=== PATIENT | male | born 1945 | race Caucasian/White ===

== ENCOUNTER → 2017-11-05 12:53 | Outpatient (CLI) | payer OTHER, SELFPAY ==
[2017-11-05 13:24] LABS: Add Manual Diff / Slide Review NO; Basophils Percent Auto 0.6 % (0-2); Hematocrit 46.4 % (41-53); Hemoglobin 16.1 g/dL (13.5-17.5); Lymphocytes Percent Auto 21.8 % (25-40); Mean Corpuscular HGB Conc 34.7 % (30-36); Mean Corpuscular Hemoglobin 34.6 PG (26-34); Mean Corpuscular Volume 99.7 fL (80-100); Monocytes Percent Auto 8.8 % (3-14); Neutrophils Absolute Auto 4600 /uL (3000-5900); Neutrophils Percent Auto 67.8 % (50-75); Platelet Count 152 X10^3/uL (150-400); Red Blood Cell Count 4.65 X10^6/uL (4.5-5.9); Red Cell Distribution Width 13.3 % (11.6-14.8); White Blood Cell Count 6.8 X10^3/uL (4.5-11.0)
[2017-11-05 13:34] LABS: Hemoglobin A1C% w Est Avg Glu 5.9 % (4.0-6.0)
[2017-11-05 13:55] LABS: Blood Urea Nitrogen 16 mg/dL (9-20); Calcium 9.6 mg/dL (8.4-10.2); Carbon Dioxide 25 mmol/L (22-32); Chloride 101 mmol/L (98-107); Estimated Glomerular Filt Rate > 60.0 mL/min (>60); Glucose 124 mg/dL (80-110); HEMOLYSIS 18 (0-50); Potassium 4.3 mmol/L (3.4-5.1); Sodium 138 mmol/L (137-145)
== END ==
PROVIDERS: PCP Family Medicine; Visit Provider Family Medicine
DX: E11.9 Type 2 diabetes mellitus without complications (principal)
CPT/HCPCS: 36415; 80048; 83036; 85025

== ENCOUNTER → 2017-11-12 13:33 | Outpatient (CLI) | payer OTHER, SELFPAY ==
--- NOTE | 2017-11-12 13:34 | DI.US.S_ITS ---
PROCEDURE: US CAROTID DOPPLER BI INDICATIONS: dizzy TECHNIQUE: Color and pulse Doppler interrogation was performed of both carotid systems, with image documentation and velocity measurements. COMPARISON: [facility], US, CAROTID ARTERY DOPPLER BILAT, 01/03/2015, 13:29. FINDINGS: Stenosis calculations are based on SRU (Society of Radiologists in Ultrasound) criteria. Right side: Brachial blood pressure: 122/67 mm Hg. Common carotid artery peak systolic velocity: 107 cm/sec. Internal carotid artery peak systolic velocity: 78 cm/sec. Internal carotid artery end diastolic velocity: 14 cm/sec. External carotid artery peak systolic velocity: 107 cm/sec. ICA/CCA peak systolic ratio: 0.7. Lopez scale imaging description: Mild scattered plaque. Percent internal carotid artery stenosis: Less than 50%. Vertebral artery: Flow direction is antegrade. Left side: Brachial blood pressure: 126/77 mm Hg. Common carotid artery peak systolic velocity: 89 cm/sec. Internal carotid artery peak systolic velocity: 99 cm/sec. Internal carotid artery end diastolic velocity: 25 cm/sec. External carotid artery peak systolic velocity: 81 cm/sec. ICA/CCA peak systolic ratio: 1.1. Lopez scale imaging description: Mild scattered plaque. Percent internal carotid artery stenosis: Less than 50%. Vertebral artery: Flow direction is antegrade. IMPRESSION: Less than 50% bilateral internal carotid artery stenosis. Dictated by: Misael Wallace [facility] Interpreted: Pawan Son MD on 11/12/2017 at 14:52 Approved by: Pawan Son M.D. on 11/13/2017 at 10:38
== END ==
PROVIDERS: PCP Family Medicine; Visit Provider Family Medicine
DX: R42 Dizziness and giddiness (principal)
CPT/HCPCS: 93880

== ENCOUNTER 2017-12-27 13:13 | Emergency (ER) | payer OTHER, SELFPAY ==
--- NOTE | 2017-12-27 | DI.CT.S_ITS ---
PROCEDURE: CT HEAD/BRAIN WO CON INDICATIONS: POSSIBLE STROKE TECHNIQUE: Noncontrast 4.5 mm thick angled axial sections acquired from the foramen magnum to the vertex, with coronal and sagittal reformats. For radiation dose reduction, the following was used: automated exposure control, adjustment of mA and/or kV according to patient size. COMPARISON: [facility], MR, BRAIN W&WO CONTRAST, 06/22/2014, 16:03. [facility], CT, HEAD WITHOUT CONTRAST, 03/10/2014, 13:49. FINDINGS: Image quality: Excellent. CSF spaces: Basal cisterns are patent. No extra-axial fluid collections. There is moderate cerebral volume loss, with resultant ventricular and sulcal prominence. There is also ex vacuo dilatation of the temporal horn of the left lateral ventricle secondary to a prior infarct. Brain: No intracranial hemorrhage, mass, or mass effect. There is encephalomalacia involving the left temporal lobe and insular cortex consistent with sequelae of a prior infarct. Bilateral subcortical and periventricular areas of white matter hyperattenuation are also demonstrated consistent with moderate chronic small vessel ischemic changes. A small focal hypodensity is redemonstrated in the left hudson radiata likely representing prominent perivascular space. Skull and face: Calvarium and visualized facial bones appear intact, without suspicious lesions. Sinuses: Visualized sinuses and mastoids are clear. IMPRESSION: 1. No definite acute intracranial abnormality. 2. Left-sided encephalomalacia predominantly involving the left temporal lobe and insular cortex consistent with sequelae of a prior infarct. 3. Moderate chronic white matter small vessel ischemic changes and cerebral volume loss. If there is persistent clinical suspicion for an acute infarct, further evaluation may be obtained with MRI. Dictated by: Timi Lugo M.D. on 12/27/2017 at 13:41 Approved by: Timi Lugo M.D. on 12/27/2017 at 13:49
[2017-12-27 13:21] VITALS: BP 132/75; PULSE 70; RESP 16; O2SAT 97; BMI 35.4
--- NOTE | 2017-12-27 13:24 | PC.NURSE ---
Code stroke called 1317. R sided numbness and tingling. prev stroke 2011 ischemic w/o tPa. IV access obtained and pt placed on portable monitor and taken down to CT at this time with YAMIL Piedra.
--- NOTE | 2017-12-27 13:29 | PC.NURSE ---
Pt having R sided tingling and numbness this morning LKN 1245. Prev CVA w/o tpa 2010 per . Pt poor historian. Currently being treated for herpes encephalitis.
--- NOTE | 2017-12-27 13:31 | PC.NURSE ---
back from CT at this time.
--- NOTE | 2017-12-27 13:44 | DI.CT.S_ITS ---
PROCEDURE: CT ANGIO HEAD AND NECK INDICATIONS: ?TIA, increased right sided weakness TECHNIQUE: Pre-contrast 4.5 mm thick sections acquired from the foramen magnum to the vertex. After the administration of intravenous contrast, 1 mm thick sections acquired from the aortic arch through the [place] of [place]. Post-contrast 4.5 mm thick sections then re-acquired from the foramen magnum to the vertex. 3-dimensional rmrccyk-vogihxdbm-qgjwlemerx (MIP) and/or volume rendering reformats were acquired of the central intracranial vasculature and neck separately. COMPARISON: [facility], MR, STROKE PROTOCOL A, 07/28/2010, 9:48. [facility], MR, BRAIN WITHOUT CONTRAST, 07/16/2015, 14:27. [facility], CT, CT HEAD/BRAIN WO CON, 12/27/2017, 13:22. FINDINGS: Image quality: Excellent. BRAIN: CSF spaces: There is moderate cerebral volume loss redemonstrated with prominence of the ventricles and sulci. Ex vacuo dilatation of the left lateral ventricle is also again noted. Basal cisterns are patent. Brain: No new intracranial mass effect or mass. There is a region of encephalomalacia predominantly involving the medial left temporal lobe and insular cortex redemonstrated consistent with a prior infarct. No abnormal intracranial enhancement. Moderate chronic white matter small vessel ischemic changes again noted. Skull and face: Calvarium and facial bones appear intact, without suspicious lesions. Orbits appear normal. Sinuses: Sinuses and mastoids are clear. HEAD CT ANGIOGRAPHY: Anterior circulation: Intracranial internal carotid arteries are patent bilaterally. There is multifocal atherosclerotic plaque along the cavernous segments of the internal carotid arteries without focal high-grade stenosis. The paired anterior cerebral arteries are patent bilaterally. The middle cerebral arteries are patent bilaterally. The anterior communicating artery appears patent. No high-grade stenosis, occlusion, or aneurysms identified. Posterior circulation: Visualized portions of the vertebral arteries demonstrate are patent bilaterally and join to form a patent basilar artery. The posterior cerebral arteries are patent bilaterally. No high-grade stenoses, vascular occlusion, or aneurysm identified. NECK CT ANGIOGRAPHY: Carotid system: The great vessels demonstrate conventional anatomy as they arise from the aortic arch. The origins of the common carotid arteries appear patent. The common carotid arteries demonstrate normal caliber and courses. There is mild atherosclerotic plaque in the left carotid bulb with minimal narrowing. The internal carotid arteries demonstrate normal calibers and courses. Posterior circulation: The origins of the vertebral arteries both appear widely patent. The more superior extracranial portions of both vertebral arteries also demonstrate normal courses and calibers. They join to form a normal appearing basilar artery. IMPRESSION: 1. No definite acute intracranial abnormality. 2. No high-grade stenosis or occlusion of the central intracranial arteries. 3. No high-grade stenosis or occlusion of the head and neck arteries. There is minimal narrowing in the left carotid bulb. Any quantitative measurements of stenosis were performed using NASCET criteria. Dictated by: Timi Lugo M.D. on 12/27/2017 at 15:14 Approved by: Timi Lugo M.D. on 12/27/2017 at 15:21
[2017-12-27 13:49] VITALS: BP 130/54; PULSE 64; RESP 17; O2SAT 94
[2017-12-27 13:57] LABS: INR 1.1 (0.9-1.3); Prothrombin Time 11.5 SECONDS (10.1-12.7)
[2017-12-27 13:58] LABS: Add Manual Diff / Slide Review NO; Basophils Percent Auto 0.3 % (0-2); Eosinophils Percent Auto 0.8 % (2-4); Hematocrit 47.8 % (41-53); Hemoglobin 16.7 g/dL (13.5-17.5); Mean Corpuscular Hemoglobin 34.7 PG (26-34); Mean Corpuscular Volume 99.3 fL (80-100); Monocytes Percent Auto 6.1 % (3-14); Neutrophils Absolute Auto 5800 /uL (3000-5900); Neutrophils Percent Auto 73.8 % (50-75); Platelet Count 166 X10^3/uL (150-400); Red Blood Cell Count 4.81 X10^6/uL (4.5-5.9); Red Cell Distribution Width 13.4 % (11.6-14.8); White Blood Cell Count 7.9 X10^3/uL (4.5-11.0)
[2017-12-27 13:59] LABS: Blood Urea Nitrogen 16 mg/dL (9-20); Calcium 9.6 mg/dL (8.4-10.2); Carbon Dioxide 26 mmol/L (22-32); Chloride 100 mmol/L (98-107); Estimated Glomerular Filt Rate > 60.0 mL/min (>60); Glucose 202 mg/dL (80-110); HEMOLYSIS 27 (0-50); Potassium 4.5 mmol/L (3.4-5.1); Sodium 138 mmol/L (137-145)
[2017-12-27 14:00] LABS: PTT Partial Thromboplastin Tim 33 SECONDS (26.4-36.2)
--- NOTE | 2017-12-27 14:00 | PC.NURSE ---
pt states he has no symptoms at this time. Everything has resolved a this time.
[2017-12-27 14:11] LABS: Troponin I < 0.012 ng/mL (0.01-0.034)
[2017-12-27 14:45] VITALS: BP 138/72; PULSE 60; RESP 14; O2SAT 94
[2017-12-27 15:51] LABS: Bacteria Urine None Seen; RBC Urine None Seen (0-5/HPF); WBC Urine None Seen (0-5/HPF)
[2017-12-27 16:07] LABS: Appearance Urine UA CLEAR; Bilirubin Urine UA NEGATIVE (NEGATIVE); Color Urine UA YELLOW; Glucose Urine UA NEGATIVE (Normal); Ketones Urine UA NEGATIVE (NEGATIVE); Leukocyte Esterase Urine UA NEGATIVE (NEGATIVE); Nitrite Urine UA Negative (Negative); Occult Blood Urine UA NEGATIVE (Negative); Protein Urine UA NEGATIVE (Negative); Urobilinogen Urine UA 0.2 E.U./dL (0.2)
[2017-12-27 16:12] LABS: Urine Amphetamines Negative (Negative); Urine Barbiturates Negative (Negative); Urine Benzodiazepines Negative (Negative); Urine Cocaine Negative (Negative); Urine MDMA Negative (Negative); Urine Methadone Negative (Negative); Urine Methamphetamines Negative (Negative); Urine Morphine/Opi cutoff 2000 Negative (Negative); Urine Oxycodone Negative (Negative); Urine Phencyclidine Negative (Negative); Urine Tetrahydrocannabinol Negative (Negative); Urine Tricyclic Antidepressant Negative (Negative)
[2017-12-27 16:17] LABS: Culture Indicated Urine Cult Not Indicated; Squamous Epithelial Cell Urine 1-5 /HPF
--- NOTE | 2017-12-27 16:30 | PC.NURSE ---
PT UPSET HE HAS NOT BEEN SEEN BY PROVIDER TO EXPLAIN CT RESULTS. LISTENED TO PTS CONCERNS. PROVIDER AWARE. NO NEW ORDERS AT THIS TIME.
[2017-12-27 17:00] VITALS: BP 132/92; PULSE 62; RESP 13; O2SAT 95
--- NOTE | 2017-12-27 17:36 | ED_ITS ---
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 Patient denies recent illness, patient is accompanied by his spouse who corroborates history, patient spouse noted that the patient had slight increase right leg weakness while attempting to ambulate. Patient's prior neuro deficits involved right upper and lower extremity weakness. Patient takes no anticoagulation, patient is on long-term valacyclovir. Patient had prominent psychiatric symptoms of the time of his herpes encephalitis, he has had no similar symptoms on today's presentation. M/S/F/SocHx notable for: please see HPI; remainder reviewed with patient and in chart. ROS: Negative constitutional, eye, cardiovascular, pulmonary, GI, , MSK, skin , neurologic, psychiatric, endocrine unless noted in the HPI. Exam Gen: Pleasant, nontoxic-appearing, resting comfortably. HEENT: NC, AT, PEERL, EOMI. Resp: Clear to auscultation bilaterally, normal work of breathing, no accessory muscle usage. Card: Regular rate and rhythm with no murmurs, rubs, or gallops, extremities warm and well perfused. GI: Non-tender to palpation throughout all quadrants, no focal tenderness at McBurney's point, negative Cage's sign, non-distended, no rebound or guarding. : No suprapubic tenderness to palpation. MSK: No visible deformities, strength and tone without visually appreciable deficit. Skin: Normal color with no visible lesions. Neuro: Gen AO x 3, no facial asymmetry, no gaze preference, no slurring of speech. CN II-III: pupils equal and reactive (4->2mm bilaterally); III, IV, : EOMI, V1-V3: sensation to touch bilaterally intact; VII: no facial asymmetry ( frown / smile); VIII: no nystagmus; X: phonation intact, uvula midline; XI: trapezius 5/5 bilaterally, XII: tongue midline. Cerebellar: no pronator drift bilaterally, feckpx-nm-[id number] testing without dysmetria bilaterally, heel to [place] without dysmetria bilaterally. Patient with a prominent right hand resting tremor that suppresses with movement. Motor: bilateral 5/5 desktop support specialist strength and intact hand sensation to touch, bilateral 5/5 dorsiflexion/plantarflexion and foot sensation intact to touch. Psych: Mood and affect appropriate. Labs (pertinent): glucose 202 WBC 7.9, Hb 16.7, PLT 166, Na 138, K 4.5, Cr 1.00. Troponin < 0.012 PT/INR 1.1, aPTT 33 Imaging (pertinent): CT Head: no definite acute intracranial abnormality. Left sided encephalomalacia predominantly involving the left temporal lobe and insular cortex consistent with sequela of prior infarct. Moderate chronic white matter small vessel ischemic changes and cerebral volume loss. CTA Head and Neck: no definite acute intracranial abnormality. No high-grade stenoses or inclusion of the central intracranial arteries. No high-grade stenoses or occlusion of the head and neck arteries. There is minimal narrowing of the left carotid bulb. EKG: SR at [address]-segment elevations or depressions, T-wave inversions or new LBBB. UA - negative leukocyte esterase, negative nitrate, 1-5 squamous epithelial cells, no bacteria. MDM Previous chart, nursing note, labs, imaging, and vitals reviewed. 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 DDx: CVA (hemorrhagic, ischemic), TIA, seizure with Star?s paralysis, complex migraine with aura, hypoglycemia, transient global amnesia, arrhythmia/ACS, peripheral vestibulopathy, functional / conversion disorder, intracranial mass ( tumor, SDH), metabolic. Evaluation: * discussed at approximately 1:48 PM with the Tele neurologist on-call, TPA not indicated, patient unlikely to be having ischemic CVA given the positive symptoms (rather than absence of neuro symptoms), furthermore in the unlikely event of a true ischemic CVA the mildness of the symptoms as well as abnormal ST[employer]CH[employer]ICIAN parenchyma makes the patient a poor candidate for TPA and it is not indicated. * Patient with resolution of symptoms, while this lease TIA on the differential the initial presentation was felt to be highly unlikely to be secondary to the ischemic event making this less likely. A recrudescence the patient's prior cerebral abnormalities is more likely. No clear insulting events could be identified. CTA head without evidence of stenoses. ECG without evidence of arrhythmia, no abnormal rhythms of monitoring. Patient is felt to be low risk with respect to near future CVAs. History is without evidence of seizure, no clear evidence of complex migraine with aura, no evidence of hypoglycemia, transient global amnesia, peripheral vestibulopathy, or functional disorder. Imaging without evidence of intracranial mass. History and exam are without features concerning for Mollaret syndrome. Repeat evaluation approximately 5:30 PM patient with full resolution symptoms (early in his ED course), all questions answered, discussed admission versus prompt outpatient follow-up. Reviewed the low, but not entirely absent, probability of a TIA. Patient wishes to follow up tomorrow with his neurologist. Has had extensive prior imaging on MRI at , his neurologist is noted that he prefer subsequent imaging to be on the same machine to allow for appropriate comparison. Patient was discharged with neurology follow-up recommended and return to care precautions provided. Impression: right arm paresthesias (resolved) (please reference below for remainder of encounter information) Related Data Home Medications Medication Instructions Recorded Confirmed ASPIRIN (Aspir-Low) 81 mg PO Q DAY #0 12/12/10 12/03/17 carbidopa-levodopa 0 PO TID #0 tab 10/24/16 12/03/17 valacyclovir 500 mg tablet 500 mg PO DAILY 11/05/17 12/03/17 Previous Rx's Medication Instructions Recorded nystatin [Nystop] 100,000 unit TOPICAL BID #30 gm 10/21/16 lacosamide [Vimpat] 200 mg PO BID #180 tab 12/05/16 atenolol 75 mg PO BID #270 tab 03/03/17 finasteride 5 mg PO QDAY #90 tab 03/03/17 pantoprazole [Protonix] 40 mg PO QDAY #30 tab 07/14/17 levothyroxine [Synthroid] 75 mcg PO Q DAY #90 tab 08/04/17 metformin [Glucophage] 250 mg PO QDAY #45 tab 08/04/17 atorvastatin 10 mg tablet 10 mg PO HS #90 tab 11/03/17 furosemide 40 mg tablet 40 mg PO QDAY PRN #30 tab 11/05/17 losartan 25 mg tablet 25 mg PO DAILY #30 tab 11/05/17 dextroamphetamine-amphetamine 20 20 mg PO DAILY #30 tab 12/03/17 mg tablet escitalopram 10 mg tablet 30 mg PO DAILY #180 tab 12/03/17 Allergies Allergy/AdvReac Type Severity Reaction Status Date / Time No Known Drug Allergies Allergy Unverified 11/05/17 11:59 [facility] Social History Smoking Status: Never smoker Exam Initial Vital Signs Initial Vital Signs: Vital Signs Pulse Rate 70 12/27/17 13:21 Respiratory Rate 16 12/27/17 13:21 Blood Pressure 132/75 H 12/27/17 13:21 Pulse Oximetry 97 12/27/17 13:21 Course Orders Ordered: ED Orders 12/27/17 13:22 Basic Metabolic Panel Stat Complete Blood Count AUTO DIFF Stat Partial Thromboplastin Time Stat Prothrombin Time INR Stat Troponin I Stat 12/27/17 13:43 EKG-12 Lead Stat 12/27/17 13:44 CT angio head and neck Stat 12/27/17 15:45 Urinalysis and Microscopic Stat Urine Drug Screen, Rapid Stat Sodium Chloride (Normal Saline 0.9%) 1,000 mls @ 150 mls/hr IV CONT MITESH Last Admin: 12/27/17 13:51 Dose: Vital Signs - 8 hr 12/27/17 13:21 12/27/17 13:49 12/27/17 14:45 Pulse Rate 70 64 60 Respiratory Rate 16 17 14 Blood Pressure 132/75 H Blood Pressure [Left Arm] 130/54 H 138/72 H Pulse Oximetry 97 94 94 12/27/17 17:00 Pulse Rate 62 Respiratory Rate 13 Blood Pressure Blood Pressure [Left Arm] 132/92 H Pulse Oximetry 95 MDM - Neuro Symptoms/Deficit Lab Data Result diagrams: 12/27/17 13:22 12/27/17 13:22 Lab Results 12/27/17 12/27/17 12/27/17 Range/Units 13:22 13:22 13:22 WBC 7.9 (4.5-11.0) X10^3/uL RBC 4.81 (4.5-5.9) X10^6/uL Hgb 16.7 (13.5-17.5) g/dL Hct 47.8 (41-53) % MCV 99.3 (80-100) fL MCH 34.7 H (26-34) PG MCHC 35.0 (30-36) % RDW 13.4 (11.6-14.8) % Plt Count 166 (150-400) X10^3/uL Neut % (Auto) 73.8 (50-75) % Lymph % (Auto) 19.0 L (25-40) % [place] % (Auto) 6.1 (3-14) % Eos % (Auto) 0.8 L (2-4) % Baso % (Auto) 0.3 (0-2) % Neut # (Auto) 5800 (7627-0651) /uL PT 11.5 (10.1-12.7) SECONDS INR 1.1 (0.9-1.3) APTT 33 (26.4-36.2) SECONDS Sodium 138 (137-145) mmol/L Potassium 4.5 (3.4-5.1) mmol/L Chloride 100 (98-107) mmol/L Carbon Dioxide 26 (22-32) mmol/L BUN 16 (9-20) mg/dL Creatinine 1.00 (0.66-1.25) mg/dL Estimated GFR > 60.0 (>60) mL/min BUN/Creatinine Ratio 16.0 (6-22) Glucose 202 H (80-110) mg/dL Calcium 9.6 (8.4-10.2) mg/dL Troponin I < 0.012 (0.01-0.034) ng/mL Urine Color Urine Appearance Urine pH (4.5-8.0) Ur Specific [place] (1.000-1.035) Urine Protein (Negative) Urine Glucose (UA) (Normal) g/dL Urine Ketones (NEGATIVE) Urine Occult Blood (Negative) Urine Nitrate (Negative) Urine Bilirubin (NEGATIVE) Urine Urobilinogen (0.2) E.U./dL Ur Leukocyte Esterase (NEGATIVE) Urine RBC (0-5/HPF) Urine WBC (0-5/HPF) Ur Squamous Epith Cells Urine Bacteria (None) Ur Culture Indicated? Micro UA Comment Urine Opiates Screen (Negative) Ur Oxycodone Screen (Negative) Urine Methadone Screen (Negative) Ur Barbiturates Screen (Negative) U Tricyclic Antidepress (Negative) Ur Phencyclidine Scrn (Negative) Ur Amphetamines Screen (Negative) U Methamphetamines Scrn (Negative) Ur MDMA Scrn (Ecstasy) (Negative) U Benzodiazepines Scrn (Negative) Urine Cocaine Screen (Negative) U Marijuana (THC) Screen (Negative) 12/27/17 12/27/17 Range/Units 15:45 15:45 WBC (4.5-11.0) X10^3/uL RBC (4.5-5.9) X10^6/uL Hgb (13.5-17.5) g/dL Hct (41-53) % MCV (80-100) fL MCH (26-34) PG MCHC (30-36) % RDW (11.6-14.8) % Plt Count (150-400) X10^3/uL Neut % (Auto) (50-75) % Lymph % (Auto) (25-40) % [place] % (Auto) (3-14) % Eos % (Auto) (2-4) % Baso % (Auto) (0-2) % Neut # (Auto) (9039-7688) /uL PT (10.1-12.7) SECONDS INR (0.9-1.3) APTT (26.4-36.2) SECONDS Sodium (137-145) mmol/L Potassium (3.4-5.1) mmol/L Chloride (98-107) mmol/L Carbon Dioxide (22-32) mmol/L BUN (9-20) mg/dL Creatinine (0.66-1.25) mg/dL Estimated GFR (>60) mL/min BUN/Creatinine Ratio (6-22) Glucose (80-110) mg/dL Calcium (8.4-10.2) mg/dL Troponin I (0.01-0.034) ng/mL Urine Color Yellow Urine Appearance Clear Urine pH 5.0 (4.5-8.0) Ur Specific [place] 1.010 (1.000-1.035) Urine Protein Negative (Negative) Urine Glucose (UA) Negative (Normal) g/dL Urine Ketones Negative (NEGATIVE) Urine Occult Blood Negative (Negative) Urine Nitrate Negative (Negative) Urine Bilirubin Negative (NEGATIVE) Urine Urobilinogen 0.2 (0.2) E.U./dL Ur Leukocyte Esterase Negative (NEGATIVE) Urine RBC None seen (0-5/HPF) Urine WBC None seen (0-5/HPF) Ur Squamous Epith Cells 1-5 /hpf Urine Bacteria None seen (None) Ur Culture Indicated? Cult not indicated Micro UA Comment Not Reportable Urine Opiates Screen Negative (Negative) Ur Oxycodone Screen Negative (Negative) Urine Methadone Screen Negative (Negative) Ur Barbiturates Screen Negative (Negative) U Tricyclic Antidepress Negative (Negative) Ur Phencyclidine Scrn Negative (Negative) Ur Amphetamines Screen Negative (Negative) U Methamphetamines Scrn Negative (Negative) Ur MDMA Scrn (Ecstasy) Negative (Negative) U Benzodiazepines Scrn Negative (Negative) Urine Cocaine Screen Negative (Negative) U Marijuana (THC) Screen Negative (Negative) Discharge Plan Departure Prescriptions: No Action ASPIRIN (Aspir-Low) 81 mg PO Q DAY Qty: 0 RF: 0 nystatin [Nystop] 30 GM powder 100,000 unit Topical BID Qty: 30 RF: 2 carbidopa-levodopa 25 MG/100 MG tablet PO TID Qty: 0 RF: 0 lacosamide [Vimpat] 200 MG tablet 200 mg PO BID Qty: 180 RF: 2 atenolol 50 MG tablet 75 mg PO BID Qty: 270 RF: 3 finasteride 5 MG tablet 5 mg PO QDAY Qty: 90 RF: 3 pantoprazole [Protonix] 40 MG tablet,delayed release (DR/EC) 40 mg PO QDAY Qty: 30 RF: 5 metformin [Glucophage] 500 MG tablet 250 mg PO QDAY Qty: 45 RF: 3 levothyroxine [Synthroid] 75 MCG tablet 75 mcg PO Q DAY Qty: 90 RF: 3 atorvastatin [Lipitor] 10 mg tablet 10 mg PO HS Qty: 90 RF: 3 valacyclovir 500 mg tablet 500 mg PO DAILY RF: 0 losartan 25 mg tablet 25 mg PO DAILY Qty: 30 RF: 5 furosemide 40 mg tablet 40 mg PO QDAY PRN (Reason: edema) Qty: 30 RF: 5 dextroamphetamine-amphetamine [Adderall] 20 mg tablet 20 mg PO DAILY Qty: 30 RF: 0 escitalopram oxalate [Lexapro] 10 mg tablet 30 mg PO DAILY Qty: 180 RF: 2
[2017-12-27 17:53] VITALS: BP 145/71; PULSE 65; RESP 20; O2SAT 93
== END 2017-12-27 17:56 | disposition home or self-care (01) ==
PROVIDERS: Emergency Provider Emergency Medicine; PCP Family Medicine
DX: R20.2 Paresthesia of skin (principal); Z86.73 Personal history of transient ischemic attack (TIA), and cerebral infarction without residual deficits
CPT/HCPCS: 36591; 70450; 70496; 70498; 80048; 80305; 81001; 84484; 85025; 85610; 85730; 93005; 93010; 99283; 99285; 99291; Q9967

== ENCOUNTER → 2018-05-13 10:09 | Outpatient (CLI) | payer OTHER, SELFPAY ==
[2018-05-17 22:10] LABS: Immunoglobulin A 102 mg/dL (81-463)
== END ==
PROVIDERS: Family Provider Family Medicine; PCP Family Medicine; Visit Provider Internal Medicine
DX: Z86.19 Personal history of other infectious and parasitic diseases (principal)
CPT/HCPCS: 36415; 82784

== ENCOUNTER → 2018-05-17 15:06 | Outpatient (CLI) | payer OTHER, SELFPAY ==
[2018-05-17 15:45] LABS: Add Manual Diff / Slide Review NO; Basophils Percent Auto 0.7 % (0-2); Eosinophils Percent Auto 1.4 % (2-4); Hematocrit 48.4 % (41-53); Hemoglobin 16.5 g/dL (13.5-17.5); Lymphocytes Percent Auto 20.5 % (25-40); Mean Corpuscular HGB Conc 34.1 % (30-36); Mean Corpuscular Hemoglobin 34.1 PG (26-34); Monocytes Percent Auto 11.1 % (3-14); Neutrophils Absolute Auto 4700 /uL (1500-7000); Neutrophils Percent Auto 66.3 % (50-75); Platelet Count 150 X10^3/uL (150-400); Red Blood Cell Count 4.84 X10^6/uL (4.5-5.9); White Blood Cell Count 7.1 X10^3/uL (4.5-11.0)
[2018-05-17 15:53] LABS: Hemoglobin A1C% w Est Avg Glu 6.3 % (4.0-6.0)
[2018-05-17 16:09] LABS: Alanine Aminotransferase 21 IU/L (21-72); Albumin 4.2 g/dL (3.5-5.0); Albumin Globulin Ratio 1.7 (1.0-2.8); Alkaline Phosphatase 76 U/L (38-126); Aspartate Aminotransferase 21 IU/L (17-59); BUN Creatinine Ratio 22.2 (6-22); Bilirubin Total 0.4 mg/dL (0.2-1.3); Blood Urea Nitrogen 20 mg/dL (9-20); Calcium 9.5 mg/dL (8.4-10.2); Carbon Dioxide 26 mmol/L (22-32); Chloride 101 mmol/L (98-107); Estimated Glomerular Filt Rate > 60.0 mL/min (>60); Globulin 2.5 g/dL (1.7-4.1); Glucose 118 mg/dL (80-110); HEMOLYSIS < 15 (0-50); Potassium 4.6 mmol/L (3.4-5.1); Sodium 138 mmol/L (137-145); Total Protein 6.7 g/dL (6.3-8.2)
[2018-05-17 16:26] LABS: Free T3, Triiodothyronine Free 3.03 pg/mL (2.77-5.27); Free T4, Direct Thyroxine 1.01 ng/dL (0.78-2.19)
[2018-05-17 16:27] LABS: Vitamin D 25 Hydroxy (D3) 26.3 ng/mL (30.0-100.0)
[2018-05-17 16:40] LABS: Thyroid Stimulating Hormone 6.31 uIU/mL (0.47-4.68)
[2018-05-17 16:59] LABS: Vitamin B12 421 pg/mL (239-931)
== END ==
PROVIDERS: Family Provider Family Medicine; PCP Family Medicine; Visit Provider Family Medicine
DX: E11.9 Type 2 diabetes mellitus without complications (principal); E55.9 Vitamin D deficiency, unspecified
CPT/HCPCS: 36415; 80053; 82306; 82607; 83036; 84439; 84443; 84481; 85025

== ENCOUNTER → 2018-05-24 09:51 | Outpatient (CLI) | payer OTHER, SELFPAY ==
[2018-05-24 10:52] LABS: Hemoglobin A1C% w Est Avg Glu 6.4 % (4.0-6.0)
[2018-05-24 11:14] LABS: Vitamin D 25 Hydroxy (D3) 28.7 ng/mL (30.0-100.0)
[2018-05-24 11:35] LABS: Thyroid Stimulating Hormone 6.14 uIU/mL (0.47-4.68)
== END ==
PROVIDERS: PCP Family Medicine; Visit Provider Family Medicine
DX: E03.9 Hypothyroidism, unspecified (principal); E11.9 Type 2 diabetes mellitus without complications; E55.9 Vitamin D deficiency, unspecified
CPT/HCPCS: 36415; 82306; 83036; 84443

== ENCOUNTER 2018-05-24 21:39 | Emergency (ER) | payer OTHER, SELFPAY ==
[2018-05-24] VITALS (7 sets, daily range): BP systolic 148–186; BP diastolic 73–92; PULSE 58–85; RESP 14–20; TEMP 37; O2SAT 94–97; BMI 37.4
--- NOTE | 2018-05-24 21:35 | DI.CT.S_ITS ---
PROCEDURE: CT HEAD/BRAIN WO CON INDICATIONS: possible stroke TECHNIQUE: Noncontrast 4.5 mm thick angled axial sections acquired from the foramen magnum to the vertex, with coronal and sagittal reformats. For radiation dose reduction, the following was used: automated exposure control, adjustment of mA and/or kV according to patient size. COMPARISON: [facility], CT, CT ANGIO HEAD AND NECK, 12/27/2017, 14:16. [facility], CT, CT HEAD/BRAIN WO CON, 12/27/2017, 13:22. FINDINGS: Image quality: Excellent. CSF spaces: Basal cisterns are patent. No extra-axial fluid collections. The ventricles are symmetric in size and shape. Brain: No intracranial bleeds or masses. There is cerebral volume loss for age, with resultant ventricular and sulcal prominence. There are periventricular and deep white matter chronic small vessel ischemic changes. There is intracranial internal carotid artery atherosclerosis. Old left temporal infarction. Skull and face: Calvarium and visualized facial bones appear intact, without suspicious lesions. Sinuses: Visualized sinuses and mastoids are clear. IMPRESSION: 1. No acute intracranial process. 2. Moderate atrophy and chronic microvascular ischemic changes. Dictated by: Rosina Bronson M.D. on 05/24/2018 at 21:56 Approved by: Rosina Bronson M.D. on 05/24/2018 at 21:57
--- NOTE | 2018-05-24 21:40 | ED.NEUROSD ---
HPI - Neuro Symptoms/Deficit General Chief Complaint: Neuro Symptoms/Deficit Stated Complaint: Slurred Speech Time Seen by Provider: 05/24/18 21:40 Source: patient, family and EMS Mode of arrival: EMS Limitations: no limitations History of Present Illness HPI Narrative: Patient is a 72-year-old male brought in by EMS for concerns of a stroke. EMS reports that shortly after 2100 hr they were called by the patient's because he was sitting at the table playing a game when he had a sudden onset of slurring his words and word-finding issues. Patient's reports that back in 2013 he had a ischemic stroke. He is not currently on any anticoagulation. 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 Is currently taking anti seizure medication which he states he did take this evening. He did take a baby aspirin this morning. Upon arrival here in the emergency department patient stated that his symptoms had completely resolved. At the time of the speaking issues he had no other associated symptoms to include chest pain, palpitations, headache, vision changes or numbness or tingling or weakness in his upper lower extremities. Related Data Home Medications Medication Instructions Recorded Confirmed ASPIRIN (Aspir-Low) 81 mg PO Q DAY #0 12/12/10 05/17/18 carbidopa-levodopa 0 PO TID #0 tab 10/24/16 05/17/18 valacyclovir 500 mg tablet 500 mg PO DAILY 11/05/17 05/17/18 Previous Rx's Medication Instructions Recorded lacosamide [Vimpat] 200 mg PO BID #180 tab 12/05/16 atorvastatin 10 mg tablet 10 mg PO HS #90 tab 11/03/17 furosemide 40 mg tablet 40 mg PO QDAY PRN #30 tab 11/05/17 dextroamphetamine-amphetamine 20 20 mg PO DAILY #30 tab 12/03/17 mg tablet escitalopram 10 mg tablet 30 mg PO DAILY #180 tab 12/03/17 atenolol 75 mg PO BID #270 tab 01/20/18 finasteride 5 mg PO QDAY #90 tab 01/20/18 nystatin [Nystop] 100,000 unit TOPICAL BID #30 gm 02/22/18 pantoprazole 40 mg tablet,delayed 40 mg PO QDAY #90 tab 03/22/18 release losartan 25 mg tablet 25 mg PO DAILY #30 tab 04/19/18 cholecalciferol (vitamin D3) 50,000 unit PO QWEEK #6 cap 05/18/18 50,000 unit capsule levothyroxine 88 mcg capsule 88 mcg PO DAILY #90 cap 05/18/18 Allergies Allergy/AdvReac Type Severity Reaction Status Date / Time No Known Drug Allergies Allergy Unverified 05/17/18 14:13 Review of Systems Review of Systems ROS Unobtainable: All systems reviewed & are unremarkable except as noted in HPI and below Constitutional Denies fever(s), Denies headache(s) and Denies weakness Eyes Denies change in vision and Denies diplopia ENT Ears, Nose, Mouth, and Throat: Denies vertigo, Denies dizziness, Denies facial pain, Denies headache(s), Denies lip swelling, Denies nasal congestion, Denies disequilibrium, Denies sinus pressure, Denies sore throat and Denies tongue swelling Cardiovascular Denies chest pain, Denies syncope, Denies rapid heart rate, Denies edema, Denies radiating jaw, neck or arm pain, Denies palpitations and Denies dyspnea Respiratory Denies cough, Denies pain with cough and Denies dyspnea Gastrointestinal Gastrointestinal: Denies abdominal pain, Denies nausea and Denies vomiting Genitourinary Denies dysuria Musculoskeletal Denies myalgias, Denies arthralgias, Denies muscle cramps, Denies muscle weakness, Denies numbness and Denies tingling Integumentary/Breasts Denies lesions and Denies rash Neurologic Reports abnormal speech, Denies confusion, Denies vertigo, Denies dizziness, Denies syncope, Denies headache(s), Denies lack of coordination, Denies memory loss, Denies numbness, Denies restless legs, Denies convulsions, Denies seizure-like activity, Denies sensory deficit, Denies tingling, Denies paresthesias, Denies disequilibrium and Denies weakness Psychiatric Denies confusion and Denies memory loss Endocrine Denies palpitations Hematologic/Lymphatic Denies easy bleeding and Denies easy bruising Allergic/Immunologic Denies lip swelling and Denies tongue swelling PFSH Medical History Depression (Acute) 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) Ischemic stroke (Acute) Seizures (Acute) Surgical History No pertinent past surgical history (Acute) Social History marital status: lives independently: Yes Smoking Status: Never smoker Exam Initial Vital Signs Initial Vital Signs: Vital Signs Temperature 98.6 F 05/24/18 21:48 Pulse Rate 63 05/24/18 21:48 Respiratory Rate 14 05/24/18 21:48 Blood Pressure 175/73 H 05/24/18 21:48 Pulse Oximetry 96 05/24/18 21:48 Const General: cooperative, healthy appearing, comfortable, well developed, well groomed and No acute distress Nutritional Appearance: overweight Orientation: alert, awake and oriented x3 HENMT Head: normal to inspection and normocephalic Eyes Eyelids: eyelids normal Pupils: PERRL Resp Effort & Inspection: normal respiratory effort and able to speak in complete sentences Auscultation: clear to auscultation bilaterally Cardio Rate: regular rate Rhythm: regular rhythm Pulses: radial pulses present GI Inspection: non-distended Palpation: soft, No firm and No tender Back/Spine/Pelvis Back: No CVA tenderness Skin Lesions: no lesions Rashes: no rashes Neuro General: alert, awake and oriented x3 Cranial Nerves: CN's II-XI intact bilaterally Cognition: normal cognition Speech: speech normal Motor: muscle tone normal throughout Sensory Exam: no sensory deficits noted Coordination: myfqdz-[id number] test normal Extrem General: normal to inspection, capillary refill normal and No edema Psych Appearance: grossly normal and well kempt Scores NIH Stroke Scale Level of Conciousness: Not alert, but arousable by minor stim to obey, answer or respond Ask month/age: Answers neither question correctly, aphasic, stuporous, coma Open/close eyes, close hand: Performs both tasks correctly Best gaze horizontal: Normal Visual richards: No visual loss Facial palsy: Partial paralysis, total or near total paralysis of lower face Left arm drift: No drift for full 10 sec Right arm drift: Some effort against gravity, cannot maintain, drifts down to bed Left leg drift: Drifts down, not to bed Right leg drift: Drifts down, not to bed Limb ataxia: Present in one limb Sensory on face/arms/legs: Normal, no sensory loss Best language: Severe aphasia, not much is understood, fragmented Dysarthria: Severe, unintelligible Extinction or inattention: No abnormality Total NIH Stroke scale score: 14 Course Orders Ordered: ED Orders 05/24/18 21:35 CT head/brain wo con Stat 05/24/18 21:43 EKG-12 Lead Stat 05/24/18 22:04 Basic Metabolic Panel Stat Complete Blood Count AUTO DIFF Stat Ethanol (ETOH) Stat Partial Thromboplastin Time Stat Prothrombin Time INR Stat Thyroid Stimulating Hormone Stat 05/24/18 22:09 CT angio head and neck Stat 05/24/18 22:56 Consult to Speech Therapy Evaluate & Treat Discontinued Medications Lorazepam (Ativan) 0.5 mg IV NOW ONE Stop: 05/24/18 22:54 Last Admin: 05/24/18 23:01 Dose: 0.5 mg Vital Signs - 8 hr 05/24/18 21:48 05/24/18 22:26 05/24/18 22:41 Temperature 98.6 F Pulse Rate 63 85 65 Respiratory Rate 14 18 19 Blood Pressure 175/73 H Blood Pressure [Left Arm] 179/81 H 186/84 H Pulse Oximetry 96 94 05/24/18 22:55 05/24/18 23:00 05/24/18 23:02 Temperature Pulse Rate 60 62 62 Respiratory Rate 20 19 18 Blood Pressure Blood Pressure [Left Arm] 173/74 H 174/92 H 148/77 H Pulse Oximetry 97 97 96 05/24/18 23:41 Temperature Pulse Rate 58 L Respiratory Rate 19 Blood Pressure Blood Pressure [Left Arm] 156/79 H Pulse Oximetry 97 MDM - Neuro Symptoms/Deficit Lab Data Attestation: I reviewed the patient's lab results. Result diagrams: 05/24/18 22:04 05/24/18 22:04 Lab Results 05/24/18 05/24/18 05/24/18 Range/Units 22:04 22:04 22:04 WBC 5.6 (4.5-11.0) X10^3/uL RBC 4.74 (4.5-5.9) X10^6/uL Hgb 16.1 (13.5-17.5) g/dL Hct 47.3 (41-53) % MCV 99.8 (80-100) fL MCH 34.0 (26-34) PG MCHC 34.1 (30-36) % RDW 13.6 (11.6-14.8) % Plt Count 159 (150-400) X10^3/uL Neut % (Auto) 60.8 (50-75) % Lymph % (Auto) 25.5 (25-40) % [place] % (Auto) 11.2 (3-14) % Eos % (Auto) 1.6 L (2-4) % Baso % (Auto) 0.9 (0-2) % Neut # (Auto) 3400 (9459-1978) /uL Lymph # (Auto) 1400 (2972-4479) /uL [place] # (Auto) 600 (0-900) /uL Eos # (Auto) 100 (0-450) /uL Baso # (Auto) 0 (0-100) /uL PT 10.6 (10.1-12.7) SECONDS INR 0.9 (0.9-1.3) APTT 30 D (26.4-36.2) SECONDS Sodium 139 (137-145) mmol/L Potassium 4.1 (3.4-5.1) mmol/L Chloride 103 (98-107) mmol/L Carbon Dioxide 26 (22-32) mmol/L BUN 20 (9-20) mg/dL Creatinine 0.90 (0.66-1.25) mg/dL Estimated GFR > 60.0 (>60) mL/min BUN/Creatinine Ratio 22.2 H (6-22) Glucose 150 H (80-110) mg/dL Calcium 9.2 (8.4-10.2) mg/dL TSH (0.47-4.68) uIU/mL Ethyl Alcohol < 10 mg/dL 05/24/18 Range/Units 22:04 WBC (4.5-11.0) X10^3/uL RBC (4.5-5.9) X10^6/uL Hgb (13.5-17.5) g/dL Hct (41-53) % MCV (80-100) fL MCH (26-34) PG MCHC (30-36) % RDW (11.6-14.8) % Plt Count (150-400) X10^3/uL Neut % (Auto) (50-75) % Lymph % (Auto) (25-40) % [place] % (Auto) (3-14) % Eos % (Auto) (2-4) % Baso % (Auto) (0-2) % Neut # (Auto) (0149-7912) /uL Lymph # (Auto) (1823-9503) /uL [place] # (Auto) (0-900) /uL Eos # (Auto) (0-450) /uL Baso # (Auto) (0-100) /uL PT (10.1-12.7) SECONDS INR (0.9-1.3) APTT (26.4-36.2) SECONDS Sodium (137-145) mmol/L Potassium (3.4-5.1) mmol/L Chloride (98-107) mmol/L Carbon Dioxide (22-32) mmol/L BUN (9-20) mg/dL Creatinine (0.66-1.25) mg/dL Estimated GFR (>60) mL/min BUN/Creatinine Ratio (6-22) Glucose (80-110) mg/dL Calcium (8.4-10.2) mg/dL TSH 3.60 D (0.47-4.68) uIU/mL Ethyl Alcohol mg/dL Point of Care Testing Glucose POC [address] scan - head: Radiologist's impression: No acute intracranial pathology CTA head and neck: Radiologist's impression: Calcification an intimal plaque in the proximal left internal carotid artery in the neck causes approximately 50% narrowing with left internal carotid artery in neck otherwise unremarkable. Mild intimal plaquing origin and proximal right internal carotid artery in the neck causing mild narrowing otherwise normal right internal carotid artery in the neck. Calcification causing minor narrowing distal intracranial internal carotid arteries in the cavernous sinus bilaterally. Marked narrowing of distal branches of left middle cerebral artery and proximal sylvian fissure axial images [id number] otherwise normal left middle cerebral artery. Approximately 50% narrowing A1 segment of the right anterior cerebral artery with the rest of the right anterior cerebral artery normal. This may be hypoplasia rather than true stenosis. Approximately 50% narrowing a P3 segment of the right posterior cerebral artery. ECG Data Attestation: I personally reviewed and interpreted this ECG as follows: Prior ECG tracings: not available for review Interpretation: Sinus rhythm Ventricular rate is 62 First degree AV block as needed oval 265 milliseconds Normal QRS Normal QTC Nonspecific ST T wave changes MDM Narrative Medical decision making narrative: Upon arrival here to the emergency department patient's symptoms that initially occurred at 2100 hr had completely resolved. He was not slurring his words. Had initial NIH score of 0. Initial head CT was unremarkable. After being here in the emergency department for approximately 30-45 minutes he had a recurrence of his symptoms and potential worsening of his symptoms. He again was slurring his words to the point that he was essentially aphasic. Was unable to lift his right arm off off the bed. Had a right facial droop. Repeat NIH score was 14. Patient is a tPA candidate. CTA of the head and neck was ordered. Patient's neurologist is Dr. Susana way [facility]. I discussed the case with Dr. Gutierrez stroke physician at [facility] was able to look up the patient's prior history. We had a long discussion on the phone regarding the patient's symptoms. The concern is whether not this presenting symptoms for seizure activity because Dr. gutierrez stated that in prior notes during patient's seizure activities he had right-sided weakness. Was also concerned that this could potentially be a true CVA. We did feel that given his NIH score 14 that if this was a true CVA there would be a large vessel occlusion which ended up not to be the case with the final read of the CTA. After further discussion with the report of the CTA the decision was made to give the patient 0.5 mg of Ativan and hold off on tPA. Upon re-evaluation the patient's symptoms were again improving. He still did have some slurring of his words however his right upper extremity weakness had almost completely resolved the same with his right facial droop. Unsure if this was the Ativan that improve this or time. [facility] was unable to accept the patient due to bed availability. I then discussed the case with Dr. Murphy the on-call stroke physician at [facility]. We discussed the case again. We did discuss the recommendations by Dr. Gutierrez. Dr Ford agreed to hold on tPA for now. [facility] is able to accept the patient under Dr. Murphy. Discussed transfer with the patient and his who was at bedside. They expressed understanding and agreement. Patient is stable for transport. Unable to send by air secondary to weather. Discharge Plan Departure Patient Disposition: [facility] Clinical Impression: Seizure, Dysarthria, Weakness of extremity Prescriptions: No Action ASPIRIN (Aspir-Low) 81 mg PO Q DAY Qty: 0 RF: 0 carbidopa-levodopa 25 MG/100 MG tablet PO TID Qty: 0 RF: 0 lacosamide [Vimpat] 200 MG tablet 200 mg PO BID Qty: 180 RF: 2 atorvastatin [Lipitor] 10 mg tablet 10 mg PO HS Qty: 90 RF: 3 finasteride 5 mg tablet 5 mg PO QDAY Qty: 90 RF: 3 atenolol 50 mg tablet 75 mg PO BID Qty: 270 RF: 3 nystatin [Nystop] 100,000 unit/gram powder 100,000 unit Topical BID Qty: 30 RF: 2 pantoprazole [Protonix] 40 mg tablet,delayed release (DR/EC) 40 mg PO QDAY Qty: 90 RF: 1 losartan 25 mg tablet 25 mg PO DAILY Qty: 30 RF: 5 levothyroxine 88 mcg capsule 88 mcg PO DAILY Qty: 90 RF: 1 cholecalciferol (vitamin D3) 50,000 unit capsule 50,000 unit PO QWEEK Qty: 6 RF: 0 valacyclovir 500 mg tablet 500 mg PO DAILY RF: 0 furosemide 40 mg tablet 40 mg PO QDAY PRN (Reason: edema) Qty: 30 RF: 5 dextroamphetamine-amphetamine [Adderall] 20 mg tablet 20 mg PO DAILY Qty: 30 RF: 0 escitalopram oxalate [Lexapro] 10 mg tablet 30 mg PO DAILY Qty: 180 RF: 2
--- NOTE | 2018-05-24 22:08 | PC.NURSE ---
PT STARTED HAVING SLURRED SPEECH, PROVIDER AWARE. PROVIDER AT BEDSIDE. PT TAKEN IMMEDIATELY TO CT FOR HEAD CT W/ CONTRAST. UPON ARRIVING BACK TO ROOM PT APPEARS TO HAVE RIGHT SIDED FACIAL DROOP AND RIGHT LEG WEAKNESS. PROVIDER AWARE. NO NEW ORDERS AT THIS TIME. [facility] NEUROLOGIST PAGED PER PROVIDER
--- NOTE | 2018-05-24 22:09 | DI.CT.S_ITS ---
PROCEDURE: CT ANGIO HEAD AND NECK INDICATIONS: TPA CANDIDATE, POSSIBLE STROKE, SLURRED SPEECH, WEAKNESS TECHNIQUE: Pre-contrast 4.5 mm thick sections acquired from the foramen magnum to the vertex. After the administration of intravenous contrast, 1 mm thick sections acquired from the aortic arch through the [place] of [place]. Post-contrast 4.5 mm thick sections then re-acquired from the foramen magnum to the vertex. 3-dimensional [id number] (MIP) and/or volume rendering reformats were acquired of the central intracranial vasculature and neck separately. COMPARISON: [facility], CT, CT HEAD/BRAIN WO CON, 05/24/2018, 21:33. [facility], CT, CT HEAD/BRAIN WO CON, 12/27/2017, 13:22. [facility], MR, BRAIN WITHOUT CONTRAST, 07/16/2015, 14:27. [facility], MR, BRAIN W&WO CONTRAST, 06/22/2014, 16:03. [facility], CT, CT ANGIO HEAD AND NECK, 12/27/2017, 14:16. FINDINGS: Image quality: Excellent. BRAIN: CSF spaces: Ventricles are asymmetric in size and shape, enlarged on the left associated with a chronic large left middle cerebral artery vascular distribution stroke with encephalomalacia. Basal cisterns are patent. No extra-axial fluid collections. Brain: No midline shift. No intracranial bleeds or masses. Lopez-white matter interface appears intact. Skull and face: Calvarium and facial bones appear intact, without suspicious lesions. Orbits appear normal. Sinuses: Sinuses and mastoids are clear. HEAD CT ANGIOGRAPHY: Anterior circulation: Intracranial internal carotid arteries are normal in size and flow. The flow within the paired anterior cerebral arteries is normal and symmetric. The flow within the middle cerebral arteries is normal and symmetric. The anterior communicating artery is seen. No aneurysms are seen. Posterior circulation: Visualized portions of the vertebral arteries demonstrate normal caliber, and join to form a normal appearing basilar artery. Flow within the posterior cerebral arteries is normal and symmetric. No aneurysms are seen. NECK CT ANGIOGRAPHY: Carotid system: The great vessels demonstrate a conventional anatomy as they arise from the aortic arch. The origins of the common carotid arteries appear patent. The common carotid arteries demonstrate normal caliber and courses. The bifurcation regions are both widely patent. The internal carotid arteries demonstrate asymmetric calibers, with approximately a 50% atherosclerotic plaque stenosis at the origin of the left internal carotid artery and above this level there is a normal appearance and course bilaterally. Posterior circulation: The origins of the vertebral arteries both appear widely patent. The more superior extracranial portions of both vertebral arteries also demonstrate normal courses and calibers. They join to form a normal appearing basilar artery. Soft tissues: Visualized neck soft tissues demonstrate no suspicious abnormalities. Bones: No suspicious bony lesions. Visualized cervical spine appears normally aligned. IMPRESSION: Large area of prior left middle cerebral artery vascular distribution stroke with encephalomalacia, long-standing in appearance, and previously documented by prior CT and MR scanning. No new stroke or hemorrhage is found, no mass lesion is identified. Note is made of approximately a 50% stenosis at the origin of the left internal carotid artery by atherosclerotic plaquing. No dissection or aneurysm found. Any quantitative measurements of stenosis were performed using NASCET criteria. Dictated by: Kelvin Hansen M.D. on 05/25/2018 at 10:02 Approved by: Kelvin Hansen M.D. on 05/25/2018 at 10:06
[2018-05-24 22:17] LABS: Add Manual Diff / Slide Review NO; Basophils Absolute Auto 0 /uL (0-100); Basophils Percent Auto 0.9 % (0-2); Eosinophils Absolute Auto 100 /uL (0-450); Eosinophils Percent Auto 1.6 % (2-4); Hematocrit 47.3 % (41-53); Hemoglobin 16.1 g/dL (13.5-17.5); Lymphocytes Absolute Auto 1400 /uL (1100-4500); Lymphocytes Percent Auto 25.5 % (25-40); Mean Corpuscular HGB Conc 34.1 % (30-36); Mean Corpuscular Volume 99.8 fL (80-100); Monocytes Absolute Auto 600 /uL (0-900); Monocytes Percent Auto 11.2 % (3-14); Neutrophils Absolute Auto 3400 /uL (1500-7000); Neutrophils Percent Auto 60.8 % (50-75); Platelet Count 159 X10^3/uL (150-400); Red Blood Cell Count 4.74 X10^6/uL (4.5-5.9); Red Cell Distribution Width 13.6 % (11.6-14.8); White Blood Cell Count 5.6 X10^3/uL (4.5-11.0)
[2018-05-24 22:29] LABS: INR 0.9 (0.9-1.3); Prothrombin Time 10.6 SECONDS (10.1-12.7)
[2018-05-24 22:32] LABS: PTT Partial Thromboplastin Tim 30 SECONDS (26.4-36.2)
[2018-05-24 22:33] LABS: BUN Creatinine Ratio 22.2 (6-22); Blood Urea Nitrogen 20 mg/dL (9-20); Calcium 9.2 mg/dL (8.4-10.2); Carbon Dioxide 26 mmol/L (22-32); Chloride 103 mmol/L (98-107); Estimated Glomerular Filt Rate > 60.0 mL/min (>60); Ethanol (ETOH) < 10 mg/dL; Glucose 150 mg/dL (80-110); HEMOLYSIS 39 (0-50); Potassium 4.1 mmol/L (3.4-5.1); Sodium 139 mmol/L (137-145)
[2018-05-24] MEDS: LORazepam 2 MG/ML SYRINGE 0.5 MG IV (23:01)
[2018-05-25] MEDS: ASPIRIN 300 MG SUPP PR (00:09)
[2018-05-25 00:51] VITALS: BP 138/66; PULSE 62; RESP 16; O2SAT 97
[2018-05-25 01:29] VITALS: BP 126/57; PULSE 63; RESP 18; O2SAT 93
[2018-05-25] MEDS: LORazepam 2 MG/ML SYRINGE 0.5 MG IV (02:25)
--- NOTE | 2018-05-25 02:27 | PC.NURSE ---
The family called me to bedside to report concern for pain as pt was restless, moving left side of body. Speech slurred, pt unable to say what was bothering him. Dr Hawkins called to bedside. Pt repositioned in effort to make him more comfortable, he complained of something poking me, pt was unable to indicate where the discomfort was. Pt's stated, This looks like encephilitis again. Pt medicated with 0.5mg IV ativan per order. Pt now resting on right side. Family notified that we are still waiting for bed placement from [facility].
[2018-05-25 02:31] VITALS: BP 112/72; PULSE 70; RESP 13
[2018-05-25 03:27] VITALS: BP 119/50; PULSE 61; RESP 12; O2SAT 95
[2018-05-25 03:56] VITALS: TEMP 36.2
== END 2018-05-25 03:47 | disposition short-term general hospital (02) ==
PROVIDERS: Emergency Provider Emergency Medicine; Family Provider Family Medicine; PCP Family Medicine
DX: R56.9 Unspecified convulsions (principal); R47.1 Dysarthria and anarthria; R53.1 Weakness
CPT/HCPCS: 36591; 70450; 70496; 70498; 80048; 80320; 82962; 84443; 85025; 85610; 85730; 93005; 93010; 96374; 96376; 99284; 99291; 99292; J2060; Q9967

== ENCOUNTER → 2018-06-14 15:16 | Outpatient (CLI) | payer OTHER, SELFPAY ==
[2018-06-14 17:22] LABS: Prostate Specific Antigen Scrn 0.473 ng/mL (0.1-4.0); Thyroid Stimulating Hormone 3.98 uIU/mL (0.47-4.68)
== END ==
PROVIDERS: Family Provider Family Medicine; PCP Family Medicine; Visit Provider Family Medicine
DX: I10 Essential (primary) hypertension (principal); Z12.5 Encounter for screening for malignant neoplasm of prostate
CPT/HCPCS: 36415; 84443; G0103

== ENCOUNTER 2018-08-04 13:30 | Outpatient (RCR) | payer OTHER, SELFPAY | END 2018-09-22 14:03 | disposition home or self-care (01) | LOC: SP 13:30 | PROVIDERS: PCP Family Medicine; Visit Provider Family Medicine | DX: I63.9 Cerebral infarction, unspecified (principal) | CPT/HCPCS: 92507; 92523 ==

== ENCOUNTER → 2018-08-24 10:48 | Outpatient (CLI) | payer OTHER, SELFPAY ==
[2018-08-24 11:25] LABS: Hemoglobin A1C% w Est Avg Glu 6.5 % (4.0-6.0)
[2018-08-24 11:29] LABS: Blood Urea Nitrogen 16 mg/dL (9-20); Calcium 9.5 mg/dL (8.4-10.2); Carbon Dioxide 24 mmol/L (22-32); Chloride 101 mmol/L (98-107); Estimated Glomerular Filt Rate > 60.0 mL/min (>60); Glucose 136 mg/dL (80-110); HEMOLYSIS < 15 (0-50); Potassium 4.2 mmol/L (3.4-5.1); Sodium 136 mmol/L (137-145)
== END ==
PROVIDERS: PCP Family Medicine; Visit Provider Family Medicine
DX: E11.9 Type 2 diabetes mellitus without complications (principal)
CPT/HCPCS: 36415; 80048; 83036

== ENCOUNTER → 2018-11-16 09:05 | Outpatient (CLI) | payer OTHER, SELFPAY ==
[2018-11-16 11:31] LABS: Add Manual Diff / Slide Review NO; Basophils Absolute Auto 0 /uL (0-100); Basophils Percent Auto 0.4 % (0-2); Eosinophils Absolute Auto 100 /uL (0-450); Eosinophils Percent Auto 1.1 % (2-4); Hematocrit 45.7 % (41-53); Lymphocytes Absolute Auto 1300 /uL (1100-4500); Lymphocytes Percent Auto 21.8 % (25-40); Mean Corpuscular HGB Conc 34.9 % (30-36); Mean Corpuscular Hemoglobin 34.5 PG (26-34); Mean Corpuscular Volume 98.7 fL (80-100); Monocytes Absolute Auto 500 /uL (0-900); Monocytes Percent Auto 7.9 % (3-14); Neutrophils Absolute Auto 4100 /uL (1500-7000); Neutrophils Percent Auto 68.8 % (50-75); Platelet Count 161 X10^3/uL (150-400); Red Blood Cell Count 4.63 X10^6/uL (4.5-5.9); Red Cell Distribution Width 13.6 % (11.6-14.8); White Blood Cell Count 5.9 X10^3/uL (4.5-11.0)
[2018-11-16 11:40] LABS: Hemoglobin A1C% w Est Avg Glu 6.4 % (4.0-6.0)
[2018-11-16 11:43] LABS: Alanine Aminotransferase 10 IU/L (21-72); Albumin 4.2 g/dL (3.5-5.0); Albumin Globulin Ratio 1.6 (1.0-2.8); Alkaline Phosphatase 78 U/L (38-126); Aspartate Aminotransferase 25 IU/L (17-59); BUN Creatinine Ratio 16.7 (6-22); Bilirubin Total 0.6 mg/dL (0.2-1.3); Blood Urea Nitrogen 15 mg/dL (9-20); Calcium 9.6 mg/dL (8.4-10.2); Carbon Dioxide 24 mmol/L (22-32); Chloride 104 mmol/L (98-107); Cholesterol 160 mg/dL (140-199); Estimated Glomerular Filt Rate > 60.0 mL/min (>60); Globulin 2.7 g/dL (1.7-4.1); Glucose 142 mg/dL (80-110); HDL Cholesterol 35 mg/dL (40-60); HEMOLYSIS < 15 (0-50); LDL Cholesterol Calculated 68 mg/dL (<100); Potassium 3.9 mmol/L (3.4-5.1); Sodium 140 mmol/L (137-145); Total Protein 6.9 g/dL (6.3-8.2); Triglycerides 283 mg/dL (35-150)
[2018-11-16 12:11] LABS: Prostate Specific Antigen Scrn 0.676 ng/mL (0.1-4.0); Thyroid Stimulating Hormone 5.43 uIU/mL (0.47-4.68)
== END ==
PROVIDERS: PCP Family Medicine; Visit Provider Family Medicine
DX: E11.9 Type 2 diabetes mellitus without complications (principal); Z12.5 Encounter for screening for malignant neoplasm of prostate
CPT/HCPCS: 36415; 80053; 80061; 83036; 84443; 85025; G0103

== ENCOUNTER → 2019-01-04 10:15 | Outpatient (CLI) | payer OTHER, SELFPAY ==
[2019-01-04 11:41] LABS: Hemoglobin A1C% w Est Avg Glu 6.2 % (4.0-6.0)
[2019-01-04 11:50] LABS: Blood Urea Nitrogen 16 mg/dL (9-20); Calcium 9.4 mg/dL (8.4-10.2); Carbon Dioxide 25 mmol/L (22-32); Chloride 101 mmol/L (98-107); Cholesterol 128 mg/dL (140-199); Estimated Glomerular Filt Rate > 60.0 mL/min (>60); Glucose 136 mg/dL (80-110); HDL Cholesterol 36 mg/dL (40-60); HEMOLYSIS < 15 (0-50); LDL Cholesterol Calculated 52 mg/dL (<100); Sodium 134 mmol/L (137-145); Triglycerides 202 mg/dL (35-150)
[2019-01-04 12:22] LABS: Thyroid Stimulating Hormone 4.11 uIU/mL (0.47-4.68)
== END ==
PROVIDERS: PCP Family Medicine; Visit Provider Family Medicine
DX: E11.9 Type 2 diabetes mellitus without complications (principal); E03.9 Hypothyroidism, unspecified
CPT/HCPCS: 36415; 80048; 80061; 83036; 84443

== ENCOUNTER → 2019-02-03 09:46 | Outpatient (CLI) | payer OTHER, SELFPAY ==
--- NOTE | 2019-02-03 09:50 | DI.MRI.S_ITS ---
PROCEDURE: MR HEAD/BRAIN WO CON INDICATIONS: mem imp TECHNIQUE: Non-contrast axial T1 spin echo, axial T2 fast spin echo, sagittal and axial FLAIR, coronal T2 fast spin echo, axial gradient echo, axial diffusion and ADC through the brain. COMPARISON: [facility], MR, BRAIN WITHOUT CONTRAST, 07/16/2015, 14:27. FINDINGS: Image quality: Excellent. CSF spaces: Ventricles appear symmetric in size and shape. Basal cisterns are patent. No extra-axial fluid collections. Brain: No intracranial bleeds or mass effects. Grossly unchanged appearance of left temporal lobe encephalomalacia and gliosis. There is cerebral volume loss for age. There are periventricular and deep white matter chronic small vessel ischemic changes. Brainstem appears normal. Diffusion-weighted images show no acute ischemic insults. No chronic ischemic insults. Normal intravascular flow voids are present. Skull and face: Calvarial bone marrow is normal in signal. Orbits are normal. Sinuses: Sinuses and mastoids are clear. IMPRESSION: Overall, grossly stable examination since 07/16/15. Redemonstration of left temporal lobe encephalomalacia and gliosis. Dictated by: Pawan Son M.D. on 02/03/2019 at 11:05 Approved by: Pawan Son M.D. on 02/03/2019 at 11:10
== END ==
PROVIDERS: PCP Family Medicine; Visit Provider Family Medicine
DX: G04.81 Other encephalitis and encephalomyelitis (principal); G93.89 Other specified disorders of brain
CPT/HCPCS: 70551

== ENCOUNTER → 2019-04-08 10:07 | Outpatient (CLI) | payer OTHER, SELFPAY ==
[2019-04-08 11:32] LABS: BUN Creatinine Ratio 16.4 (6-22); Blood Urea Nitrogen 18 mg/dL (9-20); Calcium 9.7 mg/dL (8.4-10.2); Carbon Dioxide 25 mmol/L (22-32); Chloride 102 mmol/L (98-107); Estimated Glomerular Filt Rate > 60.0 mL/min (>60); Glucose 148 mg/dL (80-110); HEMOLYSIS < 15 (0-50); Potassium 4.2 mmol/L (3.4-5.1); Sodium 138 mmol/L (137-145)
[2019-04-08 11:35] LABS: Hemoglobin A1C% w Est Avg Glu 6.3 % (4.0-6.0)
[2019-04-08 12:32] LABS: Thyroid Stimulating Hormone 4.87 uIU/mL (0.47-4.68)
== END ==
PROVIDERS: PCP Family Medicine; Visit Provider Family Medicine
DX: E11.9 Type 2 diabetes mellitus without complications (principal)
CPT/HCPCS: 80048; 83036; 84443

== ENCOUNTER → 2019-06-10 14:14 | Outpatient (CLI) | payer OTHER, SELFPAY ==
[2019-06-10 16:38] LABS: Thyroid Stimulating Hormone 2.95 uIU/mL (0.47-4.68)
== END ==
PROVIDERS: PCP Family Medicine; Visit Provider Family Medicine
DX: E03.9 Hypothyroidism, unspecified (principal)
CPT/HCPCS: 36415; 84443

== ENCOUNTER → 2019-07-08 10:28 | Outpatient (CLI) | payer OTHER, SELFPAY ==
[2019-07-08 11:05] LABS: Hemoglobin A1C% w Est Avg Glu 6.4 % (4.0-6.0)
[2019-07-08 11:37] LABS: Blood Urea Nitrogen 18 mg/dL (9-20); Calcium 9.3 mg/dL (8.4-10.2); Carbon Dioxide 27 mmol/L (22-32); Chloride 101 mmol/L (98-107); Estimated Glomerular Filt Rate > 60.0 mL/min (>60); Glucose 139 mg/dL (80-110); HEMOLYSIS 22 (0-50); Potassium 3.9 mmol/L (3.4-5.1); Sodium 137 mmol/L (137-145)
== END ==
PROVIDERS: PCP Family Medicine; Referring Provider Family Medicine; Visit Provider Family Medicine
DX: E11.9 Type 2 diabetes mellitus without complications (principal)
CPT/HCPCS: 36415; 80048; 83036; 84443

== ENCOUNTER → 2019-10-17 11:09 | Outpatient (CLI) | payer OTHER, SELFPAY ==
[2019-10-17 12:14] LABS: BUN Creatinine Ratio 18.8 (6-22); Blood Urea Nitrogen 16 mg/dL (9-20); Calcium 9.3 mg/dL (8.4-10.2); Carbon Dioxide 23 mmol/L (22-32); Chloride 105 mmol/L (98-107); Estimated Glomerular Filt Rate > 60.0 mL/min (>60); Glucose 138 mg/dL (80-110); HEMOLYSIS < 15 (0-50); Hemoglobin A1C% w Est Avg Glu 6.7 % (4.0-6.0); Potassium 4.2 mmol/L (3.4-5.1); Sodium 137 mmol/L (137-145)
== END ==
PROVIDERS: PCP Family Medicine; Referring Provider Family Medicine; Visit Provider Family Medicine
DX: E03.9 Hypothyroidism, unspecified (principal); E11.9 Type 2 diabetes mellitus without complications
CPT/HCPCS: 36415; 80048; 83036; 84443

== ENCOUNTER → 2020-03-01 10:42 | Outpatient (CLI) | payer OTHER, SELFPAY ==
[2020-03-01 12:25] LABS: Hemoglobin A1C% w Est Avg Glu 7.1 % (4.0-6.0)
[2020-03-01 12:26] LABS: BUN Creatinine Ratio 23.2 (6-22); Blood Urea Nitrogen 19 mg/dL (9-20); Calcium 9.4 mg/dL (8.4-10.2); Carbon Dioxide 28 mmol/L (22-32); Chloride 104 mmol/L (98-107); Estimated Glomerular Filt Rate > 60.0 mL/min (>60); Glucose 140 mg/dL (80-110); HEMOLYSIS < 15 (0-50); Potassium 4.1 mmol/L (3.4-5.1); Sodium 139 mmol/L (137-145)
== END ==
PROVIDERS: PCP Family Medicine; Referring Provider Family Medicine; Visit Provider Family Medicine
DX: E03.9 Hypothyroidism, unspecified (principal); E11.9 Type 2 diabetes mellitus without complications; I10 Essential (primary) hypertension
CPT/HCPCS: 36415; 80048; 83036

== ENCOUNTER → 2020-03-02 15:23 | Outpatient (CLI) | payer OTHER, SELFPAY ==
[2020-03-02 17:17] LABS: Cholesterol 134 mg/dL (140-199); HDL Cholesterol 34 mg/dL (40-60); LDL Cholesterol Calculated 35 mg/dL (<100); Triglycerides 324 mg/dL (35-150)
== END ==
PROVIDERS: PCP Family Medicine; Referring Provider Family Medicine; Visit Provider Family Medicine
DX: E03.9 Hypothyroidism, unspecified (principal); E11.9 Type 2 diabetes mellitus without complications; I10 Essential (primary) hypertension; G40.909 Epilepsy, unspecified, not intractable, without status epilepticus
CPT/HCPCS: 36415; 80061; 80177

== ENCOUNTER → 2020-04-02 11:42 | Outpatient (CLI) | payer OTHER, SELFPAY ==
[2020-04-02 13:51] LABS: Hemoglobin A1C% w Est Avg Glu 7.4 % (4.0-6.0)
[2020-04-02 13:59] LABS: BUN Creatinine Ratio 21.7 (6-22); Blood Urea Nitrogen 18 mg/dL (9-20); Calcium 9.2 mg/dL (8.4-10.2); Carbon Dioxide 26 mmol/L (22-32); Chloride 102 mmol/L (98-107); Estimated Glomerular Filt Rate > 60.0 mL/min (>60); Glucose 155 mg/dL (80-110); HEMOLYSIS 37 (0-50); Potassium 4.3 mmol/L (3.4-5.1); Sodium 135 mmol/L (137-145)
== END ==
PROVIDERS: PCP Family Medicine; Referring Provider Family Medicine; Visit Provider Family Medicine
DX: E11.9 Type 2 diabetes mellitus without complications (principal)
CPT/HCPCS: 36415; 80048; 83036

== ENCOUNTER → 2020-04-03 15:54 | Outpatient (CLI) | payer OTHER, SELFPAY ==
--- NOTE | 2020-04-03 15:56 | DI.RAD.S_ITS ---
PROCEDURE: XR CHEST 2V INDICATIONS: Cough TECHNIQUE: 2 views of the chest were acquired. COMPARISON: [facility], CHEST 1 VIEW, 06/13/2015, 17:03. [facility], CHEST 1 VIEW, 03/10/2014, 15:49. FINDINGS: Surgical changes and devices: None. Lungs and pleura: Lungs are clear. No pleural effusions or pneumothorax. Mediastinum: Mediastinal contours are normal. Heart size is normal. Bones and chest wall: No suspicious bony abnormalities. Soft tissues appear unremarkable. IMPRESSION: No abnormality found. Dictated by: Kelvin Hansen M.D. on 04/03/2020 at 16:31 Approved by: Kelvin Hansen M.D. on 04/03/2020 at 16:32
== END ==
PROVIDERS: PCP Family Medicine; Referring Provider Family Medicine; Visit Provider Family Medicine
DX: R05 Cough (principal)
CPT/HCPCS: 71046

== ENCOUNTER → 2020-06-05 09:11 | Outpatient (CLI) | payer OTHER, SELFPAY ==
[2020-06-05 10:28] LABS: Hemoglobin A1C% w Est Avg Glu 7.2 % (4.0-6.0)
[2020-06-05 10:33] LABS: Add Manual Diff / Slide Review NO; Basophils Absolute Auto 0 /uL (0-100); Basophils Percent Auto 0.5 % (0-2); Eosinophils Absolute Auto 100 /uL (0-450); Eosinophils Percent Auto 2.6 % (2-4); Hematocrit 44.9 % (41-53); Hemoglobin 15.1 g/dL (13.5-17.5); Lymphocytes Absolute Auto 1100 /uL (1100-4500); Lymphocytes Percent Auto 22.6 % (25-40); Mean Corpuscular HGB Conc 33.6 % (30-36); Mean Corpuscular Hemoglobin 34.1 PG (26-34); Mean Corpuscular Volume 101.5 fL (80-100); Monocytes Absolute Auto 500 /uL (0-900); Monocytes Percent Auto 10.7 % (3-14); Neutrophils Absolute Auto 3100 /uL (1500-7000); Neutrophils Percent Auto 63.6 % (50-75); Platelet Count 102 X10^3/uL (150-400); Red Blood Cell Count 4.42 X10^6/uL (4.5-5.9); Red Cell Distribution Width 14.2 % (11.6-14.8); White Blood Cell Count 4.8 X10^3/uL (4.5-11.0)
[2020-06-05 10:42] LABS: Alanine Aminotransferase 6 IU/L (<50); Albumin 3.8 g/dL (3.5-5.0); Albumin Globulin Ratio 1.5 (1.0-2.8); Alkaline Phosphatase 82 U/L (38-126); Aspartate Aminotransferase 34 IU/L (17-59); BUN Creatinine Ratio 20.8 (6-22); Bilirubin Total 0.4 mg/dL (0.2-1.3); Blood Urea Nitrogen 21 mg/dL (9-20); Carbon Dioxide 30 mmol/L (22-32); Chloride 102 mmol/L (98-107); Estimated Glomerular Filt Rate > 60.0 mL/min (>60); Globulin 2.6 g/dL (1.7-4.1); Glucose 135 mg/dL (80-110); HEMOLYSIS < 15 (0-50); Potassium 4.4 mmol/L (3.4-5.1); Sodium 135 mmol/L (137-145); Total Protein 6.4 g/dL (6.3-8.2)
[2020-06-05 11:36] LABS: Free T4, Direct Thyroxine 1.22 ng/dL (0.78-2.19)
[2020-06-05 11:49] LABS: Thyroid Stimulating Hormone 2.78 uIU/mL (0.47-4.68)
[2020-06-06 08:12] LABS: Valproic Acid (Depakene) Total 82 ug/mL (50-100)
== END ==
PROVIDERS: PCP Student in an Organized Health Care Education/Training Program; Referring Provider Student in an Organized Health Care Education/Training Program; Visit Provider Family Medicine
DX: E03.9 Hypothyroidism, unspecified (principal); G40.909 Epilepsy, unspecified, not intractable, without status epilepticus; I63.319 Cerebral infarction due to thrombosis of unspecified middle cerebral artery
CPT/HCPCS: 80053; 80164; 83036; 84439; 84443; 85025

== ENCOUNTER → 2020-07-09 11:50 | Outpatient (CLI) | payer OTHER, SELFPAY ==
[2020-07-09 12:33] LABS: Ammonia (NH3) 14 umol/L (9-30)
== END ==
PROVIDERS: PCP Student in an Organized Health Care Education/Training Program; Referring Provider Psychiatry & Neurology Neurology; Visit Provider Psychiatry & Neurology Neurology
DX: R41.0 Disorientation, unspecified (principal)
CPT/HCPCS: 36415; 82140

== ENCOUNTER → 2020-08-09 10:02 | Outpatient (CLI) | payer OTHER, SELFPAY ==
[2020-08-09 11:28] LABS: Hemoglobin A1C% w Est Avg Glu 6.5 % (4.0-6.0)
[2020-08-09 11:32] LABS: BUN Creatinine Ratio 24.1 (6-22); Blood Urea Nitrogen 21 mg/dL (9-20); Calcium 9.1 mg/dL (8.4-10.2); Carbon Dioxide 24 mmol/L (22-32); Chloride 107 mmol/L (98-107); Estimated Glomerular Filt Rate > 60.0 mL/min (>60); Glucose 118 mg/dL (80-110); HEMOLYSIS 18 (0-50); Potassium 4.1 mmol/L (3.4-5.1); Sodium 140 mmol/L (137-145)
[2020-08-09 11:55] LABS: Vitamin D 25 Hydroxy (D3) 32.4 ng/mL (30.0-100.0)
== END ==
PROVIDERS: PCP Student in an Organized Health Care Education/Training Program; Referring Provider Student in an Organized Health Care Education/Training Program; Visit Provider Student in an Organized Health Care Education/Training Program
DX: E11.9 Type 2 diabetes mellitus without complications (principal); E55.9 Vitamin D deficiency, unspecified; Z79.899 Other long term (current) drug therapy
CPT/HCPCS: 36415; 80048; 82306; 83036

== ENCOUNTER → 2020-08-13 13:49 | Outpatient (CLI) | payer OTHER, SELFPAY ==
[2020-08-13 14:30] LABS: Add Manual Diff / Slide Review NO; Basophils Absolute Auto 0 /uL (0-100); Basophils Percent Auto 0.6 % (0-2); Eosinophils Absolute Auto 100 /uL (0-450); Eosinophils Percent Auto 1.8 % (2-4); Lymphocytes Absolute Auto 1700 /uL (1100-4500); Lymphocytes Percent Auto 25.4 % (25-40); Mean Corpuscular HGB Conc 33.4 % (30-36); Mean Corpuscular Hemoglobin 34.7 PG (26-34); Mean Corpuscular Volume 103.9 fL (80-100); Monocytes Absolute Auto 700 /uL (0-900); Monocytes Percent Auto 10.1 % (3-14); Neutrophils Absolute Auto 4200 /uL (1500-7000); Neutrophils Percent Auto 62.1 % (50-75); Platelet Count 95 X10^3/uL (150-400); Red Blood Cell Count 4.33 X10^6/uL (4.5-5.9); Red Cell Distribution Width 13.6 % (11.6-14.8); White Blood Cell Count 6.8 X10^3/uL (4.5-11.0)
[2020-08-14 02:07] LABS: Valproic Acid (Depakene) Total 120 ug/mL (50-100)
== END ==
PROVIDERS: PCP Family Medicine; Referring Provider Family Medicine; Visit Provider Family Medicine
DX: G40.909 Epilepsy, unspecified, not intractable, without status epilepticus (principal)
CPT/HCPCS: 36415; 80164; 85025

== ENCOUNTER 2020-09-01 12:18 | Inpatient (IN) | payer OTHER, SELFPAY ==
[2020-09-01] VITALS (75 sets, daily range): BP systolic 128–214; BP diastolic 64–118; PULSE 64–197; RESP 13–65; TEMP 35.9–37.1; O2SAT 93–98; BMI 35.1
--- NOTE | 2020-09-01 12:22 | DI.CT.S_ITS ---
PROCEDURE: CT STROKE INDICATIONS: code stroke Last known well last night. TECHNIQUE: Noncontrast 4.5 mm thick angled axial sections acquired from the foramen magnum to the vertex, with coronal reformats. For radiation dose reduction, the following was used: automated exposure control, adjustment of mA and/or kV according to patient size. COMPARISON: [facility], MR, MR BRAIN SEIZURE WITH/WITHOUT CONTRAST, 05/13/2020, 12:29. [facility], CT, CT ANGIO HEAD AND NECK, 05/15/2020, 10:18. FINDINGS: Image quality: This examination is limited by involuntary motion artifact. CSF spaces: Basal cisterns are patent. No extra-axial fluid collections. The ventricles are symmetric in size and shape. Brain: No intracranial bleeds or masses. There is cerebral volume loss for age, with resultant ventricular and sulcal prominence. There are periventricular and deep white matter chronic small vessel ischemic changes. A remote left MCA territory infarction can be seen. There is intracranial internal carotid artery atherosclerosis. Skull and face: Calvarium and visualized facial bones appear intact, without suspicious lesions. Sinuses: Visualized sinuses and mastoids are clear. IMPRESSION: Motion limited study demonstrating no findings of acute intracranial hemorrhage. A stable, remote left MCA territory infarction can be seen. If there is strong clinical suspicion for an acute stroke, please consider an MRI for further evaluation, as it is more sensitive (assuming that there is no contraindication to MRI). Note: Case discussed by telephone with Dr. Mahmood at 11:38 a.m. [place] time on September 01, 2020. This study fulfills neurological imaging criteria for inclusion or exclusion of acute stroke therapies based on available published neurological guidelines. Dictated by: Marcin Duff M.D. on 09/01/2020 at 11:35 Approved by: Marcin Duff M.D. on 09/01/2020 at 11:38
[2020-09-01] MEDS: LORazepam 2 MG/ML INJ (12:37)
--- NOTE | 2020-09-01 12:44 | ED_ITS ---
HPI - Neuro Symptoms/Deficit General Chief Complaint: Neuro Symptoms/Deficit Stated Complaint: Code Stroke Time Seen by Provider: 09/01/20 12:30 Source: family and EMS Mode of arrival: EMS History of Present Illness HPI Narrative: Patient is a 75-year-old male with prior history of stroke, epilepsy, encephalitis presenting as a code stroke for right-sided weakness. He does have right-sided weakness and some speech difficulty is from his prior strokes however states that symptoms started this morning around 10 30. She states that he ate his breakfast and he was signing paperwork that needed sign he was able to sign 1 piece of the paper and the 2nd area he was supposed to sign he was unable to she started noticing that his tongue without any had a right-sided weakness. He is followed by [facility] they have been ta pering off Depakote on to zonisamide. Depakote thought to induce Parkinson like features. Patient was immediately brought to CT prior to my evaluation, he was in CT with him when he started having a seizure. He was immediately given 2 mg of Ativan. Onset (ago): hour(s) Timing confirmed by: spouse Location: speech and right arm On Anticoagulants: No Related Data Home Medications Medication Instructions Recorded Confirmed atenolol 50 mg PO BEDTIME 09/01/20 09/01/20 atorvastatin 40 mg PO BEDTIME 09/01/20 09/01/20 carbidopa-levodopa [Rytary] 3 cap PO TID 09/01/20 09/01/20 clopidogrel 75 mg PO QAM 09/01/20 09/01/20 divalproex 500 mg PO BID 09/01/20 09/01/20 docusate sodium [Colace] 100 mg PO QAM 09/01/20 09/01/20 finasteride 5 mg PO QPM 09/01/20 09/01/20 furosemide [Lasix] 20 mg PO QAM 09/01/20 09/01/20 lacosamide [Vimpat] 200 mg PO BID 09/01/20 09/01/20 levothyroxine 125 mcg PO QAM 09/01/20 09/01/20 losartan 25 mg PO BEDTIME 09/01/20 09/01/20 mecobalamin (vitamin B12) 2,000 mcg SUBLINGUAL QAM 09/01/20 09/01/20 pantoprazole 40 mg PO BEDTIME 09/01/20 09/01/20 valacyclovir 500 mg PO BEDTIME 09/01/20 09/01/20 zonisamide 200 mg PO BEDTIME 09/01/20 09/01/20 Previous Rx's Medication Instructions Recorded nystatin 100,000 unit/gram topical 100,000 unit TOPICAL BID PRN #30 11/14/19 powder gram Allergies Allergy/AdvReac Type Severity Reaction Status Date / Time No Known Drug Allergies Allergy Verified 09/01/20 13:41 Review of Systems Review of Systems ROS Unobtainable: Unobtainable due to medical condition Hematologic/Lymphatic On Anticoagulants: No Patient History Medical History (Updated 09/01/20 @ 20:19 by Bel Mahmood DO) Acute venous embolism and thrombosis of deep veins of upper extremity (04/27/14) 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) Cerebrovascular accident (CVA) Diverticulosis large intestine w/o perforation or abscess w/o bleeding (12/12/10) Encephalitis due to human herpes simplex virus (HSV) Ischemic stroke Seizures Surgical History (Updated 05/24/18 @ 23:58 by Gil Hawkins DO) No pertinent past surgical history Social History (Updated 05/24/18 @ 23:58 by Gil Hawkins DO) marital status: lives independently: Yes Smoking Status: Never smoker alcohol intake: former substance use type: does not use Smoking Status: Never smoker alcohol intake frequency: 0-2 drinks per day Substance Use Type: does not use Exam Initial Vital Signs Initial Vital Signs: Vital Signs Temperature 97.5 F L 09/01/20 12:18 Pulse Rate 78 09/01/20 12:18 Respiratory Rate 18 09/01/20 12:18 Blood Pressure 188/72 H 09/01/20 12:18 Pulse Oximetry 96 09/01/20 12:18 GENERAL: Male now shaking all over. HEENT: Head atraumatic,EOMI, pupils reactive, face symmetric, moist mucous membranes CARDIOVASCULAR: Regular rate and rhythm without murmurs, rubs or gallops. RESPIRATORY: Breath sounds equal bilaterally, no wheezes rales or rhonchi. ABDOMEN: Soft, nontender. Normoactive bowel sounds all 4 quadrants. No guarding or rebound. EXTREMITIES: Normal range of motion, no clubbing or edema. Neurovascularly intact NEUROLOGICAL: Shaking all over SKIN: Warm, dry, no laceration, no petechiae, no rashes or lesions. Course Orders Ordered: ED Orders 09/01/20 12:20 COVID19 -Nasal swab/Pre-Proc Stat 09/01/20 12:22 CT Stroke Stat 09/01/20 12:30 Complete Blood Count AUTO DIFF Stat Comprehensive Metabolic Panel Stat Lactate (Lactic Acid) Stat Partial Thromboplastin Time Stat Prolactin Stat Prothrombin Time INR Stat TSH w/ Reflex to FT4 Stat Troponin & CK Cardiac Panel Stat Valproic Acid (Depakene) Total Stat 09/01/20 12:35 EKG-12 Lead Stat 09/01/20 12:50 Blood Culture Stat 09/01/20 12:57 Urinalysis and Microscopic Stat Urine Culture Stat Urine Drug Screen, Rapid Stat 09/01/20 19:50 XR chest 1V Stat Sodium Chloride (Normal Saline 0.9%) 1,000 mls @ 150 mls/hr IV CONT MITESH Last Admin: 09/01/20 12:59 Dose: 150 mls/hr Documented by: MATTHEW Discontinued Medications Valproic Acid 1,000 mg/ (Dextrose) 60 mls @ 60 mls/hr IV NOW ONE Stop: 09/01/20 12:54 Last Infusion: 09/01/20 14:09 Dose: 0 mls/hr Documented by: Admin: 09/01/20 13:09 Dose: 60 mls/hr Documented by: MATTHEW Valproic Acid 750 mg/ Dextrose 57.5 mls @ 57.5 mls/hr IV NOW ONE Stop: 09/01/20 18:45 Last Admin: 09/01/20 19:26 Dose: 57.5 mls/hr Documented by: MATTHEW Lorazepam (Lorazepam 2 Mg/Ml Inj) 1 mg IV NOW ONE Stop: 09/01/20 12:54 Last Admin: 09/01/20 12:56 Dose: 1 mg Documented by: MATTHEW Lorazepam (Lorazepam 2 Mg/Ml Inj) 1 mg IV NOW ONE Stop: 09/01/20 15:01 Last Admin: 09/01/20 15:00 Dose: 1 mg Documented by: MATTHEW Lorazepam (Lorazepam 2 Mg/Ml Inj) 2 mg IV NOW ONE Stop: 09/01/20 16:51 Last Admin: 09/01/20 16:58 Dose: 2 mg Documented by: MATTHEW Vital Signs Vital signs: Vital Signs - 8 hr 09/01/20 12:18 09/01/20 12:40 09/01/20 12:50 Temperature 97.5 F L Pulse Rate 78 64 70 Respiratory Rate 18 17 16 Blood Pressure 188/72 H 199/81 H 173/65 H Pulse Oximetry 96 97 96 09/01/20 12:55 09/01/20 13:00 09/01/20 13:01 Temperature 97.0 F L Pulse Rate 75 78 75 Respiratory Rate 18 21 14 Blood Pressure 180/75 H 180/75 H Pulse Oximetry 93 94 09/01/20 13:11 09/01/20 13:15 09/01/20 13:20 Temperature 97.7 F 97.7 F 97.9 F Pulse Rate 74 74 76 Respiratory Rate 32 H 25 H 26 H Blood Pressure 183/114 H 199/92 H Pulse Oximetry 96 96 96 09/01/20 13:25 09/01/20 13:30 09/01/20 13:35 Temperature 97.9 F 97.9 F 97.9 F Pulse Rate 73 72 72 Respiratory Rate 17 19 18 Blood Pressure 214/89 H 189/75 H 176/83 H Pulse Oximetry 97 97 96 09/01/20 13:40 09/01/20 13:45 09/01/20 13:49 Temperature 97.7 F 97.7 F 97.7 F Pulse Rate 72 70 72 Respiratory Rate 18 18 19 Blood Pressure 181/86 H 167/76 H Pulse Oximetry 97 96 97 09/01/20 13:50 09/01/20 13:55 09/01/20 14:00 Temperature 97.7 F 97.7 F 97.7 F Pulse Rate 71 69 68 Respiratory Rate 18 18 19 Blood Pressure 178/98 H 159/77 H 158/77 H Pulse Oximetry 97 96 96 09/01/20 14:05 09/01/20 14:10 09/01/20 14:15 Temperature 97.5 F L 97.5 F L 97.5 F L Pulse Rate 69 69 69 Respiratory Rate 19 17 18 Blood Pressure 164/81 H 187/87 H 181/73 H Pulse Oximetry 97 97 96 09/01/20 14:20 09/01/20 14:25 09/01/20 14:30 Temperature 97.5 F L 97.5 F L 97.3 F L Pulse Rate 74 72 71 Respiratory Rate 30 H 19 15 Blood Pressure 196/89 H 179/79 H Pulse Oximetry 97 95 96 09/01/20 14:35 09/01/20 14:40 09/01/20 14:45 Temperature 97.3 F L 97.3 F L 97.3 F L Pulse Rate 72 69 71 Respiratory Rate 18 15 17 Blood Pressure 180/85 H 168/73 H 176/86 H Pulse Oximetry 96 96 96 09/01/20 14:56 09/01/20 15:00 09/01/20 15:06 Temperature 97.3 F L 97.3 F L 97.2 F L Pulse Rate 80 197 H 70 Respiratory Rate 65 H 58 H 18 Blood Pressure 136/94 H 190/91 H Pulse Oximetry 96 95 96 09/01/20 15:10 09/01/20 15:15 09/01/20 15:20 Temperature 97.2 F L 97.3 F L 97.3 F L Pulse Rate 71 69 69 Respiratory Rate 18 18 17 Blood Pressure 188/86 H 157/73 H 164/74 H Pulse Oximetry 96 97 98 09/01/20 15:26 09/01/20 15:30 09/01/20 15:35 Temperature 97.3 F L 97.3 F L 97.3 F L Pulse Rate 68 68 68 Respiratory Rate 17 18 18 Blood Pressure 148/86 H 142/74 H 150/80 H Pulse Oximetry 97 97 98 09/01/20 15:40 09/01/20 15:45 09/01/20 15:46 Temperature 97.3 F L 97.3 F L 97.3 F L Pulse Rate 70 74 74 Respiratory Rate 18 22 26 H Blood Pressure 153/85 H 157/118 H Pulse Oximetry 97 98 97 09/01/20 15:51 09/01/20 16:00 09/01/20 16:15 Temperature 97.3 F L 97.3 F L 97.3 F L Pulse Rate 74 79 71 Respiratory Rate 18 22 18 Blood Pressure 196/113 H 164/78 H Pulse Oximetry 97 96 09/01/20 16:30 09/01/20 16:45 09/01/20 17:00 Temperature 97.5 F L 97.5 F L 97.5 F L Pulse Rate 69 71 70 Respiratory Rate 17 13 19 Blood Pressure 137/64 159/76 H 160/79 H Pulse Oximetry 96 96 96 09/01/20 17:15 09/01/20 17:30 09/01/20 17:45 Temperature 97.5 F L 97.7 F 97.7 F Pulse Rate 71 72 74 Respiratory Rate 17 15 18 Blood Pressure 159/82 H 160/78 H Pulse Oximetry 96 95 97 09/01/20 18:00 09/01/20 18:01 09/01/20 18:15 Temperature 97.7 F 97.7 F 97.7 F Pulse Rate 77 77 72 Respiratory Rate 29 H 25 H 17 Blood Pressure 128/92 H 176/78 H Pulse Oximetry 96 95 95 09/01/20 18:30 09/01/20 18:39 09/01/20 18:45 Temperature 97.9 F 97.7 F 97.9 F Pulse Rate 78 77 75 Respiratory Rate 35 H 20 17 Blood Pressure 161/89 H 160/88 H Pulse Oximetry 97 96 93 09/01/20 19:00 09/01/20 19:15 09/01/20 19:30 Temperature 97.9 F 98.1 F 98.1 F Pulse Rate 74 77 76 Respiratory Rate 17 17 17 Blood Pressure 147/77 H 176/81 H 160/68 H Pulse Oximetry 93 95 94 09/01/20 19:41 Temperature Pulse Rate 77 Respiratory Rate 20 Blood Pressure Pulse Oximetry 96 MDM - Neuro Symptoms/Deficit Lab Data Attestation: I reviewed the patient's lab results. Result diagrams: 09/01/20 12:30 09/01/20 12:30 Labs: Lab Results 09/01/20 09/01/20 09/01/20 Range/Units 12:20 12:30 12:30 WBC 5.9 (4.5-11.0) X10^3/uL RBC 4.48 L (4.5-5.9) X10^6/uL Hgb 16.0 (13.5-17.5) g/dL Hct 46.2 (41-53) % MCV 103.2 H (80-100) fL MCH 35.8 H (26-34) PG MCHC 34.7 (30-36) % RDW 13.6 (11.6-14.8) % Plt Count 103 L (150-400) X10^3/uL Neut % (Auto) 62.6 (50-75) % Lymph % (Auto) 25.4 (25-40) % Hill % (Auto) 10.0 (3-14) % Eos % (Auto) 1.4 L (2-4) % Baso % (Auto) 0.6 (0-2) % Neut # (Auto) 3700 (2867-1643) /uL Lymph # (Auto) 1500 (0897-2083) /uL Hill # (Auto) 600 (0-900) /uL Eos # (Auto) 100 (0-450) /uL Baso # (Auto) 0 (0-100) /uL PT 11.8 (10.1-12.7) SECONDS INR 1.0 (0.9-1.3) APTT 37 H D (26.4-36.2) SECONDS Sodium (137-145) mmol/L Potassium (3.4-5.1) mmol/L Chloride (98-107) mmol/L Carbon Dioxide (22-32) mmol/L BUN (9-20) mg/dL Creatinine (0.66-1.25) mg/dL Estimated GFR (>60) mL/min BUN/Creatinine Ratio (6-22) Glucose (80-110) mg/dL Lactate (0.7-2.1) mmol/L Calcium (8.4-10.2) mg/dL Total Bilirubin (0.2-1.3) mg/dL AST (17-59) IU/L ALT (<50) IU/L Alkaline Phosphatase (38-126) U/L Total Creatine Kinase (55-170) U/L CK-MB (CK-2) CK-MB (CK-2) Rel Index Troponin I (0.01-0.034) ng/mL Total Protein (6.3-8.2) g/dL Albumin (3.5-5.0) g/dL Globulin (1.7-4.1) g/dL Albumin/Globulin Ratio (1.0-2.8) TSH (0.47-4.68) uIU/mL Prolactin (3.7-17.9) ng/mL Urine Color Urine Appearance Urine pH (4.5-8.0) Ur Specific [place] (1.000-1.035) Urine Protein (Negative) Urine Glucose (UA) (Negative) g/dL Urine Ketones (NEGATIVE) Urine Occult Blood (Negative) Urine Nitrate (Negative) Urine Bilirubin (NEGATIVE) Urine Urobilinogen (0.2) E.U./dL Ur Leukocyte Esterase (NEGATIVE) Urine RBC (0-5/HPF) Urine WBC (0-5/HPF) Ur Squamous Epith Cells (0-5/HPF) Urine Bacteria (None) Ur Culture Indicated? U Opiates 300ng/mL cut (Negative) Ur Oxycodone Screen (Negative) Urine Methadone Screen (Negative) Ur Barbiturates Screen (Negative) U Tricyclic Antidepress (Negative) Ur Phencyclidine Scrn (Negative) Ur Amphetamines Screen (Negative) U Methamphetamines Scrn (Negative) Ur MDMA Scrn (Ecstasy) (Negative) U Benzodiazepines Scrn (Negative) Urine Cocaine Screen (Negative) U Marijuana (THC) Screen (Negative) SARS-CoV-2 (PCR) Negative (Negative) 09/01/20 09/01/20 09/01/20 Range/Units 12:30 12:30 12:30 WBC (4.5-11.0) X10^3/uL RBC (4.5-5.9) X10^6/uL Hgb (13.5-17.5) g/dL Hct (41-53) % MCV (80-100) fL MCH (26-34) PG MCHC (30-36) % RDW (11.6-14.8) % Plt Count (150-400) X10^3/uL Neut % (Auto) (50-75) % Lymph % (Auto) (25-40) % Hill % (Auto) (3-14) % Eos % (Auto) (2-4) % Baso % (Auto) (0-2) % Neut # (Auto) (5754-6915) /uL Lymph # (Auto) (6835-9086) /uL Hill # (Auto) (0-900) /uL Eos # (Auto) (0-450) /uL Baso # (Auto) (0-100) /uL PT (10.1-12.7) SECONDS INR (0.9-1.3) APTT (26.4-36.2) SECONDS Sodium 136 L (137-145) mmol/L Potassium 4.2 (3.4-5.1) mmol/L Chloride 106 (98-107) mmol/L Carbon Dioxide 22 (22-32) mmol/L BUN 20 (9-20) mg/dL Creatinine 0.99 (0.66-1.25) mg/dL Estimated GFR > 60.0 (>60) mL/min BUN/Creatinine Ratio 20.2 (6-22) Glucose 143 H (80-110) mg/dL Lactate 1.7 (0.7-2.1) mmol/L Calcium 9.6 (8.4-10.2) mg/dL Total Bilirubin 0.4 (0.2-1.3) mg/dL AST 25 (17-59) IU/L ALT 7 (<50) IU/L Alkaline Phosphatase 75 (38-126) U/L Total Creatine Kinase 67 (55-170) U/L CK-MB (CK-2) TNP CK-MB (CK-2) Rel Index TNP Troponin I < 0.012 (0.01-0.034) ng/mL Total Protein 6.7 (6.3-8.2) g/dL Albumin 3.9 (3.5-5.0) g/dL Globulin 2.8 (1.7-4.1) g/dL Albumin/Globulin Ratio 1.4 (1.0-2.8) TSH (0.47-4.68) uIU/mL Prolactin 6.7 (3.7-17.9) ng/mL Urine Color Urine Appearance Urine pH (4.5-8.0) Ur Specific [place] (1.000-1.035) Urine Protein (Negative) Urine Glucose (UA) (Negative) g/dL Urine Ketones (NEGATIVE) Urine Occult Blood (Negative) Urine Nitrate (Negative) Urine Bilirubin (NEGATIVE) Urine Urobilinogen (0.2) E.U./dL Ur Leukocyte Esterase (NEGATIVE) Urine RBC (0-5/HPF) Urine WBC (0-5/HPF) Ur Squamous Epith Cells (0-5/HPF) Urine Bacteria (None) Ur Culture Indicated? U Opiates 300ng/mL cut (Negative) Ur Oxycodone Screen (Negative) Urine Methadone Screen (Negative) Ur Barbiturates Screen (Negative) U Tricyclic Antidepress (Negative) Ur Phencyclidine Scrn (Negative) Ur Amphetamines Screen (Negative) U Methamphetamines Scrn (Negative) Ur MDMA Scrn (Ecstasy) (Negative) U Benzodiazepines Scrn (Negative) Urine Cocaine Screen (Negative) U Marijuana (THC) Screen (Negative) SARS-CoV-2 (PCR) (Negative) 09/01/20 09/01/20 09/01/20 Range/Units 12:30 12:57 12:57 WBC (4.5-11.0) X10^3/uL RBC (4.5-5.9) X10^6/uL Hgb (13.5-17.5) g/dL Hct (41-53) % MCV (80-100) fL MCH (26-34) PG MCHC (30-36) % RDW (11.6-14.8) % Plt Count (150-400) X10^3/uL Neut % (Auto) (50-75) % Lymph % (Auto) (25-40) % Hill % (Auto) (3-14) % Eos % (Auto) (2-4) % Baso % (Auto) (0-2) % Neut # (Auto) (1041-4210) /uL Lymph # (Auto) (8404-3177) /uL Hill # (Auto) (0-900) /uL Eos # (Auto) (0-450) /uL Baso # (Auto) (0-100) /uL PT (10.1-12.7) SECONDS INR (0.9-1.3) APTT (26.4-36.2) SECONDS Sodium (137-145) mmol/L Potassium (3.4-5.1) mmol/L Chloride (98-107) mmol/L Carbon Dioxide (22-32) mmol/L BUN (9-20) mg/dL Creatinine (0.66-1.25) mg/dL Estimated GFR (>60) mL/min BUN/Creatinine Ratio (6-22) Glucose (80-110) mg/dL Lactate (0.7-2.1) mmol/L Calcium (8.4-10.2) mg/dL Total Bilirubin (0.2-1.3) mg/dL AST (17-59) IU/L ALT (<50) IU/L Alkaline Phosphatase (38-126) U/L Total Creatine Kinase (55-170) U/L CK-MB (CK-2) CK-MB (CK-2) Rel Index Troponin I (0.01-0.034) ng/mL Total Protein (6.3-8.2) g/dL Albumin (3.5-5.0) g/dL Globulin (1.7-4.1) g/dL Albumin/Globulin Ratio (1.0-2.8) TSH 4.13 (0.47-4.68) uIU/mL Prolactin (3.7-17.9) ng/mL Urine Color Yellow Urine Appearance Clear Urine pH 6.0 (4.5-8.0) Ur Specific [place] 1.025 (1.000-1.035) Urine Protein Negative (Negative) Urine Glucose (UA) Negative (Negative) g/dL Urine Ketones Negative (NEGATIVE) Urine Occult Blood Negative (Negative) Urine Nitrate Negative (Negative) Urine Bilirubin Negative (NEGATIVE) Urine Urobilinogen 0.2 (0.2) E.U./dL Ur Leukocyte Esterase Negative (NEGATIVE) Urine RBC None seen (0-5/HPF) Urine WBC 1-5/hpf (0-5/HPF) Ur Squamous Epith Cells 5-10 /hpf H (0-5/HPF) Urine Bacteria None seen (None) Ur Culture Indicated? Cult not indicated U Opiates 300ng/mL cut Negative (Negative) Ur Oxycodone Screen Negative (Negative) Urine Methadone Screen Negative (Negative) Ur Barbiturates Screen Negative (Negative) U Tricyclic Antidepress Negative (Negative) Ur Phencyclidine Scrn Negative (Negative) Ur Amphetamines Screen Negative (Negative) U Methamphetamines Scrn Negative (Negative) Ur MDMA Scrn (Ecstasy) Negative (Negative) U Benzodiazepines Scrn Negative (Negative) Urine Cocaine Screen Negative (Negative) U Marijuana (THC) Screen Negative (Negative) SARS-CoV-2 (PCR) (Negative) Imaging Data CT scan - head: Radiologist's Impression: PROCEDURE: CT STROKE INDICATIONS: code stroke Last known well last night. TECHNIQUE: Noncontrast 4.5 mm thick angled axial sections acquired from the foramen magnum to the vertex, with coronal reformats. For radiation dose reduction, the following was used: automated exposure control, adjustment of mA and/or kV according to patient size. COMPARISON: [facility], MR, MR BRAIN SEIZURE WITH/WITHOUT CONTRAST, 05/13/2020, 12:29. [facility], CT, CT ANGIO HEAD AND NECK, 05/15/2020, 10:18. FINDINGS: Image quality: This examination is limited by involuntary motion artifact. CSF spaces: Basal cisterns are patent. No extra-axial fluid collections. The ventricles are symmetric in size and shape. Brain: No intracranial bleeds or masses. There is cerebral volume loss for age, with resultant ventricular and sulcal prominence. There are periventricular and deep white matter chronic small vessel ischemic changes. A remote left MCA territory infarction can be seen. There is intracranial internal carotid artery atherosclerosis. Skull and face: Calvarium and visualized facial bones appear intact, without suspicious lesions. Sinuses: Visualized sinuses and mastoids are clear. IMPRESSION: Motion limited study demonstrating no findings of acute intracranial hemorrhage. A stable, remote left MCA territory infarction can be seen. If there is strong clinical suspicion for an acute stroke, please consider an MRI for further evaluation, as it is more sensitive (assuming that there is no contraindication to MRI). Note: Case discussed by telephone with Dr. Mahmood at 11:38 a.m. [place] time on September 01, 2020. This study fulfills neurological imaging criteria for inclusion or exclusion of acute stroke therapies based on available published neurological guidelines. Dictated by: Marcin Duff M.D. on 09/01/2020 at 11:35 ECG Data Attestation: I personally reviewed and interpreted this ECG as follows: Interpretation: Normal sinus rhythm rate 63 p.r. interval 270 QRS [address] changes MDM Narrative Medical decision making narrative: Patient had seizure in CT given Ativan. 12:55 Code stroke team contacted at this time unlikely to be stroke rather more probably a prodrome to his seizure. Recommended loading with 1 g of Depakote. 1348-Dr Wolff, neurology at [facility] has been updated on patient's symptoms and test results he is able to look in the chart. At this time he agrees with loading of Depakote of 1 g and recommends increasing the Depakote back to a 1000 mg b.i.d.. At this time does not require transfer and he will update patient's own neurologist. 1500 patient found to have seizure he is given 1 mg of Ativan which helps calm him 1600 patient again has seizure despite Depakote and Ativan 1842 Dr Wolff neurology at [facility] updated on patient's recurrent seizures at this time recommends 750 mg of Depakote, Depakote level is pending and is a send out. Unfortunately with the she [place] does not have pets.-on wait list [facility] no beds [place] no beds [facility] no beds [facility] no beds-on wait list 2014-spoke with Dr. Graff at [facility] Neurology updated patient's symptoms test results at this time recommends Depakote 500 mg IV Q 8 hours and Ativan 1 mg as needed if needed for seizures continue Vimpat 200 mg IV q.[address] angio. He is happy to consult. Dr. Noyola-hospitalist in ED to see and evaluate patient updated on patient's symptoms and test results and will accept patient but requests that patient be transferred to a place for neurology is as soon as possible. Critical Care Time Critical Care Time Critical Care Time: Yes Total Critical Care Time: 90 Attestation: The high probability of a clinically significant, sudden or life threatening deterioration of the [cardiovascular] system(s) required my full and direct attention, intervention and personal management. The aggregate critical care time was 90 minutes. This time is in addition to time spent performing reported procedures but includes the following: [x] Data Review and interpretation [x] Patient assessment and monitoring of vital signs [x] Documentation [x] Medication orders and management Discharge Plan Departure Patient Disposition: Admitted As Inpatient Clinical Impression: Epilepsy
[2020-09-01 12:45] LABS: Add Manual Diff / Slide Review NO; Basophils Absolute Auto 0 /uL (0-100); Basophils Percent Auto 0.6 % (0-2); Eosinophils Absolute Auto 100 /uL (0-450); Eosinophils Percent Auto 1.4 % (2-4); Hematocrit 46.2 % (41-53); Lymphocytes Absolute Auto 1500 /uL (1100-4500); Lymphocytes Percent Auto 25.4 % (25-40); Mean Corpuscular HGB Conc 34.7 % (30-36); Mean Corpuscular Hemoglobin 35.8 PG (26-34); Mean Corpuscular Volume 103.2 fL (80-100); Monocytes Absolute Auto 600 /uL (0-900); Neutrophils Absolute Auto 3700 /uL (1500-7000); Neutrophils Percent Auto 62.6 % (50-75); Platelet Count 103 X10^3/uL (150-400); Red Blood Cell Count 4.48 X10^6/uL (4.5-5.9); Red Cell Distribution Width 13.6 % (11.6-14.8); White Blood Cell Count 5.9 X10^3/uL (4.5-11.0)
[2020-09-01 12:45] LABS: COVID19 -Nasal RAPID Negative (Negative)
[2020-09-01 12:52] LABS: Prothrombin Time 11.8 SECONDS (10.1-12.7)
[2020-09-01 12:55] LABS: Lactate (Lactic Acid) 1.7 mmol/L (0.7-2.1); PTT Partial Thromboplastin Tim 37 SECONDS (26.4-36.2)
[2020-09-01 12:56] LABS: Alanine Aminotransferase 7 IU/L (<50); Albumin 3.9 g/dL (3.5-5.0); Albumin Globulin Ratio 1.4 (1.0-2.8); Alkaline Phosphatase 75 U/L (38-126); Aspartate Aminotransferase 25 IU/L (17-59); BUN Creatinine Ratio 20.2 (6-22); Bilirubin Total 0.4 mg/dL (0.2-1.3); Blood Urea Nitrogen 20 mg/dL (9-20); Calcium 9.6 mg/dL (8.4-10.2); Carbon Dioxide 22 mmol/L (22-32); Chloride 106 mmol/L (98-107); Creatine Kinase 67 U/L (55-170); Estimated Glomerular Filt Rate > 60.0 mL/min (>60); Globulin 2.8 g/dL (1.7-4.1); Glucose 143 mg/dL (80-110); HEMOLYSIS < 15 (0-50); Potassium 4.2 mmol/L (3.4-5.1); Sodium 136 mmol/L (137-145); Total Protein 6.7 g/dL (6.3-8.2)
[2020-09-01] MEDS: LORazepam 2 MG/ML INJ 1 MG IV ×2 (12:56→15:00)
[2020-09-01] MEDS: SODIUM CHLORIDE 0.9% 1,000 ML 150 ML IV (12:59)
[2020-09-01 13:07] LABS: UR Morphine/Opiate cutoff 300 Negative (Negative); Ur Creatinine Normal (Normal); Ur Specific Gravity Normal (Normal); Urine Amphetamines Negative (Negative); Urine Barbiturates Negative (Negative); Urine Benzodiazepines Negative (Negative); Urine Cocaine Negative (Negative); Urine MDMA Negative (Negative); Urine Methadone Negative (Negative); Urine Methamphetamines Negative (Negative); Urine Oxycodone Negative (Negative); Urine Phencyclidine Negative (Negative); Urine Tetrahydrocannabinol Negative (Negative); Urine Tricyclic Antidepressant Negative (Negative); Urine pH Normal (Normal)
[2020-09-01 13:08] LABS: Troponin I < 0.012 ng/mL (0.01-0.034)
[2020-09-01] MEDS: VALPROIC ACID 1,000 MG in DEXTROSE 5 % IN WATER 50 ML 60 ML IV (13:09)
[2020-09-01 13:11] LABS: Bacteria Urine None Seen; RBC Urine None Seen (0-5/HPF)
[2020-09-01 13:13] LABS: Appearance Urine UA CLEAR; Bilirubin Urine UA NEGATIVE (NEGATIVE); Color Urine UA YELLOW; Glucose Urine UA NEGATIVE (Negative); Ketones Urine UA NEGATIVE (NEGATIVE); Leukocyte Esterase Urine UA NEGATIVE (NEGATIVE); Nitrite Urine UA NEGATIVE (Negative); Occult Blood Urine UA NEGATIVE (Negative); Protein Urine UA NEGATIVE (Negative); Specific Gravity Urine UA 1.025 (1.000-1.035); Urobilinogen Urine UA 0.2 E.U./dL (0.2)
[2020-09-01 13:13] LABS: Prolactin 6.7 ng/mL (3.7-17.9)
[2020-09-01 13:26] LABS: Culture Indicated Urine Cult Not Indicated; Squamous Epithelial Cell Urine 5-10 /HPF (0-5/HPF); WBC Urine 1-5/HPF (0-5/HPF)
[2020-09-01 13:27] LABS: TSH w/ Reflex to FT4 4.13 uIU/mL (0.47-4.68)
[2020-09-01] MEDS: LORazepam 2 MG/ML INJ IV (16:58)
[2020-09-01] MEDS: VALPROIC ACID IV (19:26)
[2020-09-01] MEDS: DEXTROSE 5% IV (19:26)
[2020-09-01] MEDS: WATER IV (19:26)
--- NOTE | 2020-09-01 19:50 | DI.RAD.S_ITS ---
PROCEDURE: XR CHEST 1V INDICATIONS: Flu like symptoms TECHNIQUE: One view of the chest was acquired. COMPARISON: [facility], CT, ANGIOGRAPHY CHEST, 06/13/2015, 23:56. [facility], CR, CHEST 1 VIEW, 06/13/2015, 17:03. [facility], CT, CT STROKE, 09/01/2020, 12:27. [facility], CR, XR CHEST 2V, 04/03/2020, 14:57. FINDINGS: Surgical changes and devices: None. Lungs and pleura: On this semiupright portable chest examination, no large pneumothorax or large pleural effusions are seen. No focal infiltrates are seen. Low lung volumes are noted. This causes a crowded appearance to the lung markings and limits evaluation. Mediastinum: Mediastinal contours appear normal. Heart size mildly enlarged. . Bones and chest wall: No suspicious bony lesions. Age-appropriate bony degenerative changes are seen. Overlying soft tissues appear unremarkable. IMPRESSION: Mild cardiomegaly. Limited portable chest examination, with low lung volumes. If clinically appropriate, a short-term followup chest series (with PA and lateral views) performed in deep inspiration is suggested for further evaluation. Dictated by: Marcin Duff M.D. on 09/01/2020 at 19:13 Approved by: Marcin Duff M.D. on 09/01/2020 at 19:15
--- NOTE | 2020-09-01 20:25 | DI.CT.S_ITS ---
PROCEDURE: CT ANGIO HEAD AND NECK INDICATIONS: seizure / stroke like symptoms. TECHNIQUE: Noncontrast images were performed earlier in the day and not repeated. After the administration of intravenous contrast, 1 mm thick sections acquired from the aortic arch through the [place] of [place]. Post-contrast 4.5 mm thick sections then re-acquired from the foramen magnum to the vertex. 3-dimensional evqboyb-mkcfyahyc-dwpnngshrj (MIP) and/or volume rendering reformats were acquired of the central intracranial vasculature and neck separately. COMPARISON: [facility], CT, CT ANGIO HEAD AND NECK, 05/15/2020, 10:18. [facility], CT, CT STROKE, 09/01/2020, 12:27. [facility], CR, XR CHEST 1V, 09/01/2020, 19:57. [facility], MR, MR BRAIN SEIZURE WITH/WITHOUT CONTRAST, 05/13/2020, 12:29. [facility], CT, CT HEAD WITHOUT CONTRAST, 05/12/2020, 20:57. [facility], CT, CT HEAD/BRAIN WO CON, 05/24/2018, 21:33. [facility], CT, CT ANGIO HEAD AND NECK, 12/27/2017, 14:16. [facility], CT, CT ANGIO HEAD AND NECK, 05/24/2018, 22:05. FINDINGS: Image quality: This examination is limited by involuntary motion artifact. BRAIN: CSF spaces: Ventricles are stable in size and shape, with ex vacuo dilatation of the left lateral ventricle.. Basal cisterns are patent. No extra-axial fluid collections. Brain: Remote left MCA infarction can again be seen. The previously documented left cerebellar infarction is also faintly seen. No midline shift. No intracranial bleeds or masses. Loepz-white matter interface appears intact. Skull and face: Calvarium and facial bones appear intact, without suspicious lesions. Orbits appear normal. Sinuses: Sinuses and mastoids are clear. HEAD CT ANGIOGRAPHY: Anterior circulation: Intracranial internal carotid arteries are normal in size and flow. There is a diminutive right A1 segment, with a corresponding robust left A1 segment. This is considered to be a normal developmental variant of the [place] of [place], of typically no clinical consequence. The flow within the paired anterior cerebral arteries is otherwise is normal and symmetric. The flow within the middle cerebral arteries is normal and symmetric. The anterior communicating artery is seen. No aneurysms are seen. Posterior circulation: Visualized portions of the vertebral arteries demonstrate normal caliber, and join to form a normal appearing basilar artery. Flow within the posterior cerebral arteries is normal and symmetric. No aneurysms are seen. NECK CT ANGIOGRAPHY: Carotid system: The great vessels demonstrate a conventional anatomy as they arise from the aortic arch. The origins of the common carotid arteries appear patent. The common carotid arteries demonstrate normal caliber and courses. The bifurcation regions demonstrate atherosclerotic calcification and irregularity, yet without a hemodynamically significant stenosis. The more distal internal carotid arteries demonstrate normal course and caliber. Posterior circulation: The origins of the vertebral arteries both appear widely patent. The more superior extracranial portions of both vertebral arteries also demonstrate normal courses and calibers. They join to form a normal appearing basilar artery. Soft tissues: Visualized neck soft tissues demonstrate no suspicious abnormalities. Bones: No suspicious bony lesions. Visualized cervical spine appears normally aligned. Moderate cervical spine degenerative changes are seen inferiorly. IMPRESSION: No significant intracranial arterial abnormality is seen. Within the arteries of the neck, no hemodynamically significant stenosis can be seen. 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 Dictated by: Marcin Duff M.D. on 09/01/2020 at 20:14 Approved by: Marcin Duff M.D. on 09/01/2020 at 20:18
--- NOTE | 2020-09-01 21:07 | PM.HP.1 ---
History of Present Illness History of Present Illness Date Patient Seen: 09/01/20 Time Patient Seen: 21:45 Chief complaint: Code Stroke Narrative: Patient is a 75-year-old male Alexi Rodrigues patient via EMS as a code stroke for right-sided weakness, Patient was immediately taken to CT prior to Dr. Garces evaluation, he was in CT when he started having a seizure. He was immediately given 2 mg of Ativan. Patient has history herpetic/autoimmune encephalitis 2015, CVA 2010, venous embolus and thrombosis DVT 2013, Parkinson's, ischemic stroke-middle cerebral artery 05/12/20-05/16/2020 at [facility], hypertension, hyperlipidemia, diet-controlled diabetes mellitus, hypothyroidism, and obesity. reports that patient woke normally this a.m. and then at [id number] am he began to have right-sided weakness and some speech difficulty which is a change from his post stroke baseline. She states that he ate his breakfast and he was signing paperwork that needed sign he was able to sign 1 piece of the paper and the 2nd area he was supposed to sign he was unable to do so, she began noticing that he had increased right-sided body weakness, but drooling the left side of his mouth, and he was unable to talk, patient's Marian felt that these were stroke symptoms not seizure or Parkinson's symptoms. The reports the patient's physical baseline is to ambulate independently with the assistance of a walker or cane depending on the day, eats drinks and speaks without difficulty. Patient's last office visit with Dr. Larson PCP 08/23/2020 documented patient's neuro status as abnormal cognition, speech normal, antalgic and shuffling gait, motor movement abnormality noted, tremor, muscle tone abnormal and strength abnormal, mental status grossly normal. Patient is followed at [facility] by Dr. German porras stroke and Dr. Mccloud for his epilepsy and Parkinson's. Patient suffered a seizure in conjunction with his CVA in May 2020 as the patient was attempting to taper off Keppra and taper on to Depakote, his Depakote dosage at the time was 500 mg. [facility] appointment on 05/26/2020 post CVA patient's Depakote was increased to a 1000 mg b.i.d. At patient's follow-up telemedicine appointment with Dr. Mccloud August 22 in which it was believed that the increased dose of Depakote was exacerbating Parkinson's symptoms and contributing to greater weakness and mobility issues, it was decided at that time to begin decreasing his Depakote to taper off while tapering on to Zonisamide (per ). The patient was at a dosage of 500 mg of Depakote and 200 mg of zonisamide for approximally 48 hours prior to today's seizures. Patient received a total dosage of 1750mg Depakote and 6 mg Ativan in ED for continued seizures. Due to inability to transfer patient to a neuro unit assessment was completed in the ED. patient was arousable, visible tremor of the head and left arm, right-side neglect, answers in 1 word inappropriate answers, unable to follow commands. Will admit patient for status epilepticus versus stroke to ICU observation. Patient's vital signs upon admit temp 98.2?, BP 170/81, HR 78, RR 20, O2 saturation 96% on room air. Patient did have temporary nasal trumpet do to concerns regarding airway compromise during seizure. Patient was reported to rouse slightly and cough out trumpet. Patient is stable and airway is patent breathing on his own at this time. Patient's labs upon admit CBC unremarkable, Na 136, glucose 143, RBC 4.48, platelets 103, troponin negative, procalcitonin 6.7.CTA: No significant intracranial arterial abnormality is seen. Within the arteries of the neck, no hemodynamically significant stenosis can be seen. ECG:Normal sinus rhythm rate 63 p.r. interval 270 QRS [address] Head CT:Motion limited study demonstrating no findings of acute intracranial hemorrhage. A stable, remote left MCA territory infarction can be seen. This study fulfills neurological imaging criteria for inclusion or exclusion of acute stroke therapies based on available published neurological guidelines. Patient was not sent for MR due to inability to monitor patient during exam in relation to patient's status epilepticus. CXR:Mild cardiomegaly. In ED: Consult :Code stroke team contacted: They advised unlikely to be stroke rather more probably a prodrome to his seizure. Recommended loading with 1 g of Depakote. Consult: Dr Wolff, neurology at [facility] has been updated on patient's symptoms and test results he is able to look in the chart. At this time he agrees with loading of Depakote of 1 g and recommends increasing the Depakote back to a 1000 mg b.i.d.. At this time does not require transfer and he will update patient's own neurologist. 1500 patient found to have seizure he is given 1 mg of Ativan which helps calm him 1600 patient again has seizure despite Depakote and Ativan 1842 Dr Wolff neurology at [facility] updated on patient's recurrent seizures at this time recommends 750 mg of Depakote, Depakote level is pending and is a send out. Unfortunately with the [facility] does not have any beds.-on wait list. [facility] no beds, [place] no beds, [facility] no beds, [facility] did not have continuous EEG monitoring unable to take patient. [facility] no beds-on wait list 2014-spoke with Dr. Graff at [facility] updated patient's symptoms test results at this time recommends Depakote 500 mg IV Q 8 hours and Ativan 1 mg as needed if needed for seizures continue Vimpat 200 mg IV q.[address] angio. He is happy to consult. Dr. Noyola & ISABELLA Farfan-hospitalist in ED to see and evaluate patient updated on patient's symptoms and test results and will accept patient but requests that patient be transferred to a place for neurology is as soon as possible. 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) Cerebrovascular accident (CVA) Diverticulosis large intestine w/o perforation or abscess w/o bleeding (12/12/10) Encephalitis due to human herpes simplex virus (HSV) Hemorrhoids that prolapse with straining and require manual replacement back inside anal canal Ischemic stroke Seizures Surgical History (Updated 09/01/20 @ 23:44 by MARIE Roman) History of appendectomy History of nasal surgery No pertinent past surgical history Family & Social History Family History (Updated 09/01/20 @ 23:47 by MARIE Roman) Brother Kidney disease Brother Aneurysm Mother Alzheimer's dementia Social History: lives independently Yes Safety & Behavioral: Feels Safe in Current Yes, lives independently with his , patient is retired. Patient ambulates at home with walker or cane. Patient is able to maintain his ADLs independently. Environment Been Physically Hurt or No Threatened By a Person Tobacco & Substance use: Smoking Status Never smoker alcohol intake former alcohol intake frequency 0-2 drinks per day Substance Use Type does not use Meds Home Medications and Allergies Home Medications Medication Instructions Recorded Confirmed Type nystatin 100,000 unit/gram topical 100,000 unit TOPICAL BID PRN #30 11/14/19 09/01/20 Rx powder gram atenolol 50 mg PO BEDTIME 09/01/20 09/01/20 History atorvastatin 40 mg PO BEDTIME 09/01/20 09/01/20 History carbidopa-levodopa [Rytary] 3 cap PO TID 09/01/20 09/01/20 History clopidogrel 75 mg PO QAM 09/01/20 09/01/20 History divalproex 500 mg PO BID 09/01/20 09/01/20 History docusate sodium [Colace] 100 mg PO QAM 09/01/20 09/01/20 History finasteride 5 mg PO QPM 09/01/20 09/01/20 History furosemide [Lasix] 20 mg PO QAM 09/01/20 09/01/20 History lacosamide [Vimpat] 200 mg PO BID 09/01/20 09/01/20 History levothyroxine 125 mcg PO QAM 09/01/20 09/01/20 History losartan 25 mg PO BEDTIME 09/01/20 09/01/20 History mecobalamin (vitamin B12) 2,000 mcg SUBLINGUAL QAM 09/01/20 09/01/20 History pantoprazole 40 mg PO BEDTIME 09/01/20 09/01/20 History valacyclovir 500 mg PO BEDTIME 09/01/20 09/01/20 History zonisamide 200 mg PO BEDTIME 09/01/20 09/01/20 History Allergies Allergy/AdvReac Type Severity Reaction Status Date / Time No Known Drug Allergies Allergy Verified 09/01/20 13:41 Review of Systems Review of Systems ROS: Yes unobtainable due to mental status Exam Vital Signs (past 8 hours): - 09/01/20 13:11 09/01/20 13:15 09/01/20 13:20 Temperature 97.7 F 97.7 F 97.9 F Pulse Rate 74 74 76 Respiratory Rate 32 H 25 H 26 H Blood Pressure 183/114 H 199/92 H Pulse Oximetry 96 96 96 09/01/20 13:25 09/01/20 13:30 09/01/20 13:35 Temperature 97.9 F 97.9 F 97.9 F Pulse Rate 73 72 72 Respiratory Rate 17 19 18 Blood Pressure 214/89 H 189/75 H 176/83 H Pulse Oximetry 97 97 96 09/01/20 13:40 09/01/20 13:45 09/01/20 13:49 Temperature 97.7 F 97.7 F 97.7 F Pulse Rate 72 70 72 Respiratory Rate 18 18 19 Blood Pressure 181/86 H 167/76 H Pulse Oximetry 97 96 97 09/01/20 13:50 09/01/20 13:55 09/01/20 14:00 Temperature 97.7 F 97.7 F 97.7 F Pulse Rate 71 69 68 Respiratory Rate 18 18 19 Blood Pressure 178/98 H 159/77 H 158/77 H Pulse Oximetry 97 96 96 09/01/20 14:05 09/01/20 14:10 09/01/20 14:15 Temperature 97.5 F L 97.5 F L 97.5 F L Pulse Rate 69 69 69 Respiratory Rate 19 17 18 Blood Pressure 164/81 H 187/87 H 181/73 H Pulse Oximetry 97 97 96 09/01/20 14:20 09/01/20 14:25 09/01/20 14:30 Temperature 97.5 F L 97.5 F L 97.3 F L Pulse Rate 74 72 71 Respiratory Rate 30 H 19 15 Blood Pressure 196/89 H 179/79 H Pulse Oximetry 97 95 96 09/01/20 14:35 09/01/20 14:40 09/01/20 14:45 Temperature 97.3 F L 97.3 F L 97.3 F L Pulse Rate 72 69 71 Respiratory Rate 18 15 17 Blood Pressure 180/85 H 168/73 H 176/86 H Pulse Oximetry 96 96 96 09/01/20 14:56 09/01/20 15:00 09/01/20 15:06 Temperature 97.3 F L 97.3 F L 97.2 F L Pulse Rate 80 197 H 70 Respiratory Rate 65 H 58 H 18 Blood Pressure 136/94 H 190/91 H Pulse Oximetry 96 95 96 09/01/20 15:10 09/01/20 15:15 09/01/20 15:20 Temperature 97.2 F L 97.3 F L 97.3 F L Pulse Rate 71 69 69 Respiratory Rate 18 18 17 Blood Pressure 188/86 H 157/73 H 164/74 H Pulse Oximetry 96 97 98 09/01/20 15:26 09/01/20 15:30 09/01/20 15:35 Temperature 97.3 F L 97.3 F L 97.3 F L Pulse Rate 68 68 68 Respiratory Rate 17 18 18 Blood Pressure 148/86 H 142/74 H 150/80 H Pulse Oximetry 97 97 98 09/01/20 15:40 09/01/20 15:45 09/01/20 15:46 Temperature 97.3 F L 97.3 F L 97.3 F L Pulse Rate 70 74 74 Respiratory Rate 18 22 26 H Blood Pressure 153/85 H 157/118 H Pulse Oximetry 97 98 97 09/01/20 15:51 09/01/20 16:00 09/01/20 16:15 Temperature 97.3 F L 97.3 F L 97.3 F L Pulse Rate 74 79 71 Respiratory Rate 18 22 18 Blood Pressure 196/113 H 164/78 H Pulse Oximetry 97 96 09/01/20 16:30 09/01/20 16:45 09/01/20 17:00 Temperature 97.5 F L 97.5 F L 97.5 F L Pulse Rate 69 71 70 Respiratory Rate 17 13 19 Blood Pressure 137/64 159/76 H 160/79 H Pulse Oximetry 96 96 96 09/01/20 17:15 09/01/20 17:30 09/01/20 17:45 Temperature 97.5 F L 97.7 F 97.7 F Pulse Rate 71 72 74 Respiratory Rate 17 15 18 Blood Pressure 159/82 H 160/78 H Pulse Oximetry 96 95 97 09/01/20 18:00 09/01/20 18:01 09/01/20 18:15 Temperature 97.7 F 97.7 F 97.7 F Pulse Rate 77 77 72 Respiratory Rate 29 H 25 H 17 Blood Pressure 128/92 H 176/78 H Pulse Oximetry 96 95 95 09/01/20 18:30 09/01/20 18:39 09/01/20 18:45 Temperature 97.9 F 97.7 F 97.9 F Pulse Rate 78 77 75 Respiratory Rate 35 H 20 17 Blood Pressure 161/89 H 160/88 H Pulse Oximetry 97 96 93 09/01/20 19:00 09/01/20 19:15 09/01/20 19:30 Temperature 97.9 F 98.1 F 98.1 F Pulse Rate 74 77 76 Respiratory Rate 17 17 17 Blood Pressure 147/77 H 176/81 H 160/68 H Pulse Oximetry 93 95 94 09/01/20 19:41 09/01/20 19:45 09/01/20 20:00 Temperature 98.1 F 98.2 F Pulse Rate 77 76 78 Respiratory Rate 20 17 20 Blood Pressure 163/77 H 170/81 H Pulse Oximetry 96 95 96 09/01/20 20:15 09/01/20 20:30 Temperature 98.2 F 98.4 F Pulse Rate 75 74 Respiratory Rate 16 17 Blood Pressure 169/85 H 177/80 H Pulse Oximetry 95 94 Oxygen Delivery Method Room Air Oxygen Flow Rate 2 Narrative Exam Narrative: General: Patient is a well-developed, well-nourished male, who responds to sternal rub stimuli, with receptive and expressive aphasia, unable to follow commands, verbal one-word responses that are inappropriateyea, right-sided neglect, in no distress at this time, airway is patent and protected, patient is resting comfortably with intermittent visible tremor of the left arm and head, no seizure activity observed at this time. Patient's is at bedside. HEENT: Normocephalic, atraumatic, extraocular muscles intact, oral pharynx is clear and mucous membranes are moist. Neck is supple and symmetric, trachea is midline, no adenopathy, no thyroid enlargement, nontender, no masses palpated. Negative for JVD Chest: Normal AP diameter and contour without kyphoscoliosis, no nasal flaring, retractions, or tachypneic labored Lungs: Auscultation of all lung richards are clear without adventitious sounds, wheezes, rhonchi, or rales. Cardio: S1 & S2 with regular rate and rhythm without murmur, rubs, or gallops, no carotid bruit, no cardiac pulsations present. Abdomen: Soft nontender, negative for organomegaly, or masses. Bowel sounds are present in all 4 quadrants without guarding or rebound, no CVA tenderness. Musculoskeletal: Muscle strength and tone- unable to assess. no deformity, crepitus, effusions, cyanosis, clubbing or edema present. intact radial and pedal pulses are normal. Skin: Cool dry and intact without rashes, ulcerations or petechiae. Neuro: responds to sternal rub stimuli, with receptive and expressive aphasia, unable to follow commands, verbal one-word responses that are inappropriateyea, right-sided neglect, Psych: Patient has a well-kept appearance. Objective Labs Result Diagrams: 09/01/20 12:30 09/01/20 12:30 Labs: Laboratory Results - last 24 hr 09/01/20 09/01/20 09/01/20 12:20 12:30 12:30 WBC 5.9 RBC 4.48 L Hgb 16.0 Hct 46.2 MCV 103.2 H MCH 35.8 H MCHC 34.7 RDW 13.6 Plt Count 103 L Neut % (Auto) 62.6 Lymph % (Auto) 25.4 Love % (Auto) 10.0 Eos % (Auto) 1.4 L Baso % (Auto) 0.6 Neut # (Auto) 3700 Lymph # (Auto) 1500 Love # (Auto) 600 Eos # (Auto) 100 Baso # (Auto) 0 PT 11.8 INR 1.0 APTT 37 H D Sodium Potassium Chloride Carbon Dioxide BUN Creatinine Estimated GFR BUN/Creatinine Ratio Glucose Lactate Calcium Total Bilirubin AST ALT Alkaline Phosphatase Total Creatine Kinase CK-MB (CK-2) CK-MB (CK-2) Rel Index Troponin I Total Protein Albumin Globulin Albumin/Globulin Ratio TSH Prolactin Urine Color Urine Appearance Urine pH Ur Specific [place] Urine Protein Urine Glucose (UA) Urine Ketones Urine Occult Blood Urine Nitrate Urine Bilirubin Urine Urobilinogen Ur Leukocyte Esterase Urine RBC Urine WBC Ur Squamous Epith Cells Urine Bacteria Ur Culture Indicated? U Opiates 300ng/mL cut Ur Oxycodone Screen Urine Methadone Screen Ur Barbiturates Screen U Tricyclic Antidepress Ur Phencyclidine Scrn Ur Amphetamines Screen U Methamphetamines Scrn Ur MDMA Scrn (Ecstasy) U Benzodiazepines Scrn Urine Cocaine Screen U Marijuana (THC) Screen SARS-CoV-2 (PCR) Negative 09/01/20 09/01/20 09/01/20 12:30 12:30 12:30 WBC RBC Hgb Hct MCV MCH MCHC RDW Plt Count Neut % (Auto) Lymph % (Auto) Love % (Auto) Eos % (Auto) Baso % (Auto) Neut # (Auto) Lymph # (Auto) Love # (Auto) Eos # (Auto) Baso # (Auto) PT INR APTT Sodium 136 L Potassium 4.2 Chloride 106 Carbon Dioxide 22 BUN 20 Creatinine 0.99 Estimated GFR > 60.0 BUN/Creatinine Ratio 20.2 Glucose 143 H Lactate 1.7 Calcium 9.6 Total Bilirubin 0.4 AST 25 ALT 7 Alkaline Phosphatase 75 Total Creatine Kinase 67 CK-MB (CK-2) TNP CK-MB (CK-2) Rel Index TNP Troponin I < 0.012 Total Protein 6.7 Albumin 3.9 Globulin 2.8 Albumin/Globulin Ratio 1.4 TSH Prolactin 6.7 Urine Color Urine Appearance Urine pH Ur Specific [place] Urine Protein Urine Glucose (UA) Urine Ketones Urine Occult Blood Urine Nitrate Urine Bilirubin Urine Urobilinogen Ur Leukocyte Esterase Urine RBC Urine WBC Ur Squamous Epith Cells Urine Bacteria Ur Culture Indicated? U Opiates 300ng/mL cut Ur Oxycodone Screen Urine Methadone Screen Ur Barbiturates Screen U Tricyclic Antidepress Ur Phencyclidine Scrn Ur Amphetamines Screen U Methamphetamines Scrn Ur MDMA Scrn (Ecstasy) U Benzodiazepines Scrn Urine Cocaine Screen U Marijuana (THC) Screen SARS-CoV-2 (PCR) 09/01/20 09/01/20 09/01/20 12:30 12:57 12:57 WBC RBC Hgb Hct MCV MCH MCHC RDW Plt Count Neut % (Auto) Lymph % (Auto) Love % (Auto) Eos % (Auto) Baso % (Auto) Neut # (Auto) Lymph # (Auto) Love # (Auto) Eos # (Auto) Baso # (Auto) PT INR APTT Sodium Potassium Chloride Carbon Dioxide BUN Creatinine Estimated GFR BUN/Creatinine Ratio Glucose Lactate Calcium Total Bilirubin AST ALT Alkaline Phosphatase Total Creatine Kinase CK-MB (CK-2) CK-MB (CK-2) Rel Index Troponin I Total Protein Albumin Globulin Albumin/Globulin Ratio TSH 4.13 Prolactin Urine Color Yellow Urine Appearance Clear Urine pH 6.0 Ur Specific [place] 1.025 Urine Protein Negative Urine Glucose (UA) Negative Urine Ketones Negative Urine Occult Blood Negative Urine Nitrate Negative Urine Bilirubin Negative Urine Urobilinogen 0.2 Ur Leukocyte Esterase Negative Urine RBC None seen Urine WBC 1-5/hpf Ur Squamous Epith Cells 5-10 /hpf H Urine Bacteria None seen Ur Culture Indicated? Cult not indicated U Opiates 300ng/mL cut Negative Ur Oxycodone Screen Negative Urine Methadone Screen Negative Ur Barbiturates Screen Negative U Tricyclic Antidepress Negative Ur Phencyclidine Scrn Negative Ur Amphetamines Screen Negative U Methamphetamines Scrn Negative Ur MDMA Scrn (Ecstasy) Negative U Benzodiazepines Scrn Negative Urine Cocaine Screen Negative U Marijuana (THC) Screen Negative SARS-CoV-2 (PCR) Assessment & Plan Assessment & Plan narrative: This patient requires critical care ICU observation hospital management for status epilepticus rule out stroke, after failing outpatient management of his anti epileptic medications. The patient is at much higher risk for medical and surgical complications because of his history of herpetic/autoimmune encephalitis 2015, CVA 2010, venous embolus and thrombosis DVT 2013, Parkinson's, ischemic stroke-middle cerebral artery 05/12/20-05/16/2020 at [facility], hypertension, hyperlipidemia, diet-controlled diabetes mellitus, hypothyroidism, and obesity. These factors increase the difficulty and complexity of medical and surgical interventions and increases the chances of poor outcomes such as morbidity and mortality, as well as complications such as ischemic stroke, intracerebral hemorrhage, brain tumor, brain abscess, acute disseminated encephalomyelitis, TIA, hypercoagulability, thrombolytic thrombocytopenia purpura . The patient's seizure activity may impact his oxygenation, due to neurological deficits compromising patient's airway requiring intubation. 1. Status epilepticus, in addition to possible r/o stroke, acute, present on admission, patient is currently stable. -Rule out: Ischemic stroke, intracerebral hemorrhage, brain tumor, brain abscess, acute disseminated encephalomyelitis, TIA, hypercoagulability, thrombolytic thrombocytopenia purpura, migraine, syncope -I suspect TIA with seizure activity triggered by the patient's tappering decreased dosage of Depakote of 500 mg. The patient I suspect may have a very narrow therapeutic range for Depakote based on history, likely a dose of 750 mg a day would control his seizures with limited exacerbation of parkinsonian symptoms. Patient's neurological clinical picture is confounded by the patient's Parkinson's disease progression, post stroke, and uncontrolled seizing. Patient's vital signs upon admit temp 98.2?, BP 170/81, HR 78, RR 20, O2 saturation 96% on room air. Patient did have temporary nasal trumpet do to concerns regarding airway compromise during seizure. Patient was reported to rouse slightly and became more aggitated until trumpet was dislodged. Patient responds to sternal rub stimuli, with receptive and expressive aphasia, unable to follow commands, verbal one-word responses that are inappropriateyea, right-sided neglect, in no distress at this time, airway is patent and protected, patient is resting comfortably with intermittent visible tremor of the left arm and head, no seizure activity observed at this time. Patient's is at bedside. Patient's labs upon admit CBC unremarkable, Na 136, glucose 143, RBC 4.48, platelets 103, troponin negative, procalcitonin 6.7.CTA: No significant intracranial arterial abnormality is seen. Within the arteries of the neck, no hemodynamically significant stenosis can be seen. ECG:Normal sinus rhythm rate 63 p.r. interval 270 QRS [address]:Motion limited study demonstrating no findings of acute intracranial hemorrhage. A stable, remote left MCA territory infarction can be seen. . This study fulfills neurological imaging criteria for inclusion or exclusion of acute stroke therapies based on available published neurological guidelines. Patient was not sent for MR due to inability to monitor patient during exam in relation to patient's status epilepticus. CXR:Mild cardiomegaly. -critical care admit, initially upon admit I was personally at the bedside for 45 minutes, and have remained in ICU throughout my shift. -initiate seizure precautions, Ativan as needed for seizure activity, patient on telemedicine, continuous ECG not available in facility, O2 as needed, ABGs if patient becomes hypoxic, frequent neuro checks, glucose monitoring-if hypoglycemic give thiamin 100 mg IV and 50 cc of 50% dextrose. -stroke protocol in place, NIHSS-not able to be performed due to patient's decreased level of consciousness, MR not ordered due to patient's seizure risk and airway instability, if patient remains stable through the night without seizures will order MR for tomorrow. - aspiration precautions, initial neuro assessment, vital signs Q 2 hours times 12, then q.4 hours times 12, then Q shift, intake and output monitored Q shift, Guillen catheter placed in the ED, guillen management, weight measure daily, diet:NPO until patient is alert, airway stabilized and then bedside swallow completed and cleared, then may progress to heart healthy diet. Provider to be notified for HR >120, RR >36, BP <90/60, Temp >102. -patient placed on Lovenox 40 mg SQ until airway is stabilized and patient is alert then will restart- ASA 81 mg daily and Plavix 80 mg, atorvastatin but will increase 40 mg to 80 mg -a.m. labs ordered CMP and CBC daily, A1c, Mag, lipids, TSH, PT/PTT, serial troponins x3, blood cultures pending from ER -Labs ordered:CPK, LA, electrolytes, Mag, calcium -patient on D5 half normal saline at 100 cc/hour for gentle hydration -patient NPO-monitor for airway compromise, head of bed elevated. -in the event patient continues to actively seize despite 2 loading doses of Ativan, will intubate and start on propofol infusion. -Dr. Conner [facility] neurology consulted in the ED will be on-call as needed -patient is currently on a wait list for Neurology bed at both [facility] and [facility], will transfer patient as soon as bed is available for further stroke evaluation and specialized Neurology care, patient is stable at this time. --ordered Depakote a 1000 mg IV b.i.d. starting tomorrow -holding patient's Zonisamide 200mg PO BID, p.o. Depakote 500 mg b.i.d. (patient does have Vimpat 200 mg p.o. b.i.d. documented in the chart unclear if patient was also taking this medication) -Patient normally takes Plavix unable to take anything by mouth at this time due to risk of airway compromise, will place patient on Lovenox 40 mg daily until he can restart his Plavix, aspirin 300 mg suppository q.day until patient can take oral. -if patient remains stable overnight and is not transferred out early in the morning I would recommend ordering MR for stroke and an echo with bubble study-further stroke rule out. -consults : [facility] neurology, [facility] neurology, tele Stroke Team, Dr. Harmony Avina, Dr. [place]. In ED: Consult :Code stroke team contacted: They advised unlikely to be stroke rather more probably a prodrome to his seizure. Recommended loading with 1 g of Depakote. Consult: Dr Wolff, neurology at [facility] has been updated on patient's symptoms and test results he is able to look in the chart. At this time he agrees with loading of Depakote of 1 g and recommends increasing the Depakote back to a 1000 mg b.i.d.. At this time does not require transfer and he will update patient's own neurologist. 2. History CVA 2010 and ischemic stroke middle central artery May 12, 2020 with seizures, chronic, seizures present on admission, likely resulting from essential hypertension, acute on chronic, present on admission, and diabetes type 2 (diet controlled), chronic, not present on admission, induced hyperlipidemia, chronic, not present on admission as evidence by history of acute venous embolism and thrombolysis DVT 2013. -I personally reviewed office visit notes for internal medicine and family practice Dr. Larson notes from 11/04/2019-08/13/2020 -once patient is able to safely protect airway and tolerate oral foods and fluids will restart Plavix, losartan, atorvastatin. -A1c and lipids ordered -ordered low-dose sliding scale for blood sugar control, glucose checks q.6 hours 3. 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 Hypertension essential, acute on chronic, present on admission Patient's current vital signs: BP 125/60, HR 65, R 16, O2 saturation 95% on room air -holding patient's Lasix, atenolol 5. Hypothyroidism, acquired, chronic, not present on admission control unknown -TSH ordered, holding patient's levothyroxine at this time as patient is NPO due to compromised neurological status. 6. Obesity, as evidence by a BMI of 35.1, acute on chronic, present on admission -recommended dietary and lifestyle changes with PCP follow-up Code status: DNR Surrogate decision maker: Patient's is MCKAY ELLSWORTH PCR: Negative VTE/DVT prophylaxis: Patient temporarily bridged on Lovenox 40 mg subQ until patient's Plavix 75 mg can be restarted, and SCDs in place. Scores GCS Mandi coma scale eye opening: To pressure Mandi coma scale verbal response: Words Mandi coma scale motor response: None [place] coma scale total score: 6 ABCD2 Age >= 60 years: yes Initial BP. Either SBP >= 140 or DBP >= 90.: yes Clinical features of the TIA: unilateral weakness Duration of symptoms: >= 60 minutes History of diabetes: yes ABCD2 Score: 7 SOFA PaO2/FIO2: >=400 mmHg Platelets: < 150 Bilirubin: < 1.2 mg/dL Hypotension: MAP >= 70 mmHg Mandi Coma Scale: 6-9 Renal: < 1.2 mg/dL SOFA Score: 4 Wells' Criteria for PE Clinical signs and symptoms of DVT: No PE is #1 Dx or equally likely: No Heart rate > 100: No Immobilization at least 3 days or surg in previous 4 weeks: No History of PE or DVT: Yes Hemoptysis: No Malignancy w/Treatment within 6 months or palliative: No Wells' PE Score total: 1.5
[2020-09-01 21:30] LABS: COVID19 - ADMIT (NP swab/PCR) Negative (Negative)
[2020-09-01 21:35] LABS: Magnesium 1.9 mg/dL (1.6-2.3)
[2020-09-01] MEDS: DEXTROSE 5%-0.45% NS 1,000 ML 100 ML IV (21:46)
[2020-09-01 21:47] LABS: Hemoglobin A1C% w Est Avg Glu 6.3 % (4.0-6.0)
--- NOTE | 2020-09-01 22:27 | PC.ADMIT ---
[email or web address] Admission Note: Pt arrived via gurney with Alexandra at bedside to room 227, assisted pt to bed with slide board, vital signs were taken, documented and all monitoring equipment connected. Provider Adolph HERNÁNDEZ at bedside, assessment completed, patient and oriented to room and call light system. Head of the bed 30 degrees, seizure pads in place, guillen catheter patent, draining clear yellow urine. D51/2 NS infusing into R PIV, L PIV saline locked. Telemetry shows SR with 1 degree AVB, HR 75. SpO2 95% on room air. Bed low and locked, alarm on, call light within reach, will continue to monitor. The patient,Alexi Rodrigues ,75 y/o along with Alxeandra, were given written information regarding hospital policies, unit procedures and contact persons. Patient's smoking status: Never smoker. Vital Signs - 8 hr 09/01/20 14:30 09/01/20 14:35 09/01/20 14:40 Temperature 97.3 F L 97.3 F L 97.3 F L Pulse Rate 71 72 69 Respiratory Rate 15 18 15 Blood Pressure 179/79 H 180/85 H 168/73 H Pulse Oximetry 96 96 96 09/01/20 14:45 09/01/20 14:56 09/01/20 15:00 Temperature 97.3 F L 97.3 F L 97.3 F L Pulse Rate 71 80 197 H Respiratory Rate 17 65 H 58 H Blood Pressure 176/86 H 136/94 H Pulse Oximetry 96 96 95 09/01/20 15:06 09/01/20 15:10 09/01/20 15:15 Temperature 97.2 F L 97.2 F L 97.3 F L Pulse Rate 70 71 69 Respiratory Rate 18 18 18 Blood Pressure 190/91 H 188/86 H 157/73 H Pulse Oximetry 96 96 97 09/01/20 15:20 09/01/20 15:26 09/01/20 15:30 Temperature 97.3 F L 97.3 F L 97.3 F L Pulse Rate 69 68 68 Respiratory Rate 17 17 18 Blood Pressure 164/74 H 148/86 H 142/74 H Pulse Oximetry 98 97 97 09/01/20 15:35 09/01/20 15:40 09/01/20 15:45 Temperature 97.3 F L 97.3 F L 97.3 F L Pulse Rate 68 70 74 Respiratory Rate 18 18 22 Blood Pressure 150/80 H 153/85 H Pulse Oximetry 98 97 98 09/01/20 15:46 09/01/20 15:51 09/01/20 16:00 Temperature 97.3 F L 97.3 F L 97.3 F L Pulse Rate 74 74 79 Respiratory Rate 26 H 18 22 Blood Pressure 157/118 H 196/113 H Pulse Oximetry 97 97 09/01/20 16:15 09/01/20 16:30 09/01/20 16:45 Temperature 97.3 F L 97.5 F L 97.5 F L Pulse Rate 71 69 71 Respiratory Rate 18 17 13 Blood Pressure 164/78 H 137/64 159/76 H Pulse Oximetry 96 96 96 09/01/20 17:00 09/01/20 17:15 09/01/20 17:30 Temperature 97.5 F L 97.5 F L 97.7 F Pulse Rate 70 71 72 Respiratory Rate 19 17 15 Blood Pressure 160/79 H 159/82 H 160/78 H Pulse Oximetry 96 96 95 09/01/20 17:45 09/01/20 18:00 09/01/20 18:01 Temperature 97.7 F 97.7 F 97.7 F Pulse Rate 74 77 77 Respiratory Rate 18 29 H 25 H Blood Pressure 128/92 H Pulse Oximetry 97 96 95 09/01/20 18:15 09/01/20 18:30 09/01/20 18:39 Temperature 97.7 F 97.9 F 97.7 F Pulse Rate 72 78 77 Respiratory Rate 17 35 H 20 Blood Pressure 176/78 H 161/89 H Pulse Oximetry 95 97 96 09/01/20 18:45 09/01/20 19:00 09/01/20 19:15 Temperature 97.9 F 97.9 F 98.1 F Pulse Rate 75 74 77 Respiratory Rate 17 17 17 Blood Pressure 160/88 H 147/77 H 176/81 H Pulse Oximetry 93 93 95 09/01/20 19:30 09/01/20 19:41 09/01/20 19:45 Temperature 98.1 F 98.1 F Pulse Rate 76 77 76 Respiratory Rate 17 20 17 Blood Pressure 160/68 H 163/77 H Pulse Oximetry 94 96 95 09/01/20 20:00 09/01/20 20:15 09/01/20 20:30 Temperature 98.2 F 98.2 F 98.4 F Pulse Rate 78 75 74 Respiratory Rate 20 16 17 Blood Pressure 170/81 H 169/85 H 177/80 H Pulse Oximetry 96 95 94 09/01/20 21:00 09/01/20 21:18 09/01/20 21:30 Temperature 96.7 F L Pulse Rate 77 81 75 Respiratory Rate 22 32 H 15 Blood Pressure 179/92 H Pulse Oximetry 96 97 94 09/01/20 21:35 09/01/20 21:45 09/01/20 22:00 Temperature 98.4 F 98.6 F 98.6 F Pulse Rate 72 66 Respiratory Rate 16 17 Blood Pressure 142/65 H Pulse Oximetry 94 95 09/01/20 22:15 Temperature 98.8 F Pulse Rate 65 Respiratory Rate 15 Blood Pressure Pulse Oximetry 95
[2020-09-02] VITALS (41 sets, daily range): BP systolic 105–169; BP diastolic 51–97; PULSE 62–75; RESP 12–29; TEMP 36.7–37.2; O2SAT 93–97
--- NOTE | 2020-09-02 00:29 | PC.NURSE ---
Addendum entered by Cathie Moss R.N. 09/02/20 06:14: Patient continued to doze throughout rest of the night, when he does rouse, he speaks more words clearly your welcome okay, no cough and clearing own secretions, follows simple directions, VSS, SR 1st degree AVB. Original Note: [employer] [id number] first hour of shift patient has woke up from sleeping twice, eyes open with left gaze, will briefly follow voice to right and make eye contact, yeah or no are the only words spoken, has purposeful movements with BUEs, weakness > on Rt. FLACC 2. 0045-Patient woke up more restless and attempting to get out of right side of bed, to weak to move too far, reaching for Noel catheter, speaking mumbled 2-3 word sentences, reassurance given, repositioned, swabbed mouth which he cooperated with. is at bedside rubbing his back.
[2020-09-02 05:09] LABS: Add Manual Diff / Slide Review NO; Basophils Absolute Auto 0 /uL (0-100); Basophils Percent Auto 0.3 % (0-2); Eosinophils Absolute Auto 0 /uL (0-450); Eosinophils Percent Auto 0.6 % (2-4); Hematocrit 43.2 % (41-53); Lymphocytes Absolute Auto 1400 /uL (1100-4500); Lymphocytes Percent Auto 19.6 % (25-40); Mean Corpuscular HGB Conc 34.7 % (30-36); Mean Corpuscular Hemoglobin 35.7 PG (26-34); Mean Corpuscular Volume 102.9 fL (80-100); Monocytes Absolute Auto 900 /uL (0-900); Monocytes Percent Auto 12.2 % (3-14); Neutrophils Absolute Auto 4900 /uL (1500-7000); Neutrophils Percent Auto 67.3 % (50-75); Platelet Count 99 X10^3/uL (150-400); Red Cell Distribution Width 13.5 % (11.6-14.8); White Blood Cell Count 7.3 X10^3/uL (4.5-11.0)
[2020-09-02 05:11] LABS: INR 1.1 (0.9-1.3); Prothrombin Time 12.2 SECONDS (10.1-12.7)
[2020-09-02 05:14] LABS: PTT Partial Thromboplastin Tim 34 SECONDS (26.4-36.2)
[2020-09-02 05:16] LABS: BUN Creatinine Ratio 18.1 (6-22); Blood Urea Nitrogen 15 mg/dL (9-20); Calcium 8.7 mg/dL (8.4-10.2); Carbon Dioxide 23 mmol/L (22-32); Chloride 106 mmol/L (98-107); Estimated Glomerular Filt Rate > 60.0 mL/min (>60); Glucose 136 mg/dL (80-110); HEMOLYSIS 15 (0-50); Potassium 3.6 mmol/L (3.4-5.1); Sodium 137 mmol/L (137-145)
[2020-09-02 05:17] LABS: Cholesterol 123 mg/dL (140-199); HDL Cholesterol 36 mg/dL (40-60); LDL Cholesterol Calculated 55 mg/dL (<100); Triglycerides 158 mg/dL (35-150)
[2020-09-02 05:25] LABS: NT-proBNP (BNP-Adult 18+) 597 pg/mL (<450)
[2020-09-02 05:29] LABS: Troponin I < 0.012 ng/mL (0.01-0.034)
[2020-09-02] MEDS: DEXTROSE 5%-0.45% NS 1,000 ML 100 ML IV (07:31)
[2020-09-02 08:18] LABS: Valproic Acid (Depakene) Total 57 ug/mL (50-100)
--- NOTE | 2020-09-02 08:47 | PM.DS.1 ---
History of Present Illness History of Present Illness Date Patient Seen: 09/02/20 Time Patient Seen: 08:47 Chief complaint: Code Stroke Narrative: Per Crista Farfan, BLACKING WHEEL TENDER-: Patient is a 75-year-old male Alexi Rodrigues patient via EMS as a code stroke for right-sided weakness, Patient was immediately taken to CT prior to Dr. Garces evaluation, he was in CT when he started having a seizure. He was immediately given 2 mg of Ativan. Patient has history herpetic/autoimmune encephalitis 2015, CVA 2010, venous embolus and thrombosis DVT 2013, Parkinson's, ischemic stroke-middle cerebral artery 05/12/20-05/16/2020 at [facility], hypertension, hyperlipidemia, diet-controlled diabetes mellitus, hypothyroidism, and obesity. reports that patient woke normally this a.m. and then at [id number] am he began to have right-sided weakness and some speech difficulty which is a change from his post stroke baseline. She states that he ate his breakfast and he was signing paperwork that needed sign he was able to sign 1 piece of the paper and the 2nd area he was supposed to sign he was unable to do so, she began noticing that he had increased right-sided body weakness, but drooling the left side of his mouth, and he was unable to talk, patient's Marian felt that these were stroke symptoms not seizure or Parkinson's symptoms. The reports the patient's physical baseline is to ambulate independently with the assistance of a walker or cane depending on the day, eats drinks and speaks without difficulty. Patient's last office visit with Dr. Larson PCP 08/23/2020 documented patient's neuro status as abnormal cognition, speech normal, antalgic and shuffling gait, motor movement abnormality noted, tremor, muscle tone abnormal and strength abnormal, mental status grossly normal. Patient is followed at [place] by Dr. German porras stroke and Dr. Mccloud for his epilepsy and Parkinson's. Patient suffered a seizure in conjunction with his CVA in May 2020 as the patient was attempting to taper off Keppra and taper on to Depakote, his Depakote dosage at the time was 500 mg. [facility] appointment on 05/26/2020 post CVA patient's Depakote was increased to a 1000 mg b.i.d. At patient's follow-up telemedicine appointment with Dr. Mccloud August 22 in which it was believed that the increased dose of Depakote was exacerbating Parkinson's symptoms and contributing to greater weakness and mobility issues, it was decided at that time to begin decreasing his Depakote to taper off while tapering on to Zonisamide (per ). The patient was at a dosage of 500 mg of Depakote and 200 mg of zonisamide for approximally 48 hours prior to today's seizures. Patient received a total dosage of 1750mg Depakote and 6 mg Ativan in ED for continued seizures. Due to inability to transfer patient to a neuro unit assessment was completed in the ED. patient was arousable, visible tremor of the head and left arm, right-side neglect, answers in 1 word inappropriate answers, unable to follow commands. Will admit patient for status epilepticus versus stroke to ICU observation. Patient's vital signs upon admit temp 98.2?, BP 170/81, HR 78, RR 20, O2 saturation 96% on room air. Patient did have temporary nasal trumpet do to concerns regarding airway compromise during seizure. Patient was reported to rouse slightly and cough out trumpet. Patient is stable and airway is patent breathing on his own at this time. Patient's labs upon admit CBC unremarkable, Na 136, glucose 143, RBC 4.48, platelets 103, troponin negative, procalcitonin 6.7.CTA: No significant intracranial arterial abnormality is seen. Within the arteries of the neck, no hemodynamically significant stenosis can be seen. ECG:Normal sinus rhythm rate 63 p.r. interval 270 QRS [address] Head CT:Motion limited study demonstrating no findings of acute intracranial hemorrhage. A stable, remote left MCA territory infarction can be seen. This study fulfills neurological imaging criteria for inclusion or exclusion of acute stroke therapies based on available published neurological guidelines. Patient was not sent for MR due to inability to monitor patient during exam in relation to patient's status epilepticus. CXR:Mild cardiomegaly. In ED: Consult :Code stroke team contacted: They advised unlikely to be stroke rather more probably a prodrome to his seizure. Recommended loading with 1 g of Depakote. Consult: Dr Wolff, neurology at [facility] has been updated on patient's symptoms and test results he is able to look in the chart. At this time he agrees with loading of Depakote of 1 g and recommends increasing the Depakote back to a 1000 mg b.i.d.. At this time does not require transfer and he will update patient's own neurologist. 1500 patient found to have seizure he is given 1 mg of Ativan which helps calm him 1600 patient again has seizure despite Depakote and Ativan 1842 Dr Wolff neurology at [facility] updated on patient's recurrent seizures at this time recommends 750 mg of Depakote, Depakote level is pending and is a send out. Unfortunately with the [facility] does not have any beds.-on wait list. [facility] no beds, [place] no beds, [facility] no beds, [facility] did not have continuous EEG monitoring unable to take patient. [facility] no beds-on wait list 2014-spoke with Dr. Graff at [facility] Neurology updated patient's symptoms test results at this time recommends Depakote 500 mg IV Q 8 hours and Ativan 1 mg as needed if needed for seizures continue Vimpat 200 mg IV q.[address] angio. He is happy to consult. Dr. Noyola & DIET COUNSELOR Adolph-hospitalist in ED to see and evaluate patient updated on patient's symptoms and test results and will accept patient but requests that patient be transferred to a place for neurology is as soon as possible. Discharge Providers Provider Date of admission: 09/01/20 20:29 Discharge Date: 09/02/20 Primary care physician: Abhishek Larson DO Consults: 09/01/20 21:12 Consult to Discharge Planning Routine Comment: Consult to Occupational Therapy Evaluate & Treat Comment: Physician Instructions: Evaluate and treat Consult to Physical Therapy Evaluate & Treat Comment: Physician Instructions: Evaluate and Treat Consult to Speech Therapy Evaluate & Treat Comment: Physician Instructions: Evaluate and treat 09/01/20 21:34 Consult to Dietitian, Adult Routine Comment: Reason For Exam: BMI Discharge provider: Joshua Farfan DO Summary Hospital Course Discharge Diagnosis: 1. Seizure, acute on chronic, present on admission 2. History CVA 2010 and ischemic stroke middle central artery May 12, 2020 with seizures, chronic, seizures present on admission 3. 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 Hypertension essential, acute on chronic, present on admission 5. Hypothyroidism, acquired, chronic, not present on admission control unknown 6. Obesity, as evidence by a BMI of 35.1, acute on chronic, present on admission Hospital Course: This is a 75-year-old male with a very complex neurological history including HSV/autoimmune encephalitis in 2015, prior CVA in 2010 and recent CVA in May of 2020, Parkinson's disease, and prior seizures who presented with worsening weakness, more notably on the right according to his and word-finding difficulties. states that she has seen a stepwise decline since his admission in May of 2020 for his stroke. He had recently been changing his seizure medications with reduction in Depakote to 500 mg twice a day, and addition of zonisamide approximately 48 hours prior to arrival in the emergency room. Upon arrival to the emergency room as a code stroke, the patient had a seizure in the CT scan. No beds were initially available for transport to outside facility. Multiple discussions with Neurology at the [facility], where the patient's outpatient neurologists is, and Melissa kelly are documented above in the HPI. The patient was admitted to Medicine for observation overnight awaiting bed availability for neurology consultation, which is not available at this hospital. The patient was hemodynamically stable overnight and had no seizures after the 4:00 p.m. seizure yesterday evening. In the morning he had slightly improved alertness and was able to swallow oral medications, but he is still somewhat diminished from his baseline with difficulties with word finding and reports an increase in his right facial asymmetry. He was resumed on his home medications, except for depakote which has been changed to 1000 mg IV BID currently. Patient was accepted to Dr. Imelda Thomas the following morning and transferred for higher level of care and neurology consultation to help delineate if patient's presenting complaints are related to seizure, acute CVA / TIA, or parksinson's disease. Recommend MRI at accepting facility. CT head without and CT angiogram showed no acute pathology here. Status at Discharge Cognitive/behavioral status at discharge: confused Time Spent with Patient Time spent: Greater than 30 minutes Exam Vital Signs (past 8 hours): - 09/02/20 01:00 09/02/20 01:15 09/02/20 01:30 Temperature 98.4 F 98.6 F 98.6 F Pulse Rate 67 65 67 Respiratory Rate 16 16 16 Blood Pressure 125/60 Pulse Oximetry 94 94 94 09/02/20 01:45 09/02/20 02:00 09/02/20 02:15 Temperature 98.4 F 98.4 F 98.4 F Pulse Rate 73 66 64 Respiratory Rate 27 H 12 16 Blood Pressure 105/51 L Pulse Oximetry 97 93 94 09/02/20 02:30 09/02/20 02:45 09/02/20 03:00 Temperature 98.4 F 98.2 F 98.2 F Pulse Rate 64 65 64 Respiratory Rate 16 17 16 Blood Pressure 111/54 L Pulse Oximetry 94 95 95 09/02/20 03:15 09/02/20 03:30 09/02/20 03:45 Temperature 98.4 F 98.6 F 98.6 F Pulse Rate 65 69 72 Respiratory Rate 18 18 26 H Blood Pressure Pulse Oximetry 95 95 96 09/02/20 04:00 09/02/20 04:15 09/02/20 04:30 Temperature 98.6 F 98.6 F 98.4 F Pulse Rate 69 67 69 Respiratory Rate 29 H 19 15 Blood Pressure 110/56 L Pulse Oximetry 96 94 95 09/02/20 04:45 09/02/20 05:00 09/02/20 05:14 Temperature 98.4 F 98.4 F Pulse Rate 67 63 62 Respiratory Rate 17 17 Blood Pressure 106/53 L Pulse Oximetry 96 93 93 09/02/20 05:15 09/02/20 05:30 09/02/20 05:45 Temperature 98.4 F 98.6 F 98.4 F Pulse Rate 63 63 64 Respiratory Rate 17 16 19 Blood Pressure Pulse Oximetry 93 93 94 09/02/20 06:00 09/02/20 06:01 09/02/20 06:55 Temperature 98.6 F 98.6 F 98.4 F Pulse Rate 63 67 70 Respiratory Rate 17 20 19 Blood Pressure 145/61 H Pulse Oximetry 93 94 96 09/02/20 07:00 09/02/20 07:01 09/02/20 07:55 Temperature 98.4 F 98.4 F 98.2 F Pulse Rate 69 69 64 Respiratory Rate 16 15 12 Blood Pressure 169/70 H Pulse Oximetry 95 96 93 09/02/20 08:00 09/02/20 08:01 Temperature 98.2 F 98.2 F Pulse Rate 64 65 Respiratory Rate 15 15 Blood Pressure 127/59 L Pulse Oximetry 93 93 Oxygen Delivery Method Room Air Oxygen Flow Rate 0 Narrative Exam Narrative: General: Patient is a well-developed, well-nourished male sitting upright in hospital bed, somewhat blank stare, with bilateral resting tremor. HEENT: Normocephalic, atraumatic. no obvious deficits in eye motion but attention is short. Chest: Normal AP diameter, non-tender Lungs: Auscultation of all lung richards are clear without adventitious sounds, wheezes, rhonchi, or rales. Cardio: S1 & S2 with regular rate and rhythm without murmur, rubs, or gallops, no carotid bruit, no cardiac pulsations present. Abdomen: S NT ND. Musculoskeletal: Muscle strength and tone- grossly unremarkable. no deformity, crepitus, effusions, cyanosis, clubbing or edema present. intact radial and pedal pulses are normal. Skin: Cool dry and intact without rashes, ulcerations or petechiae. Neuro: awake, alert. unintelligble responses but does follow simple commands with limited attention span. Per at bedside much diminished. R facial asymmetry with smile ( says slightly worse than usual and unknown baseline available). Patient moves all extremities equally, unable to comprehend sensation responses. Resting pill rolling tremor bilaterally slightly more prominent on the Right. Psych: Patient has a well-kept appearance. Objective Labs Result Diagrams: 09/02/20 04:30 09/02/20 04:30 Labs: Laboratory Results - last 24 hr 09/01/20 09/01/20 09/01/20 12:20 12:30 12:30 WBC 5.9 RBC 4.48 L Hgb 16.0 Hct 46.2 MCV 103.2 H MCH 35.8 H MCHC 34.7 RDW 13.6 Plt Count 103 L Neut % (Auto) 62.6 Lymph % (Auto) 25.4 [place] % (Auto) 10.0 Eos % (Auto) 1.4 L Baso % (Auto) 0.6 Neut # (Auto) 3700 Lymph # (Auto) 1500 [place] # (Auto) 600 Eos # (Auto) 100 Baso # (Auto) 0 PT 11.8 INR 1.0 APTT 37 H D Sodium Potassium Chloride Carbon Dioxide BUN Creatinine Estimated GFR BUN/Creatinine Ratio Glucose Hemoglobin A1c Lactate Calcium Magnesium Total Bilirubin AST ALT Alkaline Phosphatase Total Creatine Kinase CK-MB (CK-2) CK-MB (CK-2) Rel Index Troponin I NT-Pro-B Natriuret Pep Total Protein Albumin Globulin Albumin/Globulin Ratio Triglycerides Cholesterol LDL Cholesterol, Calc HDL Cholesterol TSH Prolactin Urine Color Urine Appearance Urine pH Ur Specific [place] Urine Protein Urine Glucose (UA) Urine Ketones Urine Occult Blood Urine Nitrate Urine Bilirubin Urine Urobilinogen Ur Leukocyte Esterase Urine RBC Urine WBC Ur Squamous Epith Cells Urine Bacteria Ur Culture Indicated? Nasal Screen MRSA (PCR) U Opiates 300ng/mL cut Ur Oxycodone Screen Urine Methadone Screen Ur Barbiturates Screen Total Valproic Acid U Tricyclic Antidepress Ur Phencyclidine Scrn Ur Amphetamines Screen U Methamphetamines Scrn Ur MDMA Scrn (Ecstasy) U Benzodiazepines Scrn Urine Cocaine Screen U Marijuana (THC) Screen SARS-CoV-2 (PCR) Negative 09/01/20 09/01/20 09/01/20 12:30 12:30 12:30 WBC RBC Hgb Hct MCV MCH MCHC RDW Plt Count Neut % (Auto) Lymph % (Auto) [place] % (Auto) Eos % (Auto) Baso % (Auto) Neut # (Auto) Lymph # (Auto) [place] # (Auto) Eos # (Auto) Baso # (Auto) PT INR APTT Sodium 136 L Potassium 4.2 Chloride 106 Carbon Dioxide 22 BUN 20 Creatinine 0.99 Estimated GFR > 60.0 BUN/Creatinine Ratio 20.2 Glucose 143 H Hemoglobin A1c Lactate 1.7 Calcium 9.6 Magnesium Total Bilirubin 0.4 AST 25 ALT 7 Alkaline Phosphatase 75 Total Creatine Kinase 67 CK-MB (CK-2) TNP CK-MB (CK-2) Rel Index TNP Troponin I < 0.012 NT-Pro-B Natriuret Pep Total Protein 6.7 Albumin 3.9 Globulin 2.8 Albumin/Globulin Ratio 1.4 Triglycerides Cholesterol LDL Cholesterol, Calc HDL Cholesterol TSH Prolactin 6.7 Urine Color Urine Appearance Urine pH Ur Specific Dow[place] Urine Protein Urine Glucose (UA) Urine Ketones Urine Occult Blood Urine Nitrate Urine Bilirubin Urine Urobilinogen Ur Leukocyte Esterase Urine RBC Urine WBC Ur Squamous Epith Cells Urine Bacteria Ur Culture Indicated? Nasal Screen MRSA (PCR) U Opiates 300ng/mL cut Ur Oxycodone Screen Urine Methadone Screen Ur Barbiturates Screen Total Valproic Acid U Tricyclic Antidepress Ur Phencyclidine Scrn Ur Amphetamines Screen U Methamphetamines Scrn Ur MDMA Scrn (Ecstasy) U Benzodiazepines Scrn Urine Cocaine Screen U Marijuana (THC) Screen SARS-CoV-2 (PCR) 09/01/20 09/01/20 09/01/20 12:30 12:30 12:30 WBC RBC Hgb Hct MCV MCH MCHC RDW Plt Count Neut % (Auto) Lymph % (Auto) [place] % (Auto) Eos % (Auto) Baso % (Auto) Neut # (Auto) Lymph # (Auto) [place] # (Auto) Eos # (Auto) Baso # (Auto) PT INR APTT Sodium Potassium Chloride Carbon Dioxide BUN Creatinine Estimated GFR BUN/Creatinine Ratio Glucose Hemoglobin A1c Lactate Calcium Magnesium 1.9 Total Bilirubin AST ALT Alkaline Phosphatase Total Creatine Kinase CK-MB (CK-2) CK-MB (CK-2) Rel Index Troponin I NT-Pro-B Natriuret Pep Total Protein Albumin Globulin Albumin/Globulin Ratio Triglycerides Cholesterol LDL Cholesterol, Calc HDL Cholesterol TSH 4.13 Prolactin Urine Color Urine Appearance Urine pH Ur Specific [place] Urine Protein Urine Glucose (UA) Urine Ketones Urine Occult Blood Urine Nitrate Urine Bilirubin Urine Urobilinogen Ur Leukocyte Esterase Urine RBC Urine WBC Ur Squamous Epith Cells Urine Bacteria Ur Culture Indicated? Nasal Screen MRSA (PCR) U Opiates 300ng/mL cut Ur Oxycodone Screen Urine Methadone Screen Ur Barbiturates Screen Total Valproic Acid 57 U Tricyclic Antidepress Ur Phencyclidine Scrn Ur Amphetamines Screen U Methamphetamines Scrn Ur MDMA Scrn (Ecstasy) U Benzodiazepines Scrn Urine Cocaine Screen U Marijuana (THC) Screen SARS-CoV-2 (PCR) 09/01/20 09/01/20 09/01/20 12:30 12:57 12:57 WBC RBC Hgb Hct MCV MCH MCHC RDW Plt Count Neut % (Auto) Lymph % (Auto) [place] % (Auto) Eos % (Auto) Baso % (Auto) Neut # (Auto) Lymph # (Auto) [place] # (Auto) Eos # (Auto) Baso # (Auto) PT INR APTT Sodium Potassium Chloride Carbon Dioxide BUN Creatinine Estimated GFR BUN/Creatinine Ratio Glucose Hemoglobin A1c 6.3 H Lactate Calcium Magnesium Total Bilirubin AST ALT Alkaline Phosphatase Total Creatine Kinase CK-MB (CK-2) CK-MB (CK-2) Rel Index Troponin I NT-Pro-B Natriuret Pep Total Protein Albumin Globulin Albumin/Globulin Ratio Triglycerides Cholesterol LDL Cholesterol, Calc HDL Cholesterol TSH Prolactin Urine Color Yellow Urine Appearance Clear Urine pH 6.0 Ur Specific [place]ell 1.025 Urine Protein Negative Urine Glucose (UA) Negative Urine Ketones Negative Urine Occult Blood Negative Urine Nitrate Negative Urine Bilirubin Negative Urine Urobilinogen 0.2 Ur Leukocyte Esterase Negative Urine RBC None seen Urine WBC 1-5/hpf Ur Squamous Epith Cells 5-10 /hpf H Urine Bacteria None seen Ur Culture Indicated? Cult not indicated Nasal Screen MRSA (PCR) U Opiates 300ng/mL cut Negative Ur Oxycodone Screen Negative Urine Methadone Screen Negative Ur Barbiturates Screen Negative Total Valproic Acid U Tricyclic Antidepress Negative Ur Phencyclidine Scrn Negative Ur Amphetamines Screen Negative U Methamphetamines Scrn Negative Ur MDMA Scrn (Ecstasy) Negative U Benzodiazepines Scrn Negative Urine Cocaine Screen Negative U Marijuana (THC) Screen Negative SARS-CoV-2 (PCR) 09/01/20 09/01/20 09/02/20 20:36 21:19 04:30 WBC RBC Hgb Hct MCV MCH MCHC RDW Plt Count Neut % (Auto) Lymph % (Auto) [place] % (Auto) Eos % (Auto) Baso % (Auto) Neut # (Auto) Lymph # (Auto) [place] # (Auto) Eos # (Auto) Baso # (Auto) PT INR APTT Sodium Potassium Chloride Carbon Dioxide BUN Creatinine Estimated GFR BUN/Creatinine Ratio Glucose Hemoglobin A1c Lactate Calcium Magnesium Total Bilirubin AST ALT Alkaline Phosphatase Total Creatine Kinase CK-MB (CK-2) CK-MB (CK-2) Rel Index Troponin I < 0.012 NT-Pro-B Natriuret Pep Total Protein Albumin Globulin Albumin/Globulin Ratio Triglycerides Cholesterol LDL Cholesterol, Calc HDL Cholesterol TSH Prolactin Urine Color Urine Appearance Urine pH Ur Specific [place] Urine Protein Urine Glucose (UA) Urine Ketones Urine Occult Blood Urine Nitrate Urine Bilirubin Urine Urobilinogen Ur Leukocyte Esterase Urine RBC Urine WBC Ur Squamous Epith Cells Urine Bacteria Ur Culture Indicated? Nasal Screen MRSA (PCR) Negative for mrsa U Opiates 300ng/mL cut Ur Oxycodone Screen Urine Methadone Screen Ur Barbiturates Screen Total Valproic Acid U Tricyclic Antidepress Ur Phencyclidine Scrn Ur Amphetamines Screen U Methamphetamines Scrn Ur MDMA Scrn (Ecstasy) U Benzodiazepines Scrn Urine Cocaine Screen U Marijuana (THC) Screen SARS-CoV-2 (PCR) Negative 09/02/20 09/02/20 09/02/20 04:30 04:30 04:30 WBC 7.3 RBC 4.20 L Hgb 15.0 Hct 43.2 MCV 102.9 H MCH 35.7 H MCHC 34.7 RDW 13.5 Plt Count 99 L Neut % (Auto) 67.3 Lymph % (Auto) 19.[address] [place] % (Auto) 12.2 Eos % (Auto) 0.6 L Baso % (Auto) 0.3 Neut # (Auto) 4900 Lymph # (Auto) 1400 [place] # (Auto) 900 Eos # (Auto) 0 Baso # (Auto) 0 PT 12.2 INR 1.1 APTT 34 Sodium 137 Potassium 3.6 Chloride 106 Carbon Dioxide 23 BUN 15 Creatinine 0.83 Estimated GFR > 60.0 BUN/Creatinine Ratio 18.1 Glucose 136 H Hemoglobin A1c Lactate Calcium 8.7 Magnesium Total Bilirubin AST ALT Alkaline Phosphatase Total Creatine Kinase CK-MB (CK-2) CK-MB (CK-2) Rel Index Troponin I NT-Pro-B Natriuret Pep 597 H Total Protein Albumin Globulin Albumin/Globulin Ratio Triglycerides Cholesterol LDL Cholesterol, Calc HDL Cholesterol TSH Prolactin Urine Color Urine Appearance Urine pH Ur Specific [place] Urine Protein Urine Glucose (UA) Urine Ketones Urine Occult Blood Urine Nitrate Urine Bilirubin Urine Urobilinogen Ur Leukocyte Esterase Urine RBC Urine WBC Ur Squamous Epith Cells Urine Bacteria Ur Culture Indicated? Nasal Screen MRSA (PCR) U Opiates 300ng/mL cut Ur Oxycodone Screen Urine Methadone Screen Ur Barbiturates Screen Total Valproic Acid U Tricyclic Antidepress Ur Phencyclidine Scrn Ur Amphetamines Screen U Methamphetamines Scrn Ur MDMA Scrn (Ecstasy) U Benzodiazepines Scrn Urine Cocaine Screen U Marijuana (THC) Screen SARS-CoV-2 (PCR) 09/02/20 04:30 WBC RBC Hgb Hct MCV MCH MCHC RDW Plt Count Neut % (Auto) Lymph % (Auto) [place] % (Auto) Eos % (Auto) Baso % (Auto) Neut # (Auto) Lymph # (Auto) [place] # (Auto) Eos # (Auto) Baso # (Auto) PT INR APTT Sodium Potassium Chloride Carbon Dioxide BUN Creatinine Estimated GFR BUN/Creatinine Ratio Glucose Hemoglobin A1c Lactate Calcium Magnesium Total Bilirubin AST ALT Alkaline Phosphatase Total Creatine Kinase CK-MB (CK-2) CK-MB (CK-2) Rel Index Troponin I NT-Pro-B Natriuret Pep Total Protein Albumin Globulin Albumin/Globulin Ratio Triglycerides 158 H Cholesterol 123 L LDL Cholesterol, Calc 55 HDL Cholesterol 36 L TSH Prolactin Urine Color Urine Appearance Urine pH Ur Specific [place] Urine Protein Urine Glucose (UA) Urine Ketones Urine Occult Blood Urine Nitrate Urine Bilirubin Urine Urobilinogen Ur Leukocyte Esterase Urine RBC Urine WBC Ur Squamous Epith Cells Urine Bacteria Ur Culture Indicated? 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) Cerebrovascular accident (CVA) Diverticulosis large intestine w/o perforation or abscess w/o bleeding (12/12/10) Encephalitis due to human herpes simplex virus (HSV) Hemorrhoids that prolapse with straining and require manual replacement back inside anal canal Ischemic stroke Seizures Surgical History (Updated 09/01/20 @ 23:44 by MARIE Roman) History of appendectomy History of nasal surgery No pertinent past surgical history Family History (Updated 09/01/20 @ 23:47 by MARIE Roman) Brother Kidney disease Brother Aneurysm Mother Alzheimer's dementia Social History (Updated 05/24/18 @ 23:58 by Gil Hawkins DO) marital status: household members: spouse lives independently: Yes Smoking Status: Never smoker alcohol intake: former substance use type: does not use Discharge Plan Discharge Plan Patient Disposition: [facility] Under care of provider: Dr. Segura. Provider Discharge Comment: This is a 75-year-old male with a very complex neurological history including HSV/autoimmune encephalitis in 2015, prior CVA in 2010 and recent CVA in May of 2020, Parkinson's disease, and prior seizures who presented with worsening weakness, more notably on the right according to his and word-finding difficulties. states that she has seen a stepwise decline since his admission in May of 2020 for his stroke. He had recently been changing his seizure medications with reduction in Depakote to 500 mg twice a day, and addition of zonisamide approximately 48 hours prior to arrival in the emergency room. Upon arrival to the emergency room as a code stroke, the patient had a seizure in the CT scan. No beds were initially available for transport to outside facility. Multiple discussions with Neurology at the [facility], where the patient's outpatient neurologists is, and Melissa kelly are documented above in the HPI. The patient was admitted to Medicine for observation overnight awaiting bed availability for neurology consultation, which is not available at this hospital. The patient was hemodynamically stable overnight and had no seizures after the 4:00 p.m. seizure yesterday evening. In the morning he had slightly improved alertness and was able to swallow oral medications, but he is still somewhat diminished from his baseline with difficulties with word finding and reports an increase in his right facial asymmetry. He was resumed on his home medications, except for depakote which has been changed to 1000 mg IV BID currently. Patient was accepted to Dr. Imelda Thomas the following morning and transferred for higher level of care and neurology consultation. Recommend MRI at accepting facility. CT head without and CT angiogram showed no acute pathology here Discharge Health Status Multidrug resistant organism: No MDRO Precautions: Rogers Diet/Activity/Treatments Diet: Diet as Tolerated Liquid consistency: Normal/Thin Food texture: Soft Diet comment: Mechanical soft as a precaution, recommend speech therapy evaluation Activity: As tolerated Oxygen: None Discharge Data Primary Care Provider: Abhishek Larson Attending Provider: Crista Farfan
[2020-09-02] MEDS: DOCUSATE 100 MG CAPSULE PO (09:30)
[2020-09-02] MEDS: ENOXAPARIN 40 MG/0.4 ML SYRINGE SUBCUT (09:30)
[2020-09-02] MEDS: CLOPIDOGREL 75 MG TABLET PO (09:30)
[2020-09-02] MEDS: LEVOTHYROXINE 125 MCG TABLET PO (09:30)
[2020-09-02] MEDS: FUROSEMIDE 20 MG TABLET PO (09:30)
[2020-09-02] MEDS: VALPROIC ACID 1,000 MG in DEXTROSE 5 % IN WATER 50 ML 60 ML IV (10:19)
[2020-09-02] MEDS: SODIUM CHLORIDE 0.9% FLUSH 10 ML IV (10:20)
[2020-09-02] MEDS: ASPIRIN EC 325 MG TABLET PO (10:20)
[2020-09-02] MEDS: LACOSAMIDE 200 MG 200 EACH PO (10:46)
[2020-09-02] MEDS: CARBIDOPA LEVODOPA 3 EACH PO (10:46)
--- NOTE | 2020-09-02 11:19 | CM.DANOTE ---
DCP ASSESSMENT: Patient is a 75 year-old male admitted to hospital for a Code Stroke. PCP is Abhishek Larson. Primary Payer is [employer] and self-pay. FIRER TUNNEL KILN and JULIO C Student completed a chart review and interview with nursing. Per chart review patient will be transferred to [facility] for a higher level of care. PLAN: D/C transfer to [facility]. CM Team to continue to follow. JULIO C Hsieh MSW Student Discharge Planning/Care Management Advanced directive, confirm from FAMILY Start: 09/01/20 21:34 Freq: Q24H Status: Complete Protocol: Document 09/01/20 21:49 AK (Rec: 09/01/20 21:49 AK [id number]) Advance Directive, confirm on record Time 21:49 Person contacted Copy received No Advanced directive available on record Yes CM Discharge Assessment Start: 09/02/20 10:31 Freq: Status: Active Protocol: Document 09/02/20 10:31 AL (Rec: 09/02/20 10:33 AL [id number]) Discharge Planning Assessment Assigned Ditcher Operator JULIO C Chen Student Contact Information Alexandra Rodrigues, Advance Directives? Yes: DPOA History Provided By Medical Record Has Patient been admitted in last 30 No days? Prior Living Arrangements House Household Members spouse Is patient alert and oriented? No Discharge Plan Transfer to Higher Level of Care Referrals Initiated None needed Review Status In Process
--- NOTE | 2020-09-02 13:42 | PC.NURSE ---
pt preparing to transfer to [facility] in [place]- update on no visitor policies to , Alexandra. Pt has denied pain entire shift and assisted with q 2h turns to maintain skin integrity. able to take some po nutrition - he just isn't interested- guillen patent remains in sinus arrythmia with first degree av black- lungs dim but clear iv access x 2 no gtts to run during transport- awaiting transport to -
--- NOTE | 2020-09-02 15:06 | PC.NURSE ---
pt transported to - awaiiting call nack for report
== END 2020-09-02 15:00 | disposition short-term general hospital (02) | DRG 57 ==
LOC: ED 20:19 → ICU 09-02 08:51 → AC 09-02 10:55 → ICU 09-02 10:59
PROVIDERS: Admitting Provider Nurse Practitioner Family; Emergency Provider Emergency Medicine; PCP Family Medicine; Referring Provider Emergency Medicine; Visit Provider Nurse Practitioner Family
DX: I69.398 Other sequelae of cerebral infarction (principal); I69.951 Hemiplegia and hemiparesis following unspecified cerebrovascular disease affecting right dominant side; G40.901 Epilepsy, unspecified, not intractable, with status epilepticus; G20 Parkinson's disease; Z20.822 Contact with and (suspected) exposure to COVID-19; I10 Essential (primary) hypertension; E11.9 Type 2 diabetes mellitus without complications; E78.5 Hyperlipidemia, unspecified; E03.9 Hypothyroidism, unspecified; E66.9 Obesity, unspecified; Z68.35 Body mass index [BMI] 35.0-35.9, adult; Z86.61 Personal history of infections of the central nervous system
CPT/HCPCS: 36415; 51701; 70450; 70496; 70498; 71045; 80048; 80053; 80061; 80164; 80305; 81001; 82550; 82962; 83036; 83605; 83735; 83880; 84146; 84443; 84484; 85025; 85610; 85730; 87040; 87077; 87086; 87147; 87186; 87635; 87797; 93005; 93010; 94762; 96361; 96365; 96366; 96375; 96376; 99285; 99291; 99292; C9803; J1650; J1815; J2060; Q9967

== ENCOUNTER → 2020-09-27 19:18 | Outpatient (ROUT) | payer OTHER, SELFPAY ==
[2020-09-01 21:28] VITALS: BMI 35.1
[2020-09-27 19:19] LABS: Bacteria Urine None Seen; RBC Urine None Seen (0-5/HPF); WBC Urine None Seen (0-5/HPF)
[2020-09-27 19:41] LABS: Appearance Urine UA CLEAR; Bilirubin Urine UA NEGATIVE (NEGATIVE); Color Urine UA YELLOW; Glucose Urine UA NEGATIVE (Negative); Ketones Urine UA TRACE (NEGATIVE); Leukocyte Esterase Urine UA NEGATIVE (NEGATIVE); Nitrite Urine UA NEGATIVE (Negative); Occult Blood Urine UA NEGATIVE (Negative); Protein Urine UA NEGATIVE (Negative); Urobilinogen Urine UA 0.2 E.U./dL (0.2)
[2020-09-27 19:54] LABS: Culture Indicated Urine Cult Not Indicated
== END ==
PROVIDERS: PCP Student in an Organized Health Care Education/Training Program; Visit Provider Student in an Organized Health Care Education/Training Program
DX: R35.0 Frequency of micturition (principal)
CPT/HCPCS: 81001

== ENCOUNTER → 2020-10-02 10:41 | Outpatient (CLI) | payer OTHER, SELFPAY ==
[2020-09-01 21:28] VITALS: BMI 35.1
--- NOTE | 2020-10-02 10:42 | DI.US.S_ITS ---
PROCEDURE: US RENAL COMPLETE INDICATIONS: Urinary frequency; medication is high risk TECHNIQUE: Real-time scanning was performed of the kidneys and bladder, with image documentation. COMPARISON: None. FINDINGS: Kidneys: Kidneys are normal in size. Right kidney measures 11.3 cm long; left kidney measures 12.2 cm long. Right renal cortical thickness is 1.5 cm; left renal cortical thickness is 1.5 cm. Renal cortical echotexture is echogenic raising possibility of medical renal disease. No hydronephrosis or nephrolithiasis. No suspicious solid mass lesions. Bladder: Pre-void bladder volume is 45 mL. Post-void residual is unable to be obtained as the patient was not able to void during the examination. Pre-void images demonstrate no intraluminal masses or stones. On pre-void images, neither of the ureteral jets are noted with color Doppler interrogation. (Of note, ureteral jets may not be detectable in up to 25% of cases due to insufficient differences in specific gravity between ureteral and bladder urine). Miscellaneous: No free pelvic fluid. IMPRESSION: No hydronephrosis. Dictated by: Pawan Son M.D. on 10/02/2020 at 12:58 Approved by: Pawan Son M.D. on 10/02/2020 at 13:00
== END ==
PROVIDERS: PCP Student in an Organized Health Care Education/Training Program; Referring Provider Student in an Organized Health Care Education/Training Program; Visit Provider Student in an Organized Health Care Education/Training Program
DX: R35.0 Frequency of micturition (principal)
CPT/HCPCS: 76770

== ENCOUNTER 2020-10-25 23:43 | Observation (INO) | payer OTHER, SELFPAY ==
[2020-09-01 21:28] VITALS: BMI 35.1
[2020-10-25 23:54] VITALS: BP 141/62; PULSE 79; RESP 26; TEMP 35.9; O2SAT 94; BMI 35.9
[2020-10-26] VITALS (10 sets, daily range): BP systolic 109–151; BP diastolic 56–75; PULSE 61–88; RESP 13–23; TEMP 36.1–36.4; O2SAT 94–98; BMI 35.9
--- NOTE | 2020-10-26 00:04 | DI.CT.S_ITS ---
PROCEDURE: CT HEAD/BRAIN WO CON INDICATIONS: altered mental status TECHNIQUE: Noncontrast 4.5 mm thick angled axial sections acquired from the foramen magnum to the vertex, with coronal and sagittal reformats. For radiation dose reduction, the following was used: automated exposure control, adjustment of mA and/or kV according to patient size. COMPARISON: [facility], CT, CT HEAD/BRAIN WO CON, 05/24/2018, 21:33. FINDINGS: Image quality: Motion degraded examination. CSF spaces: Basal cisterns are patent. No extra-axial fluid collections. The ventricles are symmetric in size and shape. Brain: No intracranial bleeds or masses. There is cerebral volume loss for age, with resultant ventricular and sulcal prominence. There are periventricular and deep white matter chronic small vessel ischemic changes. There is intracranial internal carotid artery atherosclerosis. Skull and face: Calvarium and visualized facial bones appear intact, without suspicious lesions. Sinuses: Visualized sinuses and mastoids are clear. IMPRESSION: No acute intracranial process. Findings concordant with preliminary study interpretation. Dictated by: Pawan Son M.D. on 10/26/2020 at 8:12 Approved by: Pawan Son M.D. on 10/26/2020 at 8:28
--- NOTE | 2020-10-26 00:14 | DI.RAD.S_ITS ---
PROCEDURE: XR CHEST 1V INDICATIONS: altered mental status TECHNIQUE: One view of the chest was acquired. COMPARISON: [facility], CR, XR CHEST 1V, 09/01/2020, 19:57. FINDINGS: Surgical changes and devices: None. Lungs and pleura: No pleural effusions or pneumothorax. Scattered subsegmental atelectasis and/or scarring. No focal consolidation. Mild patchy opacities are present. Airway thickening in keeping with nonspecific bronchitis and/or reactive airways disease. Mediastinum: Mediastinal contours appear normal. Heart size is normal. Bones and chest wall: Lateral curvature of the spine. Discogenic changes. IMPRESSION: Low lung volumes and scattered patchy opacities. This could reflect low-grade aspiration/atelectasis although cannot exclude early pneumonia. If there is persistent clinical diagnostic uncertainty, continued surveillance with short interval radiographic followup after treatment is recommended. Findings concordant with preliminary study interpretation. Dictated by: Pawan Son M.D. on 10/26/2020 at 8:33 Approved by: Pawan Son M.D. on 10/26/2020 at 8:35
[2020-10-26 01:00] LABS: Add Manual Diff / Slide Review NO; Basophils Absolute Auto 0 /uL (0-100); Basophils Percent Auto 0.4 % (0-2); Eosinophils Absolute Auto 0 /uL (0-450); Eosinophils Percent Auto 0.6 % (2-4); Hematocrit 46.3 % (41-53); Hemoglobin 15.8 g/dL (13.5-17.5); Lymphocytes Absolute Auto 1000 /uL (1100-4500); Lymphocytes Percent Auto 11.8 % (25-40); Mean Corpuscular HGB Conc 34.1 % (30-36); Mean Corpuscular Hemoglobin 35.7 PG (26-34); Mean Corpuscular Volume 104.8 fL (80-100); Monocytes Absolute Auto 800 /uL (0-900); Monocytes Percent Auto 9.6 % (3-14); Neutrophils Absolute Auto 6400 /uL (1500-7000); Neutrophils Percent Auto 77.6 % (50-75); Platelet Count 104 X10^3/uL (150-400); Red Blood Cell Count 4.42 X10^6/uL (4.5-5.9); Red Cell Distribution Width 13.5 % (11.6-14.8); White Blood Cell Count 8.2 X10^3/uL (4.5-11.0)
[2020-10-26 01:01] LABS: HEMOLYSIS < 15 (0-50)
[2020-10-26 01:05] LABS: Lactate (Lactic Acid) 3.2 mmol/L (0.7-2.1)
[2020-10-26 01:06] LABS: Alanine Aminotransferase 11 IU/L (<50); Albumin 3.8 g/dL (3.5-5.0); Albumin Globulin Ratio 1.5 (1.0-2.8); Alkaline Phosphatase 67 U/L (38-126); Aspartate Aminotransferase 25 IU/L (17-59); Bilirubin Total 0.3 mg/dL (0.2-1.3); Blood Urea Nitrogen 26 mg/dL (9-20); Calcium 9.3 mg/dL (8.4-10.2); Carbon Dioxide 21 mmol/L (22-32); Chloride 105 mmol/L (98-107); Creatine Kinase 74 U/L (55-170); Estimated Glomerular Filt Rate 44.4 mL/min (>60); Globulin 2.6 g/dL (1.7-4.1); Glucose 170 mg/dL (80-110); Potassium 4.3 mmol/L (3.4-5.1); Sodium 137 mmol/L (137-145); Total Protein 6.4 g/dL (6.3-8.2)
[2020-10-26 01:18] LABS: Troponin I < 0.012 ng/mL (0.01-0.034)
--- NOTE | 2020-10-26 01:45 | ED_ITS ---
HPI - Fall General Chief Complaint: Fall Stated Complaint: Possible fall Time Seen by Provider: 10/25/20 23:59 Source: family and EMS Mode of arrival: EMS History of Present Illness HPI Narrative: Patient is a 75-year-old male with history of CVA, epilepsy, Parkinson's, presenting with change in mental status. The he apparently was brushing his teeth in the bathroom his heard him say please stop which he typically says when his tremor gets out of control she has had it did not stop and then he went silent. She went to the bathroom and noticed he was holding himself up but was unable to respond. He was lowered to the ground. As he was not really responsive for EMS initially but he did start coming around any has a lean toward the left. Patient now is able to follow commands and answer some questions however difficult due to his baseline aphasia. He is denying any pain. states that he was previously doing well at his baseline. They have home healthcare. [facility] with [facility] he actually was accepted there but insurance denied stating pay had home health. He was last admitted to this hospital in August for seizures while his neurologist was adjusting his medication he had breakthrough seizures. states that he actually has not had any breakthrough seizures since that admission and his medication has been stabilized Fall witnessed: yes, by family Place fall occurred: home Related Data Home Medications Medication Instructions Recorded Confirmed atenolol 50 mg PO BEDTIME 09/01/20 09/27/20 atorvastatin 40 mg PO BEDTIME 09/01/20 09/27/20 carbidopa-levodopa [Rytary] 3 cap PO TID 09/01/20 09/27/20 docusate sodium [Colace] 100 mg PO QAM 09/01/20 09/27/20 finasteride 5 mg PO QPM 09/01/20 09/27/20 furosemide [Lasix] 20 mg PO QAM 09/01/20 09/27/20 lacosamide [Vimpat] 200 mg PO BID 09/01/20 09/27/20 levothyroxine 125 mcg PO QAM 09/01/20 09/27/20 losartan 25 mg PO BEDTIME 09/01/20 09/27/20 mecobalamin (vitamin B12) 2,000 mcg SUBLINGUAL QAM 09/01/20 09/27/20 pantoprazole 40 mg PO BEDTIME 09/01/20 09/27/20 valacyclovir 500 mg PO BEDTIME 09/01/20 09/27/20 zonisamide 200 mg PO BEDTIME 09/01/20 09/27/20 divalproex 500 mg tablet,delayed 1,000 mg PO BID 09/25/20 09/27/20 release Previous Rx's Medication Instructions Recorded nystatin 100,000 unit/gram topical 100,000 unit TOPICAL BID PRN #30 11/14/19 powder gram apixaban 5 mg tablet 5 mg PO BID #180 tab 10/03/20 Allergies Allergy/AdvReac Type Severity Reaction Status Date / Time No Known Drug Allergies Allergy Verified 09/27/20 14:28 Review of Systems Review of Systems ROS Unobtainable: Unobtainable due to medical condition 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) Cerebrovascular accident (CVA) Chicken pox Diverticulosis large intestine w/o perforation or abscess w/o bleeding (12/12/10) Encephalitis due to human herpes simplex virus (HSV) Hearing loss Hemorrhoids that prolapse with straining and require manual replacement back inside anal canal Herpes (~1979) Ischemic stroke Measles Mumps Rubella Seizures Seizures Sleep apnea Vision disorder Surgical History Anesthesia History of appendectomy History of hemorrhoidectomy History of nasal surgery No pertinent past surgical history Family History Brother Kidney disease Brother Aneurysm Mother Alzheimer's dementia Father Cancer Social History marital status: household members: spouse lives independently: Yes Smoking Status: Never smoker alcohol intake: former substance use type: does not use Smoking Status: Never smoker alcohol intake frequency: 0-2 drinks per day Substance Use Type: does not use Exam Initial Vital Signs Initial Vital Signs: Vital Signs Temperature 96.6 F L 10/25/20 23:54 Pulse Rate 79 10/25/20 23:54 Respiratory Rate 26 H 10/25/20 23:54 Blood Pressure 141/62 H 10/25/20 23:54 Pulse Oximetry 94 10/25/20 23:54 Gen.: Alert male spontaneously talking HEENT: No facial droop head is atraumatic EOMI Neck: No JVD Lungs: Clear bilaterally no wheezes rales or rhonchi no respiratory distress Cardiac: Regular rate no murmurs Abdomen: Soft non tender, obvious bowel movement Extremities,: Dental Office Coordinator strength equal bilaterally tremor noted, no bony deformity Neurologic: Alert and oriented to person follows commands no facial droop no a taxia in upper extremities Course Orders Ordered: ED Orders 10/26/20 EKG-12 Lead Stat 10/26/20 00:04 CT head/brain wo con Stat 10/26/20 00:14 XR chest 1V Stat 10/26/20 00:30 Complete Blood Count AUTO DIFF Stat Comprehensive Metabolic Panel Stat Lactate (Lactic Acid) Stat Magnesium Urgent Prolactin Stat Troponin & CK Cardiac Panel Stat Valproic Acid (Depakene) Total Stat 10/26/20 02:38 COVID19 - ADMIT (FORGING DIES FINAL FINISHER swab/PCR) Stat 10/26/20 02:47 MR stroke Stat Urinalysis and Microscopic Stat Education, smoking cessation ONGOING 10/26/20 02:49 Consult to Occupational Therapy Evaluate & Treat Consult to Physical Therapy Evaluate & Treat Consult to Speech Therapy Evaluate & Treat 10/26/20 02:57 Consult to Discharge Planning Routine 10/26/20 04:00 Comprehensive Metabolic Panel DAILY NT-proBNP (BNP-Adult 18+) Routine 10/27/20 05:00 Comprehensive Metabolic Panel DAILY 10/28/20 05:00 Comprehensive Metabolic Panel DAILY Acetaminophen (Acetaminophen 325 Mg Tablet) 650 mg PO Q6HR PRN PRN Reason: Fever/Mild Pain (1-3) Al Hydrox/Mg Hydrox/Simethicone (Mag Hydrox/Alum/Simeth 30 Ml Udc) 30 ml PO Q6HR PRN PRN Reason: Dyspepsia Lactated Ringer's (Lactated Ringers) 1,000 mls @ 60 mls/hr IV CONT MITESH Last Admin: 10/26/20 04:34 Dose: 60 mls/hr Documented by: MPFEFFE Magnesium Hydroxide (Magnesium Hydroxide 30 Ml Udc) 30 ml PO DAILY PRN PRN Reason: Constipation Naloxone HCl (Naloxone 0.4 Mg/Ml Vial) 0.2 mg IV Q2MIN PRN PRN Reason: Opiate Reversal Ondansetron HCl (Ondansetron 4 Mg/2 Ml Inj) 4 mg IV Q8HR PRN PRN Reason: Nausea And Vomiting Oxycodone HCl (Oxycodone Ir 5 Mg Tablet) 5 mg PO Q6HR PRN PRN Reason: Pain, Moderate (4-6) Sennosides (Sennosides 8.6 Mg Tablet) 17.2 mg PO BEDTIME MITESH Vital Signs Vital signs: Vital Signs - 8 hr 10/25/20 23:54 10/26/20 00:29 10/26/20 01:51 Temperature 96.6 F L Pulse Rate 79 80 88 Respiratory Rate 26 H 15 13 Blood Pressure 141/62 H 151/72 H 125/71 Pulse Oximetry 94 95 98 10/26/20 02:00 10/26/20 02:31 Temperature Pulse Rate 73 70 Respiratory Rate 23 18 Blood Pressure 133/59 L 109/56 L Pulse Oximetry 96 97 MDM - Fall Lab Data Attestation: I reviewed the patient's lab results. Result diagrams: 10/26/20 00:30 10/26/20 04:00 Labs: Lab Results 10/26/20 10/26/20 10/26/20 Range/Units 00:30 00:30 00:30 WBC 8.2 (4.5-11.0) X10^3/uL RBC 4.42 L (4.5-5.9) X10^6/uL Hgb 15.8 (13.5-17.5) g/dL Hct 46.3 (41-53) % MCV 104.8 H (80-100) fL MCH 35.7 H (26-34) PG MCHC 34.1 (30-36) % RDW 13.5 (11.6-14.8) % Plt Count 104 L (150-400) X10^3/uL Neut % (Auto) 77.6 H (50-75) % Lymph % (Auto) 11.8 L (25-40) % [place] % (Auto) 9.6 (3-14) % Eos % (Auto) 0.6 L (2-4) % Baso % (Auto) 0.4 (0-2) % Neut # (Auto) 6400 (4382-0112) /uL Lymph # (Auto) 1000 L (6249-0470) /uL [facility] # (Auto) 800 (0-900) /uL Eos # (Auto) 0 (0-450) /uL Baso # (Auto) 0 (0-100) /uL Sodium 137 (137-145) mmol/L Potassium 4.3 (3.4-5.1) mmol/L Chloride 105 (98-107) mmol/L Carbon Dioxide 21 L (22-32) mmol/L BUN 26 H (9-20) mg/dL Creatinine 1.53 H (0.66-1.25) mg/dL Estimated GFR 44.4 L (>60) mL/min BUN/Creatinine Ratio 17.0 (6-22) Glucose 170 H (80-110) mg/dL Lactate 3.2 H (0.7-2.1) mmol/L Calcium 9.3 (8.4-10.2) mg/dL Magnesium (1.6-2.3) mg/dL Total Bilirubin 0.3 (0.2-1.3) mg/dL AST 25 (17-59) IU/L ALT 11 (<50) IU/L Alkaline Phosphatase 67 (38-126) U/L Total Creatine Kinase 74 (55-170) U/L CK-MB (CK-2) TNP CK-MB (CK-2) Rel Index TNP Troponin I < 0.012 (0.01-0.034) ng/mL Total Protein 6.4 (6.3-8.2) g/dL Albumin 3.8 (3.5-5.0) g/dL Globulin 2.6 (1.7-4.1) g/dL Albumin/Globulin Ratio 1.5 (1.0-2.8) Prolactin 12.2 (3.7-17.9) ng/mL Urine Color Urine Appearance Urine pH (4.5-8.0) Ur Specific [place] (1.000-1.035) Urine Protein (Negative) Urine Glucose (UA) (Negative) g/dL Urine Ketones (NEGATIVE) Urine Occult Blood (Negative) Urine Nitrate (Negative) Urine Bilirubin (NEGATIVE) Urine Urobilinogen (0.2) E.U./dL Ur Leukocyte Esterase (NEGATIVE) Urine RBC (0-5/HPF) Urine WBC (0-5/HPF) Ur Squamous Epith Cells (0-5/HPF) Urine Bacteria (None) Ur Culture Indicated? SARS-CoV-2 (PCR) (Negative) 10/26/20 10/26/20 10/26/20 Range/Units 00:30 02:38 02:45 WBC (4.5-11.0) X10^3/uL RBC (4.5-5.9) X10^6/uL Hgb (13.5-17.5) g/dL Hct (41-53) % MCV (80-100) fL MCH (26-34) PG MCHC (30-36) % RDW (11.6-14.8) % Plt Count (150-400) X10^3/uL Neut % (Auto) (50-75) % Lymph % (Auto) (25-40) % [place] % (Auto) (3-14) % Eos % (Auto) (2-4) % Baso % (Auto) (0-2) % Neut # (Auto) (8303-3936) /uL Lymph # (Auto) (6534-1345) /uL [place] # (Auto) (0-900) /uL Eos # (Auto) (0-450) /uL Baso # (Auto) (0-100) /uL Sodium (137-145) mmol/L Potassium (3.4-5.1) mmol/L Chloride (98-107) mmol/L Carbon Dioxide (22-32) mmol/L BUN (9-20) mg/dL Creatinine (0.66-1.25) mg/dL Estimated GFR (>60) mL/min BUN/Creatinine Ratio (6-22) Glucose (80-110) mg/dL Lactate 2.1 (0.7-2.1) mmol/L Calcium (8.4-10.2) mg/dL Magnesium 2.0 (1.6-2.3) mg/dL Total Bilirubin (0.2-1.3) mg/dL AST (17-59) IU/L ALT (<50) IU/L Alkaline Phosphatase (38-126) U/L Total Creatine Kinase (55-170) U/L CK-MB (CK-2) CK-MB (CK-2) Rel Index Troponin I (0.01-0.034) ng/mL Total Protein (6.3-8.2) g/dL Albumin (3.5-5.0) g/dL Globulin (1.7-4.1) g/dL Albumin/Globulin Ratio (1.0-2.8) Prolactin (3.7-17.9) ng/mL Urine Color Urine Appearance Urine pH (4.5-8.0) Ur Specific [place] (1.000-1.035) Urine Protein (Negative) Urine Glucose (UA) (Negative) g/dL Urine Ketones (NEGATIVE) Urine Occult Blood (Negative) Urine Nitrate (Negative) Urine Bilirubin (NEGATIVE) Urine Urobilinogen (0.2) E.U./dL Ur Leukocyte Esterase (NEGATIVE) Urine RBC (0-5/HPF) Urine WBC (0-5/HPF) Ur Squamous Epith Cells (0-5/HPF) Urine Bacteria (None) Ur Culture Indicated? SARS-CoV-2 (PCR) Negative (Negative) 10/26/20 Range/Units 02:47 WBC (4.5-11.0) X10^3/uL RBC (4.5-5.9) X10^6/uL Hgb (13.5-17.5) g/dL Hct (41-53) % MCV (80-100) fL MCH (26-34) PG MCHC (30-36) % RDW (11.6-14.8) % Plt Count (150-400) X10^3/uL Neut % (Auto) (50-75) % Lymph % (Auto) (25-40) % [place] % (Auto) (3-14) % Eos % (Auto) (2-4) % Baso % (Auto) (0-2) % Neut # (Auto) (3517-1298) /uL Lymph # (Auto) (7837-6423) /uL [facility] # (Auto) (0-900) /uL Eos # (Auto) (0-450) /uL Baso # (Auto) (0-100) /uL Sodium (137-145) mmol/L Potassium (3.4-5.1) mmol/L Chloride (98-107) mmol/L Carbon Dioxide (22-32) mmol/L BUN (9-20) mg/dL Creatinine (0.66-1.25) mg/dL Estimated GFR (>60) mL/min BUN/Creatinine Ratio (6-22) Glucose (80-110) mg/dL Lactate (0.7-2.1) mmol/L Calcium (8.4-10.2) mg/dL Magnesium (1.6-2.3) mg/dL Total Bilirubin (0.2-1.3) mg/dL AST (17-59) IU/L ALT (<50) IU/L Alkaline Phosphatase (38-126) U/L Total Creatine Kinase (55-170) U/L CK-MB (CK-2) CK-MB (CK-2) Rel Index Troponin I (0.01-0.034) ng/mL Total Protein (6.3-8.2) g/dL Albumin (3.5-5.0) g/dL Globulin (1.7-4.1) g/dL Albumin/Globulin Ratio (1.0-2.8) Prolactin (3.7-17.9) ng/mL Urine Color Yellow Urine Appearance Clear Urine pH 5.5 (4.5-8.0) Ur Specific [place] 1.025 (1.000-1.035) Urine Protein Negative (Negative) Urine Glucose (UA) Negative (Negative) g/dL Urine Ketones 1+ H (NEGATIVE) Urine Occult Blood Negative (Negative) Urine Nitrate Negative (Negative) Urine Bilirubin Negative (NEGATIVE) Urine Urobilinogen 0.2 (0.2) E.U./dL Ur Leukocyte Esterase Negative (NEGATIVE) Urine RBC None seen (0-5/HPF) Urine WBC None seen (0-5/HPF) Ur Squamous Epith Cells 1-5 /hpf (0-5/HPF) Urine Bacteria None seen (None) Ur Culture Indicated? Cult not indicated SARS-CoV-2 (PCR) (Negative) Imaging Data CT scan - head: Radiologist's Impression: Is preliminary report: Moderate atrophy. No acute intracranial findings.. Old left temporal frontal lobe infarct. Stable intracranial exam Chest x-ray: Radiologist's Impression: Present Merry report: Central bronchial wall thickening may reflect bronchitis. However couple with perihilar bibasilar infiltrates may reflect pneumonitis ECG Data Attestation: I personally reviewed and interpreted this ECG as follows: Prior ECG tracings: available for review Interpretation: Normal sinus rhythm rate 81 p.r. interval 282 QRS [address] changes MDM Narrative Medical decision making narrative: NIH is difficult with patient because of baseline aphasia although he is able to follow commands he also has baseline tremors. I do not appreciate any new focal deficits of the. Patient did not have shaking according to the she is quite familiar with seizures, this certainly did not seem like a seizure to her. He now is talking in the emergency department is back to his baseline according to the . Possible TIA. No sign of infection. There certainly was no acute event where he was not at his baseline not responding unclear exactly what it was still possible for TIA. Patient extremely hard IV stick he had a blood draw done noncontrast head CT. Adolph SPRINGER and Rufus updated patient's symptoms test results and happily accepted patient to observation Discharge Plan Departure Patient Disposition: Admitted as Observation Clinical Impression: Brain TIA Admit Date/Time: 10/26/20 03:28 Admit Provider: Crista Farfan
[2020-10-26 01:46] LABS: Prolactin 12.2 ng/mL (3.7-17.9)
--- NOTE | 2020-10-26 02:47 | DI.MRI.S_ITS ---
PROCEDURE: MR STROKE Pre- and post-contrast brain MRI, non-contrast brain MR angiogram, pre- and postcontrast neck MR angiogram INDICATIONS: TIA /Stroke R/O TECHNIQUE: Brain: Noncontrast axial T1 spin echo, axial T2 fast spin echo, sagittal and axial FLAIR, coronal T2 fast spin echo, axial gradient echo, axial diffusion and ADC through the brain. After the administration of contrast, axial 3D VIBE of the cranial vasculature and brain. Brain MRA: Non-contrast 3-D time of flight MR angiogram, with multiple terwywb-wkstpmgcs-issgwugqfg (MIP) reformats performed. Neck MRA: Axial and sagittal TruFISP through the neck. Coronal dynamic MR angiogram during administration of contrast in the arterial and venous phases, with 3-dimenstional mqpiima-lwwmoyjgd-aprsxvpcwi (MIP) reformats constructed from subtraction images. COMPARISON: [facility], , STROKE PROTOCOL, 03/10/2014, 21:38. FINDINGS: Image quality: Motion is present on multiple sequences, limiting areas of fine detail evaluation. BRAIN: The ventricular system and cortical sulci demonstrate atrophy, consistent for the patient's stated age. There are areas of increased T2/FLAIR signal intensity within the periventricular and subcortical white matter. There is no acute intra-or extra axial fluid collection. No acute hemorrhage, mass lesion or midline shift. Brainstem is unremarkable. Prominent encephalomalacia is noted within the left frontal temporal lobe likely related to old infarction. There are no areas of restricted diffusion. Globes are symmetrical. Sinuses are aerated. Osseous structures are intact. BRAIN MR ANGIOGRAM: Anterior circulation: Intracranial internal carotid arteries are normal in size and enhancement. The flow within the paired anterior cerebral arteries is normal and symmetric. The flow within the middle cerebral arteries is normal and symmetric. The anterior communicating artery is seen. No stenoses, occlusions, or aneurysms. Posterior circulation: The visualized portions of the vertebral arteries demonstrate normal caliber, and join to form a normal appearing basilar artery. The flow within the posterior cerebral arteries is normal and symmetric. No stenoses, occlusions, or aneurysms. NECK MR ANGIOGRAM: The origins of the left and right common, internal and external carotid arteries demonstrate no areas of hemodynamically significant stenosis, vascular occlusion or aneurysmal dilation. Origins of the left and right vertebral arteries are obscured secondary to motion, limiting evaluation. Aortic arch demonstrates conventional anatomy. Limited, visualized portions of the subclavian vasculature are unremarkable. IMPRESSION: 1. No acute intracranial process. 2. Moderate to severe atrophy and chronic microvascular ischemic changes. 3. No areas of hemodynamically significant stenosis, vascular occlusion or aneurysmal dilation within the anterior or posterior circulation. 4. No areas of hemodynamically significant stenosis, vascular occlusion or aneurysmal dilation within the neck vasculature. It is noted that secondary to motion the origins of the vertebral arteries cannot be assessed. Stenosis in this region cannot be excluded. Dictated by: Rosina Bronson M.D. on 10/26/2020 at 10:49 Approved by: Rosina Bronson M.D. on 10/26/2020 at 10:58
[2020-10-26 02:48] LABS: Bacteria Urine None Seen; RBC Urine None Seen (0-5/HPF); WBC Urine None Seen (0-5/HPF)
[2020-10-26 02:50] LABS: Reflexed Lactate in 2 Hours Y
[2020-10-26 03:01] LABS: Appearance Urine UA CLEAR; Bilirubin Urine UA NEGATIVE (NEGATIVE); Color Urine UA YELLOW; Glucose Urine UA NEGATIVE (Negative); Ketones Urine UA 1+ (NEGATIVE); Leukocyte Esterase Urine UA NEGATIVE (NEGATIVE); Nitrite Urine UA NEGATIVE (Negative); Occult Blood Urine UA NEGATIVE (Negative); Protein Urine UA NEGATIVE (Negative); Specific Gravity Urine UA 1.025 (1.000-1.035); Urobilinogen Urine UA 0.2 E.U./dL (0.2); pH Urine UA 5.5 (4.5-8.0)
--- NOTE | 2020-10-26 03:01 | P.HP_ITS ---
History of Present Illness History of Present Illness Date Patient Seen: 10/26/20 Time Patient Seen: 03:01 Chief complaint: Possible fall Narrative: Patient is a 75-year-old male with a history of herpetic/autoimmune encephalitis 2015, CVA 2010, venous embolus and thrombosis DVT 2013, Parkinson's, ischemic stroke-middle cerebral artery 05/12/20-05/16/2020 at [facility], hypertension, hyperlipidemia, diet-controlled diabetes mellitus, hypothyroidism, and obesity, presenting with change in mental status. The he apparently was brushing his teeth in the bathroom his heard him say please stop which he typically says when his tremor gets out of control, and then he went silent. When she went to the bathroom she noticed he was holding himself up but was unable to respond. He was lowered to the ground. As he was not really responsive for EMS initially but he did start coming around and has a lean toward the left. Patient now is able to follow commands and answer some questions however difficult due to his baseline aphasia. Unable to obtan NIH. He is denying any pain. states that he was previously doing well at his baseline. They have home healthcare. tried to get him into [facility] to help with aphasia he actually was accepted there but insurance denied stating pay had home health. Patient was not in-patient in August of this year for possible stroke/TIA when he developed status epilepticus in the ED in reaction to his neurologist adjusting his medication for breakthrough seizures. states that he actually has not had any breakthrough seizures since that admission and his medication has been stabilized. Patient's is at bedside upon admit and states that he is currently now at his baseline which has been consistent since discharge from [facility]. Unable to perform NIH due to patient's aphasia and confusion. He is able to follow some commands, thought process is altered and patient's verbal responses are often inappropriate or incoherent. Patient is aware of self and place. Patient cognition has definitely deteriorated from previous level of consciousness and comprehension upon transfer to [facility] on previous hospitalization. In the ED patient's labs were fairly unremarkable with the exception of a BUN of 26, HC03 21, and creatinine 1.53, GFR 44.4, a lactate of 3.[address] arina lizarraga believe was related to the difficult IV stick, troponin was unremarkable as was prolactin. Patient's vitals were stable. Head CT had no evidence of a stroke and chest x-ray demonstrated possible pneumonitis. Patient is admitted for TIA versus stroke rule out due to altered mental status. 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) Cerebrovascular accident (CVA) Chicken pox Diverticulosis large intestine w/o perforation or abscess w/o bleeding (12/12/10) Encephalitis due to human herpes simplex virus (HSV) Hearing loss Hemorrhoids that prolapse with straining and require manual replacement back inside anal canal Herpes (~1979) Ischemic stroke Measles Mumps Rubella Seizures Seizures Sleep apnea Vision disorder Surgical History Anesthesia History of appendectomy History of hemorrhoidectomy History of nasal surgery No pertinent past surgical history Family & Social History Family History Brother Kidney disease Brother Aneurysm Mother Alzheimer's dementia Father Cancer Social History: household members spouse lives independently Yes Tobacco & Substance use: Smoking Status Never smoker alcohol intake former alcohol intake frequency 0-2 drinks per day Substance Use Type does not use Meds Home Medications and Allergies Home Medications Medication Instructions Recorded Confirmed Type nystatin 100,000 unit/gram topical 100,000 unit TOPICAL BID PRN #30 11/14/19 10/26/20 Rx powder gram atenolol 25 mg PO BEDTIME 09/01/20 10/26/20 History atorvastatin 40 mg PO BEDTIME 09/01/20 10/26/20 History carbidopa-levodopa [Rytary] 3 cap PO TID 09/01/20 10/26/20 History docusate sodium [Colace] 100 mg PO QAM PRN 09/01/20 10/26/20 History finasteride 5 mg PO QPM 09/01/20 10/26/20 History furosemide [Lasix] 20 mg PO QAM PRN 09/01/20 10/26/20 History lacosamide [Vimpat] 200 mg PO BID 09/01/20 10/26/20 History levothyroxine 125 mcg PO QAM 09/01/20 10/26/20 History losartan 25 mg PO BEDTIME 09/01/20 10/26/20 History mecobalamin (vitamin B12) 2,000 mcg PO QAM 09/01/20 10/26/20 History pantoprazole 40 mg PO BEDTIME 09/01/20 10/26/20 History valacyclovir 500 mg PO BEDTIME 09/01/20 10/26/20 History zonisamide 300 mg PO BEDTIME 09/01/20 10/26/20 History divalproex 500 mg tablet,delayed 1,000 mg PO BID 09/25/20 10/26/20 History release apixaban 5 mg tablet 5 mg PO BID #180 tab 10/03/20 10/26/20 Rx Allergies Allergy/AdvReac Type Severity Reaction Status Date / Time No Known Drug Allergies Allergy Verified 09/27/20 14:28 Review of Systems Review of Systems ROS: Yes unobtainable due to mental status Exam Vital Signs (past 8 hours): - 10/25/20 23:54 Temperature 96.6 F L Pulse Rate 79 Respiratory Rate 26 H Blood Pressure 141/62 H Pulse Oximetry 94 Oxygen Delivery Method Room Air Narrative Exam Narrative: Gen.: Alert male arousable and talking HEENT: No facial droop head is atraumatic EOMI Neck: No JVD Lungs: Clear bilaterally no wheezes rales or rhonchi no respiratory distress Cardiac: Regular rate no murmurs Abdomen: Soft non tender, bowel sounds x4 Extremities,: [employer] strength equal, bilaterally tremor noted, no bony deformity. Neurologic: Alert and oriented to person and place, follows some commands, no facial droop no ataxia in upper extremities Objective Labs Result Diagrams: 10/26/20 00:30 10/26/20 04:00 Labs: Laboratory Results - last 24 hr 10/26/20 10/26/20 10/26/20 00:30 00:30 00:30 WBC 8.2 RBC 4.42 L Hgb 15.8 Hct 46.3 MCV 104.8 H MCH 35.7 H MCHC 34.1 RDW 13.5 Plt Count 104 L Neut % (Auto) 77.6 H Lymph % (Auto) 11.8 L [place] % (Auto) 9.6 Eos % (Auto) 0.6 L Baso % (Auto) 0.4 Neut # (Auto) 6400 Lymph # (Auto) 1000 L [place] # (Auto) 800 Eos # (Auto) 0 Baso # (Auto) 0 Sodium 137 Potassium 4.3 Chloride 105 Carbon Dioxide 21 L BUN 26 H Creatinine 1.53 H Estimated GFR 44.4 L BUN/Creatinine Ratio 17.0 Glucose 170 H Lactate 3.2 H Calcium 9.3 Total Bilirubin 0.3 AST 25 ALT 11 Alkaline Phosphatase 67 Total Creatine Kinase 74 CK-MB (CK-2) TNP CK-MB (CK-2) Rel Index TNP Troponin I < 0.012 Total Protein 6.4 Albumin 3.8 Globulin 2.6 Albumin/Globulin Ratio 1.5 Prolactin 12.2 Assessment & Plan Assessment & Plan narrative: 1. Altered mental status, TIA versus stroke rule out, acute on chronic, present on admission -suspect TIA, GCS:13. Head CT negative for new acute process -stable, unable to assess NIH due to aphasia, confusion-do to previous CVA/stroke -swallow screen -patient atorvastatin and apixaban -patient admitted on stroke protocol -MR tomorrow -patient needs to be admitted to rehabilitation. -PT/OT/Speach consults ordered 2. Epilepsy, chronic, present on admission-well controlled -continue patient's 1000 mg of Depakote b.i.d. Vimpat 200mg BID, Zonisamide 300mg QHS -patient placed on seizure precautions, bed side swallow -patient is followed by Neurology at [facility] 3. Parkinson's, acute on chronic, exacerbation, present on admission -continue patient's carbidopa-levodopa. Divalproex, Finasteride. - [facility] neurology where he has followed by neurologist: Dr. Keyes, Dr. Porter, and 4. History CVA 2010 and ischemic stroke middle central artery May 12, 2020 with seizures, chronic, essential hypertension, acute on chronic, present on admission, and diabetes type 2 (diet controlled), chronic, present on admission, induced hyperlipidemia, chronic, present on admission as evidence by history of acute venous embolism and thrombolysis DVT 2013. -I personally reviewed office visit notes for internal medicine and family practice Dr. Larson notes from 11/04/2019-08/13/2020 -continue patients apixaban, losartan, atorvastatin. Atenolol -A1c Ordered -DM protocols -ordered low-dose sliding scale for blood sugar control, glucose checks AC& HS 5. 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 q.h.s. 4. Hypertension essential, acute on chronic, present on admission Patient's current vital signs: BP 141/62, HR 79, RR 26 -continue patient's Lasix, atenolol 5. Hypothyroidism, acquired, chronic, present on admission control unknown -TSH ordered, continue patient's levothyroxine 6. Obesity, as evidence by a BMI of 34.9 down from 35.1, acute on chronic, present on admission -recommended dietary and lifestyle changes with PCP follow-up -consideration will be given to dietary counseling Code status: DNR Surrogate decision maker: Patient's is MCKAY ELLSWORTH PCR: Negative VTE/DVT prophylaxis: patient's apixaban 5 mg b.i.d., and SCDs Scores GCS Mandi coma scale eye opening: To sound [place] coma scale verbal response: Confused [place] coma scale motor response: Obey commands (Some commands) [place] coma scale total score: 13
[2020-10-26 03:18] LABS: Culture Indicated Urine Cult Not Indicated; Squamous Epithelial Cell Urine 1-5 /HPF (0-5/HPF)
[2020-10-26 03:41] LABS: COVID19 - ADMIT (NP swab/PCR) Negative (Negative)
[2020-10-26 04:02] LABS: Lactate 2HR (Lactic Acid Rflx) 2.1 mmol/L (0.7-2.1)
[2020-10-26 04:22] LABS: Alanine Aminotransferase 8 IU/L (<50); Albumin 3.5 g/dL (3.5-5.0); Albumin Globulin Ratio 1.4 (1.0-2.8); Alkaline Phosphatase 65 U/L (38-126); Aspartate Aminotransferase 23 IU/L (17-59); BUN Creatinine Ratio 19.4 (6-22); Bilirubin Total 0.3 mg/dL (0.2-1.3); Blood Urea Nitrogen 26 mg/dL (9-20); Calcium 9.2 mg/dL (8.4-10.2); Carbon Dioxide 26 mmol/L (22-32); Chloride 105 mmol/L (98-107); Estimated Glomerular Filt Rate 51.7 mL/min (>60); Globulin 2.5 g/dL (1.7-4.1); Glucose 126 mg/dL (80-110); HEMOLYSIS < 15 (0-50); Potassium 4.5 mmol/L (3.4-5.1); Sodium 137 mmol/L (137-145)
[2020-10-26 04:30] LABS: NT-proBNP (BNP-Adult 18+) 352 pg/mL (<450)
[2020-10-26] MEDS: LACTATED RINGERS 1,000 ML 60 ML IV (04:34)
--- NOTE | 2020-10-26 05:56 | PC.NURSE ---
Pt. admitted to room 215 diagnosed with TIA. Accompanied by his Alexandra, spouse answer all the question for the patient. Pt. confused to situation asking his when are we going home. explained to pt. he needed to stay in the hospital for observation. Had a fall at home scrap his let. knee & lt. elbow. Denies any pain but C/O being sleepy. I was supposed to do nursing swallow evaluation, but he's sleeping at this time. Will cont. POC & monitor.
[2020-10-26 05:58] LABS: TSH w/ Reflex to FT4 6.28 uIU/mL (0.47-4.68)
[2020-10-26 06:26] LABS: Free T4, Direct Thyroxine 1.09 ng/dL (0.78-2.19)
[2020-10-26] MEDS: LEVOTHYROXINE 125 MCG TABLET PO (08:54)
[2020-10-26] MEDS: APIXABAN 5 MG TABLET PO (08:56)
[2020-10-26] MEDS: CYANOCOBALAMIN (VITAMIN B-12) 500 MCG TABLET 2000 MCG PO (08:56)
[2020-10-26] MEDS: DIVALPROEX DR 250 MG TABLET 1000 MG PO (08:56)
--- NOTE | 2020-10-26 09:20 | PT.IIE ---
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) Cerebrovascular accident (CVA) Chicken pox Diverticulosis large intestine w/o perforation or abscess w/o bleeding (12/12/10) Encephalitis due to human herpes simplex virus (HSV) Hearing loss Hemorrhoids that prolapse with straining and require manual replacement back inside anal canal Herpes (~1979) Ischemic stroke Measles Mumps Rubella Seizures Seizures Sleep apnea Vision disorder Physical Therapy Inpatient Evaluation/Re-Eval M1 PT/OT-IP Prior Functional Status Start: 10/26/20 11:02 Freq: NEEDED Status: Active Protocol: Document 10/26/20 09:20 AB (Rec: 10/26/20 11:23 AB [id number]) Medical Review Prior Functional Status Medical History Reviewed Yes Communication able to answer comes questions but inconsistently, able to follow one step commands inconsistently and needs repetitions, difficulty with word finding and with perseveration Mobility and Gait spouse stated that she assists pt with all mobilities but pt able to ambulate using 4WW SBA. spouse stated that pt usually is able to do bed mobility by himself but takes time and spouse assists with bed mobility when needed especially when pt is in a hurry to get ut and use the toilet. spouse stated that pt has been receiving HHPT, OT and WARD SECRETARY Prior Functional Level (Other details) spouse stated that pt has h/o CVA last august and went to [facility] and due to insurance issues, pt not accepted for acute rehab and pt just went home with HH services. Pt has h/o seizure and PD Social History Household Members spouse Living Arrangements House Number of Floors (Floors) One Floor Number of Stairs To Enter/Railing? no steps to enter from the garage Home Environment High Toilet,Tub/Shower Doors Home Equipment Front Wheel Walker,Four Wheel Walker,Manual Wheelchair, Raised Toilet Seat w/Armrests, Tub Transfer Bench,Hand Held Shower,Grab Bars In Shower Additional Social History Comment pt has an adjustable bed with R side bed rail and pt usually has HOB elevated M2 PT-IP Current Condition Start: 10/26/20 11:02 Freq: NEEDED Status: Active Protocol: Document 10/26/20 09:20 AB (Rec: 10/26/20 11:23 AB [email or web address]) Physical Therapy Current Condition Current Condition Evaluation Date 10/26/20 Treatment Diagnosis r/o TIA vs CVA; difficulty in walking Onset Date 10/26/20 Precautions Other Precautions falls, seizure M3 PT-IP Subjective Start: 10/26/20 11:02 Freq: NEEDED Status: Active Protocol: Document 10/26/20 09:20 AB (Rec: 10/26/20 11:23 AB [email or web address]) Subjective Physical Therapy Visit Type Type Initial Evaluation Visit Start Time 09:20 Visit Stop Time 10:00 Total Visit Minutes 40 Number of FINANCIAL REPORTING ADVISOR Visits 0 Physical Therapy Visit Comments Patient Comments pt is agreeable to do PT Therapy Pain Assessment Pain Present Pain Present Denied Pain M4 PT-IP Mobility and Gait Start: 10/26/20 11:02 Freq: NEEDED Status: Active Protocol: Document 10/26/20 09:20 AB (Rec: 10/26/20 11:23 AB [email or web address]) PT-Bed Mobility Assessment Supine to Sit Supine to Sit Standby Assistance,1 Person Assistance,Head of Bed Elevated,Bedrails PT-Transfer Assessment Sit to and From Stand Sit to and from Stand Contact Guard Assistance, Minimal Assistance,1 Person Assistance,Use of Upper Extremities Equipment Transfer Assistive Device Gait Belt,Front Wheeled Walker Orthotic/Prosthetic Devices or Brace: No Transfers Transfer Destination Chair Transfer Technique Stand Step Pivot Transfer Ability Level of Assist Contact Guard Assistance, Minimal Assistance,1 Person Assistance,Use of Upper Extremities Comments Mobility Comments pt with difficulty following instructions and requires repeated cues(verbal, visual, tactile). completed supine to sit with HOB elevated and use of bed rail SBA but with difficulty completing task and requires increase time to complete. pt was able to sit on EOB SBA. completed sit to stand min A from EOB. pt was able to maintain standing using FWW for support CGA to min A while OT assisted with hygiene care and brief management. pt completed step transfer to chair using FWW CGA to min A and cues. required cues for safety. pt agreed to ambulate and completed ambulation in room using fWW ~ 25 ft CGA to min A and cues to increase LE elevation and step length. pt agreed to sit on chair. Left pt with OT. spouse expressed desire for pt to be able to go to acute rehab is possible. Gait Assessment Gait Gait Assistance Required: Contact Guard Assist,Minimum Assistance Distance (Feet) 25 Able to Maintain Weight Bearing Status Yes During Gait Assistive Devices Assistive Device Gait Belt,Front Wheeled Walker Orthotic/Prosthetic Devices or Brace: No Gait Deviations General Gait Pattern Antalgic,Decreased Stride Length,Decreased Feet Clearance Factors Limiting Gait Function Factors Limiting Gait Function Decreased Activity Tolerance, Decreased Strength,Difficulty Following Directions,Poor Balance,Poor Safety Awareness PT-Balance Assessment Sitting Balance and Reactions Static Sitting Balance Ability Good Dynamic Sitting Balance Ability Good Standing Balance and Reactions Static Standing Balance Ability Fair Dynamic Standing Balance Ability Fair Device Used FWW M5 PT-IP Objective Assessments Start: 10/26/20 11:02 Freq: NEEDED Status: Active Protocol: Document 10/26/20 09:20 AB (Rec: 10/26/20 11:23 AB [email or web address]) Orientation Orientation/Cognition Level of Alertness Alert Orientation Name Language Function Ability Expressive Aphasia,Receptive Aphasia,Word Finding Difficulties Safety Awareness Decreased Safety Awareness Memory Description Short Term Impaired Gross Range of Motion Lower Extremity ROM Assessment Within Functional Limits Strength Lower Extremity Strength Assessment Right Impaired Hip 3+/5 Knee 3+/5 M6 PT-IP Treatment Start: 10/26/20 11:02 Freq: NEEDED Status: Active Protocol: Document 10/26/20 09:20 AB (Rec: 10/26/20 11:23 AB [email or web address]) Physical Therapy Treatment Education Education Provided Safety M7 PT-IP Assessment and Plan Start: 10/26/20 11:02 Freq: NEEDED Status: Active Protocol: Document 10/26/20 09:20 AB (Rec: 10/26/20 11:23 AB [email or web address]) PT Summary Assessment and Plan Potential Rehabilitation Potential Good Status of Condition at Evaluation Stable Summary Impairments Pain,ROM,Strength,Balance, Coordination,Sensation,Tone, Cognition,Bed Mobility, Transfers,Gait,Activity Tolerance Assessment Summary pt requiring CGA to min A with mobility using FWW. pt lives with spouse and spouse has been assisting pt. spouse is hoping for pt to be able to go to acute rehab since pt had a recent stroke last august. pt has been receiving HH therapies at home after stroke and spouse stated that this is due to insurance issues. Pt will still need ongoing therapy and will benefit from acute rehab if insurance authorizes. Goals Bed Mobility Goal Independent Transfer Goal Standby Assistance,Four Wheeled Walker Gait Goal Standby Assistance,Four Wheel Walker Gait Distance 150 Days to Meet Goals 5 Frequency of Treatment Frequency Of Treatment Once a Day Treatment Plan Physical Therapy Treatment Plan Bed Mobility Training,Transfer Training,Gait Training, Therapeutic Exercise,Balance Retraining,Discharge Planning, Hot or Cold Pack,Neuromuscular Re-ed,Coordination Retraining Precautions Other Precautions falls, seizures Recommendations To Nursing Amount of Assist Needed 1 Person Assist Discharge Recommendations PT Discharge Recommendations Home with 01/12 Assist Available,Home Health,Acute Rehab Transportation Needs at Discharge Private Vehicle,Wheelchair/ Cabulance
--- NOTE | 2020-10-26 10:03 | OT.IP.EVAL ---
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) Cerebrovascular accident (CVA) Chicken pox Diverticulosis large intestine w/o perforation or abscess w/o bleeding (12/12/10) Encephalitis due to human herpes simplex virus (HSV) Hearing loss Hemorrhoids that prolapse with straining and require manual replacement back inside anal canal Herpes (~1979) Ischemic stroke Measles Mumps Rubella Seizures Seizures Sleep apnea Vision disorder Surgical History (Last Reviewed 10/26/20 @ 05:02 [facility] Anesthesia History of appendectomy History of hemorrhoidectomy History of nasal surgery No pertinent past surgical history Occupational Therapy Inpatient Evaluation/Re-Eval M1 PT/OT-IP Prior Functional Status Start: 10/26/20 11:02 Freq: NEEDED Status: Active Protocol: Document 10/26/20 11:38 CGR (Rec: 10/26/20 11:53 CGR [id number]) Medical Review Prior Functional Status Medical History Reviewed Yes Communication able to answer comes questions but inconsistently, able to follow one step commands inconsistently and needs repetitions, difficulty with word finding and with perseveration Mobility and Gait spouse stated that she assists pt with all mobilities but pt able to ambulate using 4WW SBA. spouse stated that pt usually is able to do bed mobility by himself but takes time and spouse assists with bed mobility when needed especially when pt is in a hurry to get ut and use the toilet. spouse stated that pt has been receiving HHPT, OT and [employer]ERTY [employer] SUP[employer]Y OFFICER Activities of Daily Living and IADL's Pt needed assist for all ADLs. Pt's spouse assists with dressing, bathing, toileting, and IADLs. Prior Functional Level (Other details) spouse stated that pt has h/o CVA last august and went to [facility] and due to insurance issues, pt not accepted for acute rehab and pt just went home with HH services. Pt has h/o seizure and PD Social History Household Members spouse Living Arrangements House Number of Floors (Floors) One Floor Number of Stairs To Enter/Railing? no steps to enter from the garage Home Environment High Toilet,Tub/Shower Doors Home Equipment Front Wheel Walker,Four Wheel Walker,Manual Wheelchair, Raised Toilet Seat w/Armrests, Tub Transfer Bench,Hand Held Shower,Grab Bars In Shower Additional Social History Comment pt has an adjustable bed with R side bed rail and pt usually has HOB elevated M1 PT/OT-IP Prior Functional Status Start: 10/26/20 11:37 Freq: NEEDED Status: Active Protocol: Document 10/26/20 11:38 CGR (Rec: 10/26/20 11:53 CGR [id number]) Medical Review Prior Functional Status Medical History Reviewed Yes Communication able to answer comes questions but inconsistently, able to follow one step commands inconsistently and needs repetitions, difficulty with word finding and with perseveration Mobility and Gait spouse stated that she assists pt with all mobilities but pt able to ambulate using 4WW SBA. spouse stated that pt usually is able to do bed mobility by himself but takes time and spouse assists with bed mobility when needed especially when pt is in a hurry to get ut and use the toilet. spouse stated that pt has been receiving HHPT, OT and PROPERTY AND SUPPLY OFFICER Activities of Daily Living and IADL's Pt needed assist for all ADLs. Pt's spouse assists with dressing, bathing, toileting, and IADLs. Prior Functional Level (Other details) spouse stated that pt has h/o CVA last august and went to [facility] and due to insurance issues, pt not accepted for acute rehab and pt just went home with HH services. Pt has h/o seizure and PD Social History Household Members spouse Living Arrangements House Number of Floors (Floors) One Floor Number of Stairs To Enter/Railing? no steps to enter from the garage Home Environment High Toilet,Tub/Shower Doors Home Equipment Front Wheel Walker,Four Wheel Walker,Manual Wheelchair, Raised Toilet Seat w/Armrests, Tub Transfer Bench,Hand Held Shower,Grab Bars In Shower Additional Social History Comment pt has an adjustable bed with R side bed rail and pt usually has HOB elevated M2 OT-IP Current Condition Start: 10/26/20 11:37 Freq: Status: Active Protocol: Document 10/26/20 11:38 CGR (Rec: 10/26/20 11:53 CGR [id number]) Occupational Therapy Current Condition Current Condition Evaluation Date 10/26/20 Treatment Diagnosis TIA? Diagnosis Onset Date 10/26/20 M3 OT- IP Subjective and Pain Start: 10/26/20 11:37 Freq: Status: Active Protocol: Document 10/26/20 11:38 CGR (Rec: 10/26/20 11:53 CGR [id number]) OT- Subjective Occupational Therapy Visit Type Type Initial Evaluation Visit Start Time 09:30 Visit Stop Time 10:03 Total Visit Minutes 33 Notes Co-eval with P.T. Occupational Therapy Visit Comments Patient Comments Pt displays both receptive and expressive aphasia. OT Pain Assessment Pain When Pain Assessed At Rest Pain Present Pain Present Denied Pain M4 OT- IP ADL's Start: 10/26/20 11:37 Freq: Status: Active Protocol: Document 10/26/20 11:38 CGR (Rec: 10/26/20 11:53 CGR [id number]) OT [id number] General Evaluation Self-Feeding Ability Independent Comments OT Self-Feeding Comments Pt feeding self when therapy entered OT ADL-Grooming General Evaluation Grooming Ability Standby Assistance Areas Needing Assistance Face Washing Comments OT Grooming Comments seated in chair OT ADL-Oral Care General Eval Oral Care Ability Minimal Assistance Areas of Assistance Brushing Teeth Comments Oral Care Comments Pt needed verbal and visual cues to begin task. Pt shows poor insite, spitting into full cup of water rather than empty cup and pouring water from one cup to another without reason. OT ADL-Dressing General Eval Lower Body Dressing Ability Maximum Assistance,Total Assistance Areas Needing Assistance Underpants/Brief,Socks OT ADL-Toileting General Evaluation Toileting Ability Maximum Assistance,Total Assistance Areas Needing Assistance Manage Clothing,Perform Perineal Hygiene Comments OT Toileting Comments Pt with wet brief. Doffed brief and performed pericare. Pt able to stand during activity. OT ADL-Bathing Comments OT Bathing Comments not performed M5 OT- IP IADL's Start: 10/26/20 11:37 Freq: Status: Active Protocol: Document 10/26/20 11:38 CGR (Rec: 10/26/20 11:53 CGR [id number]) OT-Instrumental Activities of Daily Living Deficits IADL Deficits Identified Deficits Home Safety Awareness Awareness of Need for Assistance at Home Decreased Awareness Medication Management Medication Management Caregiver Administers Money Management Money Management Caregiver Provides Assistance Meal Preparation Meal Preparation Caregiver Provides Assist Seat Cover Maker Seat Cover Maker Caregiver Provides Assist Driving Driving Comments Pt does not drive M6 OT- IP Functional Cognition Start: 10/26/20 11:37 Freq: Status: Active Protocol: Document 10/26/20 11:38 CGR (Rec: 10/26/20 11:53 CGR [id number]) Cognitive Factors Limiting Selfcare Function Cognitive Ability Level of Alertness Alert Patient Orientation Name,Place,Situation Attention Span Ability Capable of Focused Attention, Capable of Sustained Attention Cognitive Comments Cognitive Assessment Comments Pt is unable to consistently follow verbal commands but follows most visual commands. Significant communication barrier although pt is agreeable. OT- Vision and Hearing OT- Hearing Assessment OT- Hearing Assessment WFL OT- Vision Assessment Visual Acuity WFL,Glasses All The Time Visual Attentiveness WFL Occular Pursuits WFL Vision Assessment Comments pt wears bifocals M7 OT- IP Mobility and Balance Start: 10/26/20 11:37 Freq: Status: Active Protocol: Document 10/26/20 11:38 CGR (Rec: 10/26/20 11:53 CGR [id number]) OT- Bed Mobility Assessment Rolling Type of Rolling Roll to Right Level of Assistance Standby Assistance,Head of Bed Elevated,Bedrails Supine to Sit Supine to Sit Assist Standby Assistance,Head of Bed Elevated,Bedrails Scooting Scooting to Edge of Bed Standby Assistance,Head of Bed Elevated,Bedrails OT-Transfer Assessment Sit to and From Stand Sit to and from Stand Contact Guard Assistance Transfers Transfer Ability Contact Guard Assistance Technique Transfer Destination Bed,Chair Transfer Technique Stand Step Pivot Devices Transfer Assistive Devices Gait Belt,Front Wheeled Walker Comments Mobility Comments Pt was able to transfer to chair then transfered from chair to w/c at end of session to go down for MRI. OT- Balance Assessment Sitting Balance and Reactions Static Sitting Balance Ability Good Dynamic Sitting Balance Ability Good M8 OT- IP Objective Assessments Start: 10/26/20 11:37 Freq: Status: Active Protocol: Document 10/26/20 11:38 CGR (Rec: 10/26/20 11:53 CGR [id number]) OT Gross Range of Motion Upper Extremity Range of Motion Assessment Within Functional Limits OT Strength Upper Extremity Strength Assessment Within Functional Limits Comments Strength Comments Grossly 4+/5 OT- Coordination Assessment Upper Extremity Finger to Nose Test Within Functional Limits Finger Tapping Test Within Functional Limits Comments Coordination Comments with extra time OT-Muscle Tone Assessment Muscle Tone WNL Yes OT Sensation Assessment Edema Edema Absent M9 OT- IP Assessment and Plan Start: 10/26/20 11:37 Freq: Status: Active Protocol: Document 10/26/20 11:38 CGR (Rec: 10/26/20 11:53 CGR [id number]) OT Summary Assessment and Plan Potential Rehabilitation Potential Excellent Analytic Complexity at Evaluation Low Summary OT Impairments Functional Cognition, Functional Mobility,Self- Feeding,Grooming,Dressing, Toileting,Bathing,Toilet Transfers,Shower Transfers, Activity Tolerance Progress Towards Goals Slow Progress due to Cognition Assessment Summary Pt presents as a low complexity evaluation s/p TIA at home. Pt appears to be at his baseline for ADLs but per spouse, pt needed assist with all ADLs at baseline since recent CVA. Pt's largest barrier is his communication deficits. Pt would benefit from intensive therapy services. Acute rehab if possible. Goals Grooming Goal Standby Assistance Dressing Goal Standby Assistance Toileting Goal Standby Assistance Bathing Goal Standby Assistance Toilet Transfer Goal Standby Assistance Shower Transfer Goal Standby Assistance Days to Meet Goals 30 Frequency of Treatment Frequency Of Treatment Once a Day Treatment Plan OT Treatment Plan ADL Training,Functional Cognition Training,Functional Mobility,Patient/Family Education,Discharge Planning Other Treatment Recommendations and Next shower Treatment Focus Discharge Recommendations OT Discharge Recommendations Acute Rehab Transportation Needs at Discharge Private Vehicle
[2020-10-26] MEDS: CARBIDOPA LEVODOPA 3 EACH PO (12:59)
--- NOTE | 2020-10-26 14:31 | CM.DPNOTE ---
Addendum entered by Elisha Jose 10/26/20 14:43: Faxed the below information also to [facility] and received fax confirmation. Elisha Jose CM Asst. Original Note: Faxed HP, PT/OT, FS to Jolly at [facility] on 10/26/20 requested by Azucena. Fax confirmation received. Elisha Jose CM Asst.
--- NOTE | 2020-10-26 14:46 | PC.NURSE ---
Addendum entered by Denise Suarez R.N. 10/26/20 15:25: MD [email or web address] discontinuation of fluids and tele. Original Note: Patient alert, oriented to name and birthdate. Patient calm and amicable. Notable aphasia. Tele on. brought in patient's medications, pharmacy verified. requests we hold 1500 Rytary until 3-4 hours after last dose (1300) will communicate to evening nurse. Patient currently voiding using urinal. Up with 1p. min assist. IV fluids running at 60cc/hr, patient tolerating diet.
--- NOTE | 2020-10-26 15:18 | CM.DANOTE ---
Addendum entered by Azucena Acevedo LPN 10/26/20 15:55: DC orders now in. These are faxed to [facility] and [facility]. Addendum entered by Azucena Acevedo LPN 10/26/20 15:48: pt admitted today at 0328 and is expected to leave today. Payer: [facility] Admission status: OBS: confirmed by KRYSTA Capellan. Will call [facility] with update./done. no resume orders needed, per Myranda as pt is here under OBS. Original Note: Discharge Planning/Care Management DCP: assessment: case received, EMR reviewed. Discussed in Team Rounds with Dr. Noyola stating pt and his were hoping to get him into Acute Rehab Center at [facility] in [place]. Spoke with Jolly/admissions at the [facility] and she said she had been alerted already via phone call from pt's Alexandra. Jolly states pt was accepted to the facility after a dc to home setting with and [facility] from [facility] (was sent to from September 02.) She says he had been fully accepted by their facility provider but the [employer] plan had said NO to the request. In further discussion with pt's Alexandra it becomes clear that the next option to consider is snf setting and did give her resource for [facility] and contact of [facility]/Admissions there who confirmed they accept the insurance and would be happy to help if they wish to consider this. Alexandra did accept the information and said she would take it home with her. She spoke later with Dr. Eckert and said this would absolutely never be an option for them. Dr. Eckert is now discussing POC further with Alexandra, confirms that pt is medically stable to leave the hospital and he would like to see pt get into the acute rehab but it very likely would not happen today. Jolly confirms she is still going though the review process with Dr. Alva, seeing pt's at the facility today and through the weekend. She planned to submit info to [facility] once it was clear the physician would accept him. She noted that this late on a Thursday she did not anticipate a response from the insurance company and this info is provided to Dr. Limon. Alexandra has stated today that she is prepared to take pt back home today if need be and follow up with [facility]olly on Thursday. Pt has a neurology appoint on Thursday. Dr. Noyola said he was very much encouraging them to keep this appointment and his needs are complex and neuro based. P: at this time sounds like home later today.. CM Discharge Assessment Start: 10/26/20 15:15 Freq: Status: Active Protocol: Document 10/26/20 15:15 ITV (Rec: 10/26/20 15:18 ITV [id number]) Discharge Planning Assessment Advance Directives? Yes: DPOA Advance Directives on File Yes History Provided By Patient,Family Member Prior Living Arrangements House Household Members spouse Independent with ADL's No Is patient alert and oriented? No: fluctuates Needs Assistance With Bathing,Eating,Grooming,Meal Prep,Toileting,Managing Medications,Home Chores / Shopping Comment current with [facility]. Review Status In Process
--- NOTE | 2020-10-26 15:26 | CM.DPNOTE ---
Faxed referral packet to [facility] requested by Azucena on 10/26/20 and received fax confirmation. Elisha Jose CM Asst.
[2020-10-26] MEDS: FINASTERIDE 5 MG TABLET PO (16:09)
[2020-10-26] MEDS: OXYCODONE IR 5 MG TABLET PO (16:09)
--- NOTE | 2020-10-26 16:13 | ST.IPSLE ---
Visit Care Team Role Provider Type Pj Sky MD Primary Care Provider Physician Specialty: Internal Medicine Address: [address] [place] [address], [address], [place], [address] Email: [email or web address] Bel Mahmood DO Emergency Provider Physician Referring Provider Specialty: Emergency Medicine Address: [address] [place] [address], [id number] Email: [email or web address] MARIE Roman Admit Provider Physician Attending Provider Specialty: Medical Address: [address] [place] [address], [id number] Email: Past Medical History (Last Reviewed 10/26/20 @ 05:02 by MARIE Roman) Acute venous embolism and thrombosis of deep veins of upper extremity (Medical 04/27/14) 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) Cerebrovascular accident (CVA) (Medical) Chicken pox (Medical) Childhood Diverticulosis large intestine w/o perforation or abscess w/o bleeding (Medical 12/12/10) Encephalitis due to human herpes simplex virus (HSV) (Medical) Hearing loss (Medical) Hemorrhoids that prolapse with straining and require manual replacement back inside anal canal (Medical) Herpes (Medical ~1979) Ischemic stroke (Medical) Measles (Medical) Childhood Mumps (Medical) Childhood Rubella (Medical) Childhood Seizures (Medical) Seizures (Medical) Sleep apnea (Medical) Vision disorder (Medical) Speech-Language Pathology Speech/Language Eval [employer] Adult Cognitive Linguistic Eval Start: 10/26/20 13:08 Freq: Status: Active Protocol: Document 10/26/20 13:25 LNK (Rec: 10/26/20 13:34 LNK [id number]) Adult Cognitive Linguistic Evaluation Session Time Visit Start Time 11:45 Visit Stop Time 12:15 Total Visit Minutes 30 Referral Reason for Referral CVA vs. TIA Setting Assessment Location Acute Care Visit Type Note Type Initial evaluation Next Note Type Next Note Type Re-Evaluation Patient Information Identification Type Name,Date of Medical History PER H&P: Patient is a 75- year-old male with a history of herpetic/autoimmune encephalitis 2015, CVA 2010, venous embolus and thrombosis DVT 2013, Parkinson's, ischemic stroke-middle cerebral artery 05/12/20-2020 at [facility] , hypertension, hyperlipidemia , diet-controlled diabetes mellitus, hypothyroidism, and obesity, presenting with change in mental status. The he apparently was brushing his teeth in the bathroom his heard him say please stop which he typically says when his tremor gets out of control, and then he went silent. When she went to the bathroom she noticed he was holding himself up but was unable to respond. He was lowered to the ground. As he was not really responsive for EMS initially but he did start coming around and has a lean toward the left. Patient now is able to follow commands and answer some questions however difficult due to his baseline aphasia. Previous Therapy Previous Speech-Language Therapy Yes History of Therapy Since previous CVA, pt has received ST 2x/week. Subjective Patient Report Pt was upright in bed with lunch tray nearby. Pt's had gone home briefly and just returned to his room. Mental Status Alert,Responsive,Cooperative Assessment Results informal assessment indicated structures and function to be grossly WNL. Pt's swallowing was screened during the noon meal and observed to be WFL Informal Assessment Receptive Language Normal No: History of receptive aphasia Receptive Language Impairment(s) Comprehension of conversation Expressive Language Normal No: History of expressive aphasia Expressive Language Impairment(s) Sentence closure/completion, Confrontation naming,Divergent naming,Expression of basic wants/needs,Expression of complex thoughts/ideas Pragmatic Language Normal Yes Speech Normal Yes: No s/sx dysarthria Findings/Results Language Function Mild-moderately impaired Findings Pt presented with mild-moderate receptive/expressive aphasia. pt is a pleasant man who appears able to follow a conversation in context. He was observed to dispay word- finding difficulty, perseverative language and paraphasias. he used automating speech appropriately (greetings, please/thank you, etc). 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 Pt was able to name 5/5 common items in the room and when given 2 options was able to state he was in the hospital the provided an accurate time on the room clock when asked. Cognitive Communication Deficits Self-awareness of Cognitive- Situational awareness ( Communication Deficits recognition of problem in context;in real time) Concomitant Factors Concomitant Factors Hemiplegia/hemiparesis Impact on Functioning Activity Limits/Particip.Rest. Mod: General Tasks and Demands Household Tasks Interpersonal Interactions Safety Risks Sev: Being Left Alone at Home Reacting to Emergency Managing Medication Traveling Alone in Community Prognosis Prognosis Good Based on Family support,Duration of symptoms/severity,Time since onset Plan of Care Speech-Language Treatment Yes Frequency daily while inpt Patient/Caregiver Education Family/caregivers expressed understanding of evaluation, Family/caregivers expressed agreement with goals and treatment plan,Family/ caregivers expressed understanding of safety precautions,Family/caregivers require further education/ training Short Term Goals Pt will be able to express basic needs via gesture, single words, or after given a choice of 2 while inpatient. Pt will be able to name 10 common items within his room at 80% with min-moderate cues provided as indicated. Discharge Recommendations half-way facility, Inpatient rehab facility,Home with Home Health
--- NOTE | 2020-10-26 21:04 | P.DS_ITS ---
History of Present Illness History of Present Illness Chief complaint: Possible fall Narrative: Patient is a 75-year-old male with a history of herpetic/autoimmune encephalitis 2015, CVA 2010, venous embolus and thrombosis DVT 2013, Parkinson's, ischemic stroke-middle cerebral artery 05/12/20-05/16/2020 at [facility], hypertension, hyperlipidemia, diet-controlled diabetes mellitus, hypothyroidism, and obesity, presenting with change in mental status. The he apparently was brushing his teeth in the bathroom his heard him say please stop which he typically says when his tremor gets out of co ntrol, and then he went silent. When she went to the bathroom she noticed he was holding himself up but was unable to respond. He was lowered to the ground. As he was not really responsive for EMS initially but he did start coming around and has a lean toward the left. Patient now is able to follow commands and answer some questions however difficult due to his baseline aphasia. Unable to obtan NIH. He is denying any pain. states that he was previously doing well at his baseline. They have home healthcare. [facility] he actually was accepted there but insurance denied stating pay had home health. Patient was not in-patient in August of this year for possible stroke/TIA when he developed status epilepticus in the ED in reaction to his neurologist adjusting his medication for breakthrough seizures. states that he actually has not had any breakthrough seizures since that admission and his medication has been stabilized. Patient's is at bedside upon admit and states that he is currently now at his baseline which has been consistent since discharge from [facility]. Unable to perform NIH due to patient's aphasia and confusion. He is able to follow some commands, thought process is altered and patient's verbal responses are often inappropriate or incoherent. Patient is aware of self and place. Patient cognition has definitely deteriorated from previous level of consciousness and comprehension upon transfer to [facility] on previous hospitalization. In the ED patient's labs were fairly unremarkable with the exception of a BUN of 26, HC03 21, and creatinine 1.53, GFR 44.4, a lactate of 3.[address] arina lizarraga believe was related to the difficult IV stick, troponin was unremarkable as was prolactin. Patient's vitals were stable. Head CT had no evidence of a stroke and chest x-ray demonstrated possible pneumonitis. Patient is admitted for TIA versus stroke rule out due to altered mental status. Discharge Providers Provider Date of admission: 10/26/20 03:28 Discharge Date: 10/26/20 Primary care physician: Pj Sky MD Consults: 10/26/20 02:49 Consult to Occupational Therapy Evaluate & Treat Comment: TIA Physician Instructions: Evaluate and treat Consult to Physical Therapy Evaluate & Treat Comment: TIA Physician Instructions: Evaluate and Treat Consult to Speech Therapy Evaluate & Treat Comment: TIA expressive aphasia Physician Instructions: Evaluate and treat 10/26/20 02:57 Consult to Discharge Planning Routine Comment: Pt needs Rehab placement Discharge provider: Goran Noyola MD Summary Hospital Course Discharge Diagnosis: 1. Altered mental status, now resolved 2. Seizure disorder 3. History of CVA 4. Parkinsons disease 5. Hypertension 6. Type 2 Diabetes 7. 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 Hypertension 9. Hypothyroidism 10. Obesity 11. Hospital Course: Mr. Rodrigues is a 75M with complicated past neurologic history including previous history of herpetic encephalitis in 2015. History of CVA in 2010 and 2020. Seizure disorder with recent admission here and transfer to [facility] for seizures. He also has Parkinsons disease. After the last admission patient was discharged with three seizure medications. He has followed up with his primary neurologist in [facility] and is currently on divalproex, vimpat, and zonisamide. Per the the patient has had aphasia some gait instability since his last admission to the hospital in August 2020. He came in with a brief, now self resolved period, where he was altered. He did not have seizure like movements which he has had with other seizures. He had no noted seizure like activity here in the hospital and was back to his mental baseline per his . He had MRI which showed no acute stroke. He was continued on his seizure medications. The has been trying to get the patient into acute rehab; however, this has been denied by his insurance. I did discuss this with the and case management who felt that it was unlikely that placement to acute rehab could be done soon. He has a follow up appointment with his neurologist this coming Thursday, which given his significant neurologic issues, is of paramount i mportance to keep, and this was iterated to his . In addition, given difficulties with acute rehab placement, SNF rehab was offered to who declined at this time and preferred to take her home rather than be transferred to a SNF. has been asked to appeal insurance denial for acute rehab by other providers, and I reiterated this to her. The patient was back to his baseline of the last six weeks, which per the she has been told this is likely his new permanent baseline. He had a mild which was improving at discharge and he was recommended to hold losartan until seeing his PCP. He was continued on his eliquis and statin. Exam Vital Signs (past 8 hours): Oxygen Delivery Method Room Air Oxygen Flow Rate 0 Narrative Exam Narrative: Gen.: alert with no acute distress HEENT: PERRL, moist mucous membranes Neck: No JVD, trachea midline Lungs: Clear bilaterally no wheezes rales or rhonchi no respiratory distress Cardiac: Regular rate no murmurs Abdomen: Soft non tender, bowel sounds x4 Extremities,: bilateral tremor which per is his baseline Neurologic: Alert and oriented to person and place, no facial droop, cranial nerves intact, expressive aphasia noted which per is baseline Objective Labs Result Diagrams: 10/26/20 00:30 10/26/20 04:00 Labs: Laboratory Results - last 24 hr 10/26/20 10/26/20 10/26/20 00:30 00:30 00:30 WBC 8.2 RBC 4.42 L Hgb 15.8 Hct 46.3 MCV 104.8 H MCH 35.7 H MCHC 34.1 RDW 13.5 Plt Count 104 L Neut % (Auto) 77.6 H Lymph % (Auto) 11.8 L [place] % (Auto) 9.6 Eos % (Auto) 0.6 L Baso % (Auto) 0.4 Neut # (Auto) 6400 Lymph # (Auto) 1000 L [place] # (Auto) 800 Eos # (Auto) 0 Baso # (Auto) 0 Sodium 137 Potassium 4.3 Chloride 105 Carbon Dioxide 21 L BUN 26 H Creatinine 1.53 H Estimated GFR 44.4 L BUN/Creatinine Ratio 17.0 Glucose 170 H Lactate 3.2 H Calcium 9.3 Magnesium Total Bilirubin 0.3 AST 25 ALT 11 Alkaline Phosphatase 67 Total Creatine Kinase 74 CK-MB (CK-2) TNP CK-MB (CK-2) Rel Index TNP Troponin I < 0.012 NT-Pro-B Natriuret Pep Total Protein 6.4 Albumin 3.8 Globulin 2.6 Albumin/Globulin Ratio 1.5 TSH Free T4 Prolactin 12.2 Urine Color Urine Appearance Urine pH Ur Specific [place] Urine Protein Urine Glucose (UA) Urine Ketones Urine Occult Blood Urine Nitrate Urine Bilirubin Urine Urobilinogen Ur Leukocyte Esterase Urine RBC Urine WBC Ur Squamous Epith Cells Urine Bacteria Ur Culture Indicated? SARS-CoV-2 (PCR) 10/26/20 10/26/20 10/26/20 00:30 00:30 02:38 WBC RBC Hgb Hct MCV MCH MCHC RDW Plt Count Neut % (Auto) Lymph % (Auto) [place] % (Auto) Eos % (Auto) Baso % (Auto) Neut # (Auto) Lymph # (Auto) [place] # (Auto) Eos # (Auto) Baso # (Auto) Sodium Potassium Chloride Carbon Dioxide BUN Creatinine Estimated GFR BUN/Creatinine Ratio Glucose Lactate Calcium Magnesium 2.0 Total Bilirubin AST ALT Alkaline Phosphatase Total Creatine Kinase CK-MB (CK-2) CK-MB (CK-2) Rel Index Troponin I NT-Pro-B Natriuret Pep Total Protein Albumin Globulin Albumin/Globulin Ratio TSH 6.28 H Free T4 1.09 Prolactin Urine Color Urine Appearance Urine pH Ur Specific [place] Urine Protein Urine Glucose (UA) Urine Ketones Urine Occult Blood Urine Nitrate Urine Bilirubin Urine Urobilinogen Ur Leukocyte Esterase Urine RBC Urine WBC Ur Squamous Epith Cells Urine Bacteria Ur Culture Indicated? SARS-CoV-2 (PCR) Negative 10/26/20 10/26/20 10/26/20 02:45 02:47 04:00 WBC RBC Hgb Hct MCV MCH MCHC RDW Plt Count Neut % (Auto) Lymph % (Auto) [place] % (Auto) Eos % (Auto) Baso % (Auto) Neut # (Auto) Lymph # (Auto) [place] # (Auto) Eos # (Auto) Baso # (Auto) Sodium 137 Potassium 4.5 Chloride 105 Carbon Dioxide 26 BUN 26 H Creatinine 1.34 H Estimated GFR 51.7 L BUN/Creatinine Ratio 19.4 Glucose 126 H Lactate 2.1 Calcium 9.2 Magnesium Total Bilirubin 0.3 AST 23 ALT 8 Alkaline Phosphatase 65 Total Creatine Kinase CK-MB (CK-2) CK-MB (CK-2) Rel Index Troponin I NT-Pro-B Natriuret Pep 352 Total Protein 6.0 L Albumin 3.5 Globulin 2.5 Albumin/Globulin Ratio 1.4 TSH Free T4 Prolactin Urine Color Yellow Urine Appearance Clear Urine pH 5.5 Ur Specific [place] 1.025 Urine Protein Negative Urine Glucose (UA) Negative Urine Ketones 1+ H Urine Occult Blood Negative Urine Nitrate Negative Urine Bilirubin Negative Urine Urobilinogen 0.2 Ur Leukocyte Esterase Negative Urine RBC None seen Urine WBC None seen Ur Squamous Epith Cells 1-5 /hpf Urine Bacteria None seen Ur Culture Indicated? Cult not indicated SARS-CoV-2 (PCR) [facility] Medical History Acute venous embolism and thrombosis of deep veins of upper extremity (04/27/14) 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) Cerebrovascular accident (CVA) Chicken pox Diverticulosis large intestine w/o perforation or abscess w/o bleeding (12/12/10) Encephalitis due to human herpes simplex virus (HSV) Hearing loss Hemorrhoids that prolapse with straining and require manual replacement back inside anal canal Herpes (~1979) Ischemic stroke Measles Mumps Rubella Seizures Seizures Sleep apnea Vision disorder Surgical History Anesthesia History of appendectomy History of hemorrhoidectomy History of nasal surgery No pertinent past surgical history Family History Brother Kidney disease Brother Aneurysm Mother Alzheimer's dementia Father Cancer Social History marital status: household members: spouse lives independently: Yes Smoking Status: Never smoker alcohol intake: former substance use type: does not use Discharge Plan Discharge Plan Patient Disposition: Home Health Service Provider Discharge Comment: Mr. Rodrigues came in with altered mental status that resolved without treatment. Afterwards he was back to his baseline since leaving [facility]. He had an MRI that did not show any stroke. He had no witnessed seizures. He was on atorvastatin and eliquis and this was c ontinued. His requested acute rehab; however, there were insurance issues with approval, and he needs to follow up with his neurologist on Thursday. He was offered SNF and declined. Discharge orders & Medications Prescriptions: Continued nystatin [Nystop] 100,000 unit/gram powder 100,000 unit Topical BID PRN (Reason: itching ) Qty: 30 RF: 2 divalproex 500 mg tablet,delayed release (DR/EC) 1,000 mg PO BID RF: 0 Eliquis 5 mg tablet 5 mg PO BID Qty: 180 RF: 3 zonisamide 100 mg capsule 300 mg PO BEDTIME RF: 0 docusate sodium [Colace] 100 mg Capsule 100 mg PO QAM PRN (Reason: Constipation) RF: 0 Vimpat 200 mg tablet 200 mg PO BID RF: 0 mecobalamin (vitamin B12) 1,000 mcg Tablet,Disintegrating 2,000 mcg PO QAM RF: 0 Rytary 36.25-145 mg Capsule, Extended Release 3 cap PO TID RF: 0 atorvastatin 40 mg tablet 40 mg PO BEDTIME RF: 0 atenolol 25 mg tablet 25 mg PO BEDTIME RF: 0 valacyclovir 500 mg tablet 500 mg PO BEDTIME RF: 0 pantoprazole 40 mg tablet,delayed release (DR/EC) 40 mg PO BEDTIME RF: 0 levothyroxine 125 mcg tablet 125 mcg PO QAM RF: 0 furosemide [Lasix] 20 mg tablet 20 mg PO QAM PRN (Reason: Edema) RF: 0 finasteride 5 mg tablet 5 mg PO QPM RF: 0 Discontinued losartan 25 mg tablet 25 mg PO BEDTIME RF: 0 Follow up/Referrals: Pj Sky MD [Primary Care Provider] - Diet/Activity/Treatments Diet: Regular Visit Report/Discharge Packet Instructions: DI for Prescription Opioid Use Discharge Data Primary Care Provider: Pj Sky Attending Provider: Crista Farfan VTE Deep Vein Thrombosis/Pulmonary Embolism Present on Admission: No MIPS - DC The patient has current or prior documentation of left ventricular ejection fraction (LVEF) less than 40%, or moderate or severely depressed left ventricular systolic function.: No
[2020-10-26 22:53] LABS: Valproic Acid (Depakene) Total 67 ug/mL (50-100)
== END 2020-10-26 16:46 | disposition home health service (06) ==
LOC: ED 10-26 02:45 → AC 10-26 03:29
PROVIDERS: Admitting Provider Nurse Practitioner Family; Emergency Provider Emergency Medicine; PCP Student in an Organized Health Care Education/Training Program; Referring Provider Emergency Medicine; Visit Provider Nurse Practitioner Family
DX: R41.82 Altered mental status, unspecified (principal); I69.320 Aphasia following cerebral infarction; N17.9 Acute kidney failure, unspecified; G20 Parkinson's disease; G40.909 Epilepsy, unspecified, not intractable, without status epilepticus; B00.9 Herpesviral infection, unspecified; I10 Essential (primary) hypertension; E78.5 Hyperlipidemia, unspecified; E11.9 Type 2 diabetes mellitus without complications; E03.9 Hypothyroidism, unspecified; E66.9 Obesity, unspecified; Z68.34 Body mass index [BMI] 34.0-34.9, adult; Z86.718 Personal history of other venous thrombosis and embolism; Z20.822 Contact with and (suspected) exposure to COVID-19
CPT/HCPCS: 36415; 70450; 70548; 70553; 71045; 80053; 80164; 81001; 82550; 82962; 83605; 83735; 83880; 84146; 84439; 84443; 84484; 85025; 87635; 93005; 93010; 96105; 96360; 96361; 97162; 97165; 97530; 97535; 99284; C9803; G0378; A9579; J1815

== ENCOUNTER 2020-11-16 03:11 | Observation (INO) | payer OTHER, SELFPAY ==
[2020-10-26 04:10] VITALS: BMI 35.9
[2020-11-16] VITALS (9 sets, daily range): BP systolic 115–153; BP diastolic 69–86; PULSE 68–100; RESP 14–18; TEMP 36.1–36.3; O2SAT 95–99; BMI 34.4
--- NOTE | 2020-11-16 03:33 | DI.CT.S_ITS ---
PROCEDURE: CT HEAD/BRAIN WO CON INDICATIONS: Left-sided weakness TECHNIQUE: Noncontrast 4.5 mm thick angled axial sections acquired from the foramen magnum to the vertex, with coronal and sagittal reformats. For radiation dose reduction, the following was used: automated exposure control, adjustment of mA and/or kV according to patient size. COMPARISON: [facility], MR, MR STROKE, 10/26/2020, 10:08. [facility], CT, CT STROKE, 09/01/2020, 12:27. [facility], MR, MR BRAIN SEIZURE WITH/WITHOUT CONTRAST, 05/13/2020, 12:29. [facility], CT, CT HEAD/BRAIN WO CON, 10/26/2020, 0:12. FINDINGS: Image quality: Excellent. CSF spaces: Basal cisterns are patent. No extra-axial fluid collections. The ventricles are symmetric in size and shape. Brain: Encephalomalacia in the left frontal and temporal lobe consistent with old infarct. No intracranial bleeds or masses. There is moderate cerebral volume loss for age, with resultant ventricular and sulcal prominence. There are moderate periventricular and deep white matter chronic small vessel ischemic changes. There is intracranial internal carotid artery atherosclerosis. Skull and face: Calvarium and visualized facial bones appear intact, without suspicious lesions. Sinuses: Visualized sinuses and mastoids are clear. IMPRESSION: 1. No acute intracranial abnormalities. 2. Old left frontal and temporal infarct. 3. Cerebral volume loss and chronic microvascular ischemic changes. No significant discrepancy with the manager night radiology preliminary report. Dictated by: Lori Bar M.D. on 11/16/2020 at 7:26 Approved by: Lori Bar M.D. on 11/16/2020 at 7:30
--- NOTE | 2020-11-16 03:34 | ED_ITS ---
HPI - General Adult General Chief complaint: Weakness Stated complaint: Weakness Time Seen by Provider: 11/16/20 03:15 Source: patient and EMS Mode of arrival: EMS History of Present Illness HPI narrative: 75-year-old male who is brought in by EMS this morning for weakness. Patient has a history of hepatic encephalitis, seizures, stroke, Parkinson's disease. He is being followed by Neurology at [facility]. His last stroke was earlier this year. His last seizure was about 3 months ago. According to his at baseline he is able to ambulate independently with a walker. He has had quite a bit of aphasia since his last stroke. Yesterday he was working with speech therapy. states that after the speech therapy he seemed to be somewhat ?off ?she could not explain it much more than that. Last night he went to bed and this morning he got up to go use the restroom. She states he was unable to walk on it took him approximately 30 minutes ago 20 ft and had an episode of incontinence. She states that she was able to sit him down on the toilet and cut his clothes change but when he tried to get back up again he was unable to stand. He did seem to be leaning to his left. His states that this is what happened the last time he had a stroke. She called EMS to bring him in for evaluation. Patient is unable to provide any HPI. Related Data Home Medications Medication Instructions Recorded Confirmed carbidopa ER 36.25 mg-levodopa 145 3 cap PO TID 09/01/20 10/26/20 mg capsule,extended release (Rytary) docusate sodium 100 mg capsule 100 mg PO QAM PRN 09/01/20 10/26/20 (Colace) finasteride 5 mg tablet 5 mg PO QPM 09/01/20 10/26/20 furosemide 20 mg tablet (Lasix) 20 mg PO QAM PRN 09/01/20 10/26/20 lacosamide 200 mg tablet (Vimpat) 200 mg PO BID 09/01/20 10/26/20 levothyroxine 125 mcg tablet 125 mcg PO QAM 09/01/20 10/26/20 pantoprazole 40 mg tablet,delayed 40 mg PO BEDTIME 09/01/20 10/26/20 release valacyclovir 500 mg tablet 500 mg PO BEDTIME 09/01/20 10/26/20 zonisamide 100 mg capsule 300 mg PO BEDTIME 09/01/20 10/26/20 divalproex 500 mg tablet,delayed 1,000 mg PO BID 09/25/20 10/26/20 release cyanocobalamin (vitamin B-12) 1,000 mcg PO DAILY 11/06/20 1,000 mcg capsule losartan 25 mg tablet 25 mg PO DAILY 11/06/20 Previous Rx's Medication Instructions Recorded nystatin 100,000 unit/gram topical 100,000 unit TOPICAL BID PRN #30 11/14/19 powder (Nystop) gram atorvastatin 40 mg tablet See Rx Instructions .ROUTE 11/07/20 .COMPLEX #90 tablet atenolol 50 mg tablet 50 mg PO DAILY #90 tab 11/08/20 clopidogrel 75 mg tablet 75 mg PO DAILY #90 tab 11/08/20 Allergies Allergy/AdvReac Type Severity Reaction Status Date / Time No Known Drug Allergies Allergy Verified 09/27/20 14:28 Review of Systems Review of Systems Narrative: Patient unable to provide any review of systems. 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) Cerebrovascular accident (CVA) Chicken pox Diverticulosis large intestine w/o perforation or abscess w/o bleeding (12/12/10) Encephalitis due to human herpes simplex virus (HSV) Hearing loss Hemorrhoids that prolapse with straining and require manual replacement back inside anal canal Herpes (~1979) Ischemic stroke Measles Mumps Rubella Seizures Seizures Sleep apnea Vision disorder Surgical History Anesthesia History of appendectomy History of hemorrhoidectomy History of nasal surgery No pertinent past surgical history Family History Brother Kidney disease Brother Aneurysm Mother Alzheimer's dementia Father Cancer Social History marital status: household members: spouse lives independently: Yes Smoking Status: Never smoker alcohol intake: former substance use type: does not use Smoking Status: Never smoker alcohol intake frequency: 0-2 drinks per day Substance Use Type: does not use Exam Initial Vital Signs Initial Vital Signs: Vital Signs Temperature 97 F L 11/16/20 03:10 Pulse Rate 76 11/16/20 03:10 Respiratory Rate 16 11/16/20 03:10 Blood Pressure 130/69 11/16/20 03:10 Pulse Oximetry 99 11/16/20 03:10 Const General: cooperative HENMT Head: normal to inspection and normocephalic Eyes General: appearance normal, both eyes and all related structures Pupils: PERRL EOM: EOM intact bilaterally Resp Auscultation: clear to auscultation bilaterally Cardio Rate: regular rate Rhythm: regular rhythm GI Inspection: normal to inspection Palpation: soft Skin General: no rashes or lesions noted Neuro Other: Patient does move all 4 extremities. He is able to follow commands. He can do [id number] of bilateral upper extremities but cannot do [id number] with bilateral lower extremities. He can lift his lower extremities up off the bed. He does not seem to have any asymmetry with smiling. He can close his eyes. He did state that he was in the hospital but other than that he answers with ?72 ? Extrem General: normal to inspection and capillary refill normal Psych Appearance: grossly normal Course Orders Ordered: ED Orders 11/16/20 03:33 CT head/brain wo con Stat 11/16/20 04:05 Ammonia (NH3) Stat Basic Metabolic Panel Stat Complete Blood Count AUTO DIFF Stat Ethanol (ETOH) Stat Thyroid Stimulating Hormone Stat Troponin & CK Cardiac Panel Stat Acetaminophen (Acetaminophen 325 Mg Tablet) 650 mg PO Q6HR PRN PRN Reason: Fever/Mild Pain (1-3) Apixaban (Apixaban 5 Mg Tablet) 5 mg PO BID MITESH Atenolol (Atenolol 50 Mg Tablet) 25 mg PO DAILY MITESH Atorvastatin Calcium (Atorvastatin 20 Mg Tablet) 40 mg PO BEDTIME MITESH Divalproex Sodium (Divalproex Dr 250 Mg Tablet) 1,000 mg PO BID MITESH Docusate Sodium (Docusate 100 Mg Capsule) 100 mg PO DAILY MITESH Finasteride (Finasteride 5 Mg Tablet) 5 mg PO QPM MITESH Sodium Chloride (Normal Saline 0.9%) 1,000 mls @ 125 mls/hr IV CONT MITESH Levothyroxine Sodium (Levothyroxine 125 Mcg Tablet) 125 mcg PO 0600 MITESH Losartan Potassium (Losartan 25 Mg Tablet) 25 mg PO DAILY MITESH Naloxone HCl (Naloxone 0.4 Mg/Ml Vial) 0.2 mg IV Q2MIN PRN PRN Reason: Opiate Reversal Non-Formulary Medication (Carbidopa-Levodopa [Rytary]) 3 cap PO TID MITESH Non-Formulary Medication (Lacosamide [Vimpat]) 200 mg PO BID MITESH Ondansetron HCl (Ondansetron 4 Mg/2 Ml Inj) 4 mg IV Q8HR PRN PRN Reason: Nausea And Vomiting Pantoprazole Sodium (Pantoprazole Dr 40 Mg Tablet) 40 mg PO BEDTIME MITESH Valacyclovir HCl (Valacyclovir 500 Mg Tablet) 500 mg PO BEDTIME MITESH Zonisamide (Zonisamide 100 Mg Capsule) 300 mg PO BEDTIME MITESH Vital Signs Vital signs: Vital Signs - 8 hr 11/16/20 03:10 11/16/20 04:30 11/16/20 05:00 Temperature 97 F L Pulse Rate 76 90 97 H Respiratory Rate 16 16 14 Blood Pressure 130/69 118/86 123/70 Pulse Oximetry 99 97 96 Medical Decision Making Medical Records Medical records reviewed: Yes I reviewed the patient's medical records. Lab Data Lab results reviewed: Yes I reviewed the patient's lab results. Result diagrams: 11/16/20 04:05 11/16/20 04:05 Labs: Lab Results 11/16/20 11/16/20 11/16/20 Range/Units 04:05 04:05 04:05 WBC 7.7 (4.5-11.0) X10^3/uL RBC 4.55 (4.5-5.9) X10^6/uL Hgb 16.4 (13.5-17.5) g/dL Hct 48.3 (41-53) % MCV 106.0 H (80-100) fL MCH 36.0 H (26-34) PG MCHC 33.9 (30-36) % RDW 13.7 (11.6-14.8) % Plt Count 100 L (150-400) X10^3/uL Neut % (Auto) 64.7 (50-75) % Lymph % (Auto) 22.3 L (25-40) % [place] % (Auto) 11.6 (3-14) % Eos % (Auto) 1.0 L (2-4) % Baso % (Auto) 0.4 (0-2) % Neut # (Auto) 5000 (2739-2333) /uL Lymph # (Auto) 1700 (4301-5195) /uL [place] # (Auto) 900 (0-900) /uL Eos # (Auto) 100 (0-450) /uL Baso # (Auto) 0 (0-100) /uL Sodium 141 (137-145) mmol/L Potassium 5.4 H (3.4-5.1) mmol/L Chloride 108 H (98-107) mmol/L Carbon Dioxide 27 (22-32) mmol/L BUN 26 H (9-20) mg/dL Creatinine 1.14 (0.66-1.25) mg/dL Estimated GFR > 60.0 (>60) mL/min BUN/Creatinine Ratio 22.8 H (6-22) Glucose 150 H (80-110) mg/dL Calcium 9.5 (8.4-10.2) mg/dL Magnesium (1.6-2.3) mg/dL Ammonia < 9 L (9-30) umol/L Total Creatine Kinase 52 L (55-170) U/L CK-MB (CK-2) TNP CK-MB (CK-2) Rel Index TNP Troponin I < 0.012 (0.01-0.034) ng/mL TSH (0.47-4.68) uIU/mL Ethyl Alcohol ( - 10) mg/dL 11/16/20 11/16/20 11/16/20 Range/Units 04:05 04:05 04:05 WBC (4.5-11.0) X10^3/uL RBC (4.5-5.9) X10^6/uL Hgb (13.5-17.5) g/dL Hct (41-53) % MCV (80-100) fL MCH (26-34) PG MCHC (30-36) % RDW (11.6-14.8) % Plt Count (150-400) X10^3/uL Neut % (Auto) (50-75) % Lymph % (Auto) (25-40) % [place] % (Auto) (3-14) % Eos % (Auto) (2-4) % Baso % (Auto) (0-2) % Neut # (Auto) (5784-2579) /uL Lymph # (Auto) (8450-3662) /uL [place] # (Auto) (0-900) /uL Eos # (Auto) (0-450) /uL Baso # (Auto) (0-100) /uL Sodium (137-145) mmol/L Potassium (3.4-5.1) mmol/L Chloride (98-107) mmol/L Carbon Dioxide (22-32) mmol/L BUN (9-20) mg/dL Creatinine (0.66-1.25) mg/dL Estimated GFR (>60) mL/min BUN/Creatinine Ratio (6-22) Glucose (80-110) mg/dL Calcium (8.4-10.2) mg/dL Magnesium 2.1 (1.6-2.3) mg/dL Ammonia (9-30) umol/L Total Creatine Kinase (55-170) U/L CK-MB (CK-2) CK-MB (CK-2) Rel Index Troponin I (0.01-0.034) ng/mL TSH 2.92 (0.47-4.68) uIU/mL Ethyl Alcohol < 10 ( - 10) mg/dL Imaging Data CT scan - head: Radiologist's Impression: No acute intracranial abnormality Generalized cerebral atrophy and periventricular hypodensities consistent with chronic small-vessel closed disease Remote left MCA distribution infarct MDM Narrative Medical decision making narrative: Patient is able to move all 4 extremities. Unable to do an NIH score given his ability to perform/understand the tasks. He also has aphasia. Patient's states that the way that he is answering the questions is sometimes baseline for him. She states that other times he is able to answer questions and talk. His head CT does not show any acute pathology however given the presentation today with his lower extremity weakness which is definitely new and his leaning to the left side with his stating that this is how he has presented in the past with stroke I feel the patient does the admitted hospital for further evaluation. Also considered seizure however I do not feel that that fits his presentation today. I did discuss the case with purchasing contracting clerk milton the [facility] provider who will admit for further evaluation and treatment. Discharge Plan Departure Patient Disposition: Admitted as Observation Clinical Impression: Brain TIA Admit Date/Time: 11/16/20 05:39 Admit Provider: Anitha Milton
[2020-11-16 04:16] LABS: Add Manual Diff / Slide Review NO; Basophils Absolute Auto 0 /uL (0-100); Basophils Percent Auto 0.4 % (0-2); Eosinophils Absolute Auto 100 /uL (0-450); Hematocrit 48.3 % (41-53); Hemoglobin 16.4 g/dL (13.5-17.5); Lymphocytes Absolute Auto 1700 /uL (1100-4500); Lymphocytes Percent Auto 22.3 % (25-40); Mean Corpuscular HGB Conc 33.9 % (30-36); Monocytes Absolute Auto 900 /uL (0-900); Monocytes Percent Auto 11.6 % (3-14); Neutrophils Absolute Auto 5000 /uL (1500-7000); Neutrophils Percent Auto 64.7 % (50-75); Platelet Count 100 X10^3/uL (150-400); Red Blood Cell Count 4.55 X10^6/uL (4.5-5.9); Red Cell Distribution Width 13.7 % (11.6-14.8); White Blood Cell Count 7.7 X10^3/uL (4.5-11.0)
[2020-11-16 04:26] LABS: Ammonia (NH3) < 9 umol/L (9-30); BUN Creatinine Ratio 22.8 (6-22); Blood Urea Nitrogen 26 mg/dL (9-20); Calcium 9.5 mg/dL (8.4-10.2); Carbon Dioxide 27 mmol/L (22-32); Chloride 108 mmol/L (98-107); Creatine Kinase 52 U/L (55-170); Estimated Glomerular Filt Rate > 60.0 mL/min (>60); Glucose 150 mg/dL (80-110); HEMOLYSIS 20 (0-50); Sodium 141 mmol/L (137-145)
[2020-11-16 04:27] LABS: Ethanol (ETOH) < 10 mg/dL
[2020-11-16 04:28] LABS: Potassium 5.4 mmol/L (3.4-5.1)
[2020-11-16 04:38] LABS: Troponin I < 0.012 ng/mL (0.01-0.034)
[2020-11-16 04:59] LABS: Thyroid Stimulating Hormone 2.92 uIU/mL (0.47-4.68)
--- NOTE | 2020-11-16 06:28 | DI.MRI.S_ITS ---
PROCEDURE: MR STROKE Pre- and post-contrast brain MRI, non-contrast brain MR angiogram, pre- and postcontrast neck MR angiogram INDICATIONS: New inability to walk, favoring left TECHNIQUE: Brain: Noncontrast axial T1 spin echo, axial T2 fast spin echo, sagittal and axial FLAIR, coronal T2 fast spin echo, axial gradient echo, axial diffusion and ADC through the brain. After the administration of contrast, axial 3D VIBE of the cranial vasculature and brain. Brain MRA: Non-contrast 3-D time of flight MR angiogram, with multiple eymglqa-wanddkpdj-akoefjzzjt (MIP) reformats performed. Neck MRA: Axial and sagittal TruFISP through the neck. Coronal dynamic MR angiogram during administration of contrast in the arterial and venous phases, with 3-dimenstional trhcnac-icratxpzu-flzwxfzkln (MIP) reformats constructed from subtraction images. COMPARISON: [facility], , MR STROKE, 10/26/2020, 10:08. FINDINGS: Image quality: Excellent. BRAIN: CSF spaces: Ventricles are normal in size and shape. Basal cisterns are patent. No extra-axial fluid collections. Brain: Remote left fronto temporal infarct with encephalomalacia and gliosis superimposed on background chronic microvascular ischemic changes and global cerebral volume loss. No intracranial bleeds or mass effects. Lopez-white matter interface is normal. Diffusion weighted images show no acute ischemic insults. Brainstem appears normal. Normal intravascular flow voids are present. No abnormal intracranial enhancement. Skull and face: Calvarial marrow signal is normal. Orbits appear normal. Sinuses: Sinuses and mastoids are clear. BRAIN MR ANGIOGRAM: Anterior circulation: Intracranial internal carotid arteries are normal in size and enhancement. The flow within the paired anterior cerebral arteries is normal and symmetric. The flow within the middle cerebral arteries is normal and symmetric. The anterior communicating artery is seen. No stenoses, occlusions, or aneurysms. Posterior circulation: The visualized portions of the vertebral arteries demonstrate normal caliber, and join to form a normal appearing basilar artery. The flow within the posterior cerebral arteries is normal and symmetric. No stenoses, occlusions, or aneurysms. NECK MR ANGIOGRAM: Carotids: Great vessels demonstrate a conventional anatomy as they arise from the aortic arch. The origins of the common carotid arteries appear patent. The calibers and courses of both common carotid arteries are normal. The bifurcation regions appear normal bilaterally. The internal carotid arteries demonstrate normal course and caliber. Posterior circulation: The origins of the vertebral arteries appear patent. More superior portions of both vertebral arteries demonstrate normal course and caliber, and join to form a normal appearing basilar artery. Miscellaneous: Subclavian arteries appear patent. Pre-contrast images through the neck show no soft tissue abnormalities. IMPRESSION: BRAIN MRI: Findings of recent ischemia or other acute intracranial process. Remote left frontal temporal infarct with encephalomalacia and gliosis. Advanced global cerebral volume loss and chronic microvascular ischemic change. BRAIN MR ANGIOGRAM: No occlusion or hemodynamically significant stenosis of the major intracranial arterial vasculature. NECK MR ANGIOGRAM: No occlusion or hemodynamically significant stenosis of the major extracranial arterial vasculature. Dictated by: Félix Steinberg M.D. on 11/16/2020 at 13:40 Approved by: Félix Steinberg M.D. on 11/16/2020 at 13:46
--- NOTE | 2020-11-16 06:43 | P.HP_ITS ---
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 The patient is unable to provide a history as he has significant aphasia and when stressed it worsens. His and DPNORA Soriano provides most of the history. What brought him here this morning was he had gotten up in the middle of the night to go to the bathroom. When she got him to the toilet he sat down and after he finished, he was unable to stand up. She was able to move a chair next to the toilet and have him transfer over to the chair where he sat for an hour. She attempted several times to get him up to stand, and every time she did this he would start leaning over to the left. She sat him down and stated that he basically stayed there for about an hour after multiple attempts to get him to stand up. She contacted the fire department to request assistance in getting him back to bed and when they arrived they ?did not like with a saw and decided to bring him to the hospital? period. Patient is unable to provide a review of systems as he is having difficulties with word finding. His states that he has been going back and forth to his Neurology specialists appointments and they have been adjusting his medications to reduce the amount of Depakote he is on any increase his dose of Zomis The patient has had multiple admissions to this facility including 1 in October of this year where he had fallen and was exhibiting significant weakness on his right side. He was ruled out however they did attempt to get him over to acute rehabilitation however per the discharge summary his insurance would not authorize it and per his she stated that the Parkinson's neurologist notes indicated that he would not benefit from an acute rehab stay. Per the emergency department provider the CT was unremarkable. Report is pending. Patient is afebrile with a temperature of 97.3?, blood pressure 151/72, heart rate 73, respiratory rate 18, oxygen saturation of 97% on room air, he weighs 106 kg with a BMI of 34.4. WBC is unremarkable however he does have a low platelet count of a 100 which appears to be his baseline, sodium is 141 chloride 108, bicarb is 26, creatinine 1.14, GFR is greater than 60, BUN 26, glucose 150, calcium 9.5, magnesium 2.1, total CK is 52, troponin is within normal limits, TSH is 2.92, urinalysis is negative for UTI, valproic acid level is pending and is a send out, COVID-19 PCR is pending. 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) Cerebrovascular accident (CVA) Chicken pox Diverticulosis large intestine w/o perforation or abscess w/o bleeding (0 12/12/10) Encephalitis due to human herpes simplex virus (HSV) Hearing loss Hemorrhoids that prolapse with straining and require manual replacement back inside anal canal Herpes (~1979) Ischemic stroke Measles Mumps Rubella Seizures Seizures Sleep apnea Vision disorder Surgical History Anesthesia History of appendectomy History of hemorrhoidectomy History of nasal surgery No pertinent past surgical history Family & Social History Family History Brother Kidney disease Brother Aneurysm Mother Alzheimer's dementia Father Cancer Social History: household members spouse lives independently Yes Safety & Behavioral: Feels Safe in Current Yes Environment Tobacco & Substance use: Smoking Status Never smoker alcohol intake former alcohol intake frequency 0-2 drinks per day Substance Use Type does not use Meds Home Medications and Allergies Home Medications Medication Instructions Recorded Confirmed Type carbidopa ER 36.25 mg-levodopa 145 3 cap PO TID 09/01/20 11/16/20 History mg capsule,extended release (Rytary) docusate sodium 100 mg capsule 100 mg PO QAM PRN 09/01/20 11/16/20 History (Colace) finasteride 5 mg tablet 5 mg PO QPM 09/01/20 11/16/20 History furosemide 20 mg tablet (Lasix) 20 mg PO QAM PRN 09/01/20 11/16/20 History lacosamide 200 mg tablet (Vimpat) 200 mg PO BID 09/01/20 11/16/20 History levothyroxine 125 mcg tablet 125 mcg PO QAM 09/01/20 11/16/20 History pantoprazole 40 mg tablet,delayed 40 mg PO BEDTIME 09/01/20 11/16/20 History release valacyclovir 500 mg tablet 500 mg PO BEDTIME 09/01/20 11/16/20 History zonisamide 100 mg capsule 300 mg PO BEDTIME 09/01/20 11/16/20 History divalproex 500 mg tablet,delayed 1,000 mg PO BID 09/25/20 11/16/20 History release cyanocobalamin (vitamin B-12) 2,000 mcg PO DAILY 11/06/20 11/16/20 History 1,000 mcg capsule atorvastatin 40 mg tablet See Rx Instructions .ROUTE 11/07/20 11/16/20 Rx .COMPLEX #90 tablet apixaban 5 mg tablet (Eliquis) 5 mg PO BID 11/16/20 11/16/20 History memantine 5 mg tablet 5 mg PO QPM 11/16/20 11/16/20 History memantine 5 mg tablet 10 mg PO QAM 11/16/20 11/16/20 History Allergies Allergy/AdvReac Type Severity Reaction Status Date / Time No Known Drug Allergies Allergy Verified 09/27/20 14:28 Review of Systems Review of Systems ROS: Yes unobtainable due to mental status Exam Vital Signs (past 8 hours): - 11/16/20 03:10 11/16/20 04:30 11/16/20 05:00 Temperature 97 F L Pulse Rate 76 90 97 H Respiratory Rate 16 16 14 Blood Pressure 130/69 118/86 123/70 Pulse Oximetry 99 97 96 11/16/20 06:00 11/16/20 06:34 Temperature Pulse Rate 93 H 100 H Respiratory Rate 16 18 Blood Pressure 141/81 H 153/76 H Pulse Oximetry 98 98 Oxygen Delivery Method Room Air Narrative Exam Narrative: Gen: Alert, and awake obese 75 y.o. male, HEENT: normocephalic, atraumatic, conjunctiva clear, sclera non-icteric, oral mucosa pink and moist Neck: supple, full ROM, no JVD, trachea is midline Resp: Lungs CTA, non-labored breathing CV: RRR, no murmur or rubs Abd: soft, non-tender, normoactive BTs Skin: no lesions or rashes, dry and intact Neuro: Alert and oriented X 2 He is aphasic, believe is his baseline. Significant bilateral upper extremity tremors, left worse than right. Extremities: is normally ambulatory ambulatory with a walker, but currently unable to walk Psyche: normal mood and affect. Objective Labs Result Diagrams: 11/16/20 04:05 11/16/20 04:05 Labs: Laboratory Results - last 24 hr 11/16/20 11/16/20 11/16/20 04:05 04:05 04:05 WBC 7.7 RBC 4.55 Hgb 16.4 Hct 48.3 MCV 106.0 H MCH 36.0 H MCHC 33.9 RDW 13.7 Plt Count 100 L Neut % (Auto) 64.7 Lymph % (Auto) 22.3 L [place] % (Auto) 11.6 Eos % (Auto) 1.0 L Baso % (Auto) 0.4 Neut # (Auto) 5000 Lymph # (Auto) 1700 [place] # (Auto) 900 Eos # (Auto) 100 Baso # (Auto) 0 Sodium 141 Potassium 5.4 H Chloride 108 H Carbon Dioxide 27 BUN 26 H Creatinine 1.14 Estimated GFR > 60.0 BUN/Creatinine Ratio 22.8 H Glucose 150 H Calcium 9.5 Ammonia < 9 L Total Creatine Kinase 52 L CK-MB (CK-2) TNP CK-MB (CK-2) Rel Index TNP Troponin I < 0.012 TSH Ethyl Alcohol 11/16/20 11/16/20 04:05 04:05 WBC RBC Hgb Hct MCV MCH MCHC RDW Plt Count Neut % (Auto) Lymph % (Auto) [place] % (Auto) Eos % (Auto) Baso % (Auto) Neut # (Auto) Lymph # (Auto) [place] # (Auto) Eos # (Auto) Baso # (Auto) Sodium Potassium Chloride Carbon Dioxide BUN Creatinine Estimated GFR BUN/Creatinine Ratio Glucose Calcium Ammonia Total Creatine Kinase CK-MB (CK-2) CK-MB (CK-2) Rel Index Troponin I TSH 2.92 Ethyl Alcohol < 10 Assessment & Plan Assessment & Plan narrative: Alexi Soriano is an unfortunate male with a complex neurological medical history will be placed into observation for rule out CVA and workup of his inability to ambulate. 1. Lower extremity immobility, TIA versus stroke rule out, acute on chronic, present on admission * suspect TIA, GCS:13. * Head CT negative for new acute process * stable, unable to assess NIH due to aphasia, lower extremity weakness, confusion due to previous CVA/stroke * nursing swallow screen today * Stroke MRI this am * PT/OT/Speech consults ordered 2. Seizure disorder, chronic, present on admission * continue home dose Depakote 1000 mg po b.i.d. Vimpat 200 mg po BID, Zonisamide 300mg QHS * -patient placed on seizure precautions * patient is followed by Neurology at [facility] and [facility] * I personally reviewed [facility] August 2020 neurology and admission notes 3. Parkinson's Disease, unknown if acute, present on admission * continue home dose of carbidopa-levodopa 36.25/145 * [facility] neurology where he has followed by neurologists: Dr. Meza, Dr. Berry, and Dr. Van 4. Atrial fibrillation, chronic, present on admission * He is anticoagulated on apixaban 5 mg po bid * Cardiac telemetry 5. Diabetes type 2 diagnosed in October 2020 * A1c Ordered * Low dose insulin correctional scale, glucose checs ACHS 6. 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 q.h.s. 7. Hypertension essential, acute on chronic, present on admission * continue home dose of atenolol 25 mg po qhs 8. Hypothyroidism, acquired, chronic, present on admission control unknown * TSH ordered in the ED was 2.92 WNL, continue home dose of levothyroxine 125 mcg daily 9. Obesity, as evidence by a BMI of 34. * Patient's neurological impairments, immobility contribute to slower progress and challenges to mobilization and strengthening VTE prophylaxis: Wells risk score: 0 Patient will continue his home dose of apixaban 5 mg po bid Consults: none, external consultation with patient's neurologists is recommended. Patient is observation status as his stay is not likely to exceed 2 midnights. FEN: saline lock, carb controlled diet, BMP and magnesium in the am. Dispo: unknown at this time, family desires patient be transferred to acute rehabilitation on discharge. Code Status: DNR as discussed with Alexandra Rodrigues, surrogate and POA COVID-19 COVID-19 status: Negative Result date/Date tested (Pos, Neg/Pending): 11/16/20 Scores GCS D Lo coma scale eye opening: Spontaneous Mandi coma scale verbal response: Words Mandi coma scale motor response: Obey commands D Lo coma scale total score: 13 Wells' Criteria for PE Clinical signs and symptoms of DVT: No PE is #1 Dx or equally likely: No Heart rate > 100: No Immobilization at least 3 days or surg in previous 4 weeks: Yes History of PE or DVT: No Hemoptysis: No Malignancy w/Treatment within 6 months or palliative: No Wells' PE Score total: 1.5 Quality MIPS - Admit I confirm the patient?s Advance Care Plan is present, Code status is documented, Surrogate decision maker is in patient?s record [If Yes, STOP here]: Yes
[2020-11-16 06:48] LABS: Magnesium 2.1 mg/dL (1.6-2.3)
[2020-11-16 07:06] LABS: Bacteria Urine Few (2-10); RBC Urine 1-5/HPF (0-5/HPF); Squamous Epithelial Cell Urine 1-5 /HPF (0-5/HPF); WBC Urine 5-10/HPF (0-5/HPF)
[2020-11-16 07:07] LABS: Amorphous Sediment Urine 1+; Culture Indicated Urine Specimen Cultured; Hyaline Casts Urine 0-1/LPF
--- NOTE | 2020-11-16 07:38 | PM.DS.1 ---
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 The patient is unable to provide a history as he has significant aphasia and when stressed it worsens. His and DPNORA Soriano provides most of the history. What brought him here this morning was he had gotten up in the middle of the night to go to the bathroom. When she got him to the toilet he sat down and after he finished, he was unable to stand up. She was able to move a chair next to the toilet and have him transfer over to the chair where he sat for an hour. She attempted several times to get him up to stand, and every time she did this he would start leaning over to the left. She sat him down and stated that he basically stayed there for about an hour after multiple attempts to get him to stand up. She contacted the fire department to request assistance in getting him back to bed and when they arrived they ?did not like with a saw and decided to bring him to the hospital? period. Patient is unable to provide a review of systems as he is having difficulties with word finding. His states that he has been going back and forth to his Neurology specialists appointments and they have been adjusting his medications to reduce the amount of Depakote he is on any increase his dose of Zomis The patient has had multiple admissions to this facility including 1 in October of this year where he had fallen and was exhibiting significant weakness on his right side. He was ruled out however they did attempt to get him over to acute rehabilitation however per the discharge summary his insurance would not authorize it and per his she stated that the Parkinson's neurologist notes indicated that he would not benefit from an acute rehab stay. Per the emergency department provider the CT was unremarkable. Report is pending. Patient is afebrile with a temperature of 97.3?, blood pressure 151/72, heart rate 73, respiratory rate 18, oxygen saturation of 97% on room air, he weighs 106 kg with a BMI of 34.4. WBC is unremarkable however he does have a low platelet count of a 100 which appears to be his baseline, sodium is 141 chloride 108, bicarb is 26, creatinine 1.14, GFR is greater than 60, BUN 26, glucose 150, calcium 9.5, magnesium 2.1, total CK is 52, troponin is within normal limits, TSH is 2.92, urinalysis is negative for UTI, valproic acid level is pending and is a send out, COVID-19 PCR is pending. Discharge Providers Provider Date of admission: 11/16/20 05:39 Discharge Date: 11/16/20 Primary care physician: Pj Sky MD Consults: 11/16/20 06:32 Consult to Discharge Planning Routine Comment: Consult to Occupational Therapy Evaluate & Treat Comment: inability to ambulate, hx several CVAs, Parkinson' Physician Instructions: Evaluate and treat 11/16/20 06:33 Consult to Physical Therapy Evaluate & Treat Comment: inability to ambulate, hx several CVAs, Parkinson' Physician Instructions: Evaluate and Treat 11/16/20 06:58 Consult to Dietitian, Adult Routine Comment: Reason For Exam: rapid decline Discharge provider: Goran Noyola MD Summary Hospital Course Discharge Diagnosis: 1. Lower extremity weakness, stroke ruled out, possibly TIA vs transient hypotension 2. HIstory of CVA 3. Seizure disorder 4. Parkinsons disease 5. ATrial fibrillation 6. Diabetes, Type 2 7. History of herpect/autoimmune encephalitis 8. Hypertension 9. Hypothyroidism 10. Obesity Hospital Course: Mr. Rodrigues presented with an episode of sudden generalized weakness and aphasia. His aphasia waxes and wanes and is sometimes baseline for him. He had an episode of incontinence. Blood pressure was not checked. No focal weakness was noted. No seizure like activity was noted. Patient was admitted for stroke rule out. He had an MRI that was negative for stroke. But he does have advanced global cerebral volume loss. I suspect that this transient and waxing and waning weakness may be secondary to his blood pressure. His does state he at times drops his blood pressure to the 90s, and he seems to feel better with systolic in the 140s. Here in the hospital he had borderline low readings in the 110s. Given this, I have suggested to his to stop his atenolol and monitor how he does, and to follow up with his PCP to make sure this should be permanently stopped. Exam Vital Signs (past 8 hours): Oxygen Delivery Method Room Air Oxygen Flow Rate 0 Narrative Exam Narrative: Gen: no acute distress Resp: lungs clear bilaterally CV: regular rate and rhythm with no murmurs Abd: soft, non-tender, normal bowel sounds Neuro: Alert and oriented X 2. Bilateral upper extremity tremors, left worse than right. Extremities: ambulatory ambulatory with a walker Psyche: normal mood and affect. 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) Cerebrovascular accident (CVA) Chicken pox Diverticulosis large intestine w/o perforation or abscess w/o bleeding (12/12/10) Encephalitis due to human herpes simplex virus (HSV) Hearing loss Hemorrhoids that prolapse with straining and require manual replacement back inside anal canal Herpes (~1979) Ischemic stroke Measles Mumps Rubella Seizures Seizures Sleep apnea Vision disorder Surgical History Anesthesia History of appendectomy History of hemorrhoidectomy History of nasal surgery No pertinent past surgical history Family History Brother Kidney disease Brother Aneurysm Mother Alzheimer's dementia Father Cancer Social History marital status: household members: spouse lives independently: Yes Smoking Status: Never smoker alcohol intake: former substance use type: does not use Discharge Plan Discharge Plan Patient Disposition: Home Provider Discharge Comment: Mr. Rodrigues came in with weakness. He had CT scan and MRI that did not show any stroke. He possibly has medications for blood pressure that are a little too strong for him. While his blood pressure was normal, it was on the lower side of normal and for now he should stay off his losartan and stop his losartan until seeing his primary doctor to make sure that this dose is good for him. Please follow up with your PCP within one week. Discharge orders & Medications Prescriptions: Continued divalproex 500 mg tablet,delayed release (DR/EC) 1,000 mg PO BID RF: 0 cyanocobalamin (vitamin B-12) 1,000 mcg capsule 2,000 mcg PO DAILY RF: 0 atorvastatin 40 mg tablet See Rx Instructions .ROUTE .COMPLEX Qty: 90 RF: 0 memantine 5 mg tablet 10 mg PO QAM RF: 0 memantine 5 mg tablet 5 mg PO QPM RF: 0 Eliquis 5 mg tablet 5 mg PO BID RF: 0 zonisamide 100 mg capsule 300 mg PO BEDTIME RF: 0 docusate sodium [Colace] 100 mg Capsule 100 mg PO QAM PRN (Reason: Constipation) RF: 0 Vimpat 200 mg tablet 200 mg PO BID RF: 0 Rytary 36.25-145 mg Capsule, Extended Release 3 cap PO TID RF: 0 valacyclovir 500 mg tablet 500 mg PO BEDTIME RF: 0 pantoprazole 40 mg tablet,delayed release (DR/EC) 40 mg PO BEDTIME RF: 0 levothyroxine 125 mcg tablet 125 mcg PO QAM RF: 0 furosemide [Lasix] 20 mg tablet 20 mg PO QAM PRN (Reason: Edema) RF: 0 finasteride 5 mg tablet 5 mg PO QPM RF: 0 Discontinued losartan 25 mg tablet 25 mg PO QPM RF: 0 atenolol 25 mg tablet 25 mg PO BEDTIME RF: 0 Medication counseling provided by Pharmacist: Yes Pharmacist Comment: concerned divalproex was contributing to Parkinson symptoms. Confirmed that yes, divalproex could cause tremors, ataxia, catatonia, etc. Encouraged to continue dose as ordered to prevent seizure until med could be tapered according to neurologist's plan. acknowledged her understanding. Follow up/Referrals: Pj Sky MD [Primary Care Provider] - Diet/Activity/Treatments Diet: Diet as Tolerated Visit Report/Discharge Packet Instructions: Orthostatic Hypotension, DI for Hypotension Discharge Data Primary Care Provider: Pj Sky Attending Provider: Anitha Son [facility] The patient has current or prior documentation of left ventricular ejection fraction (LVEF) less than 40%, or moderate or severely depressed left ventricular systolic function.: No
[2020-11-16 07:54] LABS: COVID19 - ADMIT (NP swab/PCR) Negative (Negative)
[2020-11-16] MEDS: LEVOTHYROXINE 125 MCG TABLET PO (08:26)
[2020-11-16] MEDS: SODIUM CHLORIDE 0.9% 1,000 ML 125 ML IV (08:26)
[2020-11-16] MEDS: DIVALPROEX DR 250 MG TABLET 1000 MG PO (09:17)
--- NOTE | 2020-11-16 09:30 | OT.IP.EVAL ---
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) Cerebrovascular accident (CVA) Chicken pox Diverticulosis large intestine w/o perforation or abscess w/o bleeding (12/12/10) Encephalitis due to human herpes simplex virus (HSV) Hearing loss Hemorrhoids that prolapse with straining and require manual replacement back inside anal canal Herpes (~1979) History of appendectomy History of hemorrhoidectomy History of nasal surgery Ischemic stroke Measles Mumps No pertinent past surgical history Rubella Seizures Seizures Sleep apnea Vision disorder Surgical History (Last Reviewed 10/26/20 @ 05:02 by BUCK Roman-) Anesthesia History of appendectomy History of hemorrhoidectomy History of nasal surgery No pertinent past surgical history Occupational Therapy Inpatient Evaluation/Re-Eval M1 PT/OT-IP Prior Functional Status Start: 11/16/20 09:42 Freq: NEEDED Status: Active Protocol: Document 11/16/20 09:43 CGR (Rec: 11/16/20 10:25 CGR [id number]) Medical Review Prior Functional Status Medical History Reviewed Yes Communication Able to answer comes questions but inconsistently, able to follow one step commands inconsistently and needs repetitions, difficulty with word finding and with perseveration Mobility and Gait Per chart spouse assists pt with all mobilities but pt able to ambulate using 4WW SBA . Per chart pt usually is able to do bed mobility by himself but takes time and spouse assists with bed mobility when needed especially when pt is in a hurry to get out and use the toilet. Per chart pt has been receiving HHPT, OT and [employer] Activities of Daily Living and IADL's Pt needed assist for all ADLs. Pt's spouse assists with dressing, bathing, toileting, and IADLs. Social History Household Members spouse Living Arrangements House Number of Floors (Floors) One Floor Number of Stairs To Enter/Railing? 0 steps from garage Home Environment High Toilet,Tub/Shower Home Equipment Front Wheel Walker,Four Wheel Walker,Manual Wheelchair, Raised Toilet Seat w/Armrests, Tub Transfer Bench,Hand Held Shower,Bed Rails,Grab Bars In Shower Employment Status Retired Additional Social History Comment Pt has an adjustable bed with a R sided bedrail. M2 OT-IP Current Condition Start: 11/16/20 09:42 Freq: Status: Active Protocol: Document 11/16/20 09:43 CGR (Rec: 11/16/20 10:25 CGR [id number]) Occupational Therapy Current Condition Current Condition Evaluation Date 11/16/20 Treatment Diagnosis generalized weakness Diagnosis Onset Date 11/16/20 M3 OT- IP Subjective and Pain Start: 11/16/20 09:42 Freq: Status: Active Protocol: Document 11/16/20 09:43 CGR (Rec: 11/16/20 10:25 CGR [id number]) OT- Subjective Occupational Therapy Visit Type Type Initial Evaluation Visit Start Time 09:05 Visit Stop Time 09:30 Total Visit Minutes 25 OT Pain Assessment Pain When Pain Assessed At Rest Pain Present Pain Present Denied Pain M4 OT- IP ADL's Start: 11/16/20 09:42 Freq: Status: Active Protocol: Document 11/16/20 09:43 CGR (Rec: 11/16/20 10:25 CGR [id number]) OT [id number] General Evaluation Self-Feeding Ability Independent Comments OT Self-Feeding Comments Breakfast, nursing stated they helped with set up. OT ADL-Grooming General Evaluation Grooming Ability Independent Areas Needing Assistance Retrieving/Set-up of Grooming Items,Face Washing Comments OT Grooming Comments seated in chair OT ADL-Oral Care General Eval Oral Care Ability Standby Assistance Areas of Assistance Brushing Teeth,Retrieving/Set- Up of Items Comments Oral Care Comments seated in chair, pt performs with perseveration. Needs VC to stop activity. OT ADL-Dressing General Eval Lower Body Dressing Ability Total Assistance Areas Needing Assistance Socks OT ADL-Toileting Comments OT Toileting Comments not performed OT ADL-Bathing Comments OT Bathing Comments not performed M5 OT- IP IADL's Start: 11/16/20 09:42 Freq: Status: Active Protocol: Document 11/16/20 09:43 CGR (Rec: 11/16/20 10:25 CGR [id number]) OT-Instrumental Activities of Daily Living Deficits IADL Deficits Identified Deficits Home Safety Awareness Awareness of Need for Assistance at Home Good Awareness Medication Management Medication Management Caregiver Administers Money Management Money Management Caregiver Provides Assistance Meal Preparation Meal Preparation Caregiver Provides Assist Microbiology Director Microbiology Director Caregiver Provides Assist Driving Driving Comments Pt does not drive M6 OT- IP Functional Cognition Start: 11/16/20 09:42 Freq: Status: Active Protocol: Document 11/16/20 09:43 CGR (Rec: 11/16/20 10:25 CGR [id number]) Cognitive Factors Limiting Selfcare Function Cognitive Ability Level of Alertness Alert Patient Orientation Name,Age,Birthday,Month,Date, Year,Day of Week,Place, Situation Attention Span Ability Capable of Focused Attention, Capable of Sustained Attention Ability to Follow Commands Able to Follow One Step Commands with Increased Time, Able to Follow One Step Commands with Repetition OT- Vision and Hearing OT- Hearing Assessment OT- Hearing Assessment WFL OT- Vision Assessment Visual Acuity WFL Visual Attentiveness WFL Occular Pursuits WFL Visual Convergence WFL M7 OT- IP Mobility and Balance Start: 11/16/20 09:42 Freq: Status: Active Protocol: Document 11/16/20 09:43 CGR (Rec: 11/16/20 10:25 CGR [id number]) OT- Bed Mobility Assessment Supine to Sit Supine to Sit Assist Contact Guard Assistance, Minimal Assistance,Head of Bed Elevated,Bedrails Scooting Scooting to Edge of Bed Contact Guard Assistance, Minimal Assistance,Head of Bed Elevated,Bedrails OT-Transfer Assessment Sit to and From Stand Sit to and from Stand Contact Guard Assistance Transfers Transfer Ability Contact Guard Assistance, Minimal Assistance Technique Transfer Destination Bed,Chair Transfer Technique Stand Step Pivot Devices Transfer Assistive Devices Gait Belt,Front Wheeled Walker Comments Mobility Comments Pt was able to stand from bed with CGA. CGA to min a for use of walker as pt wants to push walker out too far. OT- Balance Assessment Sitting Balance and Reactions Static Sitting Balance Ability Good Dynamic Sitting Balance Ability Fair M8 OT- IP Objective Assessments Start: 11/16/20 09:42 Freq: Status: Active Protocol: Document 11/16/20 09:43 CGR (Rec: 11/16/20 10:25 CGR [id number]) OT Gross Range of Motion Upper Extremity Range of Motion Assessment Within Functional Limits OT Strength Upper Extremity Strength Assessment Within Functional Limits Comments Strength Comments shlds 3+/5, arms and hands 4/5 OT- Coordination Assessment Upper Extremity Finger to Nose Test Within Functional Limits Finger Tapping Test Within Functional Limits OT Sensation Assessment Edema Edema Absent M9 OT- IP Assessment and Plan Start: 11/16/20 09:42 Freq: Status: Active Protocol: Document 11/16/20 09:43 CGR (Rec: 11/16/20 10:25 CGR [id number]) OT Summary Assessment and Plan Potential Rehabilitation Potential Good Analytic Complexity at Evaluation Low Summary OT Impairments Functional Mobility,Grooming, Dressing,Toileting,Bathing, Toilet Transfers,Shower Transfers,Activity Tolerance Progress Towards Goals Progressing Toward Goals,Safe For Discharge Assessment Summary Pt presents as a low complexity evaluation s/p admit for weakness. Pt presents at his baseline from last admit. Pt may benefit from therapy services and would recommend continued services with a discharge home . Goals Dressing Goal Moderate Assistance Toileting Goal Standby Assistance Bathing Goal Moderate Assistance Toilet Transfer Goal Standby Assistance Shower Transfer Goal Standby Assistance Days to Meet Goals 5 Frequency of Treatment Frequency Of Treatment Once a Day Treatment Plan OT Treatment Plan ADL Training,Functional Mobility,Patient/Family Education,Discharge Planning Other Treatment Recommendations and Next shower Treatment Focus Discharge Recommendations OT Discharge Recommendations Home with 01/12 Assist Available Transportation Needs at Discharge Private Vehicle
[2020-11-16] MEDS: DOCUSATE 100 MG CAPSULE PO (10:23)
[2020-11-16] MEDS: LOSARTAN 25 MG TABLET PO (10:24)
[2020-11-16] MEDS: APIXABAN 5 MG TABLET PO (10:24)
[2020-11-16] MEDS: atenoloL 50 MG TABLET 25 MG PO (10:24)
[2020-11-16] MEDS: CARBIDOPA LEVODOPA 3 EACH PO (12:01)
--- NOTE | 2020-11-16 12:15 | PT.IIE ---
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) Cerebrovascular accident (CVA) Chicken pox Diverticulosis large intestine w/o perforation or abscess w/o bleeding (12/12/10) Encephalitis due to human herpes simplex virus (HSV) Hearing loss Hemorrhoids that prolapse with straining and require manual replacement back inside anal canal Herpes (~1979) Ischemic stroke Measles Mumps Rubella Seizures Seizures Sleep apnea Vision disorder Physical Therapy Inpatient Evaluation/Re-Eval M1 PT/OT-IP Prior Functional Status Start: 11/16/20 09:42 Freq: NEEDED Status: Active Protocol: Document 11/16/20 12:15 AB (Rec: 11/16/20 14:15 AB [id number]) Medical Review Prior Functional Status Medical History Reviewed Yes Communication pt able to answer questions inconsistently but not accurately; pt is [place]; requires increase time to answer to questions Mobility and Gait spouse stated that she assists pt with all ADLs, bed mobility, transfers but pt is able to ambulate using 4WW SBA ; uses manual w/c for outdoor mobility Activities of Daily Living and IADL's per spouse: she assists pt with dressing, bathing, toileting, and IADLs. Social History Household Members spouse Living Arrangements House Number of Floors (Floors) One Floor Number of Stairs To Enter/Railing? 0 steps from garage Home Environment High Toilet,Tub/Shower Home Equipment Front Wheel Walker,Four Wheel Walker,Manual Wheelchair, Raised Toilet Seat w/Armrests, Tub Transfer Bench,Hand Held Shower,Lift Recliner,Bed Rails ,Grab Bars In Shower Employment Status Retired Additional Social History Comment Pt has an adjustable bed with a R sided bedrail. pt has [facility] M2 PT-IP Current Condition Start: 11/16/20 13:37 Freq: NEEDED Status: Active Protocol: Document 11/16/20 12:15 AB (Rec: 11/16/20 14:15 AB [id number]) Physical Therapy Current Condition Current Condition Evaluation Date 11/16/20 Treatment Diagnosis Brain TIA; PD; difficulty in walking Onset Date 11/16/20 Precautions Other Precautions falls M3 PT-IP Subjective Start: 11/16/20 13:37 Freq: NEEDED Status: Active Protocol: Document 11/16/20 12:15 AB (Rec: 11/16/20 14:15 AB [id number]) Subjective Physical Therapy Visit Type Type Initial Evaluation Visit Start Time 12:15 Visit Stop Time 12:45 Total Visit Minutes 30 Number of [employer] Visits 0 Physical Therapy Visit Comments Patient Comments pt is agreeable to do PT; spouse in room with pt Therapy Pain Assessment Pain When Pain Assessed At Rest Pain Present Pain Present Pain Reported Location Generalized Scale Used pain scale not stated Pain Management Techniques Distraction,Modification of Treatment,Re-positioning M4 PT-IP Mobility and Gait Start: 11/16/20 13:37 Freq: NEEDED Status: Active Protocol: Document 11/16/20 12:15 AB (Rec: 11/16/20 14:15 AB [id number]) PT-Bed Mobility Assessment Sit to Supine Sit to Supine Moderate Assistance,1 Person Assistance PT-Transfer Assessment Sit to and From Stand Sit to and from Stand Maximum Assistance,1 Person Assistance,Use of Upper Extremities Equipment Transfer Assistive Device Gait Belt,Front Wheeled Walker Orthotic/Prosthetic Devices or Brace: No Transfers Transfer Destination Bed Transfer Technique ambulated using FWW Transfer Ability Level of Assist Maximum Assistance,1 Person Assistance,Use of Upper Extremities Comments Mobility Comments pt sitting on chair. spouse in room pt agreed to do PT. pt requires repeated instructions and cues. inconsistent with following directions requiring cues with all tasks. copleted sit to stand max A and cues from the chair. pt ambulated ~ 10 ft using FWW max A and stated that he is tired and has to sit down. instructed to ambulated towards the bed and completed. presents with shuffling gait and requires assist with weight shifting and cues for increase LE elevation. pt rested seated on EOB. instructed to stand again max A and cues and side stepped towards HOB using FWW mod to max A. completed sit to supine mod A with LE elevation. positioed pt in bed. call light and table placed within reach. spouse requested for pt to stay in bed since pt is tired. informed pt's spouse regarding pt's mobility level. informed spouse that pt is unable to do much at this time and seems tired. spouse stated that pt is really tired since they been in the ED since early this morning and has not really rested well. Gait Assessment Gait Gait Assistance Required: Maximum Assistance Distance (Feet) 12 Able to Maintain Weight Bearing Status Yes During Gait Assistive Devices Assistive Device Gait Belt,Front Wheeled Walker Orthotic/Prosthetic Devices or Brace: No Gait Deviations General Gait Pattern Decreased Stride Length, Decreased Feet Clearance, Festinating,Step-to Gait Factors Limiting Gait Function Factors Limiting Gait Function Abnormal Tonal Influences, Decreased Activity Tolerance, Decreased Strength,Difficulty Following Directions, Incoordination,Poor Balance, Poor Safety Awareness PT-Balance Assessment Sitting Balance and Reactions Static Sitting Balance Ability Good Dynamic Sitting Balance Ability Fair Standing Balance and Reactions Static Standing Balance Ability Fair Dynamic Standing Balance Ability Poor Device Used FWW M5 PT-IP Objective Assessments Start: 11/16/20 13:37 Freq: NEEDED Status: Active Protocol: Document 11/16/20 12:15 AB (Rec: 11/16/20 14:15 AB [id number]) Orientation Orientation/Cognition Level of Alertness Confusional State Orientation Name Language Function Ability Hard of Hearing Safety Awareness Decreased Safety Awareness Memory Description Short Term Impaired,Snf Impaired Gross Range of Motion Lower Extremity ROM Assessment Within Functional Limits Strength Lower Extremity Strength Hip 3+/5 Knee 4-/5 M6 PT-IP Treatment Start: 11/16/20 13:37 Freq: NEEDED Status: Active Protocol: Document 11/16/20 12:15 AB (Rec: 11/16/20 14:15 AB [id number]) Physical Therapy Treatment Education Education Provided Safety M7 PT-IP Assessment and Plan Start: 11/16/20 13:37 Freq: NEEDED Status: Active Protocol: Document 11/16/20 12:15 AB (Rec: 11/16/20 14:15 AB [id number]) PT Summary Assessment and Plan Potential Rehabilitation Potential Good Status of Condition at Evaluation Evolving Summary Impairments Pain,ROM,Strength,Balance, Coordination,Sensation,Tone, Cognition,Bed Mobility, Transfers,Gait,Activity Tolerance Assessment Summary pt requiring max A for transfers and ambulation using FWW. Spouse provides assistance to pt at home and pt has HHPT as well. pt requiring increase level of assistance compared to PLOF. informed spouse regarding pt's mobility. d/c plan depending if spouse will be able to provide level of assistance pt requires at this time. will continue to assess progress. will conduct caregiver training when appropriate. Goals Bed Mobility Goal Minimal Assistance Transfer Goal Minimal Assistance,Front Wheeled Walker,Four Wheeled Walker Gait Goal Contact Guard Assistance,Front Wheel Walker,Four Wheel Walker Gait Distance 75 Other Goals improve ambulation SBA 100 ft using 4WW Days to Meet Goals 5 Frequency of Treatment Frequency Of Treatment Once a Day Treatment Plan Physical Therapy Treatment Plan Bed Mobility Training,Transfer Training,Gait Training, Therapeutic Exercise,Balance Retraining,Discharge Planning, Neuromuscular Re-ed, Coordination Retraining,Manual Therapy Other Recommendations and Next Treatment ambulation; caregiver training Focus when appropriate Precautions Other Precautions falls Recommendations To Nursing Amount of Assist Needed 1 Person Assist Discharge Recommendations PT Discharge Recommendations Home with 01/12 Assist Available,Home Health Transportation Needs at Discharge Private Vehicle,Wheelchair/ Cabulance
--- NOTE | 2020-11-16 15:10 | CM.DANOTE ---
Discharge Planning/Care Management DCP: assessment: case received and d/c to home order noted. Discussed with Dr. Eckert who confirmed same and said he had discussed this with pt and his . Checked in with both. Alexandra confirms that [facility] is still open to service and that the care is greatly appreciated. Admission status: OBS. Payer: [employer]. Have spoken now with [facility]. She confirms that no need for resume HH orders as pt is OBS. Dr. Noyola is updated re the current HH status. CM Discharge Assessment Start: 11/16/20 15:01 Freq: Status: Active Protocol: Document 11/16/20 15:02 ITV (Rec: 11/16/20 15:10 ITV [id number]) Discharge Planning Assessment Advance Directives? Yes: DPOA Advance Directives on File Yes History Provided By Patient,Family Member,Medical Record Has Patient been admitted in last 30 Yes days? Prior Living Arrangements House Household Members spouse Type of transporation used prior to Relies on Others admit Discharge Plan Home with Home Health
[2020-11-16 15:37] LABS: Hemoglobin A1C% w Est Avg Glu 6.2 % (4.0-6.0)
--- NOTE | 2020-11-16 15:56 | PC.NURSE ---
Patient VSS, afebrile. Passed nursing swallow screen. Able to take meds po and eat 50% of meals. A&Ox1-2 with expressive aphasia, able to answer yes and no questions best. Pt pleasant, slow moving, needing lots of cueing but able to ambulate to BR. Evaluated by PT /OT, MRI completed. MD at bedside discussing results with this afternoon, and cleared pt for discharge. Pt's acknowledges and agrees with current recommendations and verbalizes understanding of medication changes, activity, and follow up instructions. Pt escorted by RN via w/ch to private vehicle with , with all of belongings and home medications.
[2020-11-16 23:14] LABS: Valproic Acid (Depakene) Total 82 ug/mL (50-100)
== END 2020-11-16 15:50 | disposition home or self-care (01) ==
LOC: ED 05:25 → AC 06:41
PROVIDERS: Admitting Provider Nurse Practitioner Family; Emergency Provider Emergency Medicine; PCP Student in an Organized Health Care Education/Training Program; Referring Provider Emergency Medicine; Visit Provider Nurse Practitioner Family
DX: R53.1 Weakness (principal); Z20.822 Contact with and (suspected) exposure to COVID-19; G20 Parkinson's disease; Z86.73 Personal history of transient ischemic attack (TIA), and cerebral infarction without residual deficits; G40.909 Epilepsy, unspecified, not intractable, without status epilepticus; I48.91 Unspecified atrial fibrillation; E11.9 Type 2 diabetes mellitus without complications; I10 Essential (primary) hypertension; E03.9 Hypothyroidism, unspecified; E66.9 Obesity, unspecified; Z68.34 Body mass index [BMI] 34.0-34.9, adult
CPT/HCPCS: 36415; 70450; 70548; 70553; 80048; 80164; 80320; 81003; 81015; 82140; 82550; 82962; 83036; 83735; 84443; 84484; 85025; 87077; 87086; 87186; 87635; 96360; 96361; 97162; 97165; 97535; 99283; 99284; C9803; G0378; J1815

== ENCOUNTER 2020-12-10 14:12 | Inpatient (IN) | payer OTHER, SELFPAY ==
[2020-11-16 06:52] VITALS: BMI 34.4
[2020-12-10] VITALS (29 sets, daily range): BP systolic 109–165; BP diastolic 58–102; PULSE 68–82; RESP 14–21; TEMP 36.6; O2SAT 94–98; BMI 31.3
--- NOTE | 2020-12-10 14:16 | DI.RAD.S_ITS ---
PROCEDURE: XR CHEST 1V INDICATIONS: chest pain TECHNIQUE: One view of the chest was acquired. COMPARISON: [facility], CR, XR CHEST 1V, 10/26/2020, 0:11. FINDINGS: Surgical changes and devices: None. Lungs and pleura: There is improved aeration of both lung bases since the prior study. Mild residual opacity seen in the left costophrenic angle. No new consolidation seen. No pleural effusions or pneumothorax. Mediastinum: Mediastinal contours appear normal. Heart size is normal. Bones and chest wall: No suspicious bony lesions. Overlying soft tissues appear unremarkable. IMPRESSION: Improved aeration of both lung bases since the prior study dated 10/26/20 as above Dictated by: Pawan Son M.D. on 12/10/2020 at 15:13 Approved by: Pawan Sno M.D. on 12/10/2020 at 15:14
[2020-12-10 14:45] LABS: Add Manual Diff / Slide Review NO; Basophils Absolute Auto 0 /uL (0-100); Basophils Percent Auto 0.7 % (0-2); Eosinophils Absolute Auto 100 /uL (0-450); Eosinophils Percent Auto 1.8 % (2-4); Hematocrit 51.1 % (41-53); Hemoglobin 17.5 g/dL (13.5-17.5); Lymphocytes Absolute Auto 1900 /uL (1100-4500); Lymphocytes Percent Auto 32.1 % (25-40); Mean Corpuscular HGB Conc 34.2 % (30-36); Mean Corpuscular Hemoglobin 36.1 PG (26-34); Mean Corpuscular Volume 105.5 fL (80-100); Monocytes Absolute Auto 500 /uL (0-900); Monocytes Percent Auto 8.5 % (3-14); Neutrophils Absolute Auto 3300 /uL (1500-7000); Neutrophils Percent Auto 56.9 % (50-75); Platelet Count 91 X10^3/uL (150-400); Red Blood Cell Count 4.85 X10^6/uL (4.5-5.9); Red Cell Distribution Width 13.8 % (11.6-14.8); White Blood Cell Count 5.8 X10^3/uL (4.5-11.0)
[2020-12-10 14:46] LABS: Alanine Aminotransferase 7 IU/L (<50); Albumin 3.6 g/dL (3.5-5.0); Albumin Globulin Ratio 1.3 (1.0-2.8); Alkaline Phosphatase 63 U/L (38-126); Aspartate Aminotransferase 21 IU/L (17-59); BUN Creatinine Ratio 14.8 (6-22); Bilirubin Total 0.5 mg/dL (0.2-1.3); Blood Urea Nitrogen 16 mg/dL (9-20); Calcium 9.4 mg/dL (8.4-10.2); Carbon Dioxide 22 mmol/L (22-32); Chloride 108 mmol/L (98-107); Creatine Kinase 63 U/L (55-170); Estimated Glomerular Filt Rate > 60.0 mL/min (>60); Globulin 2.8 g/dL (1.7-4.1); Glucose 160 mg/dL (80-110); HEMOLYSIS 19 (0-50); Lipase 32 U/L (23-300); Magnesium 1.9 mg/dL (1.6-2.3); Potassium 4.1 mmol/L (3.4-5.1); Sodium 137 mmol/L (137-145); Total Protein 6.4 g/dL (6.3-8.2)
[2020-12-10 14:52] LABS: COVID19 -Nasal RAPID Negative (Negative)
[2020-12-10 14:57] LABS: Troponin I < 0.012 ng/mL (0.01-0.034)
[2020-12-10 15:18] LABS: Appearance Urine UA CLOUDY; Bilirubin Urine UA NEGATIVE (NEGATIVE); Color Urine UA YELLOW; Glucose Urine UA NEGATIVE (Negative); Ketones Urine UA TRACE (NEGATIVE); Leukocyte Esterase Urine UA 2+ (NEGATIVE); Nitrite Urine UA POSITIVE (Negative); Occult Blood Urine UA TRACE-INTACT (Negative); Protein Urine UA 1+ (Negative); Urobilinogen Urine UA 0.2 E.U./dL (0.2); pH Urine UA 5.5 (4.5-8.0)
--- NOTE | 2020-12-10 15:18 | PC.NURSE ---
Per pt , pt has had decreased mobility in the past couple weeks. States he went from using a walker to a wheelchair in a matter of 3 days and now is too weak to move from the bed. Aphasia at baseline but states Thursday night she noticed pt with a blank stare and since aphasia has been worse than normal, also noted diarrhea since episode. Pt having diarrhea daily, although has not had a bowel movement yet today, as well as decreased appetite.
[2020-12-10 15:23] LABS: Bacteria Urine Moderate (10-30); Culture Indicated Urine Specimen Cultured; RBC Urine 1-5/HPF (0-5/HPF); Squamous Epithelial Cell Urine 1-5 /HPF (0-5/HPF); WBC Urine 30-100/HPF (0-5/HPF)
--- NOTE | 2020-12-10 18:11 | ED.NAVMDI ---
HPI - Nausea/Vomiting/Diarrhea General Chief complaint: Nausea/Vomiting/Diarrhea Stated complaint: dehydration Time Seen by Provider: 12/10/20 18:04 Source: patient, family and EMS Mode of arrival: EMS History of Present Illness HPI Narrative: 75M nonsmoker with history of TIA, seizures, diabetes, hypertension and epilepsy presents with his in the chief complaint of wishing to get depakote level. Patient has been becoming increasingly weak, occasionally confused and increasingly ill over the past few weeks. states that he has become so weak that he can no longer get around with his walker and she is doing significantly more lifting and assisting of him even in screening up in bed. He has no focal neurologic findings but given his decline she had spoken with home nursing about the possibility of getting a Depakote level. There was an attempt today to get a blood draw but they were unsuccessful and nursing raise the question of possible dehydration given the difficulty in obtaining blood. He was sent here for evaluation. He has had no nausea, vomiting or diarrhea. Related Data Home Medications Medication Instructions Recorded Confirmed carbidopa ER 36.25 mg-levodopa 145 3 cap PO TID 09/01/20 12/10/20 mg capsule,extended release (Rytary) docusate sodium 100 mg capsule 100 mg PO QAM PRN 09/01/20 12/10/20 (Colace) finasteride 5 mg tablet 5 mg PO QPM 09/01/20 12/10/20 furosemide 20 mg tablet (Lasix) 20 mg PO QAM PRN 09/01/20 12/10/20 lacosamide 200 mg tablet (Vimpat) 200 mg PO BID 09/01/20 12/10/20 levothyroxine 125 mcg tablet 125 mcg PO QAM 09/01/20 12/10/20 pantoprazole 40 mg tablet,delayed 40 mg PO BEDTIME 09/01/20 12/10/20 release valacyclovir 500 mg tablet 500 mg PO BEDTIME 09/01/20 12/10/20 zonisamide 100 mg capsule 300 mg PO BEDTIME 09/01/20 12/10/20 divalproex 500 mg tablet,delayed 1,000 mg PO BID 09/25/20 12/10/20 release cyanocobalamin (vitamin B-12) 2,000 mcg PO DAILY 11/06/20 12/10/20 1,000 mcg capsule apixaban 5 mg tablet (Eliquis) 5 mg PO BID 11/16/20 12/10/20 Previous Rx's Medication Instructions Recorded atorvastatin 40 mg tablet See Rx Instructions .ROUTE 11/07/20 .COMPLEX #90 tablet Allergies Allergy/AdvReac Type Severity Reaction Status Date / Time No Known Drug Allergies Allergy Verified 11/20/20 14:40 Review of Systems Review of Systems Narrative: GENERAL: See HPI HEENT: Denies sinus pain, ear pain, sore throat, difficulty swallowing, dizziness. RESPIRATORY: Denies dyspnea, cough, wheezing, hemoptysis, sputum. CARDIOVASCULAR: Denies chest pain, palpitations, orthopnea, edema, GASTROINTESTINAL: Denies nausea, vomiting, abdominal pain, diarrhea, constipation, melena. : Denies dysuria, frequency, incontinence, hematuria, urinary retention. MUSCULOSKELETAL: See HPI SKIN: Denies rash, skin lesions, or other NEUROLOGIC: Denies weakness, headache, numbness, change in speech, confusion, seizures, incoordination. PSYCHIATRIC: No concerning psychosocial issues. 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) Cerebrovascular accident (CVA) Chicken pox Diverticulosis large intestine w/o perforation or abscess w/o bleeding (12/12/10) Encephalitis due to human herpes simplex virus (HSV) Hearing loss Hemorrhoids that prolapse with straining and require manual replacement back inside anal canal Herpes (~1979) Ischemic stroke Measles Mumps Rubella Seizures Seizures Sleep apnea Vision disorder Surgical History Anesthesia History of appendectomy History of hemorrhoidectomy History of nasal surgery No pertinent past surgical history Family History Brother Kidney disease Brother Aneurysm Mother Alzheimer's dementia Father Cancer Social History marital status: household members: spouse lives independently: Yes Smoking Status: Never smoker alcohol intake: former substance use type: does not use Smoking Status: Never smoker alcohol intake frequency: 0-2 drinks per day Substance Use Type: does not use Exam Narrative Exam Narrative: GENERAL: [75] year old patient appears stated age. Well-developed patient, in obvious distress, generally weak, no obvious focal findings HEAD: Atraumatic. Normocephalic. EYES: Pupils equal round and reactive. Extraocular motions intact. No scleral icterus. No injection or drainage. ENT: Dry mucous membranes Nose without bleeding, purulent drainage. Throat without erythema, tonsillar hypertrophy or exudate. Airway patent. NECK: Trachea midline. Non tender CARDIOVASCULAR: Regular rate and rhythm without murmurs, gallops, or rubs. RESPIRATORY: Clear to auscultation. Breath sounds equal bilaterally. No wheezes, rales, or rhonchi. GASTROINTESTINAL: Abdomen soft, non-tender, nondistended. EXTREMITIES: No edema or joint tenderness. BACK: Nontender without deformity or crepitance. No flank tenderness. NEURO: AOx3. SKIN: Poor skin turgor No rash or erythema of visible areas Initial Vital Signs Initial Vital Signs: Vital Signs Temperature 97.9 F 12/10/20 14:12 Pulse Rate 70 12/10/20 14:12 Respiratory Rate 17 12/10/20 14:12 Blood Pressure 119/63 12/10/20 14:12 Pulse Oximetry 96 12/10/20 14:12 Course Course Course Narrative: UA demonstrates UTI and in reviewing cultures from prior visits to determine ABX selection it was noted that patient had been admitted on November 16 and a urine culture from that visit notes a pansensitive E. coli. Orders Ordered: ED Orders 12/10/20 20:42 Valproic Acid (Depakene) Total Stat Acetaminophen (Acetaminophen 325 Mg Tablet) 650 mg PO Q6HR PRN PRN Reason: Fever/Mild Pain (1-3) Al Hydrox/Mg Hydrox/Simethicone (Mag Hydrox/Alum/Simeth 30 Ml Udc) 30 ml PO Q6HR PRN PRN Reason: Dyspepsia Apixaban (Apixaban 5 Mg Tablet) 5 mg PO BID [facility] Last Admin: 12/11/20 00:30 Dose: 5 mg Documented by: CMCFARL Atorvastatin Calcium (Atorvastatin 20 Mg Tablet) 40 mg PO DAILY [facility] Last Admin: 12/11/20 00:25 Dose: 40 mg Documented by: CMCFARL Docusate Sodium (Docusate 100 Mg Capsule) 100 mg PO DAILY [facility] Last Admin: 12/11/20 00:14 Dose: Not Given Documented by: GLORIA Finasteride (Finasteride 5 Mg Tablet) 5 mg PO QPM [facility] Lactated Ringer's (Lactated Ringers) 1,000 mls @ 100 mls/hr IV CONT [facility] Last Admin: 12/11/20 00:16 Dose: 100 mls/hr Documented by: GLORIA Ceftriaxone Sodium 1,000 mg/ (Sodium Chloride) 100 mls @ 200 mls/hr IV Q24H [facility] Levothyroxine Sodium (Levothyroxine 125 Mcg Tablet) 125 mcg PO DAILY@0700 [facility] Naloxone HCl (Naloxone 0.4 Mg/Ml Vial) 0.2 mg IV Q2MIN PRN PRN Reason: Opiate Reversal Non-Formulary Medication (Carbidopa-Levodopa [Rytary]) 3 cap PO TID [facility] Last Admin: 12/11/20 00:27 Dose: Not Given Documented by: GLORIA Non-Formulary Medication (Divalproex) 1,000 mg PO BID [facility] Last Admin: 12/11/20 00:27 Dose: 1,000 mg Documented by: GLORIA Non-Formulary Medication (Lacosamide [Vimpat]) 200 mg PO BID [facility] Last Admin: 12/11/20 00:28 Dose: 200 mg Documented by: GLORIA Ondansetron HCl (Ondansetron 4 Mg/2 Ml Inj) 4 mg IV Q8HR PRN PRN Reason: Nausea And Vomiting Oxycodone HCl (Oxycodone Ir 5 Mg Tablet) 5 mg PO Q6HR PRN PRN Reason: Pain, Moderate (4-6) Pantoprazole Sodium (Pantoprazole Dr 40 Mg Tablet) 40 mg PO BEDTIME [facility] Last Admin: 12/11/20 00:25 Dose: 40 mg Documented by: GLORIA Valacyclovir HCl (Valacyclovir 500 Mg Tablet) 500 mg PO BEDTIME [facility] Last Admin: 12/11/20 00:25 Dose: 500 mg Documented by: GLORIA Zonisamide (Zonisamide 100 Mg Capsule) 300 mg PO BEDTIME [facility] Last Admin: 12/11/20 00:24 Dose: 300 mg Documented by: GLORIA Discontinued Medications Atorvastatin Calcium (Atorvastatin 20 Mg Tablet) 40 mg PO .COMPLEX [facility] Ceftriaxone Sodium 2,000 mg/ (Sodium Chloride) 100 mls @ 200 mls/hr IV NOW ONE Stop: 12/10/20 20:07 Last Infusion: 12/10/20 20:50 Dose: 0 mls/hr Documented by: Admin: 12/10/20 20:20 Dose: 200 mls/hr Documented by: ANDRADE Vital Signs Vital signs: Vital Signs - 8 hr 12/10/20 19:00 12/10/20 19:01 12/10/20 19:30 Pulse Rate 73 73 68 Respiratory Rate 15 16 15 Blood Pressure 148/69 H Pulse Oximetry 94 95 12/10/20 19:31 12/10/20 20:00 12/10/20 20:01 Pulse Rate 68 80 80 Respiratory Rate 15 14 14 Blood Pressure 123/68 155/72 H Pulse Oximetry 95 98 98 12/10/20 20:30 12/10/20 20:31 12/10/20 21:00 Pulse Rate 74 74 75 Respiratory Rate 21 16 20 Blood Pressure 156/71 H 165/75 H Pulse Oximetry 97 98 94 MDM - Nausea/Vomiting/Diarrhea Lab Data Result diagrams: 12/10/20 14:25 12/10/20 14:25 Labs: Lab Results 12/10/20 12/10/20 12/10/20 Range/Units 14:25 14:25 14:25 WBC 5.8 (4.5-11.0) X10^3/uL RBC 4.85 (4.5-5.9) X10^6/uL Hgb 17.5 (13.5-17.5) g/dL Hct 51.1 (41-53) % MCV 105.5 H (80-100) fL MCH 36.1 H (26-34) PG MCHC 34.2 (30-36) % RDW 13.8 (11.6-14.8) % Plt Count 91 L (150-400) X10^3/uL Neut % (Auto) 56.9 (50-75) % Lymph % (Auto) 32.1 (25-40) % [place] % (Auto) 8.5 (3-14) % Eos % (Auto) 1.8 L (2-4) % Baso % (Auto) 0.7 (0-2) % Neut # (Auto) 3300 (2745-1015) /uL Lymph # (Auto) 1900 (5718-3780) /uL [place] # (Auto) 500 (0-900) /uL Eos # (Auto) 100 (0-450) /uL Baso # (Auto) 0 (0-100) /uL Sodium 137 (137-145) mmol/L Potassium 4.1 (3.4-5.1) mmol/L Chloride 108 H (98-107) mmol/L Carbon Dioxide 22 (22-32) mmol/L BUN 16 (9-20) mg/dL Creatinine 1.08 (0.66-1.25) mg/dL Estimated GFR > 60.0 (>60) mL/min BUN/Creatinine Ratio 14.8 (6-22) Glucose 160 H (80-110) mg/dL Calcium 9.4 (8.4-10.2) mg/dL Magnesium 1.9 1.9 (1.6-2.3) mg/dL Total Bilirubin 0.5 (0.2-1.3) mg/dL AST 21 (17-59) IU/L ALT 7 (<50) IU/L Alkaline Phosphatase 63 (38-126) U/L Total Creatine Kinase 63 (55-170) U/L CK-MB (CK-2) TNP CK-MB (CK-2) Rel Index TNP Troponin I < 0.012 (0.01-0.034) ng/mL Total Protein 6.4 (6.3-8.2) g/dL Albumin 3.6 (3.5-5.0) g/dL Globulin 2.8 (1.7-4.1) g/dL Albumin/Globulin Ratio 1.3 (1.0-2.8) Lipase 32 (23-300) U/L Urine Color Urine Appearance Urine pH (4.5-8.0) Ur Specific [place] (1.000-1.035) Urine Protein (Negative) Urine Glucose (UA) (Negative) g/dL Urine Ketones (NEGATIVE) Urine Occult Blood (Negative) Urine Nitrate (Negative) Urine Bilirubin (NEGATIVE) Urine Urobilinogen (0.2) E.U./dL Ur Leukocyte Esterase (NEGATIVE) Urine RBC (0-5/HPF) Urine WBC (0-5/HPF) Ur Squamous Epith Cells (0-5/HPF) Urine Bacteria (None) Ur Culture Indicated? SARS-CoV-2 (PCR) (Negative) 12/10/20 12/10/20 Range/Units 14:30 15:00 WBC (4.5-11.0) X10^3/uL RBC (4.5-5.9) X10^6/uL Hgb (13.5-17.5) g/dL Hct (41-53) % MCV (80-100) fL MCH (26-34) PG MCHC (30-36) % RDW (11.6-14.8) % Plt Count (150-400) X10^3/uL Neut % (Auto) (50-75) % Lymph % (Auto) (25-40) % [place] % (Auto) (3-14) % Eos % (Auto) (2-4) % Baso % (Auto) (0-2) % Neut # (Auto) (2690-4499) /uL Lymph # (Auto) (2504-0071) /uL [place] # (Auto) (0-900) /uL Eos # (Auto) (0-450) /uL Baso # (Auto) (0-100) /uL Sodium (137-145) mmol/L Potassium (3.4-5.1) mmol/L Chloride (98-107) mmol/L Carbon Dioxide (22-32) mmol/L BUN (9-20) mg/dL Creatinine (0.66-1.25) mg/dL Estimated GFR (>60) mL/min BUN/Creatinine Ratio (6-22) Glucose (80-110) mg/dL Calcium (8.4-10.2) mg/dL Magnesium (1.6-2.3) mg/dL Total Bilirubin (0.2-1.3) mg/dL AST (17-59) IU/L ALT (<50) IU/L Alkaline Phosphatase (38-126) U/L Total Creatine Kinase (55-170) U/L CK-MB (CK-2) CK-MB (CK-2) Rel Index Troponin I (0.01-0.034) ng/mL Total Protein (6.3-8.2) g/dL Albumin (3.5-5.0) g/dL Globulin (1.7-4.1) g/dL Albumin/Globulin Ratio (1.0-2.8) Lipase (23-300) U/L Urine Color Yellow Urine Appearance Cloudy Urine pH 5.5 (4.5-8.0) Ur Specific [place] 1.020 (1.000-1.035) Urine Protein 1+ H (Negative) Urine Glucose (UA) Negative (Negative) g/dL Urine Ketones Trace H (NEGATIVE) Urine Occult Blood Trace-intact (Negative) Urine Nitrate Positive H (Negative) Urine Bilirubin Negative (NEGATIVE) Urine Urobilinogen 0.2 (0.2) E.U./dL Ur Leukocyte Esterase 2+ H (NEGATIVE) Urine RBC 1-5/hpf (0-5/HPF) Urine WBC 30-100/hpf H (0-5/HPF) Ur Squamous Epith Cells 1-5 /hpf (0-5/HPF) Urine Bacteria Moderate (10-30) H (None) Ur Culture Indicated? Specimen cultured SARS-CoV-2 (PCR) Negative (Negative) MDM Narrative Medical decision making narrative: Multiple etiologies considered but seems most likely that an untreated UTI along with some dehydration are contributing to the patient's weakness. He will require hospitalization for stabilization of his condition. Discharge Plan Departure Patient Disposition: Admitted As Inpatient Clinical Impression: Acute UTI, Acute dehydration, Weakness Admit Date/Time: 12/10/20 21:17 Admit Provider: Crista Farfan
[2020-12-10] MEDS: cefTRIAXone 2,000 MG in SODIUM CHLORIDE 0.9% 100 ML 200 ML IV (20:20)
[2020-12-10 21:53] LABS: Magnesium 1.9 mg/dL (1.6-2.3)
--- NOTE | 2020-12-10 22:42 | PM.HP.1 ---
History of Present Illness History of Present Illness Chief complaint: dehydration Narrative: Patient is a 75-year-old male Alexi Rodrigues who presented to the ED by EMS for increased weakness, nausea, vomiting, and diarrhea. On discharge from the hospital 11/16/2020 patient did have a positive urine culture for E coli, but did not receive antibiotic treatment and was not notified. He has been having increasing generalized weakness, and aphasia at baseline over multiple hospital admits. Patients reports that they are worsened significantly since discharge on 11/16/2020. Patient was admitted for OBS 10/26 & 11/16/2020 for evaluation of TIA stroke R/O,workup-both were negative for stroke, but he did have advanced global cerebral volume loss, labile hypotension, with increasing weakness, decreased mobility, and deteriorating mental status. Atenolol was discontinued in the hospital due to recurrent hypotension. Since discharge, the patient has had ongoing worsening lower extremity weakness, falls, decreased activity, and decreased mentation per Dr. Sky's note 11/20/2020. The patient's reports that approximately 4 days ago the patient experienced a 15-20 minute long episode. In which the patient appeared to to be zoning out and unresponsive with eyes open, followed by garbled speech for an indeterminate amount of time. The patient also fell several days ago at home leaving a large bruise to the anterior right side of neck (patient is on Eliquis). Patient has a history of herpetic/autoimmune encephalitis 2015, CVA 2010, venous embolus and thrombosis DVT 2013, Parkinson's dementia, ischemic stroke-middle cerebral artery 05/12/20-05/16/2020 at [facility], hypertension, hyperlipidemia, diet-controlled diabetes mellitus, hypothyroidism, and obesity. I admitted the patient in August and in October of 2020, and the patient has had continued worsening clinical features of neurodegeneration. I have spoken with the patient's at length on prior admits in regards to his decline and disease progression that I have observed, in an attempt to provide further spousal support, realistic expectations, and education. The patient's has the expectation that he will return to a pre-stroke baseline from May 2020. She believes that his current urinary tract infection, is the most recent cause of his decline. The patient's verbalized that she has very upset that his positive urine culture was missed, and he was not treated. She requests a chart review, and to be contacted with the results. I did attempt to provide reassurance to the patient's that, the infection remains in the bladder, that he is not septic, displays no s/s of sepsis, vital signs/patient are stable, and his labs are normal, with the exception of his urine. Patient's vitals upon admit are stable with a temp of 97.9?, BP 148/69, HR 73, R 16, O2 saturation 94% on room air. Patient's CBC is unremarkable with no increase in wbc's, though noted slightly decreased MCV 105.5, platelets 91. Patient's chemistry is predominantly unremarkable as well, with the exception of glucose 160. Patient's troponin is negative. Patient's chest x-ray notes improvement in aeration of the lungs from 10/26/2020. Patient's urinalysis positive nitrates, protein +1, ketones trace, leuko esterase 2+, wbc's 30-100, and bacteria moderate. Sent for culture. Patient admitted for OBS complicated UTI versus asymptomatic Cystitis from E coli, due to patient's risk factor of multiple hospitalizations and comorbidities. 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 Diverticulosis large intestine w/o perforation or abscess w/o bleeding (12/12/10) Encephalitis due to human herpes simplex virus (HSV) Hearing loss Hemorrhoids that prolapse with straining and require manual replacement back inside anal canal Herpes (~1979) Ischemic stroke Measles Mumps Rubella Seizures Seizures Sleep apnea Vision disorder Surgical History Anesthesia History of appendectomy History of hemorrhoidectomy History of nasal surgery No pertinent past surgical history Family & Social History Family History Brother Kidney disease Brother Aneurysm Mother Alzheimer's dementia Father Cancer Social History: household members spouse lives independently Yes Safety & Behavioral: Feels Safe in Current Yes Environment Tobacco & Substance use: Smoking Status Never smoker alcohol intake former alcohol intake frequency 0-2 drinks per day Substance Use Type does not use Meds Home Medications and Allergies Home Medications Medication Instructions Recorded Confirmed Type carbidopa ER 36.25 mg-levodopa 145 3 cap PO TID 09/01/20 12/10/20 History mg capsule,extended release (Rytary) docusate sodium 100 mg capsule 100 mg PO QAM PRN 09/01/20 12/10/20 History (Colace) finasteride 5 mg tablet 5 mg PO QPM 09/01/20 12/10/20 History furosemide 20 mg tablet (Lasix) 20 mg PO QAM PRN 09/01/20 12/10/20 History lacosamide 200 mg tablet (Vimpat) 200 mg PO BID 09/01/20 12/10/20 History levothyroxine 125 mcg tablet 125 mcg PO QAM 09/01/20 12/10/20 History pantoprazole 40 mg tablet,delayed 40 mg PO BEDTIME 09/01/20 12/10/20 History release valacyclovir 500 mg tablet 500 mg PO BEDTIME 09/01/20 12/10/20 History zonisamide 100 mg capsule 300 mg PO BEDTIME 09/01/20 12/10/20 History divalproex 500 mg tablet,delayed 1,000 mg PO BID 09/25/20 12/10/20 History release cyanocobalamin (vitamin B-12) 2,000 mcg PO DAILY 11/06/20 12/10/20 History 1,000 mcg capsule atorvastatin 40 mg tablet See Rx Instructions .ROUTE 11/07/20 12/10/20 Rx .COMPLEX #90 tablet apixaban 5 mg tablet (Eliquis) 5 mg PO BID 11/16/20 12/10/20 History Allergies Allergy/AdvReac Type Severity Reaction Status Date / Time No Known Drug Allergies Allergy Verified 11/20/20 14:40 Review of Systems Review of Systems Narrative: All 12 point systems reviewed with the patient and are negative except otherwise documented, though patient has a significant altered mental status, information provided may not be accurate. Exam Vital Signs (past 8 hours): - 12/10/20 15:07 12/10/20 15:30 12/10/20 15:51 Pulse Rate 81 76 74 Respiratory Rate 19 17 15 Blood Pressure 120/61 Pulse Oximetry 95 95 95 12/10/20 16:00 12/10/20 16:30 12/10/20 17:00 Pulse Rate 75 74 79 Respiratory Rate 19 16 18 Blood Pressure 119/68 109/58 L Pulse Oximetry 97 94 97 12/10/20 17:01 12/10/20 17:30 12/10/20 17:31 Pulse Rate 79 79 79 Respiratory Rate 14 15 17 Blood Pressure 139/81 142/65 H Pulse Oximetry 96 94 94 12/10/20 18:00 12/10/20 18:01 12/10/20 18:30 Pulse Rate 81 80 76 Respiratory Rate 17 16 15 Blood Pressure 151/102 H Pulse Oximetry 95 94 12/10/20 18:31 12/10/20 19:00 12/10/20 19:01 Pulse Rate 75 73 73 Respiratory Rate 17 15 16 Blood Pressure 115/69 148/69 H Pulse Oximetry 96 94 Oxygen Delivery Method Room Air Narrative Exam Narrative: General: Patient is a well-developed, well-nourished obese male, with masked facial expression in no distress at this time. HEENT: Normocephalic, atraumatic, extraocular muscles intact, masked facial expression, hypophonia, oral pharynx is clear and mucous membranes are moist. Neck is supple and symmetric, trachea is midline, no adenopathy, no thyroid enlargement, nontender, no masses palpated. Negative for JVD Chest: Normal AP diameter and contour without kyphoscoliosis, no nasal flaring, retractions, or tachypneic labored Lungs: Auscultation of all lung richards are clear without adventitious sounds, wheezes, rhonchi, or rales. Cardio: S1 & S2 with regular rate and rhythm without murmur, rubs, or gallops, no carotid bruit, no cardiac pulsations present. Abdomen: Soft nontender, negative for organomegaly, or masses. Bowel sounds are present in all 4 quadrants without guarding or rebound, no CVA tenderness. Musculoskeletal: No deformity, crepitus, effusions, cyanosis, clubbing or edema present. radial and pedal pulses are normal. Skin: Warm dry and intact without rashes, ulcerations or petechiae. Neuro: Alert, but completely unaware of self, place, or situation. The patient answered most questions with ? NO or I am in bed, I am ready to go to bed sensation to touch intact,Noted bilateral upper extremity tremors. Psych: Patient has a well-kept appearance, flat affect, altered mental status (I suspect is his newer baseline), positive aphasia, No attitude thought context and/or judgment appropriate for age. Mental status is altered from baseline from August visit, but I a.m. not convinced that he has encephalopathy secondary to UTI, and that this may represent his declining baseline since early May 2020. Objective Labs Result Diagrams: 12/10/20 14:25 12/10/20 14:25 Labs: Laboratory Results - last 24 hr 12/10/20 12/10/20 12/10/20 14:25 14:25 14:25 WBC 5.8 RBC 4.85 Hgb 17.5 Hct 51.1 MCV 105.5 H MCH 36.1 H MCHC 34.2 RDW 13.8 Plt Count 91 L Neut % (Auto) 56.9 Lymph % (Auto) 32.1 [place] % (Auto) 8.5 Eos % (Auto) 1.8 L Baso % (Auto) 0.7 Neut # (Auto) 3300 Lymph # (Auto) 1900 [place] # (Auto) 500 Eos # (Auto) 100 Baso # (Auto) 0 Sodium 137 Potassium 4.1 Chloride 108 H Carbon Dioxide 22 BUN 16 Creatinine 1.08 Estimated GFR > 60.0 BUN/Creatinine Ratio 14.8 Glucose 160 H Calcium 9.4 Magnesium 1.9 1.9 Total Bilirubin 0.5 AST 21 ALT 7 Alkaline Phosphatase 63 Total Creatine Kinase 63 CK-MB (CK-2) TNP CK-MB (CK-2) Rel Index TNP Troponin I < 0.012 Total Protein 6.4 Albumin 3.6 Globulin 2.8 Albumin/Globulin Ratio 1.3 Lipase 32 Urine Color Urine Appearance Urine pH Ur Specific [place] Urine Protein Urine Glucose (UA) Urine Ketones Urine Occult Blood Urine Nitrate Urine Bilirubin Urine Urobilinogen Ur Leukocyte Esterase Urine RBC Urine WBC Ur Squamous Epith Cells Urine Bacteria Ur Culture Indicated? SARS-CoV-2 (PCR) 12/10/20 12/10/20 14:30 15:00 WBC RBC Hgb Hct MCV MCH MCHC RDW Plt Count Neut % (Auto) Lymph % (Auto) [place] % (Auto) Eos % (Auto) Baso % (Auto) Neut # (Auto) Lymph # (Auto) [place] # (Auto) Eos # (Auto) Baso # (Auto) Sodium Potassium Chloride Carbon Dioxide BUN Creatinine Estimated GFR BUN/Creatinine Ratio Glucose Calcium Magnesium Total Bilirubin AST ALT Alkaline Phosphatase Total Creatine Kinase CK-MB (CK-2) CK-MB (CK-2) Rel Index Troponin I Total Protein Albumin Globulin Albumin/Globulin Ratio Lipase Urine Color Yellow Urine Appearance Cloudy Urine pH 5.5 Ur Specific [place] 1.020 Urine Protein 1+ H Urine Glucose (UA) Negative Urine Ketones Trace H Urine Occult Blood Trace-intact Urine Nitrate Positive H Urine Bilirubin Negative Urine Urobilinogen 0.2 Ur Leukocyte Esterase 2+ H Urine RBC 1-5/hpf Urine WBC 30-100/hpf H Ur Squamous Epith Cells 1-5 /hpf Urine Bacteria Moderate (10-30) H Ur Culture Indicated? Specimen cultured SARS-CoV-2 (PCR) Negative Assessment & Plan Assessment & Plan narrative: Patient is a 75-year-old male Alexi Rodrigues who presented to the ED by EMS for increased weakness, nausea, vomiting, and diarrhea. On discharge from the hospital 11/16/2020 patient did have a positive urine culture for E coli, but did not receive antibiotic treatment. Since discharge, the patient's reports heis having ongoing lower extremity weakness and decreased activity. Patient has a history of herpetic/autoimmune encephalitis 2015, CVA 2010, venous embolus and thrombosis DVT 2013, Parkinson's, ischemic stroke-middle cerebral artery 05/12/20 at [facility], multiple TIAs, epilepsy, hypertension, hyperlipidemia, diet-controlled diabetes mellitus, hypothyroidism, and obesity. 1. Complicated UTI with encephalopathy versus asymptomatic cystitis due to E coli, with Parkinson's dementia/stroke/TIAs, acute, present on admission -positive urine culture 11/16/2020 for E coli-patient has a positive urine dip, is asymptomatic, without laboratory inflammatory marker findings, and a negative clinical presentation. My suspicion is low that the patient has a complicated UTI with encephalopathy, but rather asymptomatic cystitis from E coli, and that his neurological symptoms are reflective of the progression of his Parkinson's, exacerbated by frequent TIAs, stroke 05/2020, and epilepsy. -Admit vitals temp 97.9?, BP 148/69, HR 73, RR 16, O2 saturation 94% on room air. CBC within normal limits except-MCV 105.5, PLT 91, CMP, Cl 108, glucose 160. Troponin negative, no , GCS:10, Wells:3 - urinalysis: Nitrate positive, protein +1, ketones trace, leuko esterase 2+, wbc's 30-100, and bacteria moderate.-sent for Culture -positive urine culture for E coli on 11/16/2020-not treated -vital signs q.4 hours, intake and output monitored Q shift,weight measure daily, diet: Heart healthy -IV fluid: LR 60 cc/HR, gentle rehydration- reassess in am and determine to increase fluids or restriction depending on volume status. O2 saturation goal 88-92% -Rocephin 1 g Q 24 hours-covering for MDR Gram-negative, check orthostatics upon admission and once per shift while awake, activity as tolerated per PT EVAL, strict I&O, daily weights, call for urinary output less than 384 mL per shift, temp >38.5, systolic <100 or Heart rate >110 or an SaO2 less than 92%, -labs ordered: CBC, BMP, procalcitonin, GI panel, Depakote level-blood cultures x2 and urine culture pending -consults ordered physical therapy- for patient has continued weakness and mobility issues likely related to patient's disease processes strokes, epilepsy, Parkinson's and TIAs. -ARCHITECTURE DEPARTMENT CHAIR consult ordered for spousal-Education and community Support Services in relation to her 's medical conditions. 2.Epilepsy, chronic, present on admission-well controlled -continue patient's 1000 mg of Depakote b.i.d. Vimpat 200mg BID, Zonisamide 300mg QHS -patient placed on seizure precautions, bed side swallow, aspiration precautions, fall precautions -patient is followed by Neurology at [facility] 3. Parkinson's, acute on chronic, exacerbation, present on admission -continue patient's carbidopa-levodopa. Divalproex, Finasteride. - [facility] neurology where he has followed by neurologist: Dr. Keyes, Dr. Porter, and 4. History CVA 2010 and ischemic stroke middle central artery May 12, 2020 with seizures, chronic, essential hypertension with left systolic heart failure, ejection fraction< 40%, acute on chronic, present on admission, and diabetes type 2 (diet controlled), chronic, present on admission, induced hyperlipidemia, chronic, present on admission as evidence by history of acute venous embolism and thrombolysis DVT 2013. -I personally reviewed office visit notes for internal medicine and family practice Dr. Larson notes from 11/04/2019-11/20/2020, hospital notes from 09/01, 10/26, 11/16/2020. -continue patients apixaban, losartan, atorvastatin. Atenolol 5. 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 q.h.s. 4. Hypertension essential, acute on chronic, present on admission Patient's current BP on admit: 148/69 -continue patient's Lasix, atenolol 5. Hypothyroidism, acquired, chronic, present on admission control unknown -continue patient's levothyroxine 6. Obesity, as evidence by a BMI of 34.9 down from 35.1, acute on chronic, present on admission -recommended dietary and lifestyle changes with PCP follow-up -consideration will be given to dietary counseling Code status: DNR Surrogate decision maker: Patient's is MCKAY ELLSWORTH PCR: Negative VTE/DVT prophylaxis: patient's apixaban 5 mg b.i.d., and SCDs Estimated length of stay: Less than 2 midnights I have utilized all available immediate resources to obtain, update, or review the patient's current medications. I confirmed that the patient's advanced care plan is present, Code status is documented and/or surrogate decision maker is listed in the patient's medical record. Scores GCS [place] coma scale eye opening: To sound Mandi coma scale verbal response: Words Mandi coma scale motor response: Normal flexion [place] coma scale total score: 10 SOFA PaO2/FIO2: >=400 mmHg Platelets: < 150 Bilirubin: < 1.2 mg/dL Hypotension: MAP >= 70 mmHg Mandi Coma Scale: 10-12 Renal: < 1.2 mg/dL SOFA Score: 3 Wells' Criteria for PE Clinical signs and symptoms of DVT: No PE is #1 Dx or equally likely: No Heart rate > 100: No Immobilization at least 3 days or surg in previous 4 weeks: Yes History of PE or DVT: Yes Hemoptysis: No Malignancy w/Treatment within 6 months or palliative: No Wells' PE Score total: 3.0
--- NOTE | 2020-12-10 23:42 | PC.NURSE ---
Pt arrived from ED, HX parkinsons, has some hand tremors. Pt oriented to self Denies discomfort at this toime. Call light w/in reach, bed alarm on for pt safety,. Continnue w/plan of care,
[2020-12-11] VITALS (12 sets, daily range): BP systolic 129–157; BP diastolic 69–89; PULSE 75–85; RESP 16–22; TEMP 36.1–36.6; O2SAT 94–98
[2020-12-11] MEDS: LACTATED RINGERS 1,000 ML 100 ML IV (00:16)
[2020-12-11] MEDS: ZONISAMIDE 100 MG CAPSULE 300 MG PO ×2 (00:24→20:35)
[2020-12-11] MEDS: valACYclovir 500 MG TABLET PO ×2 (00:25→21:12)
[2020-12-11] MEDS: PANTOPRAZOLE DR 40 MG TABLET PO ×2 (00:25→20:25)
[2020-12-11] MEDS: ATORVASTATIN 20 MG TABLET 40 MG PO (00:25)
[2020-12-11] MEDS: DIVALPROEX 500 MG 1000 EACH PO ×2 (00:27→08:28)
[2020-12-11] MEDS: LACOSAMIDE 200 MG 200 EACH PO ×3 (00:28→21:38)
[2020-12-11] MEDS: APIXABAN 5 MG TABLET PO ×3 (00:30→20:25)
[2020-12-11 05:06] LABS: Add Manual Diff / Slide Review NO; Basophils Absolute Auto 0 /uL (0-100); Basophils Percent Auto 0.4 % (0-2); Eosinophils Absolute Auto 100 /uL (0-450); Eosinophils Percent Auto 1.3 % (2-4); Hematocrit 47.8 % (41-53); Hemoglobin 16.2 g/dL (13.5-17.5); Lymphocytes Absolute Auto 1800 /uL (1100-4500); Mean Corpuscular HGB Conc 33.9 % (30-36); Mean Corpuscular Hemoglobin 35.6 PG (26-34); Mean Corpuscular Volume 104.8 fL (80-100); Monocytes Absolute Auto 700 /uL (0-900); Monocytes Percent Auto 12.7 % (3-14); Neutrophils Absolute Auto 3300 /uL (1500-7000); Neutrophils Percent Auto 55.6 % (50-75); Platelet Count 89 X10^3/uL (150-400); Red Blood Cell Count 4.56 X10^6/uL (4.5-5.9); Red Cell Distribution Width 13.5 % (11.6-14.8); White Blood Cell Count 5.9 X10^3/uL (4.5-11.0)
[2020-12-11 05:12] LABS: BUN Creatinine Ratio 14.3 (6-22); Blood Urea Nitrogen 16 mg/dL (9-20); Calcium 9.2 mg/dL (8.4-10.2); Carbon Dioxide 26 mmol/L (22-32); Chloride 107 mmol/L (98-107); Estimated Glomerular Filt Rate > 60.0 mL/min (>60); Glucose 106 mg/dL (80-110); HEMOLYSIS 17 (0-50); Sodium 138 mmol/L (137-145)
[2020-12-11 05:27] LABS: Procalcitonin 0.05 ng/mL (<0.5)
--- NOTE | 2020-12-11 08:24 | ED_ITS ---
HPI - Nausea/Vomiting/Diarrhea General Chief complaint: Nausea/Vomiting/Diarrhea Stated complaint: dehydration Time Seen by Provider: 12/10/20 18:04 Source: patient, family and EMS Mode of arrival: EMS History of Present Illness HPI Narrative: This is a Related Data Home Medications Medication Instructions Recorded Confirmed carbidopa ER 36.25 mg-levodopa 145 4 cap PO QAM 09/01/20 12/11/20 mg capsule,extended release (Rytary) docusate sodium 100 mg capsule 100 mg PO QAM PRN 09/01/20 12/10/20 (Colace) finasteride 5 mg tablet 5 mg PO QPM 09/01/20 12/10/20 furosemide 20 mg tablet (Lasix) 20 mg PO QAM PRN 09/01/20 12/10/20 lacosamide 200 mg tablet (Vimpat) 200 mg PO BID 09/01/20 12/10/20 levothyroxine 125 mcg tablet 125 mcg PO QAM 09/01/20 12/10/20 pantoprazole 40 mg tablet,delayed 40 mg PO BEDTIME 09/01/20 12/10/20 release valacyclovir 500 mg tablet 500 mg PO BEDTIME 09/01/20 12/10/20 zonisamide 100 mg capsule 300 mg PO BEDTIME 09/01/20 12/10/20 divalproex 500 mg tablet,delayed 1,000 mg PO BID 09/25/20 12/10/20 release cyanocobalamin (vitamin B-12) 2,000 mcg PO DAILY 11/06/20 12/10/20 1,000 mcg capsule apixaban 5 mg tablet (Eliquis) 5 mg PO BID 11/16/20 12/10/20 carbidopa ER 36.25 mg-levodopa 145 3 cap PO BID 12/11/20 12/11/20 mg capsule,extended release (Rytary) carbidopa ER 36.25 mg-levodopa 145 3 cap PO BID 12/11/20 12/11/20 mg capsule,extended release (Rytary) Previous Rx's Medication Instructions Recorded atorvastatin 40 mg tablet See Rx Instructions .ROUTE 11/07/20 .COMPLEX #90 tablet Allergies Allergy/AdvReac Type Severity Reaction Status Date / Time No Known Drug Allergies Allergy Verified 11/20/20 14:40 Patient History Medical History (Updated 12/11/20 @ 05:[address] 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 Diverticulosis large intestine w/o perforation or abscess w/o bleeding (12/12/10) Encephalitis due to human herpes simplex virus (HSV) Hearing loss Hemorrhoids that prolapse with straining and require manual replacement back inside anal canal Herpes (~1979) Ischemic stroke Measles Mumps Rubella Seizures Seizures Sleep apnea Vision disorder Surgical History Anesthesia History of appendectomy History of hemorrhoidectomy History of nasal surgery No pertinent past surgical history Family History Brother Kidney disease Brother Aneurysm Mother Alzheimer's dementia Father Cancer Social History marital status: household members: spouse lives independently: Yes Smoking Status: Never smoker alcohol intake: former substance use type: does not use Smoking Status: Never smoker alcohol intake frequency: 0-2 drinks per day Substance Use Type: does not use Exam Initial Vital Signs Initial Vital Signs: Vital Signs Temperature 97.9 F 12/10/20 14:12 Pulse Rate 70 12/10/20 14:12 Respiratory Rate 17 12/10/20 14:12 Blood Pressure 119/63 12/10/20 14:12 Pulse Oximetry 96 12/10/20 14:12 Course Orders Ordered: Acetaminophen (Acetaminophen 325 Mg Tablet) 650 mg PO Q6HR PRN PRN Reason: Fever/Mild Pain (1-3) Al Hydrox/Mg Hydrox/Simethicone (Mag Hydrox/Alum/Simeth 30 Ml Udc) 30 ml PO Q6HR PRN PRN Reason: Dyspepsia Apixaban (Apixaban 5 Mg Tablet) 5 mg PO BID [facility] Last Admin: 12/11/20 00:30 Dose: 5 mg Documented by: CMCFARL Atorvastatin Calcium (Atorvastatin 20 Mg Tablet) 40 mg PO DAILY [facility] Last Admin: 12/11/20 00:25 Dose: 40 mg Documented by: CMCFARL Docusate Sodium (Docusate 100 Mg Capsule) 100 mg PO DAILY [facility] Last Admin: 12/11/20 00:14 Dose: Not Given Documented by: GLORIA Finasteride (Finasteride 5 Mg Tablet) 5 mg PO QPM [facility] Lactated Ringer's (Lactated Ringers) 1,000 mls @ 100 mls/hr IV CONT [facility] Last Infusion: 12/11/20 05:05 Dose: 60 mls/hr Documented by: Admin: 12/11/20 00:16 Dose: 100 mls/hr Documented by: GLORIA Ceftriaxone Sodium 1,000 mg/ (Sodium Chloride) 100 mls @ 200 mls/hr IV Q24H [facility] Levothyroxine Sodium (Levothyroxine 125 Mcg Tablet) 125 mcg PO DAILY@0700 [facility] Naloxone HCl (Naloxone 0.4 Mg/Ml Vial) 0.2 mg IV Q2MIN PRN PRN Reason: Opiate Reversal Non-Formulary Medication (Carbidopa-Levodopa [Rytary]) 3 cap PO TID [facility] Last Admin: 12/11/20 00:27 Dose: Not Given Documented by: GLORIA Non-Formulary Medication (Divalproex) 1,000 mg PO BID [facility] Last Admin: 12/11/20 00:27 Dose: 1,000 mg Documented by: GLORIA Non-Formulary Medication (Lacosamide [Vimpat]) 200 mg PO BID [facility] Last Admin: 12/11/20 00:28 Dose: 200 mg Documented by: GLORIA Ondansetron HCl (Ondansetron 4 Mg/2 Ml Inj) 4 mg IV Q8HR PRN PRN Reason: Nausea And Vomiting Oxycodone HCl (Oxycodone Ir 5 Mg Tablet) 5 mg PO Q6HR PRN PRN Reason: Pain, Moderate (4-6) Pantoprazole Sodium (Pantoprazole Dr 40 Mg Tablet) 40 mg PO BEDTIME [facility] Last Admin: 12/11/20 00:25 Dose: 40 mg Documented by: GLORIA Valacyclovir HCl (Valacyclovir 500 Mg Tablet) 500 mg PO BEDTIME [facility] Last Admin: 12/11/20 00:25 Dose: 500 mg Documented by: GLORIA Zonisamide (Zonisamide 100 Mg Capsule) 300 mg PO BEDTIME [facility] Last Admin: 12/11/20 00:24 Dose: 300 mg Documented by: CMCFARL Discontinued Medications Atorvastatin Calcium (Atorvastatin 20 Mg Tablet) 40 mg PO .COMPLEX MITESH Ceftriaxone Sodium 2,000 mg/ (Sodium Chloride) 100 mls @ 200 mls/hr IV NOW ONE Stop: 12/10/20 20:07 Last Infusion: 12/10/20 20:50 Dose: 0 mls/hr Documented by: Admin: 12/10/20 20:20 Dose: 200 mls/hr Documented by: ANDRADE MDM - Nausea/Vomiting/Diarrhea Lab Data Result diagrams: 12/11/20 04:40 12/11/20 04:40 Labs: Lab Results 12/10/20 12/10/20 12/10/20 Range/Units 14:25 14:25 14:25 WBC 5.8 (4.5-11.0) X10^3/uL RBC 4.85 (4.5-5.9) X10^6/uL Hgb 17.5 (13.5-17.5) g/dL Hct 51.1 (41-53) % MCV 105.5 H (80-100) fL MCH 36.1 H (26-34) PG MCHC 34.2 (30-36) % RDW 13.8 (11.6-14.8) % Plt Count 91 L (150-400) X10^3/uL Neut % (Auto) 56.9 (50-75) % Lymph % (Auto) 32.1 (25-40) % [place] % (Auto) 8.5 (3-14) % Eos % (Auto) 1.8 L (2-4) % Baso % (Auto) 0.7 (0-2) % Neut # (Auto) 3300 (1966-1784) /uL Lymph # (Auto) 1900 (5991-8369) /uL [place] # (Auto) 500 (0-900) /uL Eos # (Auto) 100 (0-450) /uL Baso # (Auto) 0 (0-100) /uL Sodium 137 (137-145) mmol/L Potassium 4.1 (3.4-5.1) mmol/L Chloride 108 H (98-107) mmol/L Carbon Dioxide 22 (22-32) mmol/L BUN 16 (9-20) mg/dL Creatinine 1.08 (0.66-1.25) mg/dL Estimated GFR > 60.0 (>60) mL/min BUN/Creatinine Ratio 14.8 (6-22) Glucose 160 H (80-110) mg/dL Calcium 9.4 (8.4-10.2) mg/dL Magnesium 1.9 1.9 (1.6-2.3) mg/dL Total Bilirubin 0.5 (0.2-1.3) mg/dL AST 21 (17-59) IU/L ALT 7 (<50) IU/L Alkaline Phosphatase 63 (38-126) U/L Total Creatine Kinase 63 (55-170) U/L CK-MB (CK-2) TNP CK-MB (CK-2) Rel Index TNP Troponin I < 0.012 (0.01-0.034) ng/mL Total Protein 6.4 (6.3-8.2) g/dL Albumin 3.6 (3.5-5.0) g/dL Globulin 2.8 (1.7-4.1) g/dL Albumin/Globulin Ratio 1.3 (1.0-2.8) Lipase 32 (23-300) U/L Urine Color Urine Appearance Urine pH (4.5-8.0) Ur Specific [place] (1.000-1.035) Urine Protein (Negative) Urine Glucose (UA) (Negative) g/dL Urine Ketones (NEGATIVE) Urine Occult Blood (Negative) Urine Nitrate (Negative) Urine Bilirubin (NEGATIVE) Urine Urobilinogen (0.2) E.U./dL Ur Leukocyte Esterase (NEGATIVE) Urine RBC (0-5/HPF) Urine WBC (0-5/HPF) Ur Squamous Epith Cells (0-5/HPF) Urine Bacteria (None) Ur Culture Indicated? SARS-CoV-2 (PCR) (Negative) 12/10/20 12/10/20 Range/Units 14:30 15:00 WBC (4.5-11.0) X10^3/uL RBC (4.5-5.9) X10^6/uL Hgb (13.5-17.5) g/dL Hct (41-53) % MCV (80-100) fL MCH (26-34) PG MCHC (30-36) % RDW (11.6-14.8) % Plt Count (150-400) X10^3/uL Neut % (Auto) (50-75) % Lymph % (Auto) (25-40) % [place] % (Auto) (3-14) % Eos % (Auto) (2-4) % Baso % (Auto) (0-2) % Neut # (Auto) (4149-8016) /uL Lymph # (Auto) (2158-0563) /uL [place] # (Auto) (0-900) /uL Eos # (Auto) (0-450) /uL Baso # (Auto) (0-100) /uL Sodium (137-145) mmol/L Potassium (3.4-5.1) mmol/L Chloride (98-107) mmol/L Carbon Dioxide (22-32) mmol/L BUN (9-20) mg/dL Creatinine (0.66-1.25) mg/dL Estimated GFR (>60) mL/min BUN/Creatinine Ratio (6-22) Glucose (80-110) mg/dL Calcium (8.4-10.2) mg/dL Magnesium (1.6-2.3) mg/dL Total Bilirubin (0.2-1.3) mg/dL AST (17-59) IU/L ALT (<50) IU/L Alkaline Phosphatase (38-126) U/L Total Creatine Kinase (55-170) U/L CK-MB (CK-2) CK-MB (CK-2) Rel Index Troponin I (0.01-0.034) ng/mL Total Protein (6.3-8.2) g/dL Albumin (3.5-5.0) g/dL Globulin (1.7-4.1) g/dL Albumin/Globulin Ratio (1.0-2.8) Lipase (23-300) U/L Urine Color Yellow Urine Appearance Cloudy Urine pH 5.5 (4.5-8.0) Ur Specific [place] 1.020 (1.000-1.035) Urine Protein 1+ H (Negative) Urine Glucose (UA) Negative (Negative) g/dL Urine Ketones Trace H (NEGATIVE) Urine Occult Blood Trace-intact (Negative) Urine Nitrate Positive H (Negative) Urine Bilirubin Negative (NEGATIVE) Urine Urobilinogen 0.2 (0.2) E.U./dL Ur Leukocyte Esterase 2+ H (NEGATIVE) Urine RBC 1-5/hpf (0-5/HPF) Urine WBC 30-100/hpf H (0-5/HPF) Ur Squamous Epith Cells 1-5 /hpf (0-5/HPF) Urine Bacteria Moderate (10-30) H (None) Ur Culture Indicated? Specimen cultured SARS-CoV-2 (PCR) Negative (Negative) Discharge Plan Departure Patient Disposition: Admitted As Inpatient Clinical Impression: Acute UTI, Acute dehydration, Weakness Admit Date/Time: 12/10/20 21:17 Admit Provider: Crista Farfan
[2020-12-11] MEDS: DOCUSATE 100 MG CAPSULE PO (08:26)
[2020-12-11] MEDS: LEVOTHYROXINE 125 MCG TABLET PO (08:26)
[2020-12-11] MEDS: CARBIDOPA LEVODOPA 3 EACH PO ×3 (08:29→21:37)
--- NOTE | 2020-12-11 10:32 | PT.IIE ---
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 Diverticulosis large intestine w/o perforation or abscess w/o bleeding (12/12/10) Encephalitis due to human herpes simplex virus (HSV) Hearing loss Hemorrhoids that prolapse with straining and require manual replacement back inside anal canal Herpes (~1979) Ischemic stroke Measles Mumps Rubella Seizures Seizures Sleep apnea Vision disorder Physical Therapy Inpatient Evaluation/Re-Eval M1 PT/OT-IP Prior Functional Status Start: 12/11/20 09:20 Freq: NEEDED Status: Active Protocol: Document 12/11/20 13:39 [facility] (Rec: 12/11/20 13:57 [facility] [id number]) Medical Review Prior Functional Status Medical History Reviewed Yes Communication Pt is [place]. He has history of CVA and resultant aphasia which his states is worse over the past few weeks. He answers questions appropriately <50% of the time but is typically able to make his needs known. Mobility and Gait Until a few weeks ago, pt was able to ambulate short household distances with 4WW. His spouse assists with all ADL's, bed mobility, transfers . Pt has become increasingly dependent on his manual wheelchair over the past few weeks. Activities of Daily Living and IADL's Spouse assists with all ADL's and states his level of assist has increased recently. Prior to a few weeks ago, pt's states that pt was able to do his grooming and eating needs after set-up. Prior Functional Level (Other details) Pt is active with [facility] [employer]. He has a private caregiver who is a (retired?) SALES OPERATIONS ANALYST who helps out 4 hours/day, two days/week. Social History Household Members spouse Living Arrangements House Number of Floors (Floors) One Floor Number of Stairs To Enter/Railing? Level entry through the garage . Home Environment High Toilet,Tub/Shower Home Equipment Front Wheel Walker,Four Wheel Walker,Manual Wheelchair, Raised Toilet Seat w/Armrests, Tub Transfer Bench,Hand Held Shower,Lift Recliner,Bed Rails ,Grab Bars In Shower Additional Social History Comment Pt has an adjustable bed with a rail on one side M2 PT-IP Current Condition Start: 12/11/20 09:20 Freq: NEEDED Status: Active Protocol: Document 12/11/20 10:32 AW (Rec: 12/11/20 12:27 AW [id number]) Physical Therapy Current Condition Current Condition Evaluation Date 12/11/20 Treatment Diagnosis UTI, PD, weakness; difficulty in walking Onset Date 2 weeks Precautions Other Precautions falls M3 PT-IP Subjective Start: 12/11/20 09:20 Freq: NEEDED Status: Active Protocol: Document 12/11/20 10:32 AW (Rec: 12/11/20 12:27 AW [id number]) Subjective Physical Therapy Visit Type Type Initial Evaluation Visit Start Time 09:52 Visit Stop Time 10:32 Total Visit Minutes 40 Notes Pt's spouse was present throughout session and contributed >50% to history. Number of SALES OPERATIONS ANALYST Visits 0 Physical Therapy Visit Comments Patient Comments Pt has increased alertness with mobility and expresses consent to evaluation. Therapy Pain Assessment Pain When Pain Assessed During Mobility Pain Present Pain Present Denied Pain M4 PT-IP Mobility and Gait Start: 12/11/20 09:20 Freq: NEEDED Status: Active Protocol: Document 12/11/20 10:32 AW (Rec: 12/11/20 12:37 AW [id number]) PT-Bed Mobility Assessment Supine to Sit Supine to Sit Maximum Assistance,1 Person Assistance,Head of Bed Elevated,Bedrails Scooting Scooting to Edge of Bed Maximum Assistance PT-Transfer Assessment Sit to and From Stand Sit to and from Stand Moderate Assistance,2 Person Assistance,Use of Upper Extremities Equipment Transfer Assistive Device Gait Belt,Front Wheeled Walker Orthotic/Prosthetic Devices or Brace: No Transfers Transfer Destination Chair Transfer Technique Stand Step Pivot Transfer Ability Level of Assist Maximum Assistance,Use of Upper Extremities Comments Mobility Comments Pt was sleeping in bed as PT arrived. He roused briefly but asked this PT to speak with his . When ready to mobilize, pt's alertness increased and he was able to move his legs slowly toward R EOB, ultimately requiring max assist and max cues to sit up. In sitting, he needed min assist at all times to maintain seated balance. With assist from LEAN PROCESS DEPLOYMENT CONSULTANT, pt stood from the bed in lowest position mod A x 2. With FWW, he required max assist x 2 and verbal and tactile cues for weight shifting as he used shuffling steps to transfer to the chair set up on his right side. He followed directions ~half of the time, needing assist to move his hands from the FWW to the chair. He sat and then agreed to stand again - max A x 1 this time with heavy cues for forward weight shift and hand placement on walkelr. Pt sat again and agreed to sit up. He was left with call light and tray table in reach. His spouse remained in the room. Gait Assessment Assistive Devices Assistive Device Gait Belt,Front Wheeled Walker Gait Deviations General Gait Pattern Decreased Stride Length, Decreased Feet Clearance, Festinating,Flexed Trunk, Lateral Trunk Lean Factors Limiting Gait Function Factors Limiting Gait Function Abnormal Tonal Influences, Decreased Activity Tolerance, Decreased Strength,Difficulty Following Directions,Poor Balance,Poor Safety Awareness Comments Gait Comments Steps taken only during transfer. Stair Climbing Assessment Comments Stair Climbing Comments Not assessed. No stairs at home. PT-Balance Assessment Sitting Balance and Reactions Static Sitting Balance Ability Poor Dynamic Sitting Balance Ability Poor Standing Balance and Reactions Static Standing Balance Ability Poor Dynamic Standing Balance Ability Poor Device Used FWW M5 PT-IP Objective Assessments Start: 12/11/20 09:20 Freq: NEEDED Status: Active Protocol: Document 12/11/20 10:32 AW (Rec: 12/11/20 12:37 AW [id number]) Orientation Orientation/Cognition Level of Alertness Confusional State Orientation Name,Place Language Function Ability Expressive Aphasia,Hard of Hearing Safety Awareness Decreased Safety Awareness Memory Description Short Term Impaired,Longterm Impaired Gross Range of Motion Lower Extremity ROM Assessment Within Functional Limits Strength Lower Extremity Strength Hip 3/5 Knee 3+/5 Muscle Tone Muscle Tone WNL No Comments Muscle Tone Comments Pt has generalized rigidity affecting his mobility M6 PT-IP Treatment Start: 12/11/20 09:20 Freq: NEEDED Status: Active Protocol: Document 12/11/20 10:32 AW (Rec: 12/11/20 12:38 AW [id number]) Physical Therapy Treatment Education Education Provided Safety Other Treatments Other Treatment Performed Discussed home equipment needs with pt's and suggested researching luisito lift for home due to progressive nature of pt condition. M7 PT-IP Assessment and Plan Start: 12/11/20 09:20 Freq: NEEDED Status: Active Protocol: Document 12/11/20 10:32 AW (Rec: 12/11/20 17:25 AW [id number]) PT Summary Assessment and Plan Potential Rehabilitation Potential Fair Status of Condition at Evaluation Evolving Summary Impairments ROM,Strength,Balance, Coordination,Sensation,Tone, Cognition,Bed Mobility, Transfers,Gait,Activity Tolerance Assessment Summary Mark Anthony is a 75 yo man with Parkinson's disease who was seen for PT evaluation with admitting diagnosis of possible UTI and increasing weakness. At recent baseline, pt was able to ambulate short household distances with 4WW and required assist with ADL's and transfers. His is his primary caregiver. He is active with home health and has a private caregiver twice weekly for four hours at a time. On evaluation, pt required mod to max assist x 2 for transfers and was unsafe for ambulation. He presents with advanced hypokinesia, bradykinesia, and freezing of gait typical of PD. He would certainly benefit from SNF rehab to improve strength and amplitude of movement for improved ability to participate in self-care. If pt is to discharge home, pt will need resumed HH services. Discussed pt's long-term needs at home including a luisito lift. Pt's spouse was receptive. Goals Bed Mobility Goal Minimal Assistance Transfer Goal Minimal Assistance,Front Wheeled Walker,Four Wheeled Walker Gait Goal Minimal Assistance,Front Wheel Walker,Four Wheel Walker Gait Distance 50 Other Goals LTG: imrpove ambulation to 75 feet with 4WW SBA Days to Meet Goals 10 Frequency of Treatment Frequency Of Treatment Once a Day Treatment Plan Physical Therapy Treatment Plan Bed Mobility Training,Transfer Training,Gait Training, Therapeutic Exercise,Balance Retraining,Discharge Planning, Neuromuscular Re-ed, Coordination Retraining Other Recommendations and Next Treatment transfers, gait with chair Focus follow as tolerated Precautions Other Precautions falls; seizure precautions Recommendations To Nursing Amount of Assist Needed 2 Person Assist,3 or More Person Assist Discharge Recommendations PT Discharge Recommendations SNF Rehab,Home vs SNF Other Discharge Recommendations if home, pt will need HH and / assist with all mobility Transportation Needs at Discharge Private Vehicle,Wheelchair/ Cabulance
--- NOTE | 2020-12-11 13:34 | OT.IP.EVAL ---
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 Diverticulosis large intestine w/o perforation or abscess w/o bleeding (12/12/10) Encephalitis due to human herpes simplex virus (HSV) Hearing loss Hemorrhoids that prolapse with straining and require manual replacement back inside anal canal Herpes (~1979) History of appendectomy History of hemorrhoidectomy History of nasal surgery Ischemic stroke Measles Mumps No pertinent past surgical history Rubella Seizures Seizures Sleep apnea Vision disorder Surgical History (Last Reviewed 12/11/20 @ 03:00 by Roni Acuña DO) Anesthesia History of appendectomy History of hemorrhoidectomy History of nasal surgery No pertinent past surgical history Occupational Therapy Inpatient Evaluation/Re-Eval M1 PT/OT-IP Prior Functional Status Start: 12/11/20 09:20 Freq: NEEDED Status: Active Protocol: Document 12/11/20 13:39 [facility] (Rec: 12/11/20 13:57 [facility] [id number]) Medical Review Prior Functional Status Medical History Reviewed Yes Communication Pt is [place]. He has history of CVA and resultant aphasia which his states is worse over the past few weeks. He answers questions appropriately <50% of the time but is typically able to make his needs known. Mobility and Gait Until a few weeks ago, pt was able to ambulate short household distances with 4WW. His spouse assists with all ADL's, bed mobility, transfers . Pt has become increasingly dependent on his manual wheelchair over the past few weeks. Activities of Daily Living and IADL's Spouse assists with all ADL's and states his level of assist has increased recently. Prior to a few weeks ago, pt's states that pt was able to do his grooming and eating needs after set-up. Prior Functional Level (Other details) Pt is active with [facility]. He has a private caregiver who is a (retired?) HOUSE MOVER SUPERVISOR who helps out 4 hours/day, two days/week. Social History Household Members spouse Living Arrangements House Number of Floors (Floors) One Floor Number of Stairs To Enter/Railing? Level entry through the garage . Home Environment High Toilet,Tub/Shower Home Equipment Front Wheel Walker,Four Wheel Walker,Manual Wheelchair, Raised Toilet Seat w/Armrests, Tub Transfer Bench,Hand Held Shower,Lift Recliner,Bed Rails ,Grab Bars In Shower Additional Social History Comment Pt has an adjustable bed with a rail on one side M2 OT-IP Current Condition Start: 12/11/20 13:39 Freq: Status: Active Protocol: Document 12/11/20 13:39 [facility] (Rec: 12/11/20 13:57 [facility] [id number]) Occupational Therapy Current Condition Current Condition Evaluation Date 12/11/20 Treatment Diagnosis UTI, dehydration, decreased mobility Diagnosis Onset Date 12/10/20 M3 OT- IP Subjective and Pain Start: 12/11/20 13:39 Freq: Status: Active Protocol: Document 12/11/20 13:39 [facility] (Rec: 12/11/20 13:57 [facility] [id number]) OT- Subjective Occupational Therapy Visit Type Type Initial Evaluation Visit Start Time 12:50 Visit Stop Time 13:34 Total Visit Minutes 44 Occupational Therapy Visit Comments Patient Comments Pt's present and mostly speaks for the pt as pt having difficulty to get his words out due to hx of CVA and resultant aphasia. Patient/Caregiver Goals Pt's would like for pt to go home but open to possible inpt versus skilled rehab stay . OT Pain Assessment Pain When Pain Assessed At Rest Pain Present Pain Present Denied Pain M4 OT- IP ADL's Start: 12/11/20 13:39 Freq: Status: Active Protocol: Document 12/11/20 13:39 [facility] (Rec: 12/11/20 13:57 [facility] [id number]) OT IVL-Lukl-Psptlek General Evaluation Self-Feeding Ability Maximum Assistance Areas Needing Assistance Bringing Utensil to Mouth, Cutting Food,Drinking From Cup /Glass,Loading Utensil,Opening Containers Comments OT Self-Feeding Comments Pt needing assist to help feed himself. Able to hold Ensure bottle but shakes and needing assist to place liquid in a cup and able to tip up so pt able to drink. At this time, pt needs 1:1 feeding. OT ADL-Grooming General Evaluation Grooming Ability Maximum Assistance Comments OT Grooming Comments Pt not able to coordinate his movements of washing his face after wash cloth placed in his hands. Pt needing hand over hand assist to help wash his face. OT ADL-Oral Care Comments Oral Care Comments Not performed. OT ADL-Dressing Comments OT Dressing Comments MAX-total assist needed at this time. OT ADL-Toileting General Evaluation Toileting Ability Total Assistance OT ADL-Bathing Comments OT Bathing Comments Sponge bath more appropriate at this time. M5 OT- IP IADL's Start: 12/11/20 13:39 Freq: Status: Active Protocol: Document 12/11/20 13:39 [facility] (Rec: 12/11/20 13:57 [facility] [id number]) OT-Instrumental Activities of Daily Living Home Safety Awareness Awareness of Need for Assistance at Home Decreased Awareness Ability to Problem Solve Emergency Unable to Problem Solve Situations Medication Management Medication Management Caregiver Administers Money Management Money Management Caregiver Provides Assistance Meal Preparation Meal Preparation Caregiver Provides Assist Honey Producer Honey Producer Caregiver Provides Assist M6 OT- IP Functional Cognition Start: 12/11/20 13:39 Freq: Status: Active Protocol: Document 12/11/20 13:39 [facility] (Rec: 12/11/20 13:57 [facility] [id number]) Cognitive Factors Limiting Selfcare Function Cognitive Ability Level of Alertness Alert,Confusional State Patient Orientation Name Attention Span Ability Capable of Focused Attention Ability to Follow Commands Able to Follow One Step Commands with Increased Time, Able to Follow One Step Commands with Repetition Cognitive Comments Cognitive Assessment Comments Pt having difficulty initiation movement and following commands. When place a wash cloth in his hand , pt not able to wash his face and perservating on raising his hand up with wash cloth in hand as prior direction from therapist was to raise up his arms as high as he could to check on his AROM. OT- Vision and Hearing OT- Vision Assessment Visual Acuity Glasses All The Time Vision Assessment Comments Pt wears bilfocals. M7 OT- IP Mobility and Balance Start: 12/11/20 13:39 Freq: Status: Active Protocol: Document 12/11/20 13:39 [facility] (Rec: 12/11/20 13:57 [facility] [id number]) OT-Transfer Assessment Comments Mobility Comments Pt not able to stand at this time, unable to get pt to lean forwards into anterior tilt without MAX A X1. OT- Gait Assessment Comments Gait Ability Comments NOt at this time. OT- Balance Assessment Sitting Balance and Reactions Static Sitting Balance Ability Poor Dynamic Sitting Balance Ability Poor M8 OT- IP Objective Assessments Start: 12/11/20 13:39 Freq: Status: Active Protocol: Document 12/11/20 13:39 [facility] (Rec: 12/11/20 13:57 [facility] [id number]) OT Gross Range of Motion Upper Extremity Range of Motion ROM Impairments Grossly WFL for AROM BUE OT Strength Comments Strength Comments Pt at least 3+/5 per functional observations. OT-Muscle Tone Assessment Comments Muscle Tone Comments Pt has tremors left UE more than right UE at this time. M9 OT- IP Assessment and Plan Start: 12/11/20 13:39 Freq: Status: Active Protocol: Document 12/11/20 13:39 [facility] (Rec: 12/11/20 13:57 [facility] [id number]) OT Summary Assessment and Plan Potential Rehabilitation Potential Fair Analytic Complexity at Evaluation Moderate Summary OT Impairments Strength,Balance,Coordination, Functional Cognition, Functional Mobility,Self- Feeding,Grooming,Dressing, Toileting,Bathing,Toilet Transfers,Shower Transfers, Activity Tolerance Progress Towards Goals Slow Progress due to Medical Issues,Slow Progress due to Activity Tolerance,Slow Progress due to Cognition Assessment Summary Pt MOD complexity and main barriers are weakness, decreased strength, balance, initiation of movement. Pt's feels that he is far from his baseline which was 3 weeks ago that he was able to walk with his FWW and able to do his grooming on his own. Pt would benefit from skilled rehab to help maximize his independence with his ADl and mobility needs. Pt is having to go home, pt's will need to have more assist or possible use of mechanical lift to assist with mobility needs pending pt's progress. Goals Self-Feeding Goal Standby Assistance Grooming Goal Standby Assistance Dressing Goal Moderate Assistance Toilet Transfer Goal Minimal Assistance Shower Transfer Goal Minimal Assistance Patient/Caregiver Education Goal Caregiver Independent Assisting Patient Days to Meet Goals 30 Frequency of Treatment Frequency Of Treatment Once a Day Treatment Plan OT Treatment Plan ADL Training,Functional Cognition Training,Functional Mobility,Patient/Family Education,Discharge Planning Other Treatment Recommendations and Next Pt to transfer to [facility] with MAX Treatment Focus A X2 with FWW. Discharge Recommendations OT Discharge Recommendations SNF Rehab Transportation Needs at Discharge Wheelchair/Cabulance
[2020-12-11] MEDS: LACTATED RINGERS 1,000 ML 60 ML IV (14:50)
--- NOTE | 2020-12-11 15:34 | CM.DANOTE ---
Discharge Planning/Care Management DCP: assessment: case received, EMR reviewed and met with pt's Alexandra/MCKINLEY, at bedside. Prior admissions noted as pt has admitted a few times over the last few months with last d/c from on 11/14 to home with resumption of [facility]. Alexandra confirms [facility] is still open to service with pt: RN/PT/OT. Pt is a 75 year old male who admitted last night to care of hospitalist team. PCP: Pj Sky Neurologist: at [facility]: visits are by telehealth. Pt has Parkinson's disease. His is his primary caregiver. PT and OT saw pt today with recommendation that pt would benefit from snf rehab and understanding that this time Alexandra was open to this option. As per pt's prior visits Alexandra confirms now to this d/c conference planner that she will not consider a snf for her . She would still like acute inpt rehab but says first the doctor needs to treat him so that he is improved. Then we can discuss d/c options. She is waiting to see Dr. Noyola. DCP team will be following up tomorrow. Payer: [employer] Admission status: in review at this time CM Discharge Assessment Start: 12/11/20 15:33 Freq: Status: Active Protocol: Document 12/11/20 15:33 ITV (Rec: 12/11/20 15:34 ITV [id number]) Discharge Planning Assessment Advance Directives? Yes: DPOA Advance Directives on File Yes History Provided By Family Member,Medical Record Prior Living Arrangements House Household Members spouse Independent with ADL's No Whiteboard Updated in Patient Room with Yes name and ext. # of Medical Affairs Leader Review Status In Process
--- NOTE | 2020-12-11 15:42 | PM.PN.1 ---
Subjective Subjective Date Patient Seen: 12/11/20 Time Patient Seen: 10:00 Interval history: Patient was seen in his chair. He appeared comfortable with no complaints. He denied pain. He did not know where he was or the year. Exam Vital Signs (past 8 hours): - 12/11/20 08:00 12/11/20 10:00 12/11/20 12:00 Temperature 97.5 F L 97.5 F L Pulse Rate 76 79 Respiratory Rate 22 22 Blood Pressure 147/71 H 131/89 Pulse Oximetry 97 96 98 12/11/20 14:24 Temperature Pulse Rate Respiratory Rate Blood Pressure Pulse Oximetry 98 Oxygen Delivery Method Room Air Oxygen Flow Rate 0 Narrative Exam Narrative: General: no acute distress HEENT: masked facial expression, mucous membranes are moist. Lungs: clear bilaterally with no wheezes, rhonchi, rales Cardio: S1 & S2 with regular rate and rhythm without murmur, rubs, or gallops, no carotid bruit, no cardiac pulsations present. Abdomen: Soft nontender, nondistended, no organomegaly Musculoskeletal: normal strength bilaterally Skin: Warm dry and intact without rashes, ulcerations or petechiae. Neuro: Alert, but completely unaware of self, place, or situation. noted bilateral upper extremity tremors Psych: flat affect, altered mental status aphasia Objective Labs Result Diagrams: 12/11/20 04:40 12/11/20 04:40 Labs: Laboratory Results - last 24 hr 12/10/20 12/11/20 12/11/20 14:25 04:40 04:40 WBC 5.9 RBC 4.56 Hgb 16.2 Hct 47.8 MCV 104.8 H MCH 35.6 H MCHC 33.9 RDW 13.5 Plt Count 89 L Neut % (Auto) 55.6 Lymph % (Auto) 30.0 Toole % (Auto) 12.7 Eos % (Auto) 1.3 L Baso % (Auto) 0.4 Neut # (Auto) 3300 Lymph # (Auto) 1800 Toole # (Auto) 700 Eos # (Auto) 100 Baso # (Auto) 0 Sodium 138 Potassium 4.0 Chloride 107 Carbon Dioxide 26 BUN 16 Creatinine 1.12 Estimated GFR > 60.0 BUN/Creatinine Ratio 14.3 Glucose 106 Calcium 9.2 Magnesium 1.9 Procalcitonin 0.05 [facility] Medical History (Updated 12/11/20 @ 05:12 by Crista Farfan, [facility]) Acute venous embolism and thrombosis of deep veins of upper extremity (04/27/14) 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) Cerebrovascular accident (CVA) Chicken pox 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 Diverticulosis large intestine w/o perforation or abscess w/o bleeding (12/12/10) Encephalitis due to human herpes simplex virus (HSV) Hearing loss Hemorrhoids that prolapse with straining and require manual replacement back inside anal canal Herpes (~1979) Ischemic stroke Measles Mumps Rubella Seizures Seizures Sleep apnea Vision disorder Surgical History Anesthesia History of appendectomy History of hemorrhoidectomy History of nasal surgery No pertinent past surgical history Family History Brother Kidney disease Brother Aneurysm Mother Alzheimer's dementia Father Cancer Social History marital status: household members: spouse lives independently: Yes Smoking Status: Never smoker alcohol intake: former substance use type: does not use Assessment & Plan Assessment & Plan narrative: Mr. Rodrigues was admitted with increasing weakness and confusion found to have a UTI. He has a history of herpetic/autoimmune encephalitis 2015, CVA 2010, venous embolus and thrombosis DVT 2013, Parkinson's, ischemic stroke-middle cerebral artery 05/12/20 at [facility], multiple TIAs, epilepsy, hypertension, hyperlipidemia, diet-controlled diabetes mellitus, hypothyroidism, and obesity. 1. Encephalopathy with history of Parkinson's dementia/stroke/TIAs -patient has positive UA nitrate positive, leuk esterase 2+, bacteria, and WBCs, with urine culture pending but showing gram negative and gram positive bacteria which is different than previous urine culture and question if represents true infection or contaminant -however patient also has no urinary symptoms, no white count, no fever, and normal procalcitonin -patient from 11/16 with a low CFU at 20-30k with E.coli with no symptoms at that time, no white count, consistent with asymptomatic bactiuria and not diagnostic of UTI, UA at that time showed minimal pyuria -ceftriaxone 1gm daily, check orthostatics upon admission and once per shift while awake, a -PT, OT eval -depakote ordered and is a send out -have strong suspiscion that much of patient's mental status issues remain his poor baseline brain functioning with clear evidence of encephalomalacia and gliosis and advanced cerebral volume loss and chronic ischemic changes with additional history of parkinsons, seizure disorder, and prior strokes 2. Seizure disorder, chronic, present on admission-well controlled -continue patient's 1000 mg of Depakote b.i.d. Vimpat 200mg BID, Zonisamide 300mg QHS -patient placed on seizure precautions, bed side swallow, aspiration precautions, fall precautions -patient is followed by Neurology at [facility] 3. Parkinson's, acute on chronic, exacerbation, present on admission -continue patient's carbidopa-levodopa. Divalproex, Finasteride. - [facility] neurology where he has followed by neurologist: Dr. Keyes, Dr. Porter, and 4. History CVA 2010 and ischemic stroke middle central artery May 12, 2020 with seizures, chronic, essential hypertension with left systolic heart failure, ejection fraction< 40%, acute on chronic, present on admission, and diabetes type 2 (diet controlled), chronic, present on admission, induced hyperlipidemia, chronic, present on admission as evidence by history of acute venous embolism and thrombolysis DVT 2013. -continue patients apixaban, atorvastatin 5. 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 q.h.s. 4. Hypertension essential, acute on chronic, present on admission Patient's current BP on admit: 148/69 -continue patient's Lasix 5. Hypothyroidism, acquired, chronic, present on admission control unknown -continue patient's levothyroxine 6. Obesity, as evidence by a BMI of 34.9 down from 35.1, acute on chronic, present on admission -recommended dietary and lifestyle changes with PCP follow-up -consideration will be given to dietary counseling Code status: DNR Surrogate decision maker: Patient's is MCKAY ELLSWORTH PCR: Negative VTE/DVT prophylaxis: patient's apixaban 5 mg b.i.d., and SCDs
--- NOTE | 2020-12-11 16:12 | PC.NURSE ---
Addendum entered by Lina Burk R.N. 12/11/20 22:07: Tele shows NSR this shift, per ICU staff. Addendum entered by Lina Burk R.N. 12/11/20 22:00: Resting at intervals IVF continue as per orders. Attempted to do posterals, however, Unable to do posteral B/P due to inability to stand. Condition remains essentially unchanged. Call light w/in reach, bed alarm on for pt safety. Continue w/plan of care. Original Note: Pt resting quietly @ this time. Lungs clear, SpO2 98% RA Tele showing NSR per ICU staff. IVF infusing into RAC via pump @ 60cc/hr w/o incidence. in room. Call light w/in reach, bed alarm on for pt safety.
[2020-12-11] MEDS: FINASTERIDE 5 MG TABLET PO (17:30)
[2020-12-11] MEDS: cefTRIAXone 1,000 MG in SODIUM CHLORIDE 0.9% 100 ML 200 ML IV (20:26)
[2020-12-11] MEDS: DIVALPROEX DR 250 MG TABLET 1000 MG PO (20:36)
[2020-12-12] VITALS (11 sets, daily range): BP systolic 139–158; BP diastolic 74–90; PULSE 74–84; RESP 16–18; TEMP 36.1; O2SAT 95–98
[2020-12-12 01:06] LABS: Valproic Acid (Depakene) Total 129 ug/mL (50-100)
[2020-12-12] MEDS: SODIUM CHLORIDE 0.9% FLUSH 10 ML IV ×3 (06:30→20:54)
[2020-12-12] MEDS: LEVOTHYROXINE 125 MCG TABLET PO (06:31)
[2020-12-12 08:45] LABS: Hematocrit 50.1 % (41-53); Hemoglobin 17.4 g/dL (13.5-17.5); Mean Corpuscular HGB Conc 34.7 % (30-36); Mean Corpuscular Hemoglobin 36.2 PG (26-34); Mean Corpuscular Volume 104.2 fL (80-100); Platelet Count 82 X10^3/uL (150-400); Red Blood Cell Count 4.81 X10^6/uL (4.5-5.9); Red Cell Distribution Width 13.6 % (11.6-14.8); White Blood Cell Count 5.4 X10^3/uL (4.5-11.0)
[2020-12-12 09:07] LABS: BUN Creatinine Ratio 19.6 (6-22); Blood Urea Nitrogen 18 mg/dL (9-20); Calcium 9.5 mg/dL (8.4-10.2); Carbon Dioxide 26 mmol/L (22-32); Chloride 107 mmol/L (98-107); Estimated Glomerular Filt Rate > 60.0 mL/min (>60); Glucose 105 mg/dL (80-110); HEMOLYSIS < 15 (0-50); Potassium 4.4 mmol/L (3.4-5.1); Sodium 137 mmol/L (137-145)
[2020-12-12] MEDS: CARBIDOPA LEVODOPA 3 EACH PO ×2 (09:25→20:45)
[2020-12-12] MEDS: LACOSAMIDE 200 MG 200 EACH PO ×2 (09:26→20:43)
[2020-12-12] MEDS: DIVALPROEX DR 250 MG TABLET 500 MG PO ×2 (09:27→12:13)
[2020-12-12] MEDS: APIXABAN 5 MG TABLET PO (09:28)
[2020-12-12] MEDS: DOCUSATE 100 MG CAPSULE PO (09:28)
--- NOTE | 2020-12-12 09:48 | OT.IP.TRT ---
Occupational Therapy Treatment Note M2 OT-IP Current Condition Start: 12/11/20 13:39 Freq: Status: Active Protocol: Document 12/11/20 13:39 [facility] (Rec: 12/11/20 13:57 [facility] [id number]) Occupational Therapy Current Condition Current Condition Evaluation Date 12/11/20 Treatment Diagnosis UTI, dehydration, decreased mobility Diagnosis Onset Date 12/10/20 M3 OT- IP Subjective and Pain Start: 12/11/20 13:39 Freq: Status: Active Protocol: Document 12/12/20 13:37 [facility] (Rec: 12/12/20 13:49 [facility] [id number]) OT- Subjective Occupational Therapy Visit Type Type Treatment Note Visit Start Time 09:14 Visit Stop Time 09:48 Total Visit Minutes 34 Occupational Therapy Visit Comments Patient Comments Pt's present in the room and OT/QUALITY CONTROL ASSOCIATE able to take over for PAYLOADER OPERATOR as pt sitting on the BSC. Patient/Caregiver Goals To go home. OT Pain Assessment Pain When Pain Assessed At Rest Pain Present Pain Present Denied Pain M4 OT- IP ADL's Start: 12/11/20 13:39 Freq: Status: Active Protocol: Document 12/12/20 13:37 [facility] (Rec: 12/12/20 13:49 [facility] [id number]) OT LUA-Mtop-Kqnlsor Comments OT Self-Feeding Comments Pt able bring the water bottle to his mouth on his own today without difficulty. Not at meal time, therefore not sure if pt still needs 1:1 assist. OT ADL-Oral Care Comments Oral Care Comments Not performed. OT ADL-Dressing General Eval Lower Body Dressing Ability Maximum Assistance Comments OT Dressing Comments Pt able to assist to greens picker his feet today when assisting pt to help put on his brief. OT ADL-Toileting General Evaluation Toileting Ability Maximum Assistance,Total Assistance Areas Needing Assistance Manage Clothing,Perform Perineal Hygiene Comments OT Toileting Comments Pt able to stand with QUALITY CONTROL ASSOCIATE and FWW with MAX AX 1 while OT able to assist to wipe and pull up his brief. Pt's states would not able to assist pt at this time as too great of care for her to be able to assist the pt at this time. . OT ADL-Bathing Comments OT Bathing Comments Sponge bath more appropriate at this time. M5 OT- IP IADL's Start: 12/11/20 13:39 Freq: Status: Active Protocol: Document 12/11/20 13:39 [facility] (Rec: 12/11/20 13:57 [facility] [id number]) OT-Instrumental Activities of Daily Living Home Safety Awareness Awareness of Need for Assistance at Home Decreased Awareness Ability to Problem Solve Emergency Unable to Problem Solve Situations Medication Management Medication Management Caregiver Administers Money Management Money Management Caregiver Provides Assistance Meal Preparation Meal Preparation Caregiver Provides Assist Foreign Policy Officer Foreign Policy Officer Caregiver Provides Assist M6 OT- IP Functional Cognition Start: 12/11/20 13:39 Freq: Status: Active Protocol: Document 12/12/20 13:37 [facility] (Rec: 12/12/20 13:49 [facility] [id number]) Cognitive Factors Limiting Selfcare Function Cognitive Ability Level of Alertness Alert Patient Orientation Name Attention Span Ability Capable of Focused Attention, Capable of Sustained Attention Ability to Follow Commands Able to Follow One Step Commands with Increased Time, Able to Follow One Step Commands with Repetition Cognitive Comments Cognitive Assessment Comments Pt moving better today and able to initiate and follow commands better for ADl's and functional mobility needs today. M7 OT- IP Mobility and Balance Start: 12/11/20 13:39 Freq: Status: Active Protocol: Document 12/12/20 13:37 [facility] (Rec: 12/12/20 13:49 [facility] [id number]) OT-Transfer Assessment Sit to and From Stand Sit to and from Stand Moderate Assistance,Maximum Assistance,2 Person Assistance Transfers Transfer Ability Maximum Assistance,2 Person Assistance Technique Transfer Destination Bedside Commode,Chair Transfer Technique Stand Step Pivot Devices Transfer Assistive Devices Gait Belt,Front Wheeled Walker Comments Mobility Comments MODX1 and MAX X 1 to help to stand today. Pt able to actively lean into anterior tilt today. Pt still having difficulty to follow directions for hand placement to push off the BSC and needing NATIVE assist. Pt able to stand however not able to fully extend his legs out when standing at this time. Pt not wanting to try to walk after transfer back to the recliner, HR 146. When checked manually HR at notified nursing of fluctuating heart rate. OT- Gait Assessment Comments Gait Ability Comments NOt at this time. OT- Balance Assessment Sitting Balance and Reactions Static Sitting Balance Ability Fair Dynamic Sitting Balance Ability Poor Standing Balance and Reactions Static Standing Balance Ability Poor Dynamic Standing Balance Ability Poor M8 OT- IP Objective Assessments Start: 12/11/20 13:39 Freq: Status: Active Protocol: Document 12/11/20 13:39 [facility] (Rec: 12/11/20 13:57 [facility] [id number]) OT Gross Range of Motion Upper Extremity Range of Motion ROM Impairments Grossly WFL for AROM BUE OT Strength Comments Strength Comments Pt at least 3+/5 per functional observations. OT-Muscle Tone Assessment Comments Muscle Tone Comments Pt has tremores left UE more than right UE at this time. M9 OT- IP Assessment and Plan Start: 12/11/20 13:39 Freq: Status: Active Protocol: Document 12/12/20 13:37 [facility] (Rec: 12/12/20 13:49 [facility] [id number]) OT Summary Assessment and Plan Potential Rehabilitation Potential Fair Analytic Complexity at Evaluation Moderate Summary OT Impairments Strength,Balance,Coordination, Functional Cognition, Functional Mobility,Self- Feeding,Grooming,Dressing, Toileting,Bathing,Toilet Transfers,Shower Transfers, Activity Tolerance Progress Towards Goals Progressing Toward Goals Assessment Summary Pt has improved and now able to transfer with 2 person assist with MAX AX 2 with FWW. Pt following commands and moving better today especially for routine movements- grabbing cup to drink from , lean forwards into anterior tilt,etc.. Pt still requiring too much assist for his to be able to safely manage him at home. Suggest skilled rehab for pt prior to going home. Goals Self-Feeding Goal Standby Assistance Grooming Goal Standby Assistance Dressing Goal Moderate Assistance Toilet Transfer Goal Minimal Assistance Shower Transfer Goal Minimal Assistance Patient/Caregiver Education Goal Caregiver Independent Assisting Patient Days to Meet Goals 30 Frequency of Treatment Frequency Of Treatment Once a Day Treatment Plan OT Treatment Plan ADL Training,Functional Cognition Training,Functional Mobility,Patient/Family Education,Discharge Planning Other Treatment Recommendations and Next [place] [facility] [place] Focus A X2 with FWW. Discharge Recommendations OT Discharge Recommendations SNF Rehab Transportation Needs at Discharge Wheelchair/Cabulance
--- NOTE | 2020-12-12 09:49 | PT.IPTN ---
Physical Therapy Treatment Note M2 PT-IP Current Condition Start: 12/11/20 09:20 Freq: NEEDED Status: Active Protocol: Document 12/11/20 10:32 AW (Rec: 12/11/20 12:27 AW [id number]) Physical Therapy Current Condition Current Condition Evaluation Date 12/11/20 Treatment Diagnosis UTI, PD, weakness; difficulty in walking Onset Date 2 weeks Precautions Other Precautions falls M3 PT-IP Subjective Start: 12/11/20 09:20 Freq: NEEDED Status: Active Protocol: Document 12/12/20 09:10 SP (Rec: 12/12/20 15:24 SP [id number]) Subjective Physical Therapy Visit Type Type Treatment Note Visit Start Time 09:10 Visit Stop Time 09:49 Total Visit Minutes 39 Notes OT/ANATOMICAL EMBALMER able to take over for ELECTRICAL LINEWORKER as pt sitting on the BSC. Pt's spouse was present throughout session, observation only, declined assessing caregiver trng until saw assist required to mobilized with therapy staff for safety. Cotx with OT. Vitals taken during tx: elevated HR 146 automated but manually 80s, OT notified nursing flucuations. Number of ANATOMICAL EMBALMER Visits 1 Physical Therapy Visit Comments Patient Comments Pt has increased alertness with mobility and expresses willingness to work with therapy. Patient Goals To return home with . Therapy Pain Assessment Pain When Pain Assessed During Mobility Pain Present Pain Present Denied Pain M4 PT-IP Mobility and Gait Start: 12/11/20 09:20 Freq: NEEDED Status: Active Protocol: Document 12/12/20 09:10 SP (Rec: 12/12/20 15:24 SP [id number]) PT-Transfer Assessment Sit to and From Stand Sit to and from Stand Moderate Assistance,Maximum Assistance,2 Person Assistance ,Use of Upper Extremities Equipment Transfer Assistive Device Gait Belt,Front Wheeled Walker Orthotic/Prosthetic Devices or Brace: No Transfers Transfer Destination Chair Transfer Technique Stand Step Pivot Transfer Ability Level of Assist Moderate Assistance,Maximum Assistance,2 Person Assistance ,Use of Upper Extremities Comments Mobility Comments Pt was seated on BSC with ELECTRICAL LINEWORKER and in room when arrived. Pt demonstrated hand and LE tremors pre mobility, cued for slow breaths and relax shoulders, some improvement. Sit>stand from BSC Max x1, Mod x1, max cues for hand placement and assist for [place] repositioning by OT. Pt was able to stand Max A x1 while using BUE heavy WB on FWW, OT assisted pt with pericare and brief mgt. ANATOMICAL EMBALMER gave intermittent cuing for pt quad facilitation into extension of B knees and righting trunk midline L but unable to fully correct, stood approx 1 min before required need to sit due to decreases strength and activity tolerance. Pt sat sBA for 1 min, Sit>stand and SPT Max x1, Mod x1 for trunk support and FWW repositioning 90 deg to R with max cuing for increase foot clearance and step length. Stand>sit into chair Max A x1, Mod A x1 [place] transition hand to chair arm slow descent into chair. Pt rested 2 min, lots of encouragment by and therapists, pt scooted forward Max A x2 once at EO chair, stated I can't do anymore, I am to tired. ANATOMICAL EMBALMER/ OT Max A x2 to scoot back in chair via transfer pad, assist reclining pt's LEs. Pt had call light and all needs in reach before left, in room. Pt's stated I am not going to be able to take care of him myself yet, he still needs to much help but has improved alot since yesterday. Gait Assessment Assistive Devices Assistive Device Gait Belt,Front Wheeled Walker Orthotic/Prosthetic Devices or Brace: No Gait Deviations General Gait Pattern Decreased Stride Length, Decreased Feet Clearance, Festinating,Flexed Trunk, Lateral Trunk Lean,Step-to Gait Factors Limiting Gait Function Factors Limiting Gait Function Abnormal Tonal Influences, Decreased Activity Tolerance, Decreased Strength,Difficulty Following Directions,Poor Balance,Poor Safety Awareness Comments Gait Comments Steps taken only during transfer. Stair Climbing Assessment Comments Stair Climbing Comments Not assessed. No stairs at home. PT-Balance Assessment Sitting Balance and Reactions Static Sitting Balance Ability Fair Dynamic Sitting Balance Ability Poor Standing Balance and Reactions Static Standing Balance Ability Poor Dynamic Standing Balance Ability Poor Device Used FWW M5 PT-IP Objective Assessments Start: 12/11/20 09:20 Freq: NEEDED Status: Active Protocol: Document 12/11/20 10:32 AW (Rec: 12/11/20 12:37 AW [id number]) Orientation Orientation/Cognition Level of Alertness Confusional State Orientation Name,Place Language Function Ability Expressive Aphasia,Hard of Hearing Safety Awareness Decreased Safety Awareness Memory Description Short Term Impaired,Usp Impaired Gross Range of Motion Lower Extremity ROM Assessment Within Functional Limits Strength Lower Extremity Strength Hip 3/5 Knee 3+/5 Muscle Tone Muscle Tone WNL No Comments Muscle Tone Comments Pt has generalized rigidity affecting his mobility M6 PT-IP Treatment Start: 12/11/20 09:20 Freq: NEEDED Status: Active Protocol: Document 12/12/20 09:10 SP (Rec: 12/12/20 15:24 SP [id number]) Physical Therapy Treatment Education Education Provided Safety M7 PT-IP Assessment and Plan Start: 12/11/20 09:20 Freq: NEEDED Status: Active Protocol: Document 12/12/20 09:10 SP (Rec: 12/12/20 15:24 SP [id number]) PT Summary Assessment and Plan Potential Rehabilitation Potential Fair Status of Condition at Evaluation Evolving Summary Impairments ROM,Strength,Balance, Coordination,Sensation,Tone, Cognition,Bed Mobility, Transfers,Gait,Activity Tolerance Progress Towards Goals Progressing Toward Goals,Slow Progress due to Activity Tolerance,Slow Progress - Other Assessment Summary Pt requires Mod Ax1, Max A x1 during sit>stand and stand pivot transfers only able using FWW. Recommending skilled rehab for pt prior to going home. Goals Bed Mobility Goal Minimal Assistance Transfer Goal Minimal Assistance,Front Wheeled Walker,Four Wheeled Walker Gait Goal Minimal Assistance,Front Wheel Walker,Four Wheel Walker Gait Distance 50 Other Goals LTG: imrpove ambulation to 75 feet with 4WW SBA Days to Meet Goals 10 Frequency of Treatment Frequency Of Treatment Once a Day Treatment Plan Physical Therapy Treatment Plan Bed Mobility Training,Transfer Training,Gait Training, Therapeutic Exercise,Balance Retraining,Discharge Planning, Neuromuscular Re-ed, Coordination Retraining Other Recommendations and Next Treatment bed mob, transfers, gait with Focus chair follow as tolerated Precautions Other Precautions falls; seizure precautions Recommendations To Nursing Amount of Assist Needed 2 Person Assist Discharge Recommendations PT Discharge Recommendations SNF Rehab,Home vs SNF Other Discharge Recommendations if home, pt will need and 01/12 assist with all mobility Transportation Needs at Discharge Private Vehicle,Wheelchair/ Cabulance
--- NOTE | 2020-12-12 10:59 | CM.DPNOTE ---
Addendum entered by Elisha Jose 12/12/20 14:21: Keep [facility] updated when pt. is discharged and send DC summary. Elisha Jose CM Asst. Original Note: Faxed referral packet per Viki's request to [facility]. Received fax confirm. Elisha Jose CM Asst.
--- NOTE | 2020-12-12 11:02 | CM.DPC ---
Addendum entered by Cherie Coates R.N. 12/12/20 14:15: Fely at [facility] stated that they have no beds available. Have attempted to update patient's , but patient was having some medical issues. Addendum entered by Cherie oCates R.N. 12/12/20 13:00: Latoya at [facility] called back and indicated that she will go ahead and submit authorization. She also plans on coming to see that patient this afternoon, secondary to his history of Parkinsons/Dementia. Do not yet have a time that she will be here, but will update . Addendum entered by Cherie Coates R.N. 12/12/20 12:33: Called Latoya at [facility], she is currently reviewing. Let her know that patient needs to be discharged tomorrow, for hospitalist wanted to discharge today, but due to weakness, feels she's not sure if she can take care of him. Latoya indicated that she will run this by the team, since he has history of Parkinson's Dementia. Called Fely as well, and let her know that [facility] has referral, but if she can also review in case they don't accept, as an authorization will need to be placed [place]ON[place]AN. Will follow up with both facilities in a couple of hours. Original Note: DCP Cont: Hospitalist, Dr. Noyola, this piano case maker, as well as TERRAZZO WORKERGudelia, met in patient's room. having some grievances regarding his medical care that occurred in the ER. She had concerns about his UTI, as well as Depakote levels. Dr. Noyola was able to speak to , and stated that he would also follow up with neurology with Depakote levels. Discussed discharge planning. Let know that patient is medically ready today. She indicated, I want to see how he does with P.T, before deciding if I can take him home. Also, let her know that patient most likely would not qualify for acute inpatient rehab, as he would need to be part of intense P.T, which therapy team will discuss. After P.T. eval, is aware that at his current level, she can't take care of him. She is hopeful that with another day of therapy, he may improve. She did state that she wants to know if she can appeal discharge, but let her know that under observation status, this can't be appealed. is willing to have go to retirement nursing, if needed. Let her know that facility would need to get an authorization, since patient has [employer] [employer]age. Checked in with Deepthi at [facility], and she indicated that they are not in network, and patient could be responsible for 50% of cost. Checked in with both [facility], and they are within their network. Gave the Medicare Choice list, she really wants private room for patient if possible. Checked in with Latoya at [facility], and indicated, they don't usually put people in private rooms if no medical need, but can look into it. [facility] at [facility] , indicated that they have no private rooms. is requesting to try [facility]. Elisha, intensive care medicine specialist, went ahead and fzxed both [facility], but will need to have Fely hold off on auth if Latoya starts it. Both facilities will review. P: DCP to continue to follow. Plan is for [facility], [facility], possible [facility]. will bring in copies of vaccine cards. Cherie Coates RN/Heat Treat Operator
[2020-12-12] MEDS: DOXYCYCLINE HYCLATE 100 MG TABLET PO (12:13)
--- NOTE | 2020-12-12 13:01 | PC.NURSE ---
Spouse reporting seizure, not much change is seen as pt has constant body tremors when awake all the time. says his seizure is not being able to talk. Pt is having diff speaking. Seizure lasted 15 sec. O2 sat was 96% or greater. VSS. Hospitalist made aware. See new orders. Pt has seizure precautions in place. See new orders. informed of same and agrees with med changed back to his usual.
--- NOTE | 2020-12-12 13:04 | P.PN_ITS ---
Subjective Subjective Date Patient Seen: 12/12/20 Time Patient Seen: 08:00 Interval history: This morning he says he is feeling well and he has no complaints. No pain. this morning witnessed approximately 10 seconds of patient staring off into space and flickering eyelids. Overnight valproate had been decreased due to high level at 129. Spoke with neurology and [facility] and agreed to increase back to home dose. Exam Vital Signs (past 8 hours): - 12/12/20 06:00 12/12/20 07:00 12/12/20 08:00 Temperature 97.0 F L Pulse Rate 76 Respiratory Rate 18 Blood Pressure 146/74 H Pulse Oximetry 97 97 96 12/12/20 11:00 Temperature 97.0 F L Pulse Rate 82 Respiratory Rate 17 Blood Pressure 139/79 Pulse Oximetry 96 Oxygen Delivery Method Room Air Oxygen Flow Rate 0 Narrative Exam Narrative: General: no acute distress HEENT: masked facial expression, mucous membranes are moist. Lungs: clear bilaterally with no wheezes, rhonchi, rales Cardio: S1 & S2 with regular rate and rhythm without murmur, rubs, or gallops, no carotid bruit, no cardiac pulsations present. Abdomen: Soft nontender, nondistended, no organomegaly Musculoskeletal: normal strength bilaterally Skin: Warm dry and intact without rashes, ulcerations or petechiae. Neuro: Alert, oriented to self and knows he is in a hospital. noted bilateral upper extremity tremors Psych: flat affect, altered mental status aphasia Objective Labs Result Diagrams: 12/12/20 08:32 12/12/20 08:32 Labs: Laboratory Results - last 24 hr 12/10/20 12/12/20 12/12/20 20:42 08:32 08:32 WBC 5.4 RBC 4.81 Hgb 17.4 Hct 50.1 MCV 104.2 H MCH 36.2 H MCHC 34.7 RDW 13.6 Plt Count 82 L Sodium 137 Potassium 4.4 Chloride 107 Carbon Dioxide 26 BUN 18 Creatinine 0.92 Estimated GFR > 60.0 BUN/Creatinine Ratio 19.6 Glucose 105 Calcium 9.5 Total Valproic Acid 129 H [facility] Medical History (Updated 12/11/20 @ 05:12 by MARIE Roman) Acute venous embolism and thrombosis of deep veins of upper extremity (04/27/14) 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) Cerebrovascular accident (CVA) Chicken pox 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 Diverticulosis large intestine w/o perforation or abscess w/o bleeding (12/12/10) Encephalitis due to human herpes simplex virus (HSV) Hearing loss Hemorrhoids that prolapse with straining and require manual replacement back inside anal canal Herpes (~1979) Ischemic stroke Measles Mumps Rubella Seizures Seizures Sleep apnea Vision disorder Surgical History Anesthesia History of appendectomy History of hemorrhoidectomy History of nasal surgery No pertinent past surgical history Family History Brother Kidney disease Brother Aneurysm Mother Alzheimer's dementia Father Cancer Social History marital status: household members: spouse lives independently: Yes Smoking Status: Never smoker alcohol intake: former substance use type: does not use Assessment & Plan Assessment & Plan narrative: Mr. Rodrigues was admitted with increasing weakness and confusion found to have a UTI. He has a history of herpetic/autoimmune encephalitis 2015, CVA 2010, venous embolus and thrombosis DVT 2013, Parkinson's, ischemic stroke-middle cerebral artery 05/12/20 at [facility], multiple TIAs, epilepsy, hypertension, hyperlipidemia, diet-controlled diabetes mellitus, hypothyroidism, and obesity. 1. Encephalopathy with history of Parkinson's dementia/stroke/TIAs -patient has positive UA nitrate positive, leuk esterase 2+, bacteria, and WBCs, with urine culture showing staphi epi cfu>100,000, e. coli <10,000 -however patient also has no urinary symptoms, no white count, no fever, and normal procalcitonin -patient from 11/16 with a low CFU at 20-30k with E.coli with no symptoms at that time, no white count, consistent with asymptomatic bactiuria and not diagnostic of UTI, UA at that time showed minimal pyuria, which is clearly not the cause of his infection currently as a different organism has grown in his urine -ceftriaxone 1gm daily initially started, will switch to doxycycline as outpatient -PT, OT eval -have strong suspiscion that much of patient's mental status issues remain his poor baseline brain functioning with clear evidence of encephalomalacia and gliosis and advanced cerebral volume loss and chronic ischemic changes with additional history of parkinsons, seizure disorder, and prior strokes 2. Seizure disorder, chronic, present on admission-well controlled -this morning likely had short episode of focal, absence seizure possibly from uti, less likely from lower depakote as patient only had one dose of 500mg instead of usual 1000mg and last level was 129 -continue patient's 1000 mg of Depakote b.i.d. Vimpat 200mg BID, Zonisamide 300mg QHS -patient placed on seizure precautions, bed side swallow, aspiration precautions, fall precautions -depakote level decreased to 500mg TID overnight, due to level of 129, increased back to 1000mg bid -per his neurologist at [facility] recommend adding carbamazepine 100mg BID, increase weekly by 100mg BID to 400mg BID, monitor for rash and hyponatremia, has interaction with apixaban 3. Parkinson's, acute on chronic, exacerbation, present on admission -continue patient's carbidopa-levodopa. Divalproex 4. History CVA 2010 and ischemic stroke middle central artery May 12, 2020 with seizures, chronic, essential hypertension with left systolic heart failure, ejection fraction< 40%, acute on chronic, present on admission, and diabetes type 2 (diet controlled), chronic, present on admission, induced hyperlipidemia, chronic, present on admission as evidence by history of acute venous embolism and thrombolysis DVT 2013. -continue patients apixaban, atorvastatin 5. 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 q.h.s. 4. Hypertension essential, acute on chronic, present on admission Patient's current BP on admit: 148/69 -continue patient's Lasix 5. Hypothyroidism, acquired, chronic, present on admission control unknown -continue patient's levothyroxine 6. Obesity, as evidence by a BMI of 34.9 down from 35.1, acute on chronic, present on admission -recommended dietary and lifestyle changes with PCP follow-up -consideration will be given to dietary counseling Code status: DNR Surrogate decision maker: Patient's is MCKAY E[facility]OR[facility] PCR: Negative VTE/DVT prophylaxis: patient's apixaban 5 mg b.i.d., and SCDs
[2020-12-12] MEDS: LORazepam 2 MG/ML INJ ×2 (13:42→13:47)
[2020-12-12] MEDS: levETIRAcetam 500 MG in SODIUM CHLORIDE 0.9% 100 ML 420 ML IV (14:00)
--- NOTE | 2020-12-12 14:03 | PC.NURSE ---
Addendum entered by Pawan Hernandez R.N. 12/12/20 14:39: Pt resting comfortably with even/unlabored RR 15. SPO2 94% on RA. No s/s of seizure activity noted at this time. at bedside. Original Note: 1335- placed call light on. Responded to call light. is concerned that pt is having another seizure or perhaps a stroke. On assessment, pt is sitting up in bed, eyes opened, tracking this RNs voice. Pt has a head tremor, which reports as baseline. He is able to make noises in response to some questions but does not articulate words. It is difficult to ascertain if he has a horizontal nystagmus or if he is attempting to track voices of this RN and . He is able to initiate left hand pier hand helper to command. He is able to keep left arm raised without drift. He is unable to pier hand helper with right hand or keep arm raised. He is unable to lift either leg to command or hold either leg up. Pupils are 2mm and equal/round/reactive to light bilaterally. VSS. SPO2 97% on RA. states presentation seems more consistent with seizure activity he has had in the past. Called to hospitalist and reported assessment findings. Hospitalist to bedside. VORB to administer IV ativan and IV keppra. is requesting transfer to for neurology services.
--- NOTE | 2020-12-12 15:17 | DI.CT.S_ITS ---
PROCEDURE: CT HEAD/BRAIN WO CON INDICATIONS: seizure TECHNIQUE: Noncontrast 4.5 mm thick angled axial sections acquired from the foramen magnum to the vertex, with coronal and sagittal reformats. For radiation dose reduction, the following was used: automated exposure control, adjustment of mA and/or kV according to patient size. COMPARISON: [facility], MR, MR STROKE, 11/16/2020, 12:55. [facility], CT, CT HEAD/BRAIN WO CON, 11/16/2020, 4:07. [facility], CT, CT HEAD/BRAIN WO CON, 10/26/2020, 0:12. FINDINGS: Image quality: Excellent. CSF spaces: Basal cisterns are patent. No extra-axial fluid collections. The ventricles are symmetric in size and shape. Brain: Encephalomalacia and gliosis in the left temporal lobe due to prior infarct is redemonstrated. No acute intracranial hemorrhage. Lopez-white matter differentiation is maintained with no CT evidence of acute large territory infarct. No findings of mass effect or midline shift. Skull and face: Calvarium and visualized facial bones appear intact, without suspicious lesions. Sinuses: Visualized sinuses and mastoids are clear. IMPRESSION: No acute intracranial finding. Large area of encephalomalacia and gliosis in the left temporal lobe including the left hippocampal gyrus. This is conceivably related to seizure activity. Seizure protocol MRI could be considered for further evaluation. Dictated by: Félix Steinberg M.D. on 12/12/2020 at 15:33 Approved by: Félix Steinberg M.D. on 12/12/2020 at 15:36
--- NOTE | 2020-12-12 15:18 | DI.MRI.S_ITS ---
PROCEDURE: MR HEAD/BRAIN WO CON INDICATIONS: seizure TECHNIQUE: Non-contrast axial T1 spin echo, axial T2 fast spin echo, sagittal and axial FLAIR, coronal T2 fast spin echo, axial gradient echo, axial diffusion and ADC through the brain. COMPARISON: [facility], CT, CT HEAD/BRAIN WO CON, 12/12/2020, 15:26. [facility], MR, MR HEAD/BRAIN WO CON, 02/03/2019, 9:56. FINDINGS: Image quality: Extensive patient motion artifact. CSF spaces: Ventricles appear symmetric in size and shape. Basal cisterns are patent. No extra-axial fluid collections. Brain: Left temporal lobe encephalomalacia and gliosis secondary to remote infarct. No diffusion weighted abnormalities to indicate acute infarct. Asymmetric deep white matter change, left greater than right, consistent with small vessel ischemic change and probable result from remote left MCA infarct. Skull and face: Calvarial bone marrow is normal in signal. Orbits are normal. Sinuses: Sinuses and mastoids are clear. IMPRESSION: 1. There is extensive patient motion artifact which decreases sensitivity on the study. However, the diffusion-weighted sequence is fairly high quality, and there is no restricted diffusion noted to indicate acute infarct. 2. Sequelae of fairly large remote left MCA distribution infarct. 3. Age-related volume loss and small vessel ischemic change. Dictated by: Michael Rios M.D. on 12/12/2020 at 20:39 Approved by: Michael Rios M.D. on 12/12/2020 at 20:42
--- NOTE | 2020-12-12 17:05 | P.EN_ITS ---
Event Note Date Patient Seen: 12/12/20 Time Patient Seen: 13:40 Event Note: Called by nurse to bedside for change in status. Earlier at approximately 11:30am patient had seizure like activity that self resolved and lasted about 10 seconds. He stared off to space, flickering eyelids per nursing. He was ordered for 500mg valproate. Spoke with his neurologist at who suggested adding carbamazepine and increasing zonisamide. These were ordered, before these were given patient a nonresolving episode which I witnessed where he stared straight ahead, had eyes roll back in his head. He was unresponsive. I was called at 1:39p, and was immediately at bedside and ordered for ativan which in total he received 3mg IV ativan. He also received 500mg IV keppra. He then became sleepy and lethargic and snoring, with eyes no longer rolled back in his head. Discussed with neurology at [facility] who recommended ordering carbamezapine 200mg BID. Continue other medications as is. If this were to reoccur and was not breaking with IV ativan could load with phenytoin 1500mg in order to avoid over sedating medications as he is a DNR/DNI. CT head showed no acute process.
[2020-12-12] MEDS: valACYclovir 500 MG TABLET PO (20:42)
[2020-12-12] MEDS: ATORVASTATIN 20 MG TABLET 40 MG PO (20:43)
[2020-12-12] MEDS: ZONISAMIDE 100 MG CAPSULE 300 MG PO (20:44)
[2020-12-12] MEDS: DIVALPROEX DR 250 MG TABLET 1000 MG PO (20:44)
[2020-12-12] MEDS: APIXABAN 5 MG TABLET TUBE (20:51)
[2020-12-12] MEDS: CEFAZOLIN 1 GM VIAL IV (20:53)
[2020-12-12] MEDS: PANTOPRAZOLE 40 MG VIAL IV (20:54)
[2020-12-12] MEDS: carBAMazepine 200 MG TABLET 50 MG TUBE (20:56)
--- NOTE | 2020-12-12 22:50 | PC.NURSE ---
Assumed care of pt at 1500. Obtuned, unresponsive, to voice. Moans to painful stimuli. NGT ordered to give PO meds. Pt off unit for MRI, return at approx 1930. Pt awakens, able to speak a few words. Bite of applesauce given able to swallow without difficulty. Drinks of water provided. MD notified and NGT not inserted. Meds changed back to PO. Pt asleep at time of HS med administration. Able to waken with moderate stimuli. All meds given without swallow difficulty. Turning for pressure injury prevention protocol. Supportive at bedside.
--- NOTE | 2020-12-12 23:01 | PC.NURSE ---
Assumed care of pt at 1500. Obtunded, unresponsive, to voice. Moans to painful stimuli. NGT ordered to give PO meds. Pt off unit for MRI, return at approx 1930. Pt awakens, able to speak a few words. Bite of applesauce given able to swallow without difficulty. Drinks of water provided. notified and NGT not inserted. Meds changed back to PO. Pt asleep at time of HS med administration. Able to waken with moderate stimuli. All meds given without swallow difficulty. Turning for pressure injury prevention protocol. Supportive at bedside.
[2020-12-13] VITALS (14 sets, daily range): BP systolic 120–148; BP diastolic 66–88; PULSE 73–83; RESP 14–17; TEMP 35.7–36.3; O2SAT 95–99
[2020-12-13] MEDS: SODIUM CHLORIDE 0.9% FLUSH 10 ML IV ×4 (03:59→23:27)
[2020-12-13] MEDS: CEFAZOLIN 1 GM VIAL IV ×3 (04:00→19:55)
[2020-12-13 04:48] LABS: Hematocrit 48.8 % (41-53); Hemoglobin 16.6 g/dL (13.5-17.5); Mean Corpuscular Hemoglobin 35.9 PG (26-34); Mean Corpuscular Volume 105.7 fL (80-100); Platelet Count 86 X10^3/uL (150-400); Red Blood Cell Count 4.62 X10^6/uL (4.5-5.9); Red Cell Distribution Width 13.5 % (11.6-14.8); White Blood Cell Count 6.5 X10^3/uL (4.5-11.0)
[2020-12-13 04:58] LABS: BUN Creatinine Ratio 19.1 (6-22); Blood Urea Nitrogen 18 mg/dL (9-20); Calcium 8.9 mg/dL (8.4-10.2); Carbon Dioxide 24 mmol/L (22-32); Chloride 107 mmol/L (98-107); Estimated Glomerular Filt Rate > 60.0 mL/min (>60); Glucose 115 mg/dL (80-110); HEMOLYSIS 30 (0-50); Potassium 4.2 mmol/L (3.4-5.1); Sodium 137 mmol/L (137-145)
[2020-12-13] MEDS: LEVOTHYROXINE 125 MCG TABLET PO (06:29)
[2020-12-13] MEDS: LACOSAMIDE 200 MG 200 EACH PO (09:03)
[2020-12-13] MEDS: CARBIDOPA LEVODOPA 3 EACH PO ×2 (09:03→14:46)
[2020-12-13] MEDS: DOCUSATE 100 MG CAPSULE PO (09:05)
[2020-12-13] MEDS: APIXABAN 5 MG TABLET TUBE (09:06)
[2020-12-13] MEDS: DIVALPROEX DR 250 MG TABLET 1000 MG PO (09:06)
[2020-12-13] MEDS: carBAMazepine XR 100 MG TAB PO (09:18)
[2020-12-13] MEDS: ACETAMINOPHEN 325 MG TABLET 650 MG PO (09:19)
--- NOTE | 2020-12-13 10:30 | PT-IP ANOTE ---
Pt unable to follow directions or respond appropriately to questions. Pt with decreased alertness after seizure yesterday. Will check back with pt tomorrow.
--- NOTE | 2020-12-13 10:54 | OT.IP.TRT ---
Current Diagnoses Epilepsy, unspecified, not intractable, without status epilepticus (12/12/20) Occupational Therapy Treatment Note M2 OT-IP Current Condition Start: 12/11/20 13:39 Freq: Status: Active Protocol: Document 12/11/20 13:39 [facility] (Rec: 12/11/20 13:57 [facility] [id number]) Occupational Therapy Current Condition Current Condition Evaluation Date 12/11/20 Treatment Diagnosis UTI, dehydration, decreased mobility Diagnosis Onset Date 12/10/20 M3 OT- IP Subjective and Pain Start: 12/11/20 13:39 Freq: Status: Active Protocol: Document 12/13/20 11:16 [facility] (Rec: 12/13/20 11:25 [facility] [id number]) OT- Subjective Occupational Therapy Visit Type Type Treatment Note Visit Start Time 10:18 Visit Stop Time 10:54 Total Visit Minutes 36 Occupational Therapy Visit Comments Patient Comments Pt's in the room. Pt at times unresponsive, drowsy, and having trouble to follow commands. DRILL PRESS SET UP OPERATOR RADIAL in during OT session as pt needing extensive assist for needs. Patient/Caregiver Goals To go home. M5 OT- IP IADL's Start: 12/11/20 13:39 Freq: Status: Active Protocol: Document 12/11/20 13:39 [facility] (Rec: 12/11/20 13:57 [facility] [id number]) OT-Instrumental Activities of Daily Living Home Safety Awareness Awareness of Need for Assistance at Home Decreased Awareness Ability to Problem Solve Emergency Unable to Problem Solve Situations Medication Management Medication Management Caregiver Administers Money Management Money Management Caregiver Provides Assistance Meal Preparation Meal Preparation Caregiver Provides Assist Custody Officer Custody Officer Caregiver Provides Assist M6 OT- IP Functional Cognition Start: 12/11/20 13:39 Freq: Status: Active Protocol: Document 12/13/20 11:16 [facility] (Rec: 12/13/20 11:25 [facility] [id number]) Cognitive Factors Limiting Selfcare Function Cognitive Ability Level of Alertness Drowsy Cognitive Comments Cognitive Assessment Comments Pt unresponsive at times, drowsy, and had had ativan earlier and seizure activity yesterday per chart. M7 OT- IP Mobility and Balance Start: 12/11/20 13:39 Freq: Status: Active Protocol: Document 12/13/20 11:16 [facility] (Rec: 12/13/20 11:25 [facility] [id number]) OT- Bed Mobility Assessment Rolling Type of Rolling Roll to Right Level of Assistance Maximum Assistance,Total Assistance,2 Person Assistance Supine to Sit Supine to Sit Assist Total Assistance,2 Person Assistance Sit to Supine Sit to Supine Assist Total Assistance,2 Person Assistance OT-Transfer Assessment Comments Mobility Comments Pt very drowsy and unresponsive at times and today dependent x2 for bed mobility needs and use of luisito lift to transfer to another hospital bed. OT- Balance Assessment Sitting Balance and Reactions Static Sitting Balance Ability Poor Dynamic Sitting Balance Ability Poor Comments Other Balance Tests/Deviations/Treatment Pt needing from MODA x 1 to : MAX AX 1 to sit on the edge of the bed today. Opted not safe for transfer with FWW as pt not responding to commmand and just had seizure yesterday and ativan earlier. Opted for change of brief in bed with nursing aid. M9 OT- IP Assessment and Plan Start: 12/11/20 13:39 Freq: Status: Active Protocol: Document 12/13/20 11:16 [facility] (Rec: 12/13/20 11:25 [facility] [id number]) OT Summary Assessment and Plan Potential Rehabilitation Potential Fair Analytic Complexity at Evaluation Moderate Summary OT Impairments Strength,Balance,Coordination, Functional Cognition, Functional Mobility,Self- Feeding,Grooming,Dressing, Toileting,Bathing,Toilet Transfers,Shower Transfers, Activity Tolerance Progress Towards Goals Slow Progress due to Medical Issues,Slow Progress due to Activity Tolerance,Slow Progress due to Cognition Assessment Summary Pt mostly unresponsive to commands today, decreased balance and activity tolerance as yesterday per chart pt had a seizure and also had been on ativan. Still recommend skilled rehab when medically stable. Goals Self-Feeding Goal Standby Assistance Grooming Goal Standby Assistance Dressing Goal Moderate Assistance Toilet Transfer Goal Minimal Assistance Shower Transfer Goal Minimal Assistance Patient/Caregiver Education Goal Caregiver Independent Assisting Patient Days to Meet Goals 30 Frequency of Treatment Frequency Of Treatment Once a Day Treatment Plan OT Treatment Plan ADL Training,Functional Cognition Training,Functional Mobility,Patient/Family Education,Discharge Planning Other Treatment Recommendations and Next Pt to transfer to [facility] with MOD Treatment Focus A X2 with FWW. Discharge Recommendations OT Discharge Recommendations SNF Rehab Transportation Needs at Discharge Wheelchair/Cabulance
--- NOTE | 2020-12-13 11:10 | CM.DPC ---
Addendum entered by Cherie Coates R.N. 12/13/20 15:13: Alexandra, patient's , is stating, she would really like [facility]. Let her know that patient is out of network of insurance, and can possibly have to pay 50% of cost of stay. Alexandra indicated that he has disability, and gets up to around $4,000 a month. Went ahead and called Deepthi at [facility] and left her a message. She would been to review first, before accepting. Latoya at [facility] has already initiated authorization. Let patient's that as soon as this window caser hears back from October, will update her, and facility will also have to accept patient as well. For now, will keep referral to [facility] until hearing back from October to see if they would be able to accept. Addendum entered by Cherie Coates R.N. 12/13/20 14:41: Met with patient and , Alexandra, to discuss discharge planning, and present condition. Gave Alexandra Daphnie Gresham's phone number in risk management. stated she really doesn't want to complain, just wants someone to talk to. She has had concerns about his condition, and medications as well. Brought her in a [employer] book as well with agencies in caregivers. She asked about having a list of personal caregivers, and let her know that this [facility] does not have this, only agencies. Discussed [facility], and let her know that [facility] has no beds. Also, let her know that authorization is still pending. She is still hopeful for a private room. Let her know that private rooms there are mainly for those with infections, but encouraged her to speak to [facility] about this. Gave her Latoya's phone number. Also, let her know that Latoya is to be coming this afternoon to see patient, and may contact her as well. does not want patient to leave until he is medically stable. Original Note: DCP Cont: Patient has been sleeping, he had episodes of seizure activity yesterday pm. and some of his medications have been adjusted. is not currently in the room. Spoke to Latoya at [facility], and she indicated that she was not able to see the patient yesterday, for he was having his MRI. She indicated that she would like to come by this pm to see patient. She has not yet received the authorization from his [employer]. P: DCP to continue to follow. At this time, [facility] is the plan, pending acceptance and authorization from his insurance. Cherie Coates RN/Agricultural Equipment Design Engineer
--- NOTE | 2020-12-13 11:31 | P.PN_ITS ---
Subjective Subjective Date Patient Seen: 12/13/20 Time Patient Seen: 08:00 Interval history: Overnight he woke up and started to speak slightly. He was able to swallow all his pills successfully. Exam Vital Signs (past 8 hours): - 12/13/20 04:45 12/13/20 07:45 12/13/20 08:00 Temperature 97.0 F L 97.0 F L Pulse Rate 82 73 Respiratory Rate 14 17 Blood Pressure 139/79 125/74 Pulse Oximetry 98 98 95 12/13/20 08:30 Temperature Pulse Rate Respiratory Rate Blood Pressure Pulse Oximetry 96 Oxygen Delivery Method Room Air Oxygen Flow Rate 0 Narrative Exam Narrative: General: no acute distress HEENT: masked facial expression, mucous membranes are moist. Lungs: clear bilaterally with no wheezes, rhonchi, rales Cardio: S1 & S2 with regular rate and rhythm without murmur Abdomen: Soft nontender, nondistended, no organomegaly Musculoskeletal: normal strength bilaterally Skin: Warm dry and intact without rashes, ulcerations or petechiae. Neuro: Alert, oriented to self and knows he is in a hospital. noted bilateral upper extremity tremors Psych: flat affect, altered mental status aphasia Objective Labs Result Diagrams: 12/13/20 04:30 12/13/20 04:30 Labs: Laboratory Results - last 24 hr 12/13/20 12/13/20 04:30 04:30 WBC 6.5 RBC 4.62 Hgb 16.6 Hct 48.8 MCV 105.7 H MCH 35.9 H MCHC 34.0 RDW 13.5 Plt Count 86 L Sodium 137 Potassium 4.2 Chloride 107 Carbon Dioxide 24 BUN 18 Creatinine 0.94 Estimated GFR > 60.0 BUN/Creatinine Ratio 19.1 Glucose 115 H Calcium 8.9 [facility] History (Updated 12/11/20 @ 05:12 by DAIJA RomanP-) Acute venous embolism and thrombosis of deep veins of upper extremity (04/27/14) 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) Cerebrovascular accident (CVA) Chicken pox 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 Diverticulosis large intestine w/o perforation or abscess w/o bleeding (12/12/10) Encephalitis due to human herpes simplex virus (HSV) Hearing loss Hemorrhoids that prolapse with straining and require manual replacement back inside anal canal Herpes (~1979) Ischemic stroke Measles Mumps Rubella Seizures Seizures Sleep apnea Vision disorder Surgical History Anesthesia History of appendectomy History of hemorrhoidectomy History of nasal surgery No pertinent past surgical history Family History Brother Kidney disease Brother Aneurysm Mother Alzheimer's dementia Father Cancer Social History marital status: household members: spouse lives independently: Yes Smoking Status: Never smoker alcohol intake: former substance use type: does not use Assessment & Plan Assessment & Plan narrative: Mr. Rodrigues was admitted with increasing weakness and confusion found to have a UTI. He has a history of herpetic/autoimmune encephalitis 2015, CVA 2010, venous embolus and thrombosis DVT 2013, Parkinson's, ischemic stroke-middle cerebral artery 05/12/20 at [facility], multiple TIAs, epilepsy, hypertension, hyperlipidemia, diet-controlled diabetes mellitus, hypothyroidism, and obesity. 1. Acute Encephalopathy with history of Parkinson's dementia/stroke/TIAs -patient has positive UA nitrate positive, leuk esterase 2+, bacteria, and WBCs, with urine culture showing staphi epi cfu>100,000, e. coli <10,000 -however patient also has no urinary symptoms, no white count, no fever, and normal procalcitonin -urine from 11/16 with a low CFU at 20-30k with E.coli with no symptoms at that time, no white count, consistent with asymptomatic bactiuria and not diagnostic of UTI, UA at that time showed minimal pyuria, which is clearly not the cause of his infection currently as a different organism has grown in his urine -ceftriaxone 1gm daily initially started, switched to cefazolin based on cultures, avoiding fluoroquinolone as can affect seizure threshold -PT, OT eval -have strong suspiscion that much of patient's mental status issues remain his poor baseline brain functioning with clear evidence of encephalomalacia and gliosis and advanced cerebral volume loss and chronic ischemic changes with additional history of parkinsons, seizure disorder, and prior strokes -patient had seizure on 12/12 requiring 3mg IV ativan and IV keppra to break seizure, afterwards has been slowly waking up but is clearly more encephalopath ic after that episode 2. Seizure disorder, chronic, present on admission-well controlled -on 12/12 had two episodes of seizures one that self resolved after a few seconds and the second a complex partial seizure where he stared ahead, eyes rolled back, could not move his right side of the body, this is all consistent with seizure focus on left side of brain which contains large old stroke, he has not had tonic clonic seizure here -likely had seizure from combination of depakote dose, uti, and possible medication, or combination of the three, per his neurologist patient is extremely prone to epileptic activity -patient depakote level 129, per neurologist, do not follow level to titrate dose, only titrate depakote based on clinical evidence of toxicity -continue patient's 1000 mg of Depakote b.i.d. Vimpat 200mg BID, Zonisamide 300mg QHS -patient placed on seizure precautions, bed side swallow, aspiration precautions, fall precautions -per his neurologist at [facility] recommend adding carbamazepine 100mg BID, increase weekly by 100mg BID to 400mg BID, monitor for rash and hyponatremia, has interaction with apixaban to lower apixaban efficacy -per neurology at careful with benzos in setting of complex partial seizure, and could consider letting patient break on own if it is clear seizure is NOT tonic clonic -have discussed with that patient will likely continue to decline given large size of old storke, and concurrent history of encephalitis and parkinsons, and that with age likely will continue to have poorer brain function 3. Parkinson's, acute on chronic, exacerbation, present on admission -continue patient's carbidopa-levodopa 4. History CVA 2010 and ischemic stroke middle central artery May 12, 2020 with seizures, chronic, essential hypertension with left systolic heart failure, ejection fraction< 40%, acute on chronic, present on admission, and diabetes type 2 (diet controlled), chronic, present on admission, induced hyperlipidemia, chronic, present on admission as evidence by history of acute venous embolism and thrombolysis DVT 2013. -continue patients apixaban, atorvastatin 5. 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 q.h.s. 4. Hypertension essential, acute on chronic, present on admission Patient's current BP on admit: 148/69 -continue patient's Lasix 5. Hypothyroidism, acquired, chronic, present on admission control unknown -continue patient's levothyroxine 6. Obesity, as evidence by a BMI of 34.9 down from 35.1, acute on chronic, present on admission -recommended dietary and lifestyle changes with PCP follow-up -consideration will be given to dietary counseling 7. History of VTE -on apixaban Code status: DNR Surrogate decision maker: Patient's is DPNORA ELLSWORTH PCR: Negative VTE/DVT prophylaxis: patient's apixaban 5 mg b.i.d., and SCDs
--- NOTE | 2020-12-13 12:00 | PT.IPTN ---
Current Diagnoses Epilepsy, unspecified, not intractable, without status epilepticus (12/12/20) Physical Therapy Treatment Note M2 PT-IP Current Condition Start: 12/11/20 09:20 Freq: NEEDED Status: Active Protocol: Document 12/11/20 10:32 AW (Rec: 12/11/20 12:27 AW [id number]) Physical Therapy Current Condition Current Condition Evaluation Date 12/11/20 Treatment Diagnosis UTI, PD, weakness; difficulty in walking Onset Date 2 weeks Precautions Other Precautions falls M3 PT-IP Subjective Start: 12/11/20 09:20 Freq: NEEDED Status: Active Protocol: Document 12/13/20 12:00 AB (Rec: 12/13/20 12:50 AB [id number]) Subjective Physical Therapy Visit Type Type Treatment Note Visit Start Time 12:00 Visit Stop Time 12:40 Total Visit Minutes 40 Number of GRADUATE RN Visits 0 Physical Therapy Visit Comments Patient Comments agreed to do PT; requires increase time to answer questions but is alert M4 PT-IP Mobility and Gait Start: 12/11/20 09:20 Freq: NEEDED Status: Active Protocol: Document 12/13/20 12:00 AB (Rec: 12/13/20 12:50 AB [id number]) PT-Bed Mobility Assessment Supine to Sit Supine to Sit Maximum Assistance,2 Person Assistance,Head of Bed Elevated Scooting Scooting to Edge of Bed Maximum Assistance PT-Transfer Assessment Sit to and From Stand Sit to and from Stand Maximum Assistance,2 Person Assistance,Use of Upper Extremities Equipment Transfer Assistive Device Gait Belt,Front Wheeled Walker Orthotic/Prosthetic Devices or Brace: No Transfers Transfer Destination Chair Transfer Technique Stand Step Pivot Transfer Ability Level of Assist Maximum Assistance,2 Person Assistance,Use of Upper Extremities Comments Mobility Comments Pt is more alert and agreed to do PT. (+) resting tremors truncal/ UE. completed supine to sit max A and cues with HOB elevated. able to assist with LE movement. pt able to sit on EOB SBA to CGA. completed sit to stand max A x 2 and cues and completed step transfer using FWW max A x 2 and max cues. increase rigidity requiring assist with BLE elevation to be able to take steps to transfer and also assist with maneuvering FWW. positioned pt on the chair. call light and table placed within reach. M5 PT-IP Objective Assessments Start: 12/11/20 09:20 Freq: NEEDED Status: Active Protocol: Document 12/11/20 10:32 AW (Rec: 12/11/20 12:37 AW [id number]) Orientation Orientation/Cognition Level of Alertness Confusional State Orientation Name,Place Language Function Ability Expressive Aphasia,Hard of Hearing Safety Awareness Decreased Safety Awareness Memory Description Short Term Impaired,Jail Impaired Gross Range of Motion Lower Extremity ROM Assessment Within Functional Limits Strength Lower Extremity Strength Hip 3/5 Knee 3+/5 Muscle Tone Muscle Tone WNL No Comments Muscle Tone Comments Pt has generalized rigidity affecting his mobility M6 PT-IP Treatment Start: 12/11/20 09:20 Freq: NEEDED Status: Active Protocol: Document 12/13/20 12:00 AB (Rec: 12/13/20 12:50 AB [id number]) Physical Therapy Treatment Education Education Provided Safety M7 PT-IP Assessment and Plan Start: 12/11/20 09:20 Freq: NEEDED Status: Active Protocol: Document 12/13/20 12:00 AB (Rec: 12/13/20 12:50 AB [id number]) PT Summary Assessment and Plan Potential Rehabilitation Potential Fair Summary Impairments Pain,ROM,Strength,Balance, Coordination,Sensation,Tone, Cognition,Bed Mobility, Transfers,Gait,Activity Tolerance Progress Towards Goals Slow Progress due to Medical Issues Assessment Summary pt requiring max A x 2 with mobility using FWW. requires increase time to respond and complete task. pt will require SNF rehab to improve strength and mobility. Goals Bed Mobility Goal Minimal Assistance Transfer Goal Minimal Assistance,Front Wheeled Walker,Four Wheeled Walker Gait Goal Minimal Assistance,Front Wheel Walker,Four Wheel Walker Gait Distance 50 Other Goals LTG: imrpove ambulation to 75 feet with 4WW SBA Days to Meet Goals 10 Frequency of Treatment Frequency Of Treatment Once a Day Treatment Plan Physical Therapy Treatment Plan Bed Mobility Training,Transfer Training,Gait Training, Therapeutic Exercise,Balance Retraining,Discharge Planning, Neuromuscular Re-ed, Coordination Retraining Precautions Other Precautions falls; seizure precautions Recommendations To Nursing Amount of Assist Needed Mechanical Lift Discharge Recommendations PT Discharge Recommendations SNF Rehab Transportation Needs at Discharge Private Vehicle,Wheelchair/ Cabulance
[2020-12-13] MEDS: FINASTERIDE 5 MG TABLET PO (16:54)
--- NOTE | 2020-12-13 18:06 | PC.NURSE ---
4615 Pt had a brief episode of loss of consciousness, monitor showed complete block lasting approx 5 seconds, then pt awake but disoriented and non verbal. stated she saw his eyes roll back prior to the seizure. Pacer pads applied, made aware and discussed options with the pt's . She stated she desired no pacemaker or no intervention and to let occur naturally if it happened.
[2020-12-13] MEDS: PANTOPRAZOLE 40 MG VIAL IV (20:11)
[2020-12-13 21:57] LABS: Alanine Aminotransferase 6 IU/L (<50); Albumin 3.3 g/dL (3.5-5.0); Albumin Globulin Ratio 1.2 (1.0-2.8); Alkaline Phosphatase 61 U/L (38-126); Aspartate Aminotransferase 16 IU/L (17-59); Bilirubin Total 0.5 mg/dL (0.2-1.3); Blood Urea Nitrogen 21 mg/dL (9-20); Calcium 9.1 mg/dL (8.4-10.2); Carbon Dioxide 25 mmol/L (22-32); Chloride 106 mmol/L (98-107); Estimated Glomerular Filt Rate > 60.0 mL/min (>60); Globulin 2.7 g/dL (1.7-4.1); Glucose 119 mg/dL (80-110); HEMOLYSIS 24 (0-50); Sodium 138 mmol/L (137-145)
[2020-12-13 22:09] LABS: Troponin I < 0.012 ng/mL (0.01-0.034)
--- NOTE | 2020-12-13 22:31 | DI.RAD.S_ITS ---
PROCEDURE: XR CHEST 1V INDICATIONS: ng tube placement TECHNIQUE: One view of the chest was acquired. COMPARISON: [facility], CR, XR CHEST 1V, 12/10/2020, 14:27. [facility], CR, XR CHEST 1V, 10/26/2020, 0:11. FINDINGS: Surgical changes and devices: Tube extends into the gastric cardia.. Lungs and pleura: Lungs are clear. No pleural effusions or pneumothorax. Mediastinum: Mediastinal contours appear normal. Heart size is normal. Bones and chest wall: No suspicious bony lesions. Overlying soft tissues appear unremarkable. IMPRESSION: Tube tip within the gastric cardia. Dictated by: Kelvin Hansen M.D. on 12/14/2020 at 9:48 Approved by: Kelvin Hansen M.D. on 12/14/2020 at 9:55
[2020-12-13 22:38] LABS: TSH w/ Reflex to FT4 3.46 uIU/mL (0.47-4.68)
--- NOTE | 2020-12-13 23:13 | DI.RAD.S_ITS ---
PROCEDURE: XR ABDOMEN 1V INDICATIONS: confirm NG tube placement TECHNIQUE: One view of the abdomen acquired. COMPARISON: [facility], CR, XR ABDOMEN 1V, 12/14/2020, 0:07. [facility], CR, XR CHEST 1V, 12/13/2020, 22:36. FINDINGS: Surgical changes and devices: Tube tip extends towards the gastric antrum.. Bowel: Bowel gas pattern is normal. Soft tissues: No suspicious abdominal calcifications. Visualized solid organ contours appear normal in size. Bones: No suspicious bony lesions. IMPRESSION: Tube tip virtually at the gastric antrum. Dictated by: Kelvin Hansen M.D. on 12/14/2020 at 9:56 Approved by: Kelvin Hansen M.D. on 12/14/2020 at 9:56
--- NOTE | 2020-12-13 23:24 | PC.NURSE ---
[id number] Gold, he requested NG tube placement for med delivery. #[id number]. NG inserted in r nare and cxr requested. Pharmcy notified re med change. at bedside.
[2020-12-13] MEDS: VALPROIC ACID 500 MG in DEXTROSE 5 % IN WATER 50 ML 55 ML IV (23:25)
[2020-12-13] MEDS: SODIUM CHLORIDE 0.9% 250 ML 21 ML IV (23:27)
--- NOTE | 2020-12-13 23:49 | DI.RAD.S_ITS ---
PROCEDURE: XR ABDOMEN 1V INDICATIONS: Repeat for NG tube placement TECHNIQUE: One view of the abdomen acquired. COMPARISON: [facility], CR, XR ABDOMEN 1V, 12/13/2020, 23:18. FINDINGS: Surgical changes and devices: Enteric tube tip projects over the proximal stomach. The side port projects in the region of the gastroesophageal junction. The tube has been pulled back compared to yesterday evening. Bowel: No significant gaseous distension of the stomach. No dilated loops of bowel are identified. There is a relative paucity of small bowel gas which limits evaluation. Soft tissues: No suspicious abdominal calcifications. Visualized solid organ contours appear normal in size. Bones: No suspicious bony lesions. Suspect mild scoliosis. Lumbar spine osteophytes. IMPRESSION: Enteric tube tip projects at the proximal stomach. The catheter has been pulled back compared to yesterday evening. Recommended advancing the enteric tube further into the stomach for more optimal positioning. This report is concordant with the overnight preliminary interpretation. Dictated by: Adama Irving M.D. on 12/14/2020 at 8:05 Approved by: Adama Irving M.D. on 12/14/2020 at 8:09
[2020-12-14] MEDS: APIXABAN 5 MG TABLET TUBE ×2 (00:31→11:22)
[2020-12-14] MEDS: ATORVASTATIN 20 MG TABLET 40 MG TUBE (00:32)
[2020-12-14] MEDS: valACYclovir 500 MG TABLET TUBE (00:33)
[2020-12-14] MEDS: ZONISAMIDE 100 MG CAPSULE 300 MG TUBE (00:33)
[2020-12-14] MEDS: carBAMazepine 200 MG TABLET 50 MG TUBE ×3 (00:33→14:47)
[2020-12-14] MEDS: CARBIDOPA LEVODOPA 3 EACH TUBE ×2 (00:35→14:46)
--- NOTE | 2020-12-14 02:42 | PC.NURSE ---
Patient is alert but minimally responsive verbally. What he does say is not usually understandable but can answer yes/no questions. Tremoring noted in bilateral UE and head. Breath sounds diminished but CTA with RA sat of 96%. HRR with elevated BP of 148/88. Telemetry reading was SR w/1st degree AVB + BBB. BT hypoactive and has not had a BM since 12/09. Is voiding but incontinent of urine. Needing assistance to reposition q2h. Wearing bilateral calf SCD's. NG placed on previous shift in order to administer medications. Patient had to have tube pulled back twice and then x-ray'ed to verify placement after which patient more anxious/restless. Now has developed intermittent moist sounding cough although lungs still sound CTA. Denies pain. Fall risk score is high and bed alarm is activated. Seizure pads on bed. rooming in.
[2020-12-14 03:23] VITALS: BP 153/84; PULSE 89; RESP 18; TEMP 36.2; O2SAT 95
[2020-12-14] MEDS: SODIUM CHLORIDE 0.9% FLUSH 10 ML IV ×3 (04:21→20:37)
[2020-12-14] MEDS: CEFAZOLIN 1 GM VIAL IV ×3 (04:21→20:46)
[2020-12-14] MEDS: VALPROIC ACID 500 MG in DEXTROSE 5 % IN WATER 50 ML 55 ML IV ×2 (04:21→11:22)
[2020-12-14 05:08] LABS: Hematocrit 48.9 % (41-53); Hemoglobin 16.9 g/dL (13.5-17.5); Mean Corpuscular HGB Conc 34.5 % (30-36); Mean Corpuscular Hemoglobin 36.1 PG (26-34); Mean Corpuscular Volume 104.6 fL (80-100); Platelet Count 104 X10^3/uL (150-400); Red Blood Cell Count 4.67 X10^6/uL (4.5-5.9); Red Cell Distribution Width 13.4 % (11.6-14.8); White Blood Cell Count 6.4 X10^3/uL (4.5-11.0)
[2020-12-14 05:16] LABS: BUN Creatinine Ratio 21.3 (6-22); Blood Urea Nitrogen 19 mg/dL (9-20); Carbon Dioxide 23 mmol/L (22-32); Chloride 105 mmol/L (98-107); Estimated Glomerular Filt Rate > 60.0 mL/min (>60); Glucose 119 mg/dL (80-110); HEMOLYSIS 54 (0-50); Potassium 4.1 mmol/L (3.4-5.1); Sodium 137 mmol/L (137-145)
[2020-12-14] MEDS: LEVOTHYROXINE 125 MCG TABLET TUBE (05:46)
--- NOTE | 2020-12-14 08:36 | CM.DPC ---
Addendum entered by Azucena Acevedo LPN 12/14/20 11:04: Dr. Farfan has now discussed POC options with Alexandra. (a palliative care consultation was planned but at this time this service is no longer available). Outcome: [facility] information visit and [employer]PA[employer] to see pt for ? swallow ability. Met now with Alexandra in followup. She does confirm above and says her goal would be to care for her at home if Hospice is elected. She has some caregiver assist and ability to increase this. Referral is given now to [facility] who will be contacting Alexandra to proceed with the visit. Clinical notes are faxed. (re snf: Alexandra says today that [facility] is not an option as she was not pleased with the staffing rate. She confirmed that Latoya met with her yesterday. Latoya did confirm by phone earlier today that pt's overall care needs were beyond the ability at this time of their snf care team members and did decline to proceed with the referral process). Addendum entered by Azucena Acevedo LPN 12/14/20 08:55: Noted Dr. Eckert's addendum to his progress note of yesterday and the continued complex medical issues for this pt. Dr. Farfan is on today as hospitalist. Will plan to discuss further in Team Rounds so have a clearer idea of how to assist in the dc planning piece of this case. Original Note: DCP: continued: Case reviewed for last few days and followed up on DCP options. Received a vm from October/, stating that they would be unable to accept pt as currently cannot meet his needs. Will update pt's Alexandra. Will check in with Latoya/LILLI to see where the referral stands as it looks like she planned to see pt yesterday.
--- NOTE | 2020-12-14 10:54 | OT.IPNOTE ---
Per Hospitalist hold therapy for pt today as unable to take his seizure medications. To check on pt tomorrow to see if pt is appropriate to be seen.
[2020-12-14 11:12] VITALS: BP 131/85; PULSE 88; RESP 18; TEMP 36.8; O2SAT 96
--- NOTE | 2020-12-14 11:14 | PM.PN.1 ---
Subjective Subjective Date Patient Seen: 12/14/20 Time Patient Seen: 11:14 Interval history: Patient with worsened speech, somnolent, unable to tell if following commands. He has worsened tremor this morning. There are no further recommendations per neurology at for possible seizure control. Discussed goals of care with spouse at bedside, does not wish for feeding tube placement given significant surgical risks. Would like speech therapy evaluation today to determine his ability to eat, interested in hospice consultation. Unfortunately palliative care provider services no longer available at [facility]. Exam Vital Signs (past 8 hours): - 12/14/20 03:23 Temperature 97.2 F L Pulse Rate 89 Respiratory Rate 18 Blood Pressure 153/84 H Pulse Oximetry 95 Oxygen Delivery Method Room Air Oxygen Flow Rate 0 Narrative Exam Narrative: General: no acute distress HEENT: masked facial expression, mucous membranes are moist. Lungs: clear bilaterally with no wheezes, rhonchi, rales Cardio: S1 & S2 with regular rate and rhythm without murmur Abdomen: Soft nontender, nondistended, no organomegaly Musculoskeletal: normal strength bilaterally Skin: Warm dry and intact without rashes, ulcerations or petechiae. Neuro: alert, did not follow simple commands, moans incomprehensibly. Psych: unable to assess. Objective Labs Result Diagrams: 12/14/20 04:40 12/14/20 04:40 Labs: Laboratory Results - last 24 hr 12/13/20 12/13/20 12/13/20 21:40 21:40 21:40 WBC RBC Hgb Hct MCV MCH MCHC RDW Plt Count Sodium 138 Potassium 4.0 Chloride 106 Carbon Dioxide 25 BUN 21 H Creatinine 1.00 Estimated GFR > 60.0 BUN/Creatinine Ratio 21.0 Glucose 119 H Calcium 9.1 Total Bilirubin 0.5 AST 16 L ALT 6 Alkaline Phosphatase 61 Troponin I < 0.012 Total Protein 6.0 L Albumin 3.3 L Globulin 2.7 Albumin/Globulin Ratio 1.2 TSH 3.46 12/14/20 12/14/20 04:40 04:40 WBC 6.4 RBC 4.67 Hgb 16.9 Hct 48.9 MCV 104.6 H MCH 36.1 H MCHC 34.5 RDW 13.4 Plt Count 104 L Sodium 137 Potassium 4.1 Chloride 105 Carbon Dioxide 23 BUN 19 Creatinine 0.89 Estimated GFR > 60.0 BUN/Creatinine Ratio 21.3 Glucose 119 H Calcium 9.0 Total Bilirubin AST ALT Alkaline Phosphatase Troponin I Total Protein Albumin Globulin Albumin/Globulin Ratio [facility] Medical History (Updated 12/11/20 @ 05:12 [facility] Acute venous embolism and thrombosis of deep veins of upper extremity (04/27/14) 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) Cerebrovascular accident (CVA) Chicken pox 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 Diverticulosis large intestine w/o perforation or abscess w/o bleeding (12/12/10) Encephalitis due to human herpes simplex virus (HSV) Hearing loss Hemorrhoids that prolapse with straining and require manual replacement back inside anal canal Herpes (~1979) Ischemic stroke Measles Mumps Rubella Seizures Seizures Sleep apnea Vision disorder Surgical History Anesthesia History of appendectomy History of hemorrhoidectomy History of nasal surgery No pertinent past surgical history Family History Brother Kidney disease Brother Aneurysm Mother Alzheimer's dementia Father Cancer Social History marital status: household members: spouse lives independently: Yes Smoking Status: Never smoker alcohol intake: former substance use type: does not use Assessment & Plan Assessment & Plan narrative: Mr. Rodrigues was admitted with increasing weakness and confusion found to have a UTI. He has a history of herpetic/autoimmune encephalitis 2015, CVA 2010, venous embolus and thrombosis DVT 2013, Parkinson's, ischemic stroke-middle cerebral artery 05/12/20 at [facility], multiple TIAs, epilepsy, hypertension, hyperlipidemia, diet-controlled diabetes mellitus, hypothyroidism, and obesity. Now with progression of encephalopathy, likely multifactorial in etiology with worsening possible seizure disorder and/or parkinson's disease. Currently involved in goals of care discussions. 1. Acute Encephalopathy with history of Parkinson's dementia/stroke/TIAs -patient has positive UA nitrate positive, leuk esterase 2+, bacteria, and WBCs, with urine culture showing staphi epi cfu>100,000, e. coli <10,000 -however patient also has no urinary symptoms, no white count, no fever, and normal procalcitonin -urine from 7/9 with a low CFU at 20-30k with E.coli with no symptoms at that time, no white count, consistent with asymptomatic bactiuria and not diagnostic of UTI, UA at that time showed minimal pyuria, which is clearly not the cause of his infection currently as a different organism has grown in his urine -ceftriaxone 1gm daily initially started, switched to cefazolin based on cultures, avoiding fluoroquinolone as can affect seizure threshold -PT, OT eval -have strong suspiscion that much of patient's mental status issues remain his poor baseline brain functioning with clear evidence of encephalomalacia and gliosis and advanced cerebral volume loss and chronic ischemic changes with additional history of parkinsons, seizure disorder, and prior strokes. Today his acute worsening may be from continued seizure or lack of ability to take his sinemet, or continued progression. 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 2. Seizure disorder, chronic, present on admission-well controlled -on 12/12 had two episodes of seizures one that self resolved after a few seconds and the second a complex partial seizure where he stared ahead, eyes rolled back, could not move his right side of the body, this is all consistent with seizure focus on left side of brain which contains large old stroke, he has not had tonic clonic seizure here -likely had seizure from combination of depakote dose, uti, and possible medication, or combination of the three, per his neurologist patient is extremely prone to epileptic activity -patient depakote level 129, per neurologist, do not follow level to titrate dose, only titrate depakote based on clinical evidence of toxicity -continue patient's 1000 mg of Depakote b.i.d. Vimpat 200mg BID, Zonisamide 300mg QHS if able to tolerate oral intake. -patient placed on seizure precautions, bed side swallow, aspiration precautions, fall precautions -per his neurologist at located within [facility] recommend adding carbamazepine 100mg BID, increase weekly by 100mg BID to 400mg BID, monitor for rash and hyponatremia, has interaction with apixaban to lower apixaban efficacy -per neurology at careful with benzos in setting of complex partial seizure, and could consider letting patient break on own if it is clear seizure is NOT tonic clonic -have discussed with that patient will likely continue to decline given large size of old storke, and concurrent history of encephalitis and parkinsons, and that with age likely will continue to have poorer brain function. - is interested in hospice consultation, would like speech evaluation today. Requests no feeding tube. 3. Parkinson's, acute on chronic, exacerbation, present on admission -continue patient's carbidopa-levodopa if able 4. History CVA 2010 and ischemic stroke middle central artery May 12, 2020 with seizures, chronic, essential hypertension with left systolic heart failure, ejection fraction< 40%, acute on chronic, present on admission, and diabetes type 2 (diet controlled), chronic, present on admission, induced hyperlipidemia, chronic, present on admission as evidence by history of acute venous embolism and thrombolysis DVT 2013. -continue patients apixaban, atorvastatin 5. 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 q.h.s. 4. Hypertension essential, acute on chronic, present on admission Patient's current BP on admit: 148/69 -continue patient's Lasix 5. Hypothyroidism, acquired, chronic, present on admission control unknown -continue patient's levothyroxine 6. Obesity, as evidence by a BMI of 34.9 down from 35.1, acute on chronic, present on admission -recommended dietary and lifestyle changes with PCP follow-up -consideration will be given to dietary counseling if he is able to tolerate any oral intake. 7. History of VTE -on apixaban Code status: DNR Surrogate decision maker: Patient's is DPNORA ELLSWORTH PCR: Negative VTE/DVT prophylaxis: patient's apixaban 5 mg b.i.d., and SCDs
[2020-12-14] MEDS: OXYCODONE IR 5 MG TABLET PO (11:23)
[2020-12-14] MEDS: DOCUSATE 100 MG CAPSULE PO (11:23)
[2020-12-14] MEDS: CARBIDOPA LEVODOPA 4 EACH PO (11:29)
--- NOTE | 2020-12-14 13:07 | PT-IP ANOTE ---
Talked with Dr. Farfan and stated to hold PT for today due to difficulty with food intake and is determining if pt needs placement for tube feeding. doctor stated just WATCH AND CLOCK REPAIRER tx for now and no PT and to f/u tomorrow.
[2020-12-14] MEDS: CARBIDOPA LEVODOPA 3 EACH PO ×2 (14:48→20:55)
[2020-12-14] MEDS: carBAMazepine 200 MG TABLET 50 MG PO ×3 (14:50→20:46)
[2020-12-14 15:27] VITALS: BP 116/55; PULSE 84; RESP 18; TEMP 35.7; O2SAT 94
--- NOTE | 2020-12-14 15:27 | ST.IPCSEOM ---
Visit Care Team Role Provider Type Pj Sky MD Primary Care Provider Physician Specialty: Internal Medicine Address: [address] [place] [address], [address], [place], [address] Email: [email or web address] Roni Acuña DO Emergency Provider Physician Specialty: Emergency Medicine Address: [address] [place] [address], [id number] Email: [email or web address] Crista Farfan [facility] Admit Provider Physician Attending Provider Specialty: Medical Address: [address] [place] [address], [id number] Email: Current Diagnoses Epilepsy, unspecified, not intractable, without status epilepticus (12/12/20) Past Medical History (Last Updated 12/11/20 @ 05:12 by Crista Farfan [facility]) Acute venous embolism and thrombosis of deep veins of upper extremity (Medical 04/27/14) 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) Cerebrovascular accident (CVA) (Medical) Chicken pox (Medical) 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 (Medical) Diverticulosis large intestine w/o perforation or abscess w/o bleeding (Medical 12/12/10) Encephalitis due to human herpes simplex virus (HSV) (Medical) Hearing loss (Medical) Hemorrhoids that prolapse with straining and require manual replacement back inside anal canal (Medical) Herpes (Medical ~1979) History of appendectomy (Medical) 14 years old History of hemorrhoidectomy (Medical) in 's History of nasal surgery (Medical) in 's Ischemic stroke (Medical) Measles (Medical) Childhood Mumps (Medical) Childhood No pertinent past surgical history (Medical) Rubella (Medical) Childhood Seizures (Medical) Seizures (Medical) Sleep apnea (Medical) Vision disorder (Medical) Speech-Language Pathology 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 TIA Setting Assessment Location Acute Care Visit Type Note Type Initial evaluation Next Note Type Next Note Type Treatment Note Patient Information Identification Type Name,Wristband History Patient is a 75-year-old male Alexi Rodrigues who presented to the ED by EMS for increased weakness, nausea, vomiting, and diarrhea. On discharge from the hospital patient did have a positive urine culture for E coli, but did not receive antibiotic treatment and was not notified. He has been having increasing generalized weakness, and aphasia at baseline over multiple hospital admits. Patients reports that they are worsened significantly since discharge on 11/16/2020. Patient was admitted for OBS 10/26 & 11/16/2020 for evaluation of TIA stroke R/O, workup-both were negative for stroke, but he did have advanced global cerebral volume loss, labile hypotension, with increasing weakness, decreased mobility, and deteriorating mental status. Patient has a history of herpetic/autoimmune encephalitis 2015, CVA 2010, venous embolus and thrombosis DVT 2013, Parkinson's dementia , ischemic stroke-middle cerebral artery 05/12/20-2020 at [facility] , hypertension, hyperlipidemia , diet-controlled diabetes mellitus, hypothyroidism, and obesity. I admitted the patient in August and in October of 2020, and the patient has had continued worsening clinical features of neurodegeneration. Subjective Observations Pt was up in bed in his room. His was in attendance. Pt agreed to swallowing evaluation. Reported by Patient Current Diet Nothing by mouth,Tube feeding Baseline Feeding Method Dependent for feeding Objective Assessment Mental Status Alert,Responsive,Cooperative Comment Pt unable to stick out or lateralize his tongue. He was able to open his mouth for me . Dentition natural and in good hygiene. Pt was able to smile with an asymmetrical smile due to right side weakness. During trials, pt was able to adequately masticate a variety of textures with minimal difficulty and no oral residue following swallows. Food and Liquid Trials Position During Assessment Upright (90 degrees) Liquids Trialed Ice chips,Thin Solids Trialed Puree,Mechanical Soft,Regular Administration Type Tea spoon,Cup consecutive sips ,Straw,Dependent feeding Oral Impairment Mildly impaired Pharyngeal Impairment Within functional limits Pharyngeal Phase Comments Hyolaryngeal elevation adequate. No overt s/sx aspiration. No cough/choke observed. No wet voicing noted . Airway appeared to be protected adequately. In order to rule out silent aspiration instrumental assessment would be recommended. Pt is not presenting with s/sx warranting such evaluation Fatigue/Endurance Mild fatigue Results Pt was able to safely tolerate mechanical soft texture with thin liquids. No overt s/sx aspiration observed. Pt's baseline at home is the same diet. Findings Swallowing Function Within functional limits Severity of Swallow Impairment Within functional limits Contributing Factors to Swallow Mastication inefficiency, Impairment Impaired velopharyngeal closure/coordination Prognosis Good Based on Cognitive status,Family support,Duration of symptoms/ severity Impact on Safety and Functioning Risk for aspiration Recommendations Instrumental Assessment No Swallowing Treatment Yes Frequency follow up x1 for diet tolerance Recommended Solids Mechanical Soft Recommended Liquids Thin Safety Precautions/Swallowing Feed only when alert,Reduce Recommendations distractions,Remain upright ( 90 degrees) during all oral intake,Upright position at least 30 minutes after meals, Small bites and sips when eating,Slow rate; swallow between bites,1 to 1 feeding assistance,Family assistance/ supervision,Strict oral care after intake,Check for pocketing Medication Recommendations Crushed,Crushed in Carrier Discharge Recommendations [facility] facility,Home with Home Health,Home with Hospice Education Patient/Caregiver Education Patient expressed understanding of evaluation, Patient expressed agreement with goals & treatment plans, Family/caregivers expressed understanding of evaluation, Family/caregivers expressed agreement with goals & treatment plans,Patient expressed understanding of feeding recommendations,Family /caregivers expressed understanding of safety precautions,Family/caregivers expressed understanding of feeding recommendations Goals Short-term Goals Pt will safely tolerate the least restrictive diet for nutrition and hydration without s/sx aspiration
[2020-12-14] MEDS: FINASTERIDE 5 MG TABLET PO (17:01)
[2020-12-14 17:47] VITALS: O2SAT 94
[2020-12-14 19:02] VITALS: O2SAT 96
[2020-12-14 19:59] VITALS: BP 136/65; PULSE 77; RESP 17; TEMP 35.7; O2SAT 96
[2020-12-14] MEDS: PANTOPRAZOLE 40 MG VIAL IV (20:46)
[2020-12-14] MEDS: ZONISAMIDE 100 MG CAPSULE 300 MG PO (20:48)
[2020-12-14] MEDS: DIVALPROEX DR 250 MG TABLET 1000 MG PO (20:49)
[2020-12-14] MEDS: valACYclovir 500 MG TABLET PO (20:49)
[2020-12-14] MEDS: APIXABAN 5 MG TABLET PO (20:51)
[2020-12-15] VITALS (10 sets, daily range): BP systolic 124–165; BP diastolic 74–91; PULSE 76–87; RESP 16–20; TEMP 35.6–36.5; O2SAT 94–98
--- NOTE | 2020-12-15 00:36 | PC.NURSE ---
Patient arouses easily to voice but offers minimal understandable conversation. Answers yes to almost every question asked. Bilateral UE tremors due to Parkinson's. Breath sounds diminished and does not follow direction to take deep breaths; RA sat is 94%. HRR with telemetry reading of SR w/1st degree AVB. BT present and abdomen is soft but still has not had a BM since 12/09; is receiving Colace daily. Has been incontinent of urine. Unable to move himself in bed so is being repositioned q2h. Wearing bilateral calf SCD's. FLACC score is 0. Seizure pads on bed due to recent seizure activity. Fall risk score is high and bed alarm is activated.
[2020-12-15] MEDS: CEFAZOLIN 1 GM VIAL IV ×3 (03:47→21:04)
[2020-12-15] MEDS: SODIUM CHLORIDE 0.9% FLUSH 10 ML IV ×3 (03:47→22:08)
[2020-12-15] MEDS: LEVOTHYROXINE 125 MCG TABLET PO (05:55)
[2020-12-15] MEDS: DOCUSATE 100 MG CAPSULE PO (08:39)
[2020-12-15] MEDS: DIVALPROEX DR 250 MG TABLET 1000 MG PO ×2 (08:39→21:06)
[2020-12-15] MEDS: carBAMazepine 200 MG TABLET 50 MG PO ×4 (08:39→21:06)
[2020-12-15] MEDS: APIXABAN 5 MG TABLET PO ×2 (08:39→21:06)
[2020-12-15] MEDS: CARBIDOPA LEVODOPA 4 EACH PO (08:45)
--- NOTE | 2020-12-15 09:48 | OT.IP.TRT ---
Current Diagnoses Epilepsy, unspecified, not intractable, without status epilepticus (12/12/20) Occupational Therapy Treatment Note M2 OT-IP Current Condition Start: 12/11/20 13:39 Freq: Status: Active Protocol: Document 12/11/20 13:39 [facility] (Rec: 12/11/20 13:57 [facility] [id number]) Occupational Therapy Current Condition Current Condition Evaluation Date 12/11/20 Treatment Diagnosis UTI, dehydration, decreased mobility Diagnosis Onset Date 12/10/20 M3 OT- IP Subjective and Pain Start: 12/11/20 13:39 Freq: Status: Active Protocol: Document 12/15/20 12:13 CGR (Rec: 12/15/20 12:22 CGR [id number]) OT- Subjective Occupational Therapy Visit Type Type Progress Note Visit Start Time 09:25 Visit Stop Time 09:48 Total Visit Minutes 23 Notes Pt's spouse present Occupational Therapy Visit Comments Patient Comments Pt states words but they rarely coinside with the situation. OT Pain Assessment Pain When Pain Assessed During Mobility Pain Present Pain Present Denied Pain M4 OT- IP ADL's Start: 12/11/20 13:39 Freq: Status: Active Protocol: Document 12/15/20 12:13 CGR (Rec: 12/15/20 12:22 CGR [id number]) OT [id number] General Evaluation Self-Feeding Ability Minimal Assistance Areas Needing Assistance Drinking From Cup/Glass Comments OT Self-Feeding Comments Pt was able to drink from straw with milk container but spouse fed pt breakfast. OT ADL-Grooming Comments OT Grooming Comments Not performed OT ADL-Oral Care Comments Oral Care Comments Not performed OT ADL-Dressing General Eval Lower Body Dressing Ability Total Assistance Areas Needing Assistance Socks OT ADL-Toileting Comments OT Toileting Comments Not performed OT ADL-Bathing Comments OT Bathing Comments Not performed M5 OT- IP IADL's Start: 12/11/20 13:39 Freq: Status: Active Protocol: Document 12/11/20 13:39 [facility] (Rec: 12/11/20 13:57 [facility] [id number]) OT-Instrumental Activities of Daily Living Home Safety Awareness Awareness of Need for Assistance at Home Decreased Awareness Ability to Problem Solve Emergency Unable to Problem Solve Situations Medication Management Medication Management Caregiver Administers Money Management Money Management Caregiver Provides Assistance Meal Preparation Meal Preparation Caregiver Provides Assist Equipment Service Associate Equipment Service Associate Caregiver Provides Assist M6 OT- IP Functional Cognition Start: 12/11/20 13:39 Freq: Status: Active Protocol: Document 12/13/20 11:16 [facility] (Rec: 12/13/20 11:25 [facility] [id number]) Cognitive Factors Limiting Selfcare Function Cognitive Ability Level of Alertness Drowsy Cognitive Comments Cognitive Assessment Comments Pt unresponsive at times, drowsy, and had had ativan earlier and seizure activity yesterday per chart. M7 OT- IP Mobility and Balance Start: 12/11/20 13:39 Freq: Status: Active Protocol: Document 12/15/20 12:13 CGR (Rec: 12/15/20 12:22 CGR [id number]) OT- Bed Mobility Assessment Rolling Type of Rolling Roll to Right Level of Assistance Maximum Assistance,Head of Bed Elevated,Bedrails Supine to Sit Supine to Sit Assist Maximum Assistance,Head of Bed Elevated,Bedrails Scooting Scooting to Edge of Bed Maximum Assistance,Head of Bed Elevated,Bedrails OT-Transfer Assessment Sit to and From Stand Sit to and from Stand Maximum Assistance,1 Person Assistance Transfers Transfer Ability Total Assistance,2 Person Assistance Technique Transfer Destination Bed,Chair Transfer Technique Squat Pivot Devices Transfer Assistive Devices Gait Belt Comments Mobility Comments Pt was able to stand at the bedside in squat stance with 1 person max assist. 2 person assist for safety with squat pivot transfer to chair. OT- Gait Assessment Comments Gait Ability Comments Pt is unable to perform at this time. OT- Balance Assessment Sitting Balance and Reactions Static Sitting Balance Ability Fair M8 OT- IP Objective Assessments Start: 12/11/20 13:39 Freq: Status: Active Protocol: Document 12/11/20 13:39 [facility] (Rec: 12/11/20 13:57 [facility] [id number]) OT Gross Range of Motion Upper Extremity Range of Motion ROM Impairments Grossly WFL for AROM BUE OT Strength Comments Strength Comments Pt at least 3+/5 per functional observations. OT-Muscle Tone Assessment Comments Muscle Tone Comments Pt has tremores left UE more than right UE at this time. M9 OT- IP Assessment and Plan Start: 12/11/20 13:39 Freq: Status: Active Protocol: Document 12/15/20 12:13 CGR (Rec: 12/15/20 12:22 CGR [id number]) OT Summary Assessment and Plan Potential Rehabilitation Potential Fair Analytic Complexity at Evaluation Moderate Summary OT Impairments Strength,Balance,Coordination, Functional Cognition, Functional Mobility,Self- Feeding,Grooming,Dressing, Toileting,Bathing,Toilet Transfers,Shower Transfers, Activity Tolerance Progress Towards Goals Slow Progress due to Medical Issues,Slow Progress due to Activity Tolerance,Slow Progress due to Cognition Assessment Summary Pt is more awake today and able to participate, although his is unable to follow verbal or visual commands consistently. Pt fatigued quickly in session. In rounds, MD discussed pt and feels that pt's potential to return to OF is limited. Family is meeting with hospice and appears to want to take pt home at this time. Recommend home with home health for possible improvement in ADLs and functional mobility to increase family's ability to care for pt in the home setting. Pt may need a luisito lift for safe transfers with family and additional help at home for care. Goals Self-Feeding Goal Standby Assistance Grooming Goal Standby Assistance Dressing Goal Moderate Assistance Toilet Transfer Goal Minimal Assistance Shower Transfer Goal Minimal Assistance Patient/Caregiver Education Goal Caregiver Independent Assisting Patient Days to Meet Goals 30 Frequency of Treatment Frequency Of Treatment Once a Day Treatment Plan OT Treatment Plan ADL Training,Functional Cognition Training,Functional Mobility,Patient/Family Education,Discharge Planning Other Treatment Recommendations and Next Pt to transfer to [facility] with MOD Treatment Focus A X2 with FWW. Discharge Recommendations OT Discharge Recommendations Home with 01/12 Assist Available,Home Health Other Discharge Recommendations Per MD, family to meet with hospice and pt with likely limited potential to reach prior level of assisted care at home. Prepare for home with hospice for end of life care. Transportation Needs at Discharge Wheelchair/Cabulance
--- NOTE | 2020-12-15 10:39 | PC.NURSE ---
Assess- Late entry: Patient pulled his NG tube out in the morning around 0700, this was found on his chest in bed. He slept well until around 0930. Sat patients hob up and he was able to swallow his medications crushed in apple sauce. Patient was alert and not oriented to his surroundings but recognized his . He was incontinent of a large amount of urine. Patient was given oxycodone for back pain and helpful. Speech therapy was in and did a speech eval on patient, he is on a mechanical soft diet and did not choke while taking bites. He was alert for the rest of the shift.
--- NOTE | 2020-12-15 10:41 | PC.NURSE ---
Talked to pt and about doing a bed bath and they said okay. I only washed pts back and asked if I could start washing the front and he kept repeating no, no you dont, so I stopped and will attempt to get patient washed up later if he is willing.
--- NOTE | 2020-12-15 11:09 | P.PN_ITS ---
Subjective Subjective Date Patient Seen: 12/15/20 Time Patient Seen: 11:10 Interval history: Patient unable to participate in subjective exam but he is more alert and was able to work with therapies today. Discussed with about difficulty in obtaining SNF placement, plan will be for home with home health or hospice. Exam Vital Signs (past 8 hours): - 12/15/20 04:00 12/15/20 08:00 12/15/20 08:01 Temperature 97.6 F 97.3 F L Pulse Rate 76 76 Respiratory Rate 20 16 Blood Pressure 142/89 H 152/91 H Pulse Oximetry 96 97 97 Oxygen Delivery Method Room Air Oxygen Flow Rate 0 Narrative Exam Narrative: General: no acute distress HEENT: masked facial expression, mucous membranes are moist. Lungs: clear bilaterally with no wheezes, rhonchi, rales Cardio: S1 & S2 with regular rate and rhythm without murmur Abdomen: Soft nontender, nondistended, no organomegaly Musculoskeletal: normal strength bilaterally Skin: Warm dry and intact without rashes, ulcerations or petechiae. Neuro: alert, follows simple commands. L sided hemiparesis, L facial droop. severe aphasia. Psych: unable to assess. 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 Diverticulosis large intestine w/o perforation or abscess w/o bleeding (12/12/10) Encephalitis due to human herpes simplex virus (HSV) Hearing loss Hemorrhoids that prolapse with straining and require manual replacement back inside anal canal Herpes (~1979) Ischemic stroke Measles Mumps Rubella Seizures Seizures Sleep apnea Vision disorder Surgical History Anesthesia History of appendectomy History of hemorrhoidectomy History of nasal surgery No pertinent past surgical history Family History Brother Kidney disease Brother Aneurysm Mother Alzheimer's dementia Father Cancer Social History (Reviewed 12/11/20 @ 03:00 by MIGUEL Bellamy marital status: household members: spouse lives independently: Yes Smoking Status: Never smoker alcohol intake: former substance use type: does not use Assessment & Plan Assessment & Plan narrative: Mr. Rodrigues was admitted with increasing weakness and confusion found to have a UTI. He has a history of herpetic/autoimmune encephalitis 2015, CVA 2010, venous embolus and thrombosis DVT 2013, Parkinson's, ischemic stroke-middle cerebral artery 05/12/20 at [facility], multiple TIAs, epilepsy, hypertension, hyperlipidemia, diet-controlled diabetes mellitus, hypothyroidism, and obesity. Now with progression of e ncephalopathy, likely multifactorial in etiology with worsening possible seizure disorder and/or parkinson's disease. 1. Acute Encephalopathy with history of Parkinson's dementia/stroke/TIAs -patient has positive UA nitrate positive, leuk esterase 2+, bacteria, and WBCs, with urine culture showing staphi epi cfu>100,000, e. coli <10,000 -however patient also has no urinary symptoms, no white count, no fever, and normal procalcitonin -urine from 11/16 with a low CFU at 20-30k with E.coli with no symptoms at that time, no white count, consistent with asymptomatic bactiuria and not diagnostic of UTI, UA at that time showed minimal pyuria, which is clearly not the cause of his infection currently as a different organism has grown in his urine -ceftriaxone 1gm daily initially started, switched to cefazolin based on cultures, avoiding fluoroquinolone as can affect seizure threshold. Last day of antibiotics will be 12/16/20 -PT, OT following. -have strong suspiscion that much of patient's mental status issues remain his poor baseline brain functioning with clear evidence of encephalomalacia and gliosis and advanced cerebral volume loss and chronic ischemic changes with additional history of parkinsons, seizure disorder, and prior strokes. Today his acute worsening may be from continued seizure or lack of ability to take his sinemet, or continued progression. No availability of EEG at this facility, however EEG would not likely casino change attendant as there are no further additional options for treatment from neurology at . 2. Seizure disorder, chronic, present on admission-well controlled -on 12/12 had two episodes of seizures one that self resolved after a few seconds and the second a complex partial seizure where he stared ahead, eyes rolled back, could not move his right side of the body, this is all consistent with seizure focus on left side of brain which contains large old stroke, he has not had tonic clonic seizure here -likely had seizure from combination of depakote dose, uti, and possible medication, or combination of the three, per his neurologist patient is extre caroline prone to epileptic activity -patient depakote level 129, per neurologist, do not follow level to titrate dose, only titrate depakote based on clinical evidence of toxicity -continue patient's 1000 mg of Depakote b.i.d. Vimpat 200mg BID, Zonisamide 300mg QHS if able to tolerate oral intake. -patient placed on seizure precautions, bed side swallow, aspiration precautions, fall precautions -per his neurologist at [facility] recommend adding carbamazepine 100mg BID, increase weekly by 100mg BID to 400mg BID, monitor for rash and hyponatremia, has interaction with apixaban to lower apixaban efficacy -per neurology at careful with benzos in setting of complex partial seizure, and could consider letting patient break on own if it is clear seizure is NOT tonic clonic. However patient developed heart block after initiation. Will hold on further uptitration at this time as he appears to be somewhat improving. No seizure activity since 12/12. -have discussed with that patient will likely continue to decline given large size of old storke, and concurrent history of encephalitis and parkinsons, and that with age likely will continue to have poorer brain function. - is interested in hospice consultation. Plan for discharge home with home health or hospice depending on discussion moving forward. 3. Parkinson's, acute on chronic, exacerbation, present on admission -continue patient's carbidopa-levodopa if able 4. History CVA 2010 and ischemic stroke middle central artery May 12, 2020 with seizures, chronic, essential hypertension with left systolic heart failure, ejection fraction< 40%, acute on chronic, present on admission, and diabetes type 2 (diet controlled), chronic, present on admission, induced hyperlipidemia, chronic, present on admission as evidence by history of acute venous embolism and thrombolysis DVT 2013. -continue patients apixaban, atorvastatin 5. 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 q.h.s. 4. Hypertension essential, acute on chronic, present on admission Patient's current BP on admit: 148/69 -continue patient's Lasix 5. Hypothyroidism, acquired, chronic, present on admission control unknown -continue patient's levothyroxine 6. Obesity, as evidence by a BMI of 34.9 down from 35.1, acute on chronic, prese nt on admission -recommended dietary and lifestyle changes with PCP follow-up 7. History of VTE -on apixaban 8. Heart block - patient had 7 non-conducted beats on telemetry monitoring after initiation of new seizure medication. This has not recurred since. Family not wanting pacemaker placement after discussion. - avoid further increases in carbamazepine at this time. Code status: DNR Surrogate decision maker: Patient's is MCKAY ELLSWORTH PCR: Negative VTE/DVT prophylaxis: patient's apixaban 5 mg b.i.d., and SCDs
--- NOTE | 2020-12-15 11:52 | CM.DPC ---
Addendum entered by Azucena Acevedo LPN 12/15/20 11:58: Basics and outcome of conversation: Confirmed [facility] info visit was held between Alexandra and Yana/CATALINA yesterday with decision to followup after Alexandra thinks further about this choice. Went over specifics of HH services vs Hospice services Identified DME still needed at home: hospital bed with specialized mattress and luisito lift prn. IF Hospice is elected DME could be delivered on Sunday 12/17 with RN to open pt to service between 1000 and 1100 on Monday 12/18.IF HH: Alexandra would order as a capped rental. Concerns re PT to keep pt moving his arms and legs if possible: Pt's caregiver in the home is Mark Anthony, a retired PT who has been able to physically get pt out of bed and pivot him to a chair. He also assists him with incontinent care in the bathroom He should be able to add basic ROM exercises as need to pt's routine. Yana says that a one time PT visit could be set up for caregiver training for a home therapy program. Alexandra will speak again by phone with Yana today....will follow closely and update Dr. Farfan as more is known. Original Note: DCP: continued:Case discussed with Dr. Farfan this morning after he met with pt and Alexandra. Plan is now a home setting at d/c, either with resumption of [facility] or with [facility]. Met then at length with Alexandra in followup. Pt was up in bedside chair sleeping during conversation.
--- NOTE | 2020-12-15 12:05 | PT.IPTN ---
Current Diagnoses Epilepsy, unspecified, not intractable, without status epilepticus (12/12/20) Physical Therapy Treatment Note M2 PT-IP Current Condition Start: 12/11/20 09:20 Freq: NEEDED Status: Active Protocol: Document 12/11/20 10:32 AW (Rec: 12/11/20 12:27 AW [id number]) Physical Therapy Current Condition Current Condition Evaluation Date 12/11/20 Treatment Diagnosis UTI, PD, weakness; difficulty in walking Onset Date 2 weeks Precautions Other Precautions falls M3 PT-IP Subjective Start: 12/11/20 09:20 Freq: NEEDED Status: Active Protocol: Document 12/15/20 12:05 AB (Rec: 12/15/20 13:17 AB [id number]) Subjective Physical Therapy Visit Type Type Treatment Note Visit Start Time 12:05 Visit Stop Time 12:33 Total Visit Minutes 28 Number of BOWL SANDER Visits 0 M4 PT-IP Mobility and Gait Start: 12/11/20 09:20 Freq: NEEDED Status: Active Protocol: Document 12/15/20 12:05 AB (Rec: 12/15/20 13:17 AB [id number]) PT-Transfer Assessment Sit to and From Stand Sit to and from Stand Maximum Assistance,2 Person Assistance,Use of Upper Extremities Equipment Transfer Assistive Device Gait Belt,Front Wheeled Walker Orthotic/Prosthetic Devices or Brace: No Comments Mobility Comments pt sitting on chair. pt unable to answer questions appropriately and tends to perseverate. NAC in room to assist with brief management/ hygiene care. pt completed sit to stand x 2 attempts requiring max A x 2 and max cues. pt tolerated ~ 30 sec of standing max A x 2 and max cues using FWW for support. presents with increase forward flexion during standing and unable to follow instructions to correct and requires max A to reposition. increase head /trunk and UE tremors noted after standing. BP 138/70 TN 76. positioned pt on chair total Ax 2 and max cues. pt has increase trunk extensor rigidity requiring max A x 2 to lean forward for sit to stand. call light and table positioned next to pt. Left pt with spouse in room. Gait Assessment Comments Gait Comments unable M5 PT-IP Objective Assessments Start: 12/11/20 09:20 Freq: NEEDED Status: Active Protocol: Document 12/11/20 10:32 AW (Rec: 12/11/20 12:37 AW [id number]) Orientation Orientation/Cognition Level of Alertness Confusional State Orientation Name,Place Language Function Ability Expressive Aphasia,Hard of Hearing Safety Awareness Decreased Safety Awareness Memory Description Short Term Impaired,Fci Impaired Gross Range of Motion Lower Extremity ROM Assessment Within Functional Limits Strength Lower Extremity Strength Hip 3/5 Knee 3+/5 Muscle Tone Muscle Tone WNL No Comments Muscle Tone Comments Pt has generalized rigidity affecting his mobility M6 PT-IP Treatment Start: 12/11/20 09:20 Freq: NEEDED Status: Active Protocol: Document 12/15/20 12:05 AB (Rec: 12/15/20 13:17 AB [id number]) Physical Therapy Treatment Education Education Provided Safety M7 PT-IP Assessment and Plan Start: 12/11/20 09:20 Freq: NEEDED Status: Active Protocol: Document 12/15/20 12:05 AB (Rec: 12/15/20 13:17 AB [id number]) PT Summary Assessment and Plan Potential Rehabilitation Potential Fair Summary Impairments Pain,ROM,Strength,Balance, Coordination,Sensation,Tone, Cognition,Bed Mobility, Transfers,Gait,Activity Tolerance Progress Towards Goals Slow Progress due to Medical Issues,Slow Progress due to Activity Tolerance,Slow Progress - Other Assessment Summary pt requiring max a x 2 to total Ax 2 with mobility and has difficulty following directions but cooperative. per infor during rounds, pt possibly going to have hospice care at home but currently is not set up. spouse plans to have a caregiver at home as well and will acquire a mechanical lift for home use. will continue to assess progress and if appropriate, will conduct caregiver training for safe d/c. Goals Bed Mobility Goal Moderate Assistance Transfer Goal Moderate Assistance,Front Wheeled Walker Gait Goal Moderate Assistance,Front Wheel Walker Gait Distance 25 Days to Meet Goals 10 Frequency of Treatment Frequency Of Treatment Once a Day Treatment Plan Physical Therapy Treatment Plan Bed Mobility Training,Transfer Training,Gait Training, Therapeutic Exercise,Balance Retraining,Discharge Planning, Hot or Cold Pack,Neuromuscular Re-ed,Coordination Retraining ,Manual Therapy Precautions Other Precautions falls Recommendations To Nursing Amount of Assist Needed Mechanical Lift Discharge Recommendations PT Discharge Recommendations Home with 24/7 Assist Available,SNF Rehab Other Discharge Recommendations planning on hospice care Transportation Needs at Discharge Wheelchair/Cabulance,Stretcher /Ambulance
[2020-12-15] MEDS: polyethylene glycoL 3350 17 GM POWD.PACK PO (12:41)
[2020-12-15] MEDS: BISACODYL 5 MG TABLET PO (12:42)
[2020-12-15] MEDS: CARBIDOPA LEVODOPA 3 EACH PO ×2 (14:43→22:08)
[2020-12-15] MEDS: FINASTERIDE 5 MG TABLET PO (17:08)
[2020-12-15] MEDS: ATORVASTATIN 20 MG TABLET 40 MG PO (21:05)
[2020-12-15] MEDS: PANTOPRAZOLE 40 MG VIAL IV (21:05)
[2020-12-15] MEDS: SENNOSIDES 8.6 MG TABLET 17.2 MG PO (21:06)
[2020-12-15] MEDS: ZONISAMIDE 100 MG CAPSULE 300 MG PO (21:06)
[2020-12-15] MEDS: valACYclovir 500 MG TABLET PO (21:06)
[2020-12-16] VITALS (9 sets, daily range): BP systolic 91–137; BP diastolic 55–90; PULSE 81–95; RESP 17–19; TEMP 35.7–36.3; O2SAT 93–97
--- NOTE | 2020-12-16 01:52 | PC.NURSE ---
patient appeared to have an abscence seizure at approximately 0050. he became tense all over, and his eyes were fixated. this lasted approximately 2 minutes followed by coughing up what appeared to be applesauce from previous medication administration. suction was applied to assist him in coughing up substance. he is resting well now. will continue to monitor
[2020-12-16] MEDS: LEVOTHYROXINE 125 MCG TABLET PO (04:57)
[2020-12-16] MEDS: CEFAZOLIN 1 GM VIAL IV ×2 (04:57→11:59)
[2020-12-16 05:16] LABS: Add Manual Diff / Slide Review NO; Basophils Absolute Auto 0 /uL (0-100); Basophils Percent Auto 0.3 % (0-2); Eosinophils Absolute Auto 0 /uL (0-450); Eosinophils Percent Auto 0.2 % (2-4); Hematocrit 50.7 % (41-53); Hemoglobin 17.3 g/dL (13.5-17.5); Lymphocytes Absolute Auto 900 /uL (1100-4500); Lymphocytes Percent Auto 9.4 % (25-40); Mean Corpuscular HGB Conc 34.2 % (30-36); Mean Corpuscular Hemoglobin 35.7 PG (26-34); Mean Corpuscular Volume 104.5 fL (80-100); Monocytes Absolute Auto 900 /uL (0-900); Monocytes Percent Auto 9.8 % (3-14); Neutrophils Absolute Auto 7400 /uL (1500-7000); Neutrophils Percent Auto 80.3 % (50-75); Platelet Count 99 X10^3/uL (150-400); Red Blood Cell Count 4.85 X10^6/uL (4.5-5.9); Red Cell Distribution Width 13.6 % (11.6-14.8); White Blood Cell Count 9.3 X10^3/uL (4.5-11.0)
[2020-12-16 05:21] LABS: BUN Creatinine Ratio 21.7 (6-22); Blood Urea Nitrogen 20 mg/dL (9-20); Calcium 9.2 mg/dL (8.4-10.2); Carbon Dioxide 23 mmol/L (22-32); Chloride 106 mmol/L (98-107); Estimated Glomerular Filt Rate > 60.0 mL/min (>60); Glucose 131 mg/dL (80-110); HEMOLYSIS 24 (0-50); Magnesium 1.9 mg/dL (1.6-2.3); Potassium 4.1 mmol/L (3.4-5.1); Sodium 137 mmol/L (137-145)
[2020-12-16] MEDS: OXYCODONE IR 5 MG TABLET PO (09:27)
[2020-12-16] MEDS: DIVALPROEX DR 250 MG TABLET 1000 MG PO (09:28)
[2020-12-16] MEDS: polyethylene glycoL 3350 17 GM POWD.PACK PO (09:29)
[2020-12-16] MEDS: APIXABAN 5 MG TABLET PO ×2 (09:29→20:28)
[2020-12-16] MEDS: DOCUSATE 100 MG CAPSULE PO (09:29)
[2020-12-16] MEDS: carBAMazepine 200 MG TABLET 50 MG PO ×4 (09:29→20:28)
[2020-12-16] MEDS: CARBIDOPA LEVODOPA 4 EACH PO (09:29)
[2020-12-16] MEDS: SODIUM CHLORIDE 0.9% FLUSH 10 ML IV ×2 (09:30→20:29)
--- NOTE | 2020-12-16 10:50 | PT.IPTN ---
Current Diagnoses Epilepsy, unspecified, not intractable, without status epilepticus (12/12/20) Physical Therapy Treatment Note M2 PT-IP Current Condition Start: 12/11/20 09:20 Freq: NEEDED Status: Active Protocol: Document 12/11/20 10:32 AW (Rec: 12/11/20 12:27 AW [id number]) Physical Therapy Current Condition Current Condition Evaluation Date 12/11/20 Treatment Diagnosis UTI, PD, weakness; difficulty in walking Onset Date 2 weeks Precautions Other Precautions falls M3 PT-IP Subjective Start: 12/11/20 09:20 Freq: NEEDED Status: Active Protocol: Document 12/16/20 10:50 AW (Rec: 12/16/20 11:12 AW [id number]) Subjective Physical Therapy Visit Type Type Treatment Note Visit Start Time 10:32 Visit Stop Time 10:50 Total Visit Minutes 18 Notes Pt's spouse and spouse's cousin were present during treatment. Number of ROUND CUTTER OPERATOR Visits 0 Physical Therapy Visit Comments Patient Comments Pt is alert and nods consent to treatment. Patient Goals Pt's spouse indicates plan to return home with hospice beginning service on Thursday. Therapy Pain Assessment Pain When Pain Assessed During Mobility Pain Present Pain Present Unable to Respond FLACC Pain Scale Face Occasional grimace/frown Legs Uneasy, restless, tense Activity Squirming,shifting Cry No cry (awake or asleep) Consolability Reassurable with touch FLACC Total 4 M4 PT-IP Mobility and Gait Start: 12/11/20 09:20 Freq: NEEDED Status: Active Protocol: Document 12/16/20 10:50 AW (Rec: 12/16/20 11:12 AW [id number]) PT-Bed Mobility Assessment Supine to Sit Supine to Sit Maximum Assistance,2 Person Assistance,Head of Bed Elevated,Bedrails Sit to Supine Sit to Supine Total Assistance,2 Person Assistance Scooting Scooting to Edge of Bed Dependent Scooting Up and Down in Bed Dependent PT-Transfer Assessment Sit to and From Stand Sit to and from Stand Maximum Assistance,2 Person Assistance Equipment Transfer Assistive Device Gait Belt Orthotic/Prosthetic Devices or Brace: No Comments Mobility Comments Pt reclined in bed as PT arrived. Pt's spouse indicates ok to treat as long as pt is not in distress. Pt requried max A x 2 for supine to sit and was dependent for scooting to EOB. With feet on the floor, pt required max A x 2 to stand with increased trunk flexion. Pt was unable to extend knees and hips in response to max verbal and tactile cues. After ~30 sec, pt needed to sit and indicated interest in returning to bed. Pt was dependent for sit to supine and for scooting up in the bed. Pt was repositioned with call light and tray table in reach. Gait Assessment Comments Gait Comments Pt is unable to perform at this time. M5 PT-IP Objective Assessments Start: 12/11/20 09:20 Freq: NEEDED Status: Active Protocol: Document 12/11/20 10:32 AW (Rec: 12/11/20 12:37 AW [id number]) Orientation Orientation/Cognition Level of Alertness Confusional State Orientation Name,Place Language Function Ability Expressive Aphasia,Hard of Hearing Safety Awareness Decreased Safety Awareness Memory Description Short Term Impaired,[place] Impaired Gross Range of Motion Lower Extremity ROM Assessment Within Functional Limits Strength Lower Extremity Strength Hip 3/5 Knee 3+/5 Muscle Tone Muscle Tone WNL No Comments Muscle Tone Comments Pt has generalized rigidity affecting his mobility M6 PT-IP Treatment Start: 12/11/20 09:20 Freq: NEEDED Status: Active Protocol: Document 12/16/20 10:50 AW (Rec: 12/16/20 11:12 AW [id number]) Physical Therapy Treatment Education Education Provided Safety M7 PT-IP Assessment and Plan Start: 12/11/20 09:20 Freq: NEEDED Status: Active Protocol: Document 12/16/20 10:50 AW (Rec: 12/16/20 11:12 AW [id number]) PT Summary Assessment and Plan Potential Rehabilitation Potential Fair Summary Impairments Pain,ROM,Strength,Balance, Coordination,Sensation,Tone, Cognition,Bed Mobility, Transfers,Gait,Activity Tolerance Progress Towards Goals Slow Progress due to Medical Issues,Slow Progress due to Activity Tolerance,Slow Progress - Other Assessment Summary Pt continues to require max to total assist x 2 for bed mobility and transfers. Spouse reports hospice is set to deliver equipment Thursday and initiate service on Thursday. Goals Bed Mobility Goal Moderate Assistance Transfer Goal Moderate Assistance,Front Wheeled Walker Gait Goal Moderate Assistance,Front Wheel Walker Gait Distance 25 Days to Meet Goals 10 Frequency of Treatment Frequency Of Treatment Once a Day Treatment Plan Physical Therapy Treatment Plan Bed Mobility Training,Transfer Training,Gait Training, Therapeutic Exercise,Balance Retraining,Discharge Planning, Hot or Cold Pack,Neuromuscular Re-ed,Coordination Retraining ,Manual Therapy Precautions Other Precautions falls; seizure precautions Recommendations To Nursing Amount of Assist Needed Mechanical Lift Discharge Recommendations PT Discharge Recommendations Home with 24/ Assist Available Other Discharge Recommendations hospice Transportation Needs at Discharge Wheelchair/Cabulance,Stretcher /Ambulance
--- NOTE | 2020-12-16 11:26 | PC.NURSE ---
Addendum entered by Jackie Lovelace R.N. 12/16/20 13:57: Patient ate about 10% of his lunch, mostly chicken noodle soup broth. He has been repositioned to his r.side and is sleepy. No seizure activity noted, thought that he may had a small seizure but he was responding and did respond with small answers like yes and no. is at patients bedside now. Original Note: Assess- Patient is alert but disoriented x2. He is familiar with faces and his . Patient able to swallow all of his morning medications without any problems. He has not had any episodes of any seizures, patient does have tremors and his head does shake while he is awake from his Parkinson dx. Attempted to get patient up with physical therapy but he was unable. He voided a large amount of urine in his brief, we will check him again soon to see if he has been incontinent. His skin looks healthy and pink, he does have a bruise on his neck that is healing. in room now and is supportive.
--- NOTE | 2020-12-16 11:37 | CM.DPC ---
Addendum entered by Azucena Acevedo LPN 12/16/20 12:11: Checked in now with Alexandra and her cousin Farhana. Plan for home on Thursday by ambulance is confirmed. Alexandra with more questions concerning details of hospice care. Advised her to write these down and call Yana who is working today (and will be off tomorrow). She readily agrees to this. Reiterated again that pt must be at the home by 10AM so as to meet the purification supervisor. Alexandra acknowledges this and understands that ambulance set up will be completed by [facility] on for pt Thursday/Thursday. At this time pt is basically bed-bound, his condition changes rapidly and w/c van transfer is not considered to be a safe option for this patient. Alexandra has been on phone with caregiver (she clarifies that he goes by POONAM and is a retired [employer]) and he will plan to be at the house by 10AM . Original Note: DCP: continued: received a vm from Yana this morning saying that she and Alexandra did have another conversation yesterday late afternoon and plan for home with [facility] services was confirmed. Delivery of DME will be on Thursday (Yana clarifies that if a luisito lift is needed this would be a pvt pay rental by pt/family. Their hospital beds now come with a specialized mattress that is more comfortable than an overlay and thus no extra mattress is needed). P: is now home either Thursday late afternoon or early Thursday so that pt arrives in time for the 10AM meeting with [facility] RN. Dr. Farfan confirms he will defer to Alexandra on what will work the best for them and anticipates. Will check in with Alexandra and her cousin, both at bedside this morning to confirm.
--- NOTE | 2020-12-16 13:02 | PM.PN.1 ---
Subjective Subjective Date Patient Seen: 12/16/20 Time Patient Seen: 13:02 Interval history: Patient unable to participate in subjective exam, sleeping most of today but did take his oral medications. Plan is currently home with hospice. Overnight patient likely had another seizure according to spouse, lasting about 10 minutes with emesis. Doing better today. Exam Vital Signs (past 8 hours): - 12/16/20 09:51 12/16/20 11:53 Temperature 97.3 F L 96.6 F L Pulse Rate 95 H 89 Respiratory Rate 19 18 Blood Pressure 120/90 137/55 L Pulse Oximetry 97 Oxygen Delivery Method Room Air Oxygen Flow Rate 0 Narrative Exam Narrative: General: no acute distress HEENT: masked facial expression, mucous membranes are moist. Lungs: clear bilaterally with no wheezes, rhonchi, rales Cardio: S1 & S2 with regular rate and rhythm without murmur Abdomen: Soft nontender, nondistended, no organomegaly Musculoskeletal: normal strength bilaterally Skin: Warm dry and intact without rashes, ulcerations or petechiae. Neuro: alert when awake, follows simple commands. L sided hemiparesis, L facial droop. severe aphasia. Psych: unable to assess. Objective Labs Result Diagrams: 12/16/20 04:52 12/16/20 04:52 Labs: Laboratory Results - last 24 hr 12/16/20 12/16/20 04:52 04:52 WBC 9.3 RBC 4.85 Hgb 17.3 Hct 50.7 MCV 104.5 H MCH 35.7 H MCHC 34.2 RDW 13.6 Plt Count 99 L Neut % (Auto) 80.3 H Lymph % (Auto) 9.4 L [place] % (Auto) 9.8 Eos % (Auto) 0.2 L Baso % (Auto) 0.3 Neut # (Auto) 7400 H Lymph # (Auto) 900 L [place] # (Auto) 900 Eos # (Auto) 0 Baso # (Auto) 0 Sodium 137 Potassium 4.1 Chloride 106 Carbon Dioxide 23 BUN 20 Creatinine 0.92 Estimated GFR > 60.0 BUN/Creatinine Ratio 21.7 Glucose 131 H Calcium 9.2 Magnesium 1.9 [facility] Medical History (Updated 12/11/20 @ 05:12 by MARIE Roman) Acute venous embolism and thrombosis of deep veins of upper extremity (04/27/14) 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) Cerebrovascular accident (CVA) Chicken pox 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 Diverticulosis large intestine w/o perforation or abscess w/o bleeding (12/12/10) Encephalitis due to human herpes simplex virus (HSV) Hearing loss Hemorrhoids that prolapse with straining and require manual replacement back inside anal canal Herpes (~1979) Ischemic stroke Measles Mumps Rubella Seizures Seizures Sleep apnea Vision disorder Surgical History Anesthesia History of appendectomy History of hemorrhoidectomy History of nasal surgery No pertinent past surgical history Family History Brother Kidney disease Brother Aneurysm Mother Alzheimer's dementia Father Cancer Social History marital status: household members: spouse lives independently: Yes Smoking Status: Never smoker alcohol intake: former substance use type: does not use Assessment & Plan Assessment & Plan narrative: Mr. Rodrigues was admitted with increasing weakness and confusion found to have a UTI. He has a history of herpetic/autoimmune encephalitis 2015, CVA 2010, venous embolus and thrombosis DVT 2013, Parkinson's, ischemic stroke-middle cerebral artery 05/12/20 at [facility], multiple TIAs, epilepsy, hypertension, hyperlipidemia, diet-controlled diabetes mellitus, hypothyroidism, and obesity. Now with progression of encephalopathy, likely multifactorial in etiology with worsening possible seizure disorder and/or parkinson's disease. 1. Acute Encephalopathy with history of Parkinson's dementia/stroke/TIAs -patient has positive UA nitrate positive, leuk esterase 2+, bacteria, and WBCs, with urine culture showing staphi epi cfu>100,000, e. coli <10,000 -however patient also has no urinary symptoms, no white count, no fever, and normal procalcitonin -urine from 11/16 with a low CFU at 20-30k with E.coli with no symptoms at that time, no white count, consistent with asymptomatic bactiuria and not diagnostic of UTI, UA at that time showed minimal pyuria, which is clearly not the cause of his infection currently as a different organism has grown in his urine -ceftriaxone 1gm daily initially started, switched to cefazolin based on cultures, avoiding fluoroquinolone as can affect seizure threshold. Last day of antibiotics will be today, 12/16/20 -PT, OT following. -have strong suspiscion that much of patient's mental status issues remain his poor baseline brain functioning with clear evidence of encephalomalacia and gliosis and advanced cerebral volume loss and chronic ischemic changes with additional history of parkinsons, seizure disorder, and prior strokes. Today his acute worsening may be from continued seizure or lack of ability to take his sinemet, or continued progression. No availability of EEG at this facility, however EEG would not likely address change clerk as there are no further additional options for treatment from neurology at . 2. Seizure disorder, chronic, present on admission-well controlled -on 12/12 had two episodes of seizures one that self resolved after a few seconds and the second a complex partial seizure where he stared ahead, eyes rolled back, could not move his right side of the body, this is all consistent with seizure focus on left side of brain which contains large old stroke, he has not had tonic clonic seizure here. He had another episode evening on 12/15/20. -likely had seizure from combination of depakote dose, uti, and possible medication, or combination of the three, per his neurologist patient is extremely prone to epileptic activity. -patient depakote level 129, per neurologist, do not follow level to titrate dose, only titrate depakote based on clinical evidence of toxicity -continue patient's 1000 mg of Depakote b.i.d. Vimpat 200mg BID, Zonisamide 300mg QHS if able to tolerate oral intake. -patient placed on seizure precautions, bed side swallow, aspiration precautions, fall precautions -per his neurologist at [facility] recommend adding carbamazepine 100mg BID, increase weekly by 100mg BID to 400mg BID, monitor for rash and hyponatremia, has interaction with apixaban to lower apixaban efficacy -per neurology at careful with benzos in setting of complex partial seizure, and could consider letting patient break on own if it is clear seizure is NOT tonic clonic. However patient developed heart block after initiation. Will hold on further uptitration at this time as he appears to be somewhat improving. No seizure activity since 12/12. -have discussed with that patient will likely continue to decline given large size of old storke, and concurrent history of encephalitis and parkinsons, and that with age likely will continue to have poorer brain function. - is interested in hospice consultation. Plan for discharge home with hospice. Likely in a few days. Plan for current medications with sublingual ativan at home for seizure activity. 3. Parkinson's, acute on chronic, exacerbation, present on admission -continue patient's carbidopa-levodopa if able 4. History CVA 2010 and ischemic stroke middle central artery May 12, 2020 with seizures, chronic, essential hypertension with left systolic heart failure, ejection fraction< 40%, acute on chronic, present on admission, and diabetes type 2 (diet controlled), chronic, present on admission, induced hyperlipidemia, chronic, present on admission as evidence by history of acute venous embolism and thrombolysis DVT 2013. -continue patients apixaban, atorvastatin 5. 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 q.h.s. 4. Hypertension essential, acute on chronic, present on admission Patient's current BP on admit: 148/69 -continue patient's Lasix 5. Hypothyroidism, acquired, chronic, present on admission control unknown -continue patient's levothyroxine 6. Obesity, as evidence by a BMI of 34.9 down from 35.1, acute on chronic, present on admission -recommended dietary and lifestyle changes with PCP follow-up 7. History of VTE -on apixaban 8. Heart block - patient had 7 non-conducted beats on telemetry monitoring after initiation of new seizure medication. This has not recurred since. Family not wanting pacemaker placement after discussion. - avoid further increases in carbamazepine at this time. Code status: DNR Surrogate decision maker: Patient's is MCKAY [facility] PCR: Negative VTE/DVT prophylaxis: patient's apixaban 5 mg b.i.d., and SCDs Dispo: plan for discharge home with hospice, timing likely in the next few days.
[2020-12-16] MEDS: CARBIDOPA LEVODOPA 3 EACH PO ×2 (14:19→20:28)
[2020-12-16] MEDS: FINASTERIDE 5 MG TABLET PO (16:37)
[2020-12-16] MEDS: SENNOSIDES 8.6 MG TABLET 17.2 MG PO (20:28)
[2020-12-16] MEDS: ZONISAMIDE 100 MG CAPSULE 300 MG PO (20:28)
[2020-12-16] MEDS: ATORVASTATIN 20 MG TABLET 40 MG PO (20:28)
[2020-12-16] MEDS: valACYclovir 500 MG TABLET PO (20:28)
[2020-12-16] MEDS: PANTOPRAZOLE 40 MG VIAL IV (20:29)
[2020-12-16] MEDS: DIVALPROEX 125 MG CAP 1000 MG PO (21:42)
[2020-12-17] VITALS (16 sets, daily range): BP systolic 128–147; BP diastolic 72–88; PULSE 73–83; RESP 14–19; TEMP 35.8–36.6; O2SAT 93–97
[2020-12-17] MEDS: LEVOTHYROXINE 125 MCG TABLET PO (07:02)
[2020-12-17] MEDS: APIXABAN 5 MG TABLET PO ×2 (08:23→21:20)
[2020-12-17] MEDS: polyethylene glycoL 3350 17 GM POWD.PACK PO (08:23)
[2020-12-17] MEDS: carBAMazepine 200 MG TABLET 50 MG PO ×4 (08:23→21:20)
[2020-12-17] MEDS: CARBIDOPA LEVODOPA 4 EACH PO (08:24)
[2020-12-17] MEDS: SODIUM CHLORIDE 0.9% FLUSH 10 ML IV ×2 (08:26→21:23)
--- NOTE | 2020-12-17 10:29 | ST.IPDYTX ---
Visit Care Team Role Provider Type Pj Sky MD Primary Care Provider Physician Specialty: Internal Medicine Address: [address] [place] [address], [address], [place], [address] Email: [email or web address] Roni Acuña DO Emergency Provider Physician Specialty: Emergency Medicine Address: [address] [place] [address], [id number] Email: [email or web address] Crista Farfan [facility] Admit Provider Physician Attending Provider Specialty: Medical Address: [address] [place] [address], [id number] Email: BARREL DRUM CUTTER Dysphagia Treatment BARREL DRUM CUTTER Dysphagia Treatment Start: 12/14/20 14:37 Freq: Status: Active Protocol: Document 12/17/20 10:01 KENDY (Rec: 12/17/20 10:28 KENDY [id number]) Dysphagia Treatment Session Time Visit Start Time 09:00 Visit Stop Time 09:55 Total Visit Minutes 55 Setting Assessment Location Acute Care Visit Type Note Type Treatment Note Next Note Type Next Note Type Treatment Note Patient Information Identification Type Name,ID Card Subjective Observations The pt was sitting up in bed awake with breakfast tray and at bedside. Per NSG and spouse reports, the pt is consuming little food and exhibiting significantly delayed or absent swallow trigger. Consumption of pills took a very long time this morning, though the pt did eventually swallow them. The pt was initially somnolent but awakened with oral swabbing and attempted administration of varied substances, temperatures and flavors. Treatment Liquids Trialed Thin Solids Trialed Puree Administration Type Straw,Dependent Feeding Oral Strategies Upright at 90 degrees, Controlled Bite/Sip Size, Dementia Strategies Pharyngeal Strategies Sitting Upright (90 deg),Small Bites and Sips Additional Dysphagia Treatment Model oral movements as Strategies necessary; breaks between to reduce perseveration Treatment Activities Oral stimulation to promote swallow trigger was administered with wet swab and frozen lemon glycerin swab, as well as tsp bites of oatmeal and pudding. Pt unable to perform volitional swallow , and swallow reflex was not triggered with all trials. Following oral swabbing in which the pt was allowed to chew the swab, he then perseverated on chewing, which interfered with ability to consume boluses from straw, cup or spoon, as the pt attempted to chew each utensil . Pt required a change in activity and conversation for >5 min to break perseverative cycle. With trials of oatmeal and pudding, the pt performed mashing/munching mastication. Facial expressions communicated a dislike of both substance, and given the option to expel boluses, the pt did so by effectively spitting into a cup. He was encouraged to sip water after to clear the oral cavity but was unable to draw liquid into mouth either by straw or cup, instead blowing out. BARREL DRUM CUTTER cleaned the oral cavity with a wet swab to eliminate residue . During oral swabbing the pt exhibited occasion gag reflex; the pt is known to have a hx of hypersensitive gag. Education was provided to pt/ spouse RE oral hygiene and oral intake at home, including strategies to promote swallow reflex, how to manage perseveration and gag reflex, safe textures, and signs that the pt needs a break. The pt's asked good questions, all of which were answered. Communication: The pt was minimally communicative with yes/no responses and occasional short phrases (I swallowed), demonstrating at least a basic functional level of auditory comprehension and expressive language skills. Ability to follow oral commands was limited. Pt was moderately responsive to demonstration and modeling (e. g., opening and closing of mouth). Assessment Patient Response to Treatment Fair Rehab Potential Fair Assessment of Improvement No overt s/sx of aspiration were observed throughout the session, despite no obvious swallow trigger. The pt is consuming small amounts of food/liquid and exhibiting significantly delayed or absent swallow reflex. He continues with profound aphasia that limits his ability communicate expressively or receptively with multiple-step commands and anything greater than simple egocentric topics. Diet Recommendations Recommendations Downgrade Diet Order Liquids Order Thin Diet Order Dysphagia Mechanical Medication Recommendations Crushed in Carrier Additional Dietary Needs Chopped Food,1:1 Assistance, Encourage to Self-Feed Aspiration Precautions Recommended Precautions Upright at 90 Degrees,Small Bites/Sips Treatment Plan Placement Recommendation after Discharge Home with Hospice Appropriate for Continued Therapy Yes Therapy Recommendations Ongoing assessment; safe swallow and communication strategies; pt/family education Dysphagia Goals 1. The pt will consume least restrictive diet to meet nutrition and hydration needs. 2. Pt will produce swallow trigger adequate to safely consume solids, liquids, and medication. 3. Family will demonstrate understanding of safe swallow and communication strategies to meet the pt's needs in the home setting with assistance of home health/hospice as needed.
--- NOTE | 2020-12-17 10:45 | PT.IPTN ---
Current Diagnoses Epilepsy, unspecified, not intractable, without status epilepticus (12/12/20) Physical Therapy Treatment Note M2 PT-IP Current Condition Start: 12/11/20 09:20 Freq: NEEDED Status: Active Protocol: Document 12/11/20 10:32 AW (Rec: 12/11/20 12:27 AW [id number]) Physical Therapy Current Condition Current Condition Evaluation Date 12/11/20 Treatment Diagnosis UTI, PD, weakness; difficulty in walking Onset Date 2 weeks Precautions Other Precautions falls M3 PT-IP Subjective Start: 12/11/20 09:20 Freq: NEEDED Status: Active Protocol: Document 12/17/20 10:13 SP (Rec: 12/17/20 11:16 SP [id number]) Subjective Physical Therapy Visit Type Type Treatment Note Visit Start Time 10:13 Visit Stop Time 10:45 Total Visit Minutes 32 Notes Pt's spouse was present for full treatment and provided verbal feedback for awareness of pt's non verbal trunk cuing throughout tx. Vitals taken during tx: seated at EOB BP 135/77, HR 110 initial sitting then elevated to 135bpm after progressed sitting. Physical Therapy Visit Comments Patient Comments Pt is alert and nods consent to treatment. Patient Goals Pt's spouse indicates plan to return home with hospice beginning service on Thursday, hospice coming to evaluate him today. Pt's wondering if needs get a darlyn if wants to give him time out of bed and is aware needs a 2nd person with darlyn transfers only. Therapy Pain Assessment Pain Present Pain Present Denied Pain M4 PT-IP Mobility and Gait Start: 12/11/20 09:20 Freq: NEEDED Status: Active Protocol: Document 12/17/20 10:13 SP (Rec: 12/17/20 11:16 SP [id number]) PT-Bed Mobility Assessment Supine to Sit Supine to Sit Maximum Assistance,Head of Bed Elevated,Bedrails Sit to Supine Sit to Supine Total Assistance,1 Person Assistance,2 Person Assistance Scooting Scooting to Edge of Bed Dependent Scooting Up and Down in Bed Maximum Assistance PT-Transfer Assessment Comments Mobility Comments Elevated approx 80 deg supine> sit and scoot to EOB Max A x1 for trunk righting and support to decrease retro lean Max A x1 initially then decreased to CG and provided pelvis locomotion each side to allow BLE to contact floor while pt used RUE WB on bed and LUE on bed handle with ability to hold trunk up self approx 10 min while STOCKROOM SELECTOR assessed vitals. STOCKROOM SELECTOR called [employer] and nurse to assist pt 3 person sit>supine due to decrease strength and edurance sitting and increase retro lean. Dependent sit> supine and scoot up in bed with bed in trendelenburg positioning. Instructed to assist pt with LE exercises PROM due to pt unable to perform post sitting: heel slides, SLR, ankle pumps, hip abd to assist circulation and mobility. Pt had SCDs donned, call light and all needs in reach before left. in room and stated will be assisting him if needs anything off tray. Gait Assessment Comments Gait Comments unable. PT-Balance Assessment Sitting Balance and Reactions Static Sitting Balance Ability Poor Dynamic Sitting Balance Ability Poor Comments Other Balance Tests/Deviations/Treatment Sitting balance at EOB Mod> : CGA> Min> Mod, pt did periodically reach with RUE out to front trying to reach chair arm, redirected RUE onto bed for safety center trunk alignment. M5 PT-IP Objective Assessments Start: 12/11/20 09:20 Freq: NEEDED Status: Active Protocol: Document 12/11/20 10:32 AW (Rec: 12/11/20 12:37 AW [id number]) Orientation Orientation/Cognition Level of Alertness Confusional State Orientation Name,Place Language Function Ability Expressive Aphasia,Hard of Hearing Safety Awareness Decreased Safety Awareness Memory Description Short Term Impaired,Half-Way Impaired Gross Range of Motion Lower Extremity ROM Assessment Within Functional Limits Strength Lower Extremity Strength Hip 3/5 Knee 3+/5 Muscle Tone Muscle Tone WNL No Comments Muscle Tone Comments Pt has generalized rigidity affecting his mobility M6 PT-IP Treatment Start: 12/11/20 09:20 Freq: NEEDED Status: Active Protocol: Document 12/17/20 10:13 SP (Rec: 12/17/20 11:16 SP [id number]) Physical Therapy Treatment Exercises Exercises Ankle Pumps,Heel Slides, Straight Leg Raises,Supine Hip Abduction Knee ROM Measurement 40 Education Education Provided Safety Other Treatments Other Treatment Performed Instructed PROM with pt BLE to decrease noted extension tone once laying back in bed. Pt unable to perform, no trace contract post sitting. M7 PT-IP Assessment and Plan Start: 12/11/20 09:20 Freq: NEEDED Status: Active Protocol: Document 12/17/20 10:13 SP (Rec: 12/17/20 11:16 SP [id number]) PT Summary Assessment and Plan Potential Rehabilitation Potential Fair Summary Impairments Pain,ROM,Strength,Balance, Coordination,Sensation,Tone, Cognition,Bed Mobility, Transfers,Gait,Activity Tolerance Progress Towards Goals Slow Progress due to Medical Issues,Slow Progress due to Activity Tolerance,Slow Progress - Other Assessment Summary Pt continues to be max to total assist of 1-2 persons for bed mobility and transfers via darlyn only recommending at this time. Spouse reports hospice is set to deliver equipment today and initiate service on Thursday. Goals Bed Mobility Goal Moderate Assistance Transfer Goal Moderate Assistance,Front Wheeled Walker Gait Goal Moderate Assistance,Front Wheel Walker Gait Distance 25 Days to Meet Goals 10 Frequency of Treatment Frequency Of Treatment Once a Day Treatment Plan Physical Therapy Treatment Plan Bed Mobility Training,Transfer Training,Gait Training, Therapeutic Exercise,Balance Retraining,Discharge Planning, Hot or Cold Pack,Neuromuscular Re-ed,Coordination Retraining ,Manual Therapy Other Recommendations and Next Treatment LE/ UE excericises continued Focus instruction with spouse. Darlyn transfer education with spouse if she plans to get for home transfers. Precautions Other Precautions falls; seizure precautions Recommendations To Nursing Amount of Assist Needed Mechanical Lift Discharge Recommendations PT Discharge Recommendations Home with 24/7 Assist Available Other Discharge Recommendations hospice Transportation Needs at Discharge Stretcher/Ambulance
--- NOTE | 2020-12-17 10:47 | CM.DPC ---
DCP Cont: [facility] and confirmed that the nurse will be out at 10:00 am tomorrow to open patient. Equipment is supposed to be there today, confirmed with , for she received a call from [facility]. Completed BLS form, and Elisha, medical assistant per diem in care management is setting up transport with BLS for tomorrow at 0830. Updated , Alexandra, and let her know that there could be a charge for transportation, she is aware. P: DCP to continue to follow. Plan is for discharge, nut picker time 0830 for home. Equipment will arrive today, and updated hospitalist, Dr. Farfan, about starting comfort meds on board. Cherie Coates RN/Manager User Experience
--- NOTE | 2020-12-17 10:49 | CM.DPNOTE ---
Called and spoke to Xiomy at Ambulance for BLS transport at [facility]'s request for 830 on 12/17/20 to Pt[address] residence. Xiomy said someone will be here between 0815 and 0830. I relayed this information to Viki. Elisha Jose CM Asst.
--- NOTE | 2020-12-17 13:36 | OT.IPNOTE ---
Able to talk to pt's regarding OT needs and encouraged her to take time for herself. NO charge. Nursing aid going over hygiene and care needs for the pt in bed. Pt to be discharged home with hospice tomorrow.
--- NOTE | 2020-12-17 14:36 | PM.PN.1 ---
Subjective Subjective Date Patient Seen: 12/17/20 Time Patient Seen: 14:36 Interval history: Patient unable to participate in subjective exam, sleeping most of today but did take his oral medications. Plan is currently home with hospice tomorrow. No new seizure activity overnight. Exam Vital Signs (past 8 hours): - 12/17/20 08:00 12/17/20 08:10 12/17/20 09:08 Temperature Pulse Rate 75 Respiratory Rate 15 Blood Pressure 128/77 Pulse Oximetry 96 96 96 12/17/20 11:05 12/17/20 11:44 12/17/20 12:00 Temperature 97.8 F Pulse Rate 80 Respiratory Rate 14 Blood Pressure 135/72 Pulse Oximetry 97 97 97 Oxygen Delivery Method Room Air Oxygen Flow Rate 0 Narrative Exam Narrative: General: no acute distress HEENT: masked facial expression, mucous membranes are moist. Lungs: clear bilaterally with no wheezes, rhonchi, rales Cardio: S1 & S2 with regular rate and rhythm without murmur Abdomen: Soft nontender, nondistended, no organomegaly Musculoskeletal: normal strength bilaterally Skin: Warm dry and intact without rashes, ulcerations or petechiae. Neuro: alert when awake, follows simple commands. L sided hemiparesis, L facial droop. severe aphasia. Psych: unable to assess. Objective Labs Result Diagrams: 12/16/20 04:52 12/16/20 04:52 [facility] Medical History (Updated 12/11/20 @ 05:[address] 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 Diverticulosis large intestine w/o perforation or abscess w/o bleeding (12/12/10) Encephalitis due to human herpes simplex virus (HSV) Hearing loss Hemorrhoids that prolapse with straining and require manual replacement back inside anal canal Herpes (~1979) Ischemic stroke Measles Mumps Rubella Seizures Seizures Sleep apnea Vision disorder Surgical History Anesthesia History of appendectomy History of hemorrhoidectomy History of nasal surgery No pertinent past surgical history Family History Brother Kidney disease Brother Aneurysm Mother Alzheimer's dementia Father Cancer Social History marital status: household members: spouse lives independently: Yes Smoking Status: Never smoker alcohol intake: former substance use type: does not use Assessment & Plan Assessment & Plan narrative: Mr. Rodrigues was admitted with increasing weakness and confusion found to have a UTI. He has a history of herpetic/autoimmune encephalitis 2015, CVA 2010, venous embolus and thrombosis DVT 2013, Parkinson's, ischemic stroke-middle cerebral artery 05/12/20 at [facility], multiple TIAs, epilepsy, hypertension, hyperlipidemia, diet-controlled diabetes mellitus, hypothyroidism, and obesity. Now with progression of encephalopathy, likely multifactorial in etiology with worsening possible seizure disorder and/or parkinson's disease. 1. Acute Encephalopathy with history of Parkinson's dementia/stroke/TIAs -patient has positive UA nitrate positive, leuk esterase 2+, bacteria, and WBCs, with urine culture showing staphi epi cfu>100,000, e. coli <10,000 -however patient also has no urinary symptoms, no white count, no fever, and normal procalcitonin -urine from 11/16 with a low CFU at 20-30k with E.coli with no symptoms at that time, no white count, consistent with asymptomatic bactiuria and not diagnostic of UTI, UA at that time showed minimal pyuria, which is clearly not the cause of his infection currently as a different organism has grown in his urine -ceftriaxone 1gm daily initially started, switched to cefazolin based on cultures, avoiding fluoroquinolone as can affect seizure threshold. Last day of antibiotics will be today, 12/16/20 -PT, OT following. -have strong suspiscion that much of patient's mental status issues remain his poor baseline brain functioning with clear evidence of encephalomalacia and gliosis and advanced cerebral volume loss and chronic ischemic changes with additional history of parkinsons, seizure disorder, and prior strokes. 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 -After multiple days of observation and a few small recurrent seizures, suspect related to chronic seizure activity with post-ictal state which lasts about 24 hours. 2. Seizure disorder, chronic, present on admission-well controlled -on 12/12 had two episodes of seizures one that self resolved after a few seconds and the second a complex partial seizure where he stared ahead, eyes rolled back, could not move his right side of the body, this is all consistent with seizure focus on left side of brain which contains large old stroke, he has not had tonic clonic seizure here. He had another episode evening on 12/15/20. -likely had seizure from combination of depakote dose, uti, and possible medication, or combination of the three, per his neurologist patient is extremely prone to epileptic activity. -patient depakote level 129, per neurologist, do not follow level to titrate dose, only titrate depakote based on clinical evidence of toxicity -continue patient's 1000 mg of Depakote b.i.d. Vimpat 200mg BID, Zonisamide 300mg QHS if able to tolerate oral intake. -patient placed on seizure precautions, bed side swallow, aspiration precautions, fall precautions -per his neurologist at [facility] recommend adding carbamazepine 100mg BID, increase weekly by 100mg BID to 400mg BID, monitor for rash and hyponatremia, has interaction with apixaban to lower apixaban efficacy. However as noted below unable to increase this after heart block noted on telemetry. -per neurology at careful with benzos in setting of complex partial seizure, and could consider letting patient break on own if it is clear seizure is NOT tonic clonic. However patient developed heart block after initiation. Will hold on further uptitration at this time as he appears to be somewhat improving. No seizure activity since 12/12. -have discussed with that patient will likely continue to decline given large size of old storke, and concurrent history of encephalitis and parkinsons, and that with age likely will continue to have poorer brain function. - is planning for hospice on discharge. 3. Parkinson's, acute on chronic, exacerbation, present on admission -continue patient's carbidopa-levodopa if able 4. History CVA 2010 and ischemic stroke middle central artery May 12, 2020 with seizures, chronic, essential hypertension with left systolic heart failure, ejection fraction< 40%, acute on chronic, present on admission, and diabetes type 2 (diet controlled), chronic, present on admission, induced hyperlipidemia, chronic, present on admission as evidence by history of acute venous embolism and thrombolysis DVT 2013. -continue patients apixaban, atorvastatin 5. 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 q.h.s. 4. Hypertension essential, acute on chronic, present on admission Patient's current BP on admit: 148/69 -continue patient's Lasix 5. Hypothyroidism, acquired, chronic, present on admission control unknown -continue patient's levothyroxine 6. Obesity, as evidence by a BMI of 34.9 down from 35.1, acute on chronic, present on admission -recommended dietary and lifestyle changes with PCP follow-up 7. History of VTE -on apixaban 8. Heart block - patient had 7 non-conducted beats on telemetry monitoring after initiation of new seizure medication. This has not recurred since. Family not wanting pacemaker placement after discussion. - avoid further increases in carbamazepine at this time. Code status: DNR Surrogate decision maker: Patient's is MCAKY ELLSWORTH PCR: Negative VTE/DVT prophylaxis: patient's apixaban 5 mg b.i.d., and SCDs Dispo: plan for discharge home with hospice, tomorrow. Quality MIPS - Admit I confirm the patient?s Advance Care Plan is present, Code status is documented, Surrogate decision maker is in patient?s record [If Yes, STOP here]: Yes
--- NOTE | 2020-12-17 15:28 | PC.NURSE ---
Patient has aphasia but is able to say yes or no to some questions. Denies pain. Requires encouragement and redirection to swallow his food, pills are crushed and given in apple sauce. He was unable to take some of his medication this shift due to his dysphasia. Darlyn lift with two person assist in bed. Total assist for ADLs. at bedside most of shift. Call light wihtin reach, bed low.
[2020-12-17] MEDS: FINASTERIDE 5 MG TABLET PO (17:42)
[2020-12-17] MEDS: valACYclovir 500 MG TABLET PO (21:20)
[2020-12-17] MEDS: ZONISAMIDE 100 MG CAPSULE 300 MG PO (21:20)
[2020-12-17] MEDS: ATORVASTATIN 20 MG TABLET 40 MG PO (21:20)
[2020-12-17] MEDS: DIVALPROEX 125 MG CAP 1000 MG PO (21:21)
[2020-12-17] MEDS: SENNOSIDES 8.6 MG TABLET 17.2 MG PO (21:22)
[2020-12-17] MEDS: CARBIDOPA LEVODOPA 3 EACH PO (21:22)
[2020-12-17] MEDS: PANTOPRAZOLE 40 MG VIAL IV (21:22)
[2020-12-18 01:00] VITALS: O2SAT 96
[2020-12-18 04:20] VITALS: BP 140/70; PULSE 74; RESP 16; TEMP 36.4; O2SAT 96
[2020-12-18 05:00] VITALS: O2SAT 96
[2020-12-18] MEDS: LEVOTHYROXINE 125 MCG TABLET PO (05:37)
--- NOTE | 2020-12-18 07:26 | PM.DS.1 ---
History of Present Illness History of Present Illness Date Patient Seen: 12/18/20 Time Patient Seen: 07:27 Chief complaint: dehydration Narrative: As per MARIE Roman: Patient is a 75-year-old male Alexi Rodrigues who presented to the ED by EMS for increased weakness, nausea, vomiting, and diarrhea. On discharge from the hospital 11/16/2020 patient did have a positive urine culture for E coli, but did not receive antibiotic treatment and was not notified. He has been having increasing generalized weakness, and aphasia at baseline over multiple hospital admits. Patients reports that they are worsened significantly since discharge on 11/16/2020. Patient was admitted for OBS 10/26 & 11/16/2020 for evaluation of TIA stroke R/O,workup-both were negative for stroke, but he did have advanced global cerebral volume loss, labile hypotension, with increasing weakness, decreased mobility, and deteriorating mental status. Atenolol was discontinued in the hospital due to recurrent hypotension. Since discharge, the patient has had ongoing worsening lower extremity weakness, falls, decreased activity, and decreased mentation per Dr. Sky's note 11/20/2020. The patient's reports that approximately 4 days ago the patient experienced a 15-20 minute long episode. In which the patient appeared to to be zoning out and unresponsive with eyes open, followed by garbled speech for an indeterminate amount of time. The patient also fell several days ago at home leaving a large bruise to the anterior right side of neck (patient is on Eliquis). Patient has a history of herpetic/autoimmune encephalitis 2015, CVA 2010, venous embolus and thrombosis DVT 2013, Parkinson's dementia, ischemic stroke-middle cerebral artery 05/12/20-05/16/2020 at [facility], hypertension, hyperlipidemia, diet-controlled diabetes mellitus, hypothyroidism, and obesity. I admitted the patient in August and in October of 2020, and the patient has had continued worsening clinical features of neurodegeneration. I have spoken with the patient's at length on prior admits in regards to his decline and disease progression that I have observed, in an attempt to provide further spousal support, realistic expectations, and education. The patient's has the expectation that he will return to a pre-stroke baseline from May 2020. She believes that his current urinary tract infection, is the most recent cause of his decline. The patient's verbalized that she has very upset that his positive urine culture was missed, and he was not treated. She requests a chart review, and to be contacted with the results. I did attempt to provide reassurance to the patient's that, the infection remains in the bladder, that he is not septic, displays no s/s of sepsis, vital signs/patient are stable, and his labs are normal, with the exception of his urine. Patient's vitals upon admit are stable with a temp of 97.9?, BP 148/69, HR 73, R 16, O2 saturation 94% on room air. Patient's CBC is unremarkable with no increase in wbc's, though noted slightly decreased MCV 105.5, platelets 91. Patient's chemistry is predominantly unremarkable as well, with the exception of glucose 160. Patient's troponin is negative. Patient's chest x-ray notes improvement in aeration of the lungs from 10/26/2020. Patient's urinalysis positive nitrates, protein +1, ketones trace, leuko esterase 2+, wbc's 30-100, and bacteria moderate. Sent for culture. Patient admitted for OBS complicated UTI versus asymptomatic Cystitis from E coli, due to patient's risk factor of multiple hospitalizations and comorbidities. Discharge Providers Provider Date of admission: 12/12/20 14:37 Discharge Date: 12/18/20 Primary care physician: Pj Sky MD Consults: 12/10/20 21:37 Consult to Physical Therapy Evaluate & Treat Comment: parkisons, weakness Physician Instructions: Evaluate and Treat 12/11/20 05:19 Consult to [facility] - Full Stack Software Engineer Routine Comment: ortega benefit from Parkinsons support services [facility] Consult: Community Health Res Need 12/11/20 12:33 Consult to Occupational Therapy Evaluate & Treat Comment: Physician Instructions: Evaluate and treat 12/13/20 22:05 Consult to Pharmacy Routine Comment: docusate avail in suspension? Need 100 mg X tube 12/14/20 10:54 Consult to Speech Therapy Evaluate & Treat Comment: eval for swallow recommendations Physician Instructions: Evaluate and treat Discharge provider: Joshua Farfan DO Summary Hospital Course Discharge Diagnosis: Please see hospital course by problem list noted below. Hospital Course: Mr. Rodrigues was admitted with increasing weakness and confusion found to have a UTI. He has a history of herpetic/autoimmune encephalitis 2015, CVA 2010, venous embolus and thrombosis DVT 2013, Parkinson's, ischemic stroke-middle cerebral artery 05/12/20 at [facility], multiple TIAs, epilepsy, hypertension, hyperlipidemia, diet-controlled diabetes mellitus, hypothyroidism, and obesity. Now with progression of encephalopathy, likely multifactorial in etiology with worsening possible seizure disorder and/or parkinson's disease. 1. Acute Encephalopathy with history of Parkinson's dementia/stroke/TIAs -patient had positive UA nitrate positive, leuk esterase 2+, bacteria, and WBCs, with urine culture showing staphi epi cfu>100,000, e. coli <10,000 on admission. -however patient also has no urinary symptoms, no white count, no fever, and normal procalcitonin -urine from 11/16 with a low CFU at 20-30k with E.coli with no symptoms at that time, no white count, consistent with asymptomatic bactiuria and not diagnostic of UTI, UA at that time showed minimal pyuria, which is clearly not the cause of his infection currently as a different organism has grown in his urine -ceftriaxone 1gm daily initially started, switched to cefazolin based on cultures, avoiding fluoroquinolone as can affect seizure threshold. Completed antibiotic therapy while in the hospital on 12/16/20. -PT, OT evaluations were appreciated. -have strong suspiscion that much of patient's mental status issues remain his poor baseline brain functioning with clear evidence of encephalomalacia and gliosis and advanced cerebral volume loss and chronic ischemic changes with additional history of parkinsons, seizure disorder, and prior strokes. 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 -After multiple days of observation and a few small recurrent seizures, suspect encephalopathy and lethargy is partially related to chronic seizure activity with post-ictal states. 2. Seizure disorder, chronic, present on admission-well controlled -on 12/12 had two episodes of seizures one that self resolved after a few seconds and the second a complex partial seizure where he stared ahead, eyes rolled back, could not move his right side of the body, this is all consistent with seizure focus on left side of brain which contains large old stroke, he has not had tonic clonic seizure here. He had another episode evening on 12/15/20. -likely had seizure from combination of depakote dose, uti, and possible medication, or combination of the three, per his neurologist patient is extremely prone to epileptic activity. -patient depakote level 129, per neurologist, do not follow level to titrate dose, only titrate depakote based on clinical evidence of toxicity -continue patient's 1000 mg of Depakote b.i.d. Vimpat 200mg BID, Zonisamide 300mg QHS if able to tolerate oral intake. -per his neurologist at [facility] recommend adding carbamazepine 100mg BID, increase weekly by 100mg BID to 400mg BID, monitor for rash and hyponatremia, has interaction with apixaban to lower apixaban efficacy. However as noted below unable to increase this after heart block noted on telemetry. -per neurology at careful with benzos in setting of complex partial seizure, and could consider letting patient break on own if it is clear seizure is NOT tonic clonic. However patient developed heart block after initiation. Will hold on further uptitration at this time as he appears to be somewhat improving. No seizure activity since 12/12. -have discussed with that patient will likely continue to decline given large size of old storke, and concurrent history of encephalitis and parkinsons, and that with age likely will continue to have poorer brain function. - was wishing for discharge home on hospice. Lorazepam intensol also prescribed for possible seizure activity while at home. 3. Parkinson's, acute on chronic, exacerbation, present on admission -continue patient's carbidopa-levodopa if able to tolerate oral intake. 4. History CVA 2010 and ischemic stroke middle central artery May 12, 2020 with seizures, chronic, essential hypertension with left systolic heart failure, ejection fraction< 40%, acute on chronic, present on admission, and diabetes type 2 (diet controlled), chronic, present on admission, induced hyperlipidemia, chronic, present on admission as evidence by history of acute venous embolism and thrombolysis DVT 2013. -continue patients apixaban, atorvastatin 5. 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 4. Hypertension essential, acute on chronic, present on admission - continue patient's home medications 5. Hypothyroidism, acquired, chronic, present on admission control unknown -continue patient's levothyroxine 6. Obesity, as evidence by a BMI of 34.9 down from 35.1, acute on chronic, present on admission -no further interventions given discharge on hospice. Obesity contributes toward patient's risk of infection and complications from underlying chronic neurological issues noted above. 7. History of VTE -on apixaban, can continue. Recommend discussion with hospice / PCP regarding which medications to continue at home. 8. Heart block, improved - patient had 7 non-conducted beats on telemetry monitoring after initiation of new seizure medication. This did not recur after. Family not wanting pacemaker placement after discussion. - avoid further increases in carbamazepine at this time. Code status: DNR Surrogate decision maker: Patient's is MCKAY Fonseca Dispo: discharged home with hospice. Time Spent with Patient Time spent: Greater than 30 minutes Exam Vital Signs (past 8 hours): - 12/17/20 23:50 12/18/20 01:00 12/18/20 04:20 Temperature 97.4 F L 97.6 F Pulse Rate 73 74 Respiratory Rate 16 16 Blood Pressure 147/79 H 140/70 Pulse Oximetry 96 96 96 12/18/20 05:00 Temperature Pulse Rate Respiratory Rate Blood Pressure Pulse Oximetry 96 Oxygen Delivery Method Room Air Oxygen Flow Rate 0 Narrative Exam Narrative: General: no acute distress HEENT: masked facial expression, mucous membranes are moist. Lungs: clear bilaterally with no wheezes, rhonchi, rales Cardio: S1 & S2 with regular rate and rhythm without murmur Abdomen: Soft nontender, nondistended, no organomegaly Musculoskeletal: normal strength bilaterally Skin: Warm dry and intact without rashes, ulcerations or petechiae. Neuro: alert when awake, follows simple commands. L sided hemiparesis, L facial droop. severe aphasia. Psych: unable to assess. 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 Diverticulosis large intestine w/o perforation or abscess w/o bleeding (12/12/10) Encephalitis due to human herpes simplex virus (HSV) Hearing loss Hemorrhoids that prolapse with straining and require manual replacement back inside anal canal Herpes (~1979) Ischemic stroke Measles Mumps Rubella Seizures Seizures Sleep apnea Vision disorder Surgical History Anesthesia History of appendectomy History of hemorrhoidectomy History of nasal surgery No pertinent past surgical history Family History Brother Kidney disease Brother Aneurysm Mother Alzheimer's dementia Father Cancer Social History marital status: household members: spouse lives independently: Yes Smoking Status: Never smoker alcohol intake: former substance use type: does not use Discharge Plan Discharge Plan Patient Disposition: Hospice - Home Provider Discharge Comment: You were admitted to the hospital with worsening seizures. Medications were increased but cannot be increased any more at this time. Should there be additional seizure activity, use the diazepam at home for comfort. You can also reach out to his neurologist group for further recommendations. Discharge orders & Medications Prescriptions: New doxycycline monohydrate 100 mg tablet 100 mg PO BID Qty: 8 RF: 0 carbamazepine 100 mg capsule, ER multiphase 12 hr 100 mg PO BID 30 Days Qty: 60 RF: 0 diazepam 5 mg/mL concentrate 5 mg PO BID-TID PRN (Reason: muscle spasm, seizure) 30 Days Qty: 30 RF: 0 Continued divalproex 500 mg tablet,delayed release (DR/EC) 1,000 mg PO BID RF: 0 cyanocobalamin (vitamin B-12) 1,000 mcg capsule 2,000 mcg PO DAILY RF: 0 atorvastatin 40 mg tablet See Rx Instructions .ROUTE .COMPLEX Qty: 90 RF: 0 Eliquis 5 mg tablet 5 mg PO BID RF: 0 zonisamide 100 mg capsule 300 mg PO BEDTIME RF: 0 docusate sodium [Colace] 100 mg Capsule 100 mg PO QAM PRN (Reason: Constipation) RF: 0 Vimpat 200 mg tablet 200 mg PO BID RF: 0 Rytary 36.25-145 mg Capsule, Extended Release 4 cap PO QAM RF: 0 valacyclovir 500 mg tablet 500 mg PO BEDTIME RF: 0 pantoprazole 40 mg tablet,delayed release (DR/EC) 40 mg PO BEDTIME RF: 0 levothyroxine 125 mcg tablet 125 mcg PO QAM RF: 0 furosemide [Lasix] 20 mg tablet 20 mg PO QAM PRN (Reason: Edema) RF: 0 finasteride 5 mg tablet 5 mg PO QPM RF: 0 Rytary 36.25-145 mg Capsule, Extended Release 3 cap PO BID RF: 0 Discontinued Rytary 36.25-145 mg capsule, extended release 3 cap PO BID RF: 0 Follow up/Referrals: Pj Sky MD [Primary Care Provider] - Diet/Activity/Treatments Diet: Diet as Tolerated Activity: As tolerated Visit Report/Discharge Packet Instructions: DI for Seizure Disorder -- Adult, DI for Urinary Tract Infection (UTI) Discharge Data Primary Care Provider: Pj Sky
[2020-12-18 08:00] VITALS: BP 141/69; PULSE 73; RESP 18; TEMP 36.1; O2SAT 96
[2020-12-18] MEDS: APIXABAN 5 MG TABLET PO (08:25)
[2020-12-18] MEDS: DIVALPROEX 125 MG CAP 1000 MG PO (08:25)
[2020-12-18] MEDS: carBAMazepine 200 MG TABLET 50 MG PO (08:25)
[2020-12-18] MEDS: DOCUSATE 100 MG CAPSULE PO (08:25)
[2020-12-18] MEDS: polyethylene glycoL 3350 17 GM POWD.PACK PO (08:26)
[2020-12-18] MEDS: CARBIDOPA LEVODOPA 4 EACH PO (08:27)
--- NOTE | 2020-12-18 10:24 | CM.DPC ---
DCP Cont: Patient is to be discharged home today. BLS arrived to pickers material handlers patient, updated nurse, Alexandra, as well. BLS paperwork was completed, at bedside. [facility] and medication was sent over to [facility], and script for Oxycodone will take over. All equipment was sent over yesterday, hospital bed. P: [facility] was [facility] with [facility] , via BLS. DC Summary and med list was faxed [facility] . Cherie Coates RN/Table Worker Packager
--- NOTE | 2020-12-18 11:39 | PC.NURSE ---
Spouse here at time of d/c to home. Reviewed discharge packet, reviewed medications and times they are next due. Pt has a complicated med regime. Questions answered to her satisfaction. Pt's equipment is at home. Hospice will be seeing her and pt today. BLS crew here to pick pt up, report given to them. Pt transfered to their strecher w/out incident. Pt d/c to home via amb, following in auto.
== END 2020-12-18 08:50 | disposition hospice, home (50) | DRG 57 ==
LOC: ED 18:04 → AC 21:17
PROVIDERS: Emergency Medicine; Internal Medicine; Admitting Provider Nurse Practitioner Family; Emergency Provider Emergency Medicine; PCP Student in an Organized Health Care Education/Training Program; Visit Provider Nurse Practitioner Family
DX: I69.398 Other sequelae of cerebral infarction (principal); G40.209 Localization-related (focal) (partial) symptomatic epilepsy and epileptic syndromes with complex partial seizures, not intractable, without status epilepticus; B02.0 Zoster encephalitis; R47.01 Aphasia; G93.49 Other encephalopathy; G20 Parkinson's disease; F02.80 Dementia in other diseases classified elsewhere, unspecified severity, without behavioral disturbance, psychotic disturbance, mood disturbance, and anxiety; I10 Essential (primary) hypertension; E03.9 Hypothyroidism, unspecified; I45.9 Conduction disorder, unspecified; E66.9 Obesity, unspecified; G93.89 Other specified disorders of brain; E11.9 Type 2 diabetes mellitus without complications; I49.9 Cardiac arrhythmia, unspecified; T42.1X5A Adverse effect of iminostilbenes, initial encounter; R82.71 Bacteriuria; Z68.33 Body mass index [BMI] 33.0-33.9, adult; Z20.822 Contact with and (suspected) exposure to COVID-19
CPT/HCPCS: 36415; 36592; 70450; 70551; 71045; 74018; 80048; 80053; 80164; 81001; 82550; 83690; 83735; 84145; 84443; 84484; 85025; 85027; 87077; 87086; 87186; 87635; 92526; 92610; 93005; 94760; 96365; 97163; 97166; 97530; 97535; 99284; C9803; G0378; C9113; J0690; J0696; J1953; J2060